=== PATIENT | male | born 1975 | race Two or more races ===

== ENCOUNTER 2020-02-15 11:06 | Outpatient (REF) | payer MEDICAID, SELFPAY ==
[2020-02-15 13:00] LABS: Hematocrit 45.2 % (42-52); Hemoglobin 14.8 g/dl (14.0-18.0); Mean Corpuscular HGB Conc 32.7 g/dl (31.0-36.0); Mean Corpuscular Hemoglobin 29.2 pg (27.0-33.0); Mean Corpuscular Volume 89.2 fL (80-98); Mean Platelet Volume 12.3 fL (9.4-12.4); Platelet Count 155 X10*3/uL (160-400); Red Blood Count 5.07 X10*6/uL (4.60-5.80); Red Cell Distribution Width 11.6 % (11.0-16.0); White Blood Count 8.3 X10*3/uL (4.8-10.8)
[2020-02-15 13:07] LABS: Estimated Average Glucose 183 mg/dL
[2020-02-15 13:26] LABS: Alanine Aminotransferase 24 U/L (0-40); Albumin Level 4.1 g/dL (3.5-5.0); Alkaline Phosphatase 91 U/L (39-117); Anion Gap 12 (12-20); Aspartate Amino Transferase 13 U/L (5-37); Bilirubin Total 0.5 mg/dL (0.0-1.0); Blood Urea Nitrogen 15 mg/dL (9-16); Calcium 8.7 mg/dL (8.4-10.2); Carbon Dioxide 27 mmol/L (22-29); Chloride 105 mmol/L (96-108); Cholesterol 122 mg/dL; Estimated Glomerular Filt Rate > 60; Glucose Fasting 154 mg/dL (60-99); HDL Cholesterol 39 mg/dL; Iron 66 mcg/dL (45-160); LDL Cholesterol Calculated 69 mg/dl; Percent Iron Saturation 24 % (15-50); Potassium 4.6 mmol/l (3.3-5.1); Sodium 139 mmol/L (135-145); Total Iron Binding Capacity 273 mcg/dL (228-428); Total Protein 6.9 g/dL (6.5-8.0); Triglycerides 74 mg/dL; Unsaturated Iron Binding 207 ug/dL
[2020-02-15 13:32] LABS: Creatinine Urine 243.38 mg/dL; Microalbum/Creatinine Ratio Ur 6.1 ug/mg cr
[2020-02-15 13:48] LABS: Ferritin 210 ng/mL (20-250); TSH reflex Free T4 1.34 mIU/mL (0.32-4.0); Vitamin D 25-OH Total 22.4 ng/mL (>30)
[2020-02-15 13:57] LABS: Folate 13.4 ng/mL (> or = 4.0); Vitamin B12 629 pg/mL (200-900)
[2020-02-18 08:01] LABS: ~HepC Num1 0.14 S/CO (0.00-0.79); ~Hepatitis C Antibody Nonreactive (Nonreactive)
[2020-02-18 08:07] LABS: HBc Num1 0.05 S/CO (0.00-0.79); HBsAGNum1 0.24 S/CO (0.00-0.99); Hepatitis B Core Antibody Nonreactive (Nonreactive); Hepatitis B Surface Antigen Negative (Negative)
[2020-02-18 08:31] LABS: HBS Num1 0.61 mIU/mL (0-7.99); ~Hepatitis B Surface Antibody NONREACTIVE (Nonreactive)
[2020-02-20 07:45] LABS: Hepatitis A Antibody IgG Nonreactive (Nonreactive); ~Hepatitis A Antibody IgG 0.34 S/CO (0.00-0.99)
== END 2020-02-15 11:07 | disposition home or self-care (01) ==
LOC: HO.LAB 11:06
PROVIDERS: PCP Registered Nurse; Visit Provider Registered Nurse
DX: E11.42 Type 2 diabetes mellitus with diabetic polyneuropathy (principal); E11.69 Type 2 diabetes mellitus with other specified complication; I10 Essential (primary) hypertension; Z71.89 Other specified counseling
CPT/HCPCS: 36415; 80053; 80061; 82043; 82306; 82607; 82728; 82746; 83036; 83540; 84443; 85027; 86704; 86706; 86708; 86803; 87340

== ENCOUNTER 2020-03-10 13:50 | Outpatient (REF) | payer MEDICAID, SELFPAY ==
--- NOTE | 2020-03-10 | US_ITS ---
EXAMINATION: US EXTRACRANIAL CAROTID DUPLEX, BILATERAL CLINICAL INFORMATION: Blurred vision COMPARISON: None TECHNIQUE: Real-time ultrasound and Doppler techniques (integrating B-mode 2-D vascular images, Doppler spectral analysis and color-flow Doppler imaging) were utilized to interrogate the extracranial carotid arteries, the vertebral arteries and proximal subclavian arteries bilaterally. The degree of stenosis is determined by criteria similar to NASCET. FINDINGS: Right Side: 1. There is no atherosclerotic plaque seen in the bifurcation/proximal ICA region. 2. The common carotid artery PSV proximally is 110 cm/s and distally 85.6 cm/s. 3. The proximal internal carotid artery velocities are 59.3 cm/s systolic and 25.9 cm/s diastolic. 4. The proximal external carotid artery PSV is 131 cm/s. 5. The vertebral artery shows antegrade flow. 6. The subclavian artery waveforms are normal. Left Side: 1. There is no atherosclerotic plaque seen in the bifurcation/proximal ICA region. 2. The common carotid artery PSV proximally is 99.0 cm/s and distally 62.9 cm/s. 3. The proximal internal carotid artery velocities are 76.8 cm/s systolic and 34.0 cm/s diastolic. 4. The proximal external carotid artery PSV is 118 cm/s. 5. The vertebral artery shows antegrade flow. 6. The subclavian artery waveforms are normal. US/US carotid duplex BI IMPRESSION: 1. RIGHT: Normal right internal carotid artery without atherosclerotic plaque or hemodynamically significant stenosis. 2. LEFT: Normal left internal carotid artery without atherosclerotic plaque or hemodynamically significant stenosis.
== END 2020-03-10 13:51 | disposition home or self-care (01) ==
LOC: HO.HMGCX 13:50
PROVIDERS: Visit Provider Registered Nurse
DX: E11.3392 Type 2 diabetes mellitus with moderate nonproliferative diabetic retinopathy without macular edema, left eye (principal); H35.82 Retinal ischemia
CPT/HCPCS: 93880

== ENCOUNTER → 2020-07-30 13:43 | Outpatient (BNVA) | payer MEDICAID, SELFPAY | PROVIDERS: Visit Provider Urology | DX: Z13.89 Encounter for screening for other disorder (principal) | CPT/HCPCS: 99212 ==

== ENCOUNTER 2020-09-02 13:50 | Outpatient (REF) | payer MEDICAID, SELFPAY ==
--- NOTE | ~2020-09-02 | US_ITS ---
EXAMINATION: ULTRASOUND DEBBIE COMPLETE CLINICAL INFORMATION: Peripheral vascular disease COMPARISON: None TECHNIQUE: Ankle brachial indices and pulse volume recordings were performed. FINDINGS: The ankle brachial indices are normal measuring 1.2 on the right and 1.1 on the left. Pulse volume recording waveforms at the ankles are normal bilaterally. US/US DEBBIE complete IMPRESSION: Normal ankle-brachial indices bilaterally.
== END 2020-09-02 13:51 | disposition home or self-care (01) ==
LOC: HO.US 13:50
PROVIDERS: Visit Provider Nurse Practitioner
DX: I73.9 Peripheral vascular disease, unspecified (principal)
CPT/HCPCS: 93923

== ENCOUNTER → 2020-10-31 12:54 | Outpatient (BNVA) | payer MEDICAID, SELFPAY | PROVIDERS: Visit Provider Urology | DX: N52.01 Erectile dysfunction due to arterial insufficiency (principal) | CPT/HCPCS: 99212 ==

== ENCOUNTER → 2021-02-06 13:09 | Outpatient (BNVA) | payer MEDICAID, SELFPAY | PROVIDERS: Visit Provider Urology ==

== ENCOUNTER → 2021-05-12 15:28 | Outpatient (BNVA) | payer MEDICAID, SELFPAY | PROVIDERS: Visit Provider Urology | DX: E11.69 Type 2 diabetes mellitus with other specified complication (principal); N52.1 Erectile dysfunction due to diseases classified elsewhere | CPT/HCPCS: 99212 ==

== ENCOUNTER → 2021-08-21 12:37 | Outpatient (BNVA) | payer MEDICAID, SELFPAY | PROVIDERS: PCP Nurse Practitioner; Visit Provider Urology | DX: Z13.89 Encounter for screening for other disorder (principal) ==

== ENCOUNTER → 2021-09-02 08:57 | Outpatient (BNVA) | payer MEDICAID, SELFPAY | PROVIDERS: PCP Nurse Practitioner; Visit Provider Nurse Practitioner Family | DX: E11.40 Type 2 diabetes mellitus with diabetic neuropathy, unspecified (principal); M53.3 Sacrococcygeal disorders, not elsewhere classified; M47.816 Spondylosis without myelopathy or radiculopathy, lumbar region; M79.18 Myalgia, other site | CPT/HCPCS: 99202 ==

== ENCOUNTER → 2021-10-07 09:57 | Outpatient (BNVA) | payer MEDICAID, SELFPAY | PROVIDERS: PCP Nurse Practitioner; Visit Provider Nurse Practitioner Family | DX: E11.40 Type 2 diabetes mellitus with diabetic neuropathy, unspecified (principal); M53.3 Sacrococcygeal disorders, not elsewhere classified; M47.816 Spondylosis without myelopathy or radiculopathy, lumbar region; M79.18 Myalgia, other site | CPT/HCPCS: 99212 ==

== ENCOUNTER 2021-10-20 10:00 | Outpatient (RCR) | payer MEDICAID, SELFPAY ==
--- NOTE | 2021-10-16 14:58 | MHC.PT.EP ---
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 Reports LBP for 2 years of insidious onset which has recently worsened with pain radiating down R posterior LE. His symptoms are constant but vary in intensity and worse with carrying groceries, walking > 10min, sitting, sleeping , and descending stairs. Examination shows decreased lumbar AROM, decreased hip/core strength, intact reflexes and sensation (except B feet due to neuropathy), altered SI mechanics, pain, and impaired gait pattern. S/s consistent with lumbar dysfunction. Recommend PT 2x/week for 5 weeks to address impairments, implement HEP, and optimize functional mobility. Frequency and Duration: The patient will be seen 2x/week for 5 weeks Short Term Goals: 3 weeks 1 I with HEP 2. Improve lumbar AROM to 75% throughout to facilitate dressing 3. Demonstrate reciprocal arm swing with gait Tub Chucker Goals: 5 weeks 1. I with HEP and self management of sx 2. Improve hip strength to 4+/5 B to faciliate stairs 3. Pt will be able to ambulate > 20 min with pain < 3/10 Treatment Plan: Modalities to reduce pain, spasms and effusion. Manual therapy to restore motion and function. Therapeutic exercise to improve strength and flexibility. Neuromuscular re-education for posture and balance. Therapeutic activities to return to functional activities of daily living. Electronically signed by: Viry Curtis PT Please sign and return to therapist. Thank you for your referral.
--- NOTE | 2021-11-06 13:38 | MHC.PT.DC ---
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 Electronically signed by: Viry Curtis PT Please sign and return to therapist. Thank you for your referral.
== END 2021-11-06 13:38 | disposition home or self-care (01) ==
LOC: HO.PTCHIC 10:00
PROVIDERS: PCP Nurse Practitioner; Visit Provider Nurse Practitioner Family
DX: M79.18 Myalgia, other site (principal); M53.3 Sacrococcygeal disorders, not elsewhere classified; M47.816 Spondylosis without myelopathy or radiculopathy, lumbar region
CPT/HCPCS: 97110; 97112; 97140; 97161

== ENCOUNTER 2022-02-22 14:19 | Emergency (ER) | payer MEDICAID, SELFPAY ==
--- NOTE | ~2022-02-22 | XR_ITS ---
EXAMINATION: XR CHEST CLINICAL INFORMATION: Chest pain and shortness of breath COMPARISON: None TECHNIQUE: Frontal view of the chest was obtained. FINDINGS: No significant abnormality is noted involving the heart, lungs, mediastinum, bony thorax or soft tissues. XR/XR chest 1V IMPRESSION: Unremarkable examination.
[2022-02-22 15:48] VITALS: BP 144/101; PULSE 122; RESP 20; TEMP 37.1; O2SAT 96; BMI 31.9
--- NOTE | 2022-02-22 15:51 | ED.GENADULT ---
HPI - General Adult General Chief complaint: General Medical <TARA Lopez - Last Filed: 02/22/22 15:54> Stated complaint: Chest pain/nerve pain in feet <TARA Lopez - Last Filed: 02/22/22 15:54> Time Seen by Provider: 02/22/22 20:26 <TARA Lopez - Last Filed: 02/22/22 15:54> Source: patient <Familia Serra MD - Last Filed: 02/22/22 22:51> Mode of arrival: ambulatory <Familia Serra MD - Last Filed: 02/22/22 22:51> Limitations: no limitations <Familia Serra MD - Last Filed: 02/22/22 22:51> History of Present Illness HPI narrative: Patient diabetic, hypertension, diabetic neuropathy usually blood sugar is less than 200 comes here for ongoing neuropathy pain for few months also complaining of chest pain for last 2 weeks almost every days sharp in character lasting only for few seconds today patient did take his insulin or blood pressure medicine no shortness of breath patient does have cough also for last few days with mucoid phlegm chest pain increases with cough <Familia Serra MD - Last Filed: 02/22/22 22:51> Related Data Home medications: Home Medications Medication Instructions Recorded Confirmed atorvastatin 40 mg tablet 40 mg PO DAILY 07/30/20 10/07/21 glipizide 10 mg tablet 10 mg PO DAILY 07/30/20 10/07/21 metformin 1,000 mg tablet 1,000 mg PO DAILY 07/30/20 10/07/21 acetaminophen 300 mg-codeine 30 mg 1 tab PO Q8H PRN 08/21/21 10/07/21 tablet blood sugar diagnostic (FreeStyle #10 ea 08/21/21 10/07/21 Lite Strips) cholecalciferol (vitamin D3) 50 50 mcg PO BID 08/21/21 10/07/21 mcg (2,000 unit) capsule cyanocobalamin (vitamin B-12) 1,000 mcg PO DAILY 08/21/21 10/07/21 1,000 mcg tablet dulaglutide 4.5 mg/0.5 mL mg subcut QWEEK 08/21/21 10/07/21 subcutaneous pen injector (Trulicity) duloxetine 20 mg capsule,delayed 20 mg PO DAILY 08/21/21 10/07/21 release duloxetine 60 mg capsule,delayed 60 mg PO DAILY 08/21/21 10/07/21 release empagliflozin 10 mg tablet 10 mg PO QAM 08/21/21 10/07/21 (Jardiance) hydrochlorothiazide 25 mg tablet 25 mg PO DAILY 08/21/21 10/07/21 lisinopril 40 mg tablet 40 mg PO DAILY blood pressure 08/21/21 10/07/21 pantoprazole 40 mg tablet,delayed 40 mg PO DAILY 08/21/21 10/07/21 release Previous Rx's Medication Instructions Recorded sildenafil 100 mg tablet 100 mg PO DAILY PRN sexual 08/21/21 activity 30 days #30 tabs tadalafil 10 mg tablet 10 mg PO DAILY sexual activity 90 08/21/21 days #90 tabs ibuprofen 400 mg tablet 400 mg PO BID PRN pain 30 days #60 10/07/21 tabs tizanidine 2 mg tablet 4 mg PO BEDTIME PRN muscle 10/07/21 spasticity #60 tabs amoxicillin 875 mg-potassium 1 tab PO BID #20 tabs 02/22/22 clavulanate 125 mg tablet codeine 10 mg-guaifenesin 100 mg/5 10 ml PO Q6H PRN cough #237 mL 02/22/22 mL oral liquid <TARA Lopez - Last Filed: 02/22/22 15:54> Allergies/adverse reactions: Allergies Allergy/AdvReac Type Severity Reaction Status Date / Time No Known Allergies Allergy Verified 02/22/22 15:54 <TARA Lopez - Last Filed: 02/22/22 15:54> Review of Systems Review of Systems: Yes all other systems are reviewed and are negative <Familia Serra MD - Last Filed: 02/22/22 22:51> [facility] Past Medical History Medical History: Medical History Asthma Diabetes mellitus, type II Diabetic polyneuropathy Erectile dysfunction High cholesterol <TARA Lopez - Last Filed: 02/22/22 15:54> Family History Family History: Family History Mother CAD (coronary artery disease) Father Diabetes <TARA Lopez - Last Filed: 02/22/22 15:54> Social History Social History: Social History Household Members: None Housing: House Alcohol intake: current Alcohol intake frequency: a few times a month Patient Tobacco Use Status: Never used Tobacco Smoked in Last 30 Days: No Use of substances other than those prescribed or required for medical reasons: No Advance Directives: No Advance Directives Information Provided: No <TARA Lopez - Last Filed: 02/22/22 15:54> Physical Exam ED Vital Signs: Vital Signs - 24 hr 02/22/22 15:48 02/22/22 19:25 02/22/22 20:38 Temperature 98.8 F 99.5 F 101.8 F H Pulse Rate 122 H 117 H 114 H Respiratory Rate 20 16 19 Blood Pressure 144/101 H 138/89 142/94 H Pulse Oximetry 96 98 94 Oxygen Delivery Method Room Air Room Air Room Air 02/22/22 21:29 02/22/22 22:05 02/22/22 22:07 Temperature 98.7 F 98.7 F Pulse Rate 110 H 111 H 110 H Respiratory Rate 30 H 22 H 22 H Blood Pressure 142/94 H 131/86 131/86 Pulse Oximetry 94 97 Oxygen Delivery Method Room Air BMI result Body Mass Index 31.9 <TARA Lopez - Last Filed: 02/22/22 15:54> Vital Signs - 24 hr 02/22/22 15:48 02/22/22 19:25 02/22/22 20:38 Temperature 98.8 F 99.5 F 101.8 F H Pulse Rate 122 H 117 H 114 H Respiratory Rate 20 16 19 Blood Pressure 144/101 H 138/89 142/94 H Pulse Oximetry 96 98 94 Oxygen Delivery Method Room Air Room Air Room Air 02/22/22 21:29 02/22/22 22:05 02/22/22 22:07 Temperature 98.7 F 98.7 F Pulse Rate 110 H 111 H 110 H Respiratory Rate 30 H 22 H 22 H Blood Pressure 142/94 H 131/86 131/86 Pulse Oximetry 94 97 Oxygen Delivery Method Room Air BMI result Body Mass Index 31.9 <Familia Serra MD - Last Filed: 02/22/22 22:51> Appearance: Alert. Oriented X3. No acute distress. Eyes: PERRLA, No Nystagmus ENT: Pharynx normal. Oral Mucosa moist Neck: Normal inspection. Neck supple. CVS: Normal heart rate and rhythm. Pulses normal. Respiratory: No respiratory distress. Equal air entry bilateral, no wheezing/rales/rhonchi Abdomen: Soft and nontender. Bowel sounds are present, no mass palpable, no CVA tenderness Skin: Skin warm and dry. Normal skin color. Normal skin turgor. Extremities: No lower extremity edema. No calf tenderness Neuro: Oriented X 3. No motor deficit. No sensory deficit. <Familia Serra MD - Last Filed: 02/22/22 22:51> Course Reevaluation(s) Reevaluation #1: 46 year old male hx dm, erectile dysfunction, hyn, presents w/ stabbing left sided cp non radiating, described as pressure for over two months w/ vague complaints of sob. Also reporting numbness to b/l lower extremities for months as well. Tells me he has had a lingering cough for few weeks and when he coughs he feels light headed. Reports poorly controlled diabetic. No significant personal or family cardiac hx. Non smoker. Denies fevers, chills, headache, vision changes, nausea, vomiting. No sick contacts. PE- tachycardic 120, otherwise benign exam. Negative sulema b/l Plan- labs, imaging, covid <TARA Lopez - Last Filed: 02/22/22 15:54> Time: 15:54 <TARA Lopez - Last Filed: 02/22/22 15:54> Medications Administered Discontinued Medications Generic Name Dose Route Start Last Admin Trade Name Freq PRN Reason Stop Dose Admin Acetaminophen 975 mg 02/22/22 20:40 02/22/22 20:46 Acetaminophen 325 Mg Tablet PO 02/22/22 20:41 975 mg ONCE ONE Administration Amoxicillin/Clavulanate Potassium 875 mg 02/22/22 21:46 02/22/22 22:07 Amoxicillin/Potassium Clav 875 Mg Tablet PO 02/22/22 21:47 875 mg ONCE ONE Administration Metoprolol Tartrate 50 mg 02/22/22 21:47 02/22/22 22:07 Metoprolol Tartrate 50 Mg Tablet PO 02/22/22 21:48 50 mg ONCE ONE Administration Protocol Sodium Zirconium Cyclosilicate 5 gm 02/22/22 18:54 02/22/22 20:45 Sodium Zirconium Cyclosilicate 5 Gm Powd.Pack PO 02/22/22 18:55 5 gm ONCE ONE Administration <TARA Lopez - Last Filed: 02/22/22 15:54> Medications Administered Discontinued Medications Generic Name Dose Route Start Last Admin Trade Name Freq PRN Reason Stop Dose Admin Acetaminophen 975 mg 02/22/22 20:40 02/22/22 20:46 Acetaminophen 325 Mg Tablet PO 02/22/22 20:41 975 mg ONCE ONE Administration Amoxicillin/Clavulanate Potassium 875 mg 02/22/22 21:46 02/22/22 22:07 Amoxicillin/Potassium Clav 875 Mg Tablet PO 02/22/22 21:47 875 mg ONCE ONE Administration Metoprolol Tartrate 50 mg 02/22/22 21:47 02/22/22 22:07 Metoprolol Tartrate 50 Mg Tablet PO 02/22/22 21:48 50 mg ONCE ONE Administration Protocol Sodium Zirconium Cyclosilicate 5 gm 02/22/22 18:54 02/22/22 20:45 Sodium Zirconium Cyclosilicate 5 Gm Powd.Pack PO 02/22/22 18:55 5 gm ONCE ONE Administration <Familia Serra MD - Last Filed: 02/22/22 22:51> Medical Decision Making [facility] Narrative Medical decision making narrative: Patient With atypical chest pain for weeks with diabetic neuropathy already has medications at home been coughing for last few days likely bronchitis chest x-ray negative will discharge patient home on Augmentin as the patient had fever earlier. Patient had slightly elevated potassium without any EKG changes unknown cause likely increase potassium intake <Familia Serra MD - Last Filed: 02/22/22 22:51> Lab Data Lab results reviewed: Yes I reviewed the patient's lab results. <Familia Serra MD - Last Filed: 02/22/22 22:51> Result diagrams: : 02/22/22 16:42 02/22/22 19:23 <TARA Lopez - Last Filed: 02/22/22 15:54> Labs: Lab Results 02/22/22 02/22/22 02/22/22 Range/Units 16:42 16:42 16:42 WBC 10.9 H (4.8-10.8) X10*3/uL RBC 5.51 (4.60-5.80) X10*6/uL Hgb 15.9 (14.0-18.0) g/dl Hct 48.3 (42.0-52.0) % MCV 87.7 (80.0-98.0) fL MCH 28.9 (27.0-33.0) pg MCHC 32.9 (31.0-36.0) g/dl RDW 11.7 (11.0-16.0) % Plt Count 220 (160-400) X10*3/uL MPV 11.0 (9.4-12.4) fL Immature Gran % (Auto) 0.9 H (0.0-0.4) % Neut % (Auto) 72.2 (45-73) % Lymph % (Auto) 13.4 L (20-40) % [place] % (Auto) 11.6 H (2-11) % Eos % (Auto) 1.4 (0-4) % Baso % (Auto) 0.5 (0-2) % Lymph # (Auto) 1.5 (1.2-4.9) X10*3/uL [place] # (Auto) 1.3 H (0.1-1.2) X10*3/uL Eos # (Auto) 0.2 (0.0-0.4) X10*3/uL Baso # (Auto) 0.1 (0.0-0.2) X10*3/uL Abs Immat Gran (auto) 0.10 H (0.00-0.03) X10*3/uL Absolute Neuts (auto) 7.9 (2.0-8.3) x10*3/uL Absolute Nucleated RBC 0.000 (0.0-0.012) X10*3/uL Nucleated RBC % (auto) 0.0 (0.0-0.2) /100WBC Sodium 131 L (135-145) mmol/L Potassium 5.2 H (3.3-5.1) mmol/L Chloride 99 (96-108) mmol/L Carbon Dioxide 23 (22-29) mmol/L Anion Gap 14 (12-20) BUN 15 (9-16) mg/dL Creatinine 1.12 (0.5-1.4) mg/dL Estim Creat Clear Calc 94.2 Estimated GFR > 60 POC Glucose (60-115) mg/dL Random Glucose 428 H* (60-115) mg/dL Calcium 9.4 D (8.4-10.2) mg/dL Magnesium 2.0 (1.6-2.6) mg/dL Total Bilirubin 0.9 (0.0-1.0) mg/dL AST 19 (5-37) U/L ALT 33 (0-40) U/L Alkaline Phosphatase 117 (39-117) U/L Troponin I High Sens < 3.5 (<3.5-35.0) ng/L B-Natriuretic Peptide (<100) pg/mL Total Protein 7.9 (6.5-8.0) g/dL Albumin 4.4 (3.5-5.0) g/dL Urine Color Urine Appearance Urine pH (5.0-9.0) Ur Specific [place] (1.005-1.025) Urine Protein (Neg-Trace) mg/dL Urine Glucose (UA) (Negative) mg/dL Urine Ketones (Negative) mg/dL Urine Blood (Negative) Urine Nitrite (Negative) Ur Leukocyte Esterase (Negative) Urine RBC (0-2) /HPF Urine WBC (0-5) /HPF Ur Squamous Epith Cells (0-2) /HPF Urine Bacteria (None Seen) Hyaline Casts (0-2) /LPF COVID-19 (PHAN) (Negative) COVID-19 Clin Com 02/22/22 02/22/22 02/22/22 Range/Units 16:42 16:43 17:32 WBC (4.8-10.8) X10*3/uL RBC (4.60-5.80) X10*6/uL Hgb (14.0-18.0) g/dl Hct (42.0-52.0) % MCV (80.0-98.0) fL MCH (27.0-33.0) pg MCHC (31.0-36.0) g/dl RDW (11.0-16.0) % Plt Count (160-400) X10*3/uL MPV (9.4-12.4) fL Immature Gran % (Auto) (0.0-0.4) % Neut % (Auto) (45-73) % Lymph % (Auto) (20-40) % [place] % (Auto) (2-11) % Eos % (Auto) (0-4) % Baso % (Auto) (0-2) % Lymph # (Auto) (1.2-4.9) X10*3/uL [place] # (Auto) (0.1-1.2) X10*3/uL Eos # (Auto) (0.0-0.4) X10*3/uL Baso # (Auto) (0.0-0.2) X10*3/uL Abs Immat Gran (auto) (0.00-0.03) X10*3/uL Absolute Neuts (auto) (2.0-8.3) x10*3/uL Absolute Nucleated RBC (0.0-0.012) X10*3/uL Nucleated RBC % (auto) (0.0-0.2) /100WBC Sodium (135-145) mmol/L Potassium (3.3-5.1) mmol/L Chloride (96-108) mmol/L Carbon Dioxide (22-29) mmol/L Anion Gap (12-20) BUN (9-16) mg/dL Creatinine (0.5-1.4) mg/dL Estim Creat Clear Calc Estimated GFR POC Glucose (60-115) mg/dL Random Glucose (60-115) mg/dL Calcium (8.4-10.2) mg/dL Magnesium (1.6-2.6) mg/dL Total Bilirubin (0.0-1.0) mg/dL AST (5-37) U/L ALT (0-40) U/L Alkaline Phosphatase (39-117) U/L Troponin I High Sens (<3.5-35.0) ng/L B-Natriuretic Peptide < 10 (<100) pg/mL Total Protein (6.5-8.0) g/dL Albumin (3.5-5.0) g/dL Urine Color Yellow Urine Appearance Clear Urine pH 5.5 (5.0-9.0) Ur Specific [place] >= 1.030 H (1.005-1.025) Urine Protein 100 (2+) H (Neg-Trace) mg/dL Urine Glucose (UA) >=1000 H (Negative) mg/dL Urine Ketones 40 (Negative) mg/dL Urine Blood Negative (Negative) Urine Nitrite Negative (Negative) Ur Leukocyte Esterase Negative (Negative) Urine RBC 0-2 (0-2) /HPF Urine WBC 0-5 (0-5) /HPF Ur Squamous Epith Cells 0-2 (0-2) /HPF Urine Bacteria None Seen (None Seen) Hyaline Casts 3-5 (0-2) /LPF COVID-19 (PHAN) Negative (Negative) COVID-19 Clin Com See Note 02/22/22 02/22/22 02/22/22 Range/Units 19:23 19:27 21:28 WBC (4.8-10.8) X10*3/uL RBC (4.60-5.80) X10*6/uL Hgb (14.0-18.0) g/dl Hct (42.0-52.0) % MCV (80.0-98.0) fL MCH (27.0-33.0) pg MCHC (31.0-36.0) g/dl RDW (11.0-16.0) % Plt Count (160-400) X10*3/uL MPV (9.4-12.4) fL Immature Gran % (Auto) (0.0-0.4) % Neut % (Auto) (45-73) % Lymph % (Auto) (20-40) % [place] % (Auto) (2-11) % Eos % (Auto) (0-4) % Baso % (Auto) (0-2) % Lymph # (Auto) (1.2-4.9) X10*3/uL [place] # (Auto) (0.1-1.2) X10*3/uL Eos # (Auto) (0.0-0.4) X10*3/uL Baso # (Auto) (0.0-0.2) X10*3/uL Abs Immat Gran (auto) (0.00-0.03) X10*3/uL Absolute Neuts (auto) (2.0-8.3) x10*3/uL Absolute Nucleated RBC (0.0-0.012) X10*3/uL Nucleated RBC % (auto) (0.0-0.2) /100WBC Sodium 131 L (135-145) mmol/L Potassium 5.2 H (3.3-5.1) mmol/L Chloride 98 (96-108) mmol/L Carbon Dioxide 23 (22-29) mmol/L Anion Gap 15 (12-20) BUN 16 (9-16) mg/dL Creatinine 1.11 (0.5-1.4) mg/dL Estim Creat Clear Calc 95.0 Estimated GFR > 60 POC Glucose 360 H* 299 H (60-115) mg/dL Random Glucose 388 H* (60-115) mg/dL Calcium 9.5 (8.4-10.2) mg/dL Magnesium (1.6-2.6) mg/dL Total Bilirubin (0.0-1.0) mg/dL AST (5-37) U/L ALT (0-40) U/L Alkaline Phosphatase (39-117) U/L Troponin I High Sens (<3.5-35.0) ng/L B-Natriuretic Peptide (<100) pg/mL Total Protein (6.5-8.0) g/dL Albumin (3.5-5.0) g/dL Urine Color Urine Appearance Urine pH (5.0-9.0) Ur Specific [place] (1.005-1.025) Urine Protein (Neg-Trace) mg/dL Urine Glucose (UA) (Negative) mg/dL Urine Ketones (Negative) mg/dL Urine Blood (Negative) Urine Nitrite (Negative) Ur Leukocyte Esterase (Negative) Urine RBC (0-2) /HPF Urine WBC (0-5) /HPF Ur Squamous Epith Cells (0-2) /HPF Urine Bacteria (None Seen) Hyaline Casts (0-2) /LPF COVID-19 (PHAN) (Negative) COVID-19 Clin Com <TARA Lopez - Last Filed: 02/22/22 15:54> Lab Results 02/22/22 02/22/22 02/22/22 Range/Units 16:42 16:42 16:42 WBC 10.9 H (4.8-10.8) X10*3/uL RBC 5.51 (4.60-5.80) X10*6/uL Hgb 15.9 (14.0-18.0) g/dl Hct 48.3 (42.0-52.0) % MCV 87.7 (80.0-98.0) fL MCH 28.9 (27.0-33.0) pg MCHC 32.9 (31.0-36.0) g/dl RDW 11.7 (11.0-16.0) % Plt Count 220 (160-400) X10*3/uL MPV 11.0 (9.4-12.4) fL Immature Gran % (Auto) 0.9 H (0.0-0.4) % Neut % (Auto) 72.2 (45-73) % Lymph % (Auto) 13.4 L (20-40) % [place] % (Auto) 11.6 H (2-11) % Eos % (Auto) 1.4 (0-4) % Baso % (Auto) 0.5 (0-2) % Lymph # (Auto) 1.5 (1.2-4.9) X10*3/uL [place] # (Auto) 1.3 H (0.1-1.2) X10*3/uL Eos # (Auto) 0.2 (0.0-0.4) X10*3/uL Baso # (Auto) 0.1 (0.0-0.2) X10*3/uL Abs Immat Gran (auto) 0.10 H (0.00-0.03) X10*3/uL Absolute Neuts (auto) 7.9 (2.0-8.3) x10*3/uL Absolute Nucleated RBC 0.000 (0.0-0.012) X10*3/uL Nucleated RBC % (auto) 0.0 (0.0-0.2) /100WBC Sodium 131 L (135-145) mmol/L Potassium 5.2 H (3.3-5.1) mmol/L Chloride 99 (96-108) mmol/L Carbon Dioxide 23 (22-29) mmol/L Anion Gap 14 (12-20) BUN 15 (9-16) mg/dL Creatinine 1.12 (0.5-1.4) mg/dL Estim Creat Clear Calc 94.2 Estimated GFR > 60 POC Glucose (60-115) mg/dL Random Glucose 428 H* (60-115) mg/dL Calcium 9.4 D (8.4-10.2) mg/dL Magnesium 2.0 (1.6-2.6) mg/dL Total Bilirubin 0.9 (0.0-1.0) mg/dL AST 19 (5-37) U/L ALT 33 (0-40) U/L Alkaline Phosphatase 117 (39-117) U/L Troponin I High Sens < 3.5 (<3.5-35.0) ng/L B-Natriuretic Peptide (<100) pg/mL Total Protein 7.9 (6.5-8.0) g/dL Albumin 4.4 (3.5-5.0) g/dL Urine Color Urine Appearance Urine pH (5.0-9.0) Ur Specific [place] (1.005-1.025) Urine Protein (Neg-Trace) mg/dL Urine Glucose (UA) (Negative) mg/dL Urine Ketones (Negative) mg/dL Urine Blood (Negative) Urine Nitrite (Negative) Ur Leukocyte Esterase (Negative) Urine RBC (0-2) /HPF Urine WBC (0-5) /HPF Ur Squamous Epith Cells (0-2) /HPF Urine Bacteria (None Seen) Hyaline Casts (0-2) /LPF COVID-19 (PHAN) (Negative) COVID-19 Clin Com 02/22/22 02/22/22 02/22/22 Range/Units 16:42 16:43 17:32 WBC (4.8-10.8) X10*3/uL RBC (4.60-5.80) X10*6/uL Hgb (14.0-18.0) g/dl Hct (42.0-52.0) % MCV (80.0-98.0) fL MCH (27.0-33.0) pg MCHC (31.0-36.0) g/dl RDW (11.0-16.0) % Plt Count (160-400) X10*3/uL MPV (9.4-12.4) fL Immature Gran % (Auto) (0.0-0.4) % Neut % (Auto) (45-73) % Lymph % (Auto) (20-40) % [place] % (Auto) (2-11) % Eos % (Auto) (0-4) % Baso % (Auto) (0-2) % Lymph # (Auto) (1.2-4.9) X10*3/uL [place] # (Auto) (0.1-1.2) X10*3/uL Eos # (Auto) (0.0-0.4) X10*3/uL Baso # (Auto) (0.0-0.2) X10*3/uL Abs Immat Gran (auto) (0.00-0.03) X10*3/uL Absolute Neuts (auto) (2.0-8.3) x10*3/uL Absolute Nucleated RBC (0.0-0.012) X10*3/uL Nucleated RBC % (auto) (0.0-0.2) /100WBC Sodium (135-145) mmol/L Potassium (3.3-5.1) mmol/L Chloride (96-108) mmol/L Carbon Dioxide (22-29) mmol/L Anion Gap (12-20) BUN (9-16) mg/dL Creatinine (0.5-1.4) mg/dL Estim Creat Clear Calc Estimated GFR POC Glucose (60-115) mg/dL Random Glucose (60-115) mg/dL Calcium (8.4-10.2) mg/dL Magnesium (1.6-2.6) mg/dL Total Bilirubin (0.0-1.0) mg/dL AST (5-37) U/L ALT (0-40) U/L Alkaline Phosphatase (39-117) U/L Troponin I High Sens (<3.5-35.0) ng/L B-Natriuretic Peptide < 10 (<100) pg/mL Total Protein (6.5-8.0) g/dL Albumin (3.5-5.0) g/dL Urine Color Yellow Urine Appearance Clear Urine pH 5.5 (5.0-9.0) Ur Specific [place] >= 1.030 H (1.005-1.025) Urine Protein 100 (2+) H (Neg-Trace) mg/dL Urine Glucose (UA) >=1000 H (Negative) mg/dL Urine Ketones 40 (Negative) mg/dL Urine Blood Negative (Negative) Urine Nitrite Negative (Negative) Ur Leukocyte Esterase Negative (Negative) Urine RBC 0-2 (0-2) /HPF Urine WBC 0-5 (0-5) /HPF Ur Squamous Epith Cells 0-2 (0-2) /HPF Urine Bacteria None Seen (None Seen) Hyaline Casts 3-5 (0-2) /LPF COVID-19 (PHAN) Negative (Negative) COVID-19 Clin Com See Note 02/22/22 02/22/22 02/22/22 Range/Units 19:23 19:27 21:28 WBC (4.8-10.8) X10*3/uL RBC (4.60-5.80) X10*6/uL Hgb (14.0-18.0) g/dl Hct (42.0-52.0) % MCV (80.0-98.0) fL MCH (27.0-33.0) pg MCHC (31.0-36.0) g/dl RDW (11.0-16.0) % Plt Count (160-400) X10*3/uL MPV (9.4-12.4) fL Immature Gran % (Auto) (0.0-0.4) % Neut % (Auto) (45-73) % Lymph % (Auto) (20-40) % [place] % (Auto) (2-11) % Eos % (Auto) (0-4) % Baso % (Auto) (0-2) % Lymph # (Auto) (1.2-4.9) X10*3/uL [place] # (Auto) (0.1-1.2) X10*3/uL Eos # (Auto) (0.0-0.4) X10*3/uL Baso # (Auto) (0.0-0.2) X10*3/uL Abs Immat Gran (auto) (0.00-0.03) X10*3/uL Absolute Neuts (auto) (2.0-8.3) x10*3/uL Absolute Nucleated RBC (0.0-0.012) X10*3/uL Nucleated RBC % (auto) (0.0-0.2) /100WBC Sodium 131 L (135-145) mmol/L Potassium 5.2 H (3.3-5.1) mmol/L Chloride 98 (96-108) mmol/L Carbon Dioxide 23 (22-29) mmol/L Anion Gap 15 (12-20) BUN 16 (9-16) mg/dL Creatinine 1.11 (0.5-1.4) mg/dL Estim Creat Clear Calc 95.0 Estimated GFR > 60 POC Glucose 360 H* 299 H (60-115) mg/dL Random Glucose 388 H* (60-115) mg/dL Calcium 9.5 (8.4-10.2) mg/dL Magnesium (1.6-2.6) mg/dL Total Bilirubin (0.0-1.0) mg/dL AST (5-37) U/L ALT (0-40) U/L Alkaline Phosphatase (39-117) U/L Troponin I High Sens (<3.5-35.0) ng/L B-Natriuretic Peptide (<100) pg/mL Total Protein (6.5-8.0) g/dL Albumin (3.5-5.0) g/dL Urine Color Urine Appearance Urine pH (5.0-9.0) Ur Specific [place] (1.005-1.025) Urine Protein (Neg-Trace) mg/dL Urine Glucose (UA) (Negative) mg/dL Urine Ketones (Negative) mg/dL Urine Blood (Negative) Urine Nitrite (Negative) Ur Leukocyte Esterase (Negative) Urine RBC (0-2) /HPF Urine WBC (0-5) /HPF Ur Squamous Epith Cells (0-2) /HPF Urine Bacteria (None Seen) Hyaline Casts (0-2) /LPF COVID-19 (PHAN) (Negative) COVID-19 Clin Com <Familia Serra MD - Last Filed: 02/22/22 22:51> ECG Data Attestation: I personally reviewed and interpreted this ECG as follows: <Familia Serra MD - Last Filed: 02/22/22 22:51> Interpretation: sinus tachycardia heart rate 116 beats per minute left axis deviation, LVH no acute ST-T no acute ischemia <Familia Serra MD - Last Filed: 02/22/22 22:51> Discharge Plan Discharge Clinical Impression: Myofascial pain, Diabetic neuropathy <TARA Lopez - Last Filed: 02/22/22 15:54> Patient Disposition: Home, Self-Care <TARA Lopez - Last Filed: 02/22/22 15:54> Instructions: Acute Bronchitis (ED), Diabetic Peripheral Neuropathy (ED), Musculoskeletal Pain (ED) <TARA Lopez - Last Filed: 02/22/22 15:54> Additional Instructions: Take antibiotics as advised Avoid food containing high potassium like bananas/oranges Take your insulin on time Cough syrup as advised <TARA Lopez - Last Filed: 02/22/22 15:54> Prescriptions: New amoxicillin-pot clavulanate 875-125 mg tablet 1 tab PO BID Qty: 20 0RF codeine-guaifenesin 10-100 mg/5 mL liquid 10 ml PO Q6H PRN (Reason: cough) Qty: 237 0RF No Action metformin 1,000 mg tablet 1,000 mg PO DAILY glipizide 10 mg tablet 10 mg PO DAILY atorvastatin 40 mg tablet 40 mg PO DAILY Trulicity 4.5 mg/0.5 mL pen injector subcut QWEEK cholecalciferol (vitamin D3) 50 mcg (2,000 unit) capsule 50 mcg PO BID lisinopril 40 mg tablet 40 mg PO DAILY (DME) FreeStyle Lite Strips Strip See Rx Instructions .ROUTE TID Qty: 10 Rx Instructions: As directed cyanocobalamin (vitamin B-12) 1,000 mcg tablet 1,000 mcg PO DAILY Jardiance 10 mg tablet 10 mg PO QAM duloxetine 60 mg capsule,delayed release(DR/EC) 60 mg PO DAILY acetaminophen-codeine 300-30 mg tablet 1 tab PO Q8H PRN duloxetine 20 mg capsule,delayed release(DR/EC) 20 mg PO DAILY hydrochlorothiazide 25 mg tablet 25 mg PO DAILY pantoprazole 40 mg tablet,delayed release (DR/EC) 40 mg PO DAILY tadalafil 10 mg tablet 10 mg PO DAILY 90 Days Qty: 90 1RF Rx Instructions: Take 1 tablet daily sildenafil 100 mg tablet 100 mg PO DAILY PRN (Reason: sexual activity) 30 Days Qty: 30 1RF Rx Instructions: administer 60 minutes before intended activity tizanidine 2 mg tablet 4 mg PO BEDTIME PRN (Reason: muscle spasticity) Qty: 60 0RF Rx Instructions: start with 1/2 tab as medication can be sedating ibuprofen 400 mg tablet 400 mg PO BID PRN (Reason: pain) 30 Days Qty: 60 0RF <TARA Lopez - Last Filed: 02/22/22 15:54> Interventions: ED Discharge Assessment Last Done: 02/22/22 22:25 <TARA Lopez - Last Filed: 02/22/22 15:54> Discharge Date/Time: 02/22/22 22:26 <TARA Lopez - Last Filed: 02/22/22 15:54>
--- NOTE | 2022-02-22 15:54 | ECG_ITS ---
Test Reason : CHEST PAIN Blood Pressure : / mmHG Vent. Rate : 116 BPM Atrial Rate : 116 BPM P-R Int : 138 ms QRS Dur : 086 ms QT Int : 304 ms P-R-T Axes : 040 -39 018 degrees QTc Int : 422 ms Sinus tachycardia Left anterior fascicular block RSR' or QR pattern in V1 suggests right ventricular conduction delay incomplete transition Minimal voltage criteria for LVH, may be normal variant ( R in aVL ) Abnormal ECG When compared with ECG of 09-JUN-2019 01:56, No significant change was found Referred By: Irwin Vang Electronically Signed By:FOZIA COLUNGA MD
[2022-02-22 16:52] LABS: MANUAL DIFF FLAG NO
[2022-02-22 17:01] LABS: Basophils Absolute Auto 0.1 X10*3/uL (0.0-0.2); Basophils Percent Auto 0.5 % (0-2); Eosinophils Absolute Auto 0.2 X10*3/uL (0.0-0.4); Eosinophils Percent Auto 1.4 % (0-4); Hematocrit 48.3 % (42.0-52.0); Hemoglobin 15.9 g/dl (14.0-18.0); Imm Gran Pct Auto 0.9 % (0.0-0.4); Lymphocytes Absolute Auto 1.5 X10*3/uL (1.2-4.9); Lymphocytes Percent Auto 13.4 % (20-40); Mean Corpuscular HGB Conc 32.9 g/dl (31.0-36.0); Mean Corpuscular Hemoglobin 28.9 pg (27.0-33.0); Mean Corpuscular Volume 87.7 fL (80.0-98.0); Monocytes Absolute Auto 1.3 X10*3/uL (0.1-1.2); Monocytes Percent Auto 11.6 % (2-11); Neutrophils Absolute Auto 7.9 x10*3/uL (2.0-8.3); Neutrophils Percent Auto 72.2 % (45-73); Platelet Count 220 X10*3/uL (160-400); Red Blood Count 5.51 X10*6/uL (4.60-5.80); Red Cell Distribution Width 11.7 % (11.0-16.0); White Blood Count 10.9 X10*3/uL (4.8-10.8)
[2022-02-22 17:16] LABS: COVID-19 Test Negative (Negative); IDNOW Serial# 16C4AD1C
[2022-02-22 17:17] LABS: Troponin-I High Sensitivity < 3.5 ng/L (<3.5-35.0)
[2022-02-22 17:19] LABS: Alanine Aminotransferase 33 U/L (0-40); Albumin Level 4.4 g/dL (3.5-5.0); Alkaline Phosphatase 117 U/L (39-117); Anion Gap 14 (12-20); Aspartate Amino Transferase 19 U/L (5-37); Bilirubin Total 0.9 mg/dL (0.0-1.0); Blood Urea Nitrogen 15 mg/dL (9-16); Calcium 9.4 mg/dL (8.4-10.2); Carbon Dioxide 23 mmol/L (22-29); Chloride 99 mmol/L (96-108); Creatinine Clr Calc Pharmacy 94.2; Estimated Glomerular Filt Rate > 60; Glucose Random 428 mg/dL (60-115); Potassium 5.2 mmol/L (3.3-5.1); Sodium 131 mmol/L (135-145); Total Protein 7.9 g/dL (6.5-8.0)
[2022-02-22 17:54] LABS: Appearance Urine Clear; Color Urine Yellow; Glucose Urine UA >=1000 mg/dL (Negative); Leukocyte Esterase Urine Negative (Negative); Nitrite Urine Negative (Negative); PH 5.5 (5.0-9.0); Specific Gravity - Urine >= 1.030 (1.005-1.025); UMIC TRIGGER UACC YES; Urine Blood Negative (Negative); Urine Ketones 40 mg/dL (Negative); Urine Protein 100 (2+) mg/dL (Neg-Trace)
[2022-02-22 17:59] LABS: Bacteria Urine None Seen (None Seen); RBC Urine 0-2 /HPF (0-2); Squamous Epithelial Cell Urine 0-2 /HPF (0-2); WBC Urine 0-5 /HPF (0-5)
[2022-02-22 18:36] LABS: B Type Natriuretic Peptide < 10 pg/mL (<100)
[2022-02-22 19:25] VITALS: BP 138/89; PULSE 117; RESP 16; TEMP 37.5; O2SAT 98
[2022-02-22 20:01] LABS: Anion Gap 15 (12-20); Blood Urea Nitrogen 16 mg/dL (9-16); Calcium 9.5 mg/dL (8.4-10.2); Carbon Dioxide 23 mmol/L (22-29); Chloride 98 mmol/L (96-108); Estimated Glomerular Filt Rate > 60; Glucose Random 388 mg/dL (60-115); Potassium 5.2 mmol/L (3.3-5.1); Sodium 131 mmol/L (135-145)
--- NOTE | 2022-02-22 20:02 | PC.NURSE ---
critical lab glucose 388 provider made aware
[2022-02-22 20:38] VITALS: BP 142/94; PULSE 114; RESP 19; TEMP 38.8; O2SAT 94
[2022-02-22 20:40] LABS: Glucose, Whole Blood 360 mg/dL (60-115)
--- NOTE | 2022-02-22 20:44 | PC.NURSE ---
MD Onofre made aware of patient's temp = 101.8
[2022-02-22] MEDS: Sodium Zirconium Cyclosilicate 5 GM POWD.PACK PO (20:45)
[2022-02-22] MEDS: Acetaminophen 325 MG TABLET 975 MG PO (20:46)
[2022-02-22 21:29] VITALS: BP 142/94; PULSE 110; RESP 30; TEMP 37.1; O2SAT 94
[2022-02-22 21:33] LABS: Glucose, Whole Blood 299 mg/dL (60-115)
[2022-02-22 22:05] VITALS: BP 131/86; PULSE 111; RESP 22; TEMP 37.1; O2SAT 97
[2022-02-22 22:07] VITALS: BP 131/86; PULSE 110; RESP 22
[2022-02-22] MEDS: Amoxicillin/Potassium Clav 875 MG TABLET PO (22:07)
[2022-02-22] MEDS: Metoprolol Tartrate 50 MG TABLET PO (22:07)
== END 2022-02-22 22:26 | disposition home or self-care (01) ==
PROVIDERS: Physician Assistant; Emergency Provider Internal Medicine
DX: M79.18 Myalgia, other site (principal); E11.40 Type 2 diabetes mellitus with diabetic neuropathy, unspecified; R00.0 Tachycardia, unspecified; Z20.822 Contact with and (suspected) exposure to COVID-19; R06.02 Shortness of breath; R05.9 Cough, unspecified; E78.5 Hyperlipidemia, unspecified; Z79.02 Long term (current) use of antithrombotics/antiplatelets; Z79.84 Long term (current) use of oral hypoglycemic drugs; Z79.899 Other long term (current) drug therapy
CPT/HCPCS: 36415; 71045; 80048; 80053; 81001; 82947; 83735; 83880; 84484; 85025; 87635; 93005; 99283; 99285

== ENCOUNTER → 2022-06-02 08:56 | Outpatient (BNVA) | payer MEDICAID, SELFPAY | PROVIDERS: PCP Internal Medicine Geriatric Medicine; Referring Provider Internal Medicine Geriatric Medicine; Visit Provider Internal Medicine Cardiovascular Disease | DX: R07.89 Other chest pain (principal) | CPT/HCPCS: 93005; 99202 ==

== ENCOUNTER → 2022-06-08 10:36 | Outpatient (REF) | payer MEDICAID, SELFPAY ==
--- NOTE | 2022-06-08 10:38 | CA_ITS ---
Transthoracic Echocardiogram Patient (Last, First, Middle): Santy Duval, Gender: Male Date of : 1975 Age: 47 Procedure Date: 06/08/2022 Procedure Type: Transthoracic Echocardiogram Location: OP Height: 175.26 cm Weight: 102.51 kg BSA: 2.18 m2 Heart Rate: 90 bpm BP: 140 / 80 mmHg Wage And Salary Specialist: JACOBO Referring MD: Gurmeet Gonzalez MD Yeast Fermentation Attendant: Gurmeet Gonzalez MD Symptoms: R07.89 - Other chest pain Study Quality: Adequate w contrast ECG Rhythm: Sinus Conclusions: - 1. Normal LV systolic function with grade 1 diastolic dysfunction 2. Normal cardiac valvular Doppler 3. No gross pericardial effusion Findings Procedure Information Contrast agent, definity, is being given per protocol without apparent complications. Left Ventricle Normal left ventricular size, thickness, and systolic function. The visually estimated ejection fraction is between 55-60%. Spectral Doppler is indicative of an impaired relaxation filling pattern. E/E prime ratio is <8, consistent with normal filling pressures. Evidence suggests grade I (mild) diastolic dysfunction. Right Ventricle Normal right ventricular cavity size and systolic function. Atria Both atria are normal in size. Interatrial shunt cannot be excluded. Aortic Valve The aortic valve structure and function is likely normal. There is no aortic valve stenosis. There is no aortic valve regurgitation. Mitral Valve Normal mitral valve structure and function. There is trace mitral valve regurgitation. There is no mitral valve stenosis. Pulmonic Valve The pulmonic valve was not well visualized. Tricuspid Valve Likely normal tricuspid valve structure and function. Tricuspid regurgitation envelope is inadequate for calculation of right ventricular systolic pressure. Normal right atrial pressure. Great Vessels All visible segments of the aorta are normal in size. The pulmonary artery was not well visualized. Venous The inferior vena cava is normal in size and collapses greater than 50% with inspiration. Pericardium/Pleural There is no evidence of pericardial effusion. Prior Study Comparison No prior study available for comparison. Measurements 2D Linear Measurements IVSd: 1.07 0.6-0.9/0.6-1.0 cm LVIDd: 4.24 3.9-5.3/4.2-5.9 cm LVIDd Index: 1.94 2.4-3.2/2.2-3.1 cm/m2 LVIDs: 3.11 2.0-3.6 cm LVPWd: 0.80 0.7-1.1 cm LA Diam: 3.40 2.7-3.8/3.0-4.0 cm LAIDs Index: 1.56 1.5-2.3 cm/m2 LV Mass: 157.48 67-162/88-224 g LV Mass Index: 72.24 43-95/49-115 g/m2 LVOT Diam: 2.20 3.0+(-)1.3 cm 2D Systolic Function EF 4C: 51.50 >55% EF 2C: 64.30 >55% EF BiP: 57.10 >55% Mitral Valve MV Pk E: 0.60 MV PK A: 0.75 MV Decel Time: 139.00 E/A: 0.80 E'Lateral: 8.49 E/E' Lat: 7.00 PHT: 41.00 MVA PHT: 5.37 Decel Karnes: 4.27 Aortic Valve AoV Pk Juma: 1.19 AoV Pk Grad: 6.00 CHIRAG: 2.32 LVOT LVOT Pk Juma: 0.73 LVOT Mn Juma: 0.48 LVOT VTI: 0.14 LVOT Pk Grad: 2.00 LVOT Mn Grad: 1.00 LVOT Diam: 2.20 LVOT Area: 3.80 Diastolic Function MV Pk E: 0.60 MV Pk A: 0.75 E/A: 0.80 E' Laterial: 8.49 E/E' Lat: 7.00 Tricuspid Valve TR Pk Grad: 19.00 Great Vessels Aorta Sinus of Valsalva: 3.20 2.0-3.5 cm Ao Asc: 2.80 2.1-3.4 cm Pulmonary Valve PV Pk Juma: 0.84 Peak PV Grad: 3.00 Updated in Other Vendor System with Status of Final Gurmeet Gonzalez MD electronically signed on 06/08/2022 3:55:37 PM with status of Final
== END ==
LOC: HO.CARD 10:36
PROVIDERS: PCP Internal Medicine Geriatric Medicine; Visit Provider Internal Medicine Cardiovascular Disease
DX: R07.89 Other chest pain (principal)
CPT/HCPCS: 93306; Q9957

== ENCOUNTER → 2022-06-10 08:51 | Outpatient (REF) | payer MEDICAID, SELFPAY ==
--- NOTE | ~2022-06-10 | NM_ITS ---
Exercise Myocardial perfusion study Indication: Chest pain to evaluate for myocardial ischemia Technique: The patient was brought in for an exercise perfusion study on 06/10/2022. Patient performed exercise as per Reza protocol and was injected 30 mCi of sestamibi was given intravenously one target HR was achieved. Images were obtained using the SPECT gamma camera interlaced with the gating device. Images were obtained in supine position. Resting perfusion study was performed on 06/11/2022. Patient was administered 30 mCi of sestamibi intravenously at rest. Images were then obtained in supine position. Images obtained with and without CT attenuation. Total DLP 128 mGy-cm. Images were processed with the software and compared side to side in short axis, horizontal long axis and vertical long axis views. Findings: The stress perfusion study showed non attenuated images show mildly to moderately reduced uptake in the basal inferior wall of the LV myocardium. Remainder of the LV myocardium is normally perfused. Attenuation corrected images show normal uptake of radiotracer in all segments myocardium.. The gated study shows normal LV systolic function with calculated LVEF of 62%. LV cavity is normal in size. The gated study shows normal systolic wall thickening and contraction of all segments. There is no transient ischemic dilation. Resting study shows no change in perfusion pattern compared to stress perfusion study. Gating at rest reveals normal systolic wall motion with ejection fraction at 66%. The findings are consistent with normal myocardial perfusion. NM/NM cardiolite stress test Impression: 1. Normal myocardial perfusion 2. Gated LVEF is 62% 3. Transient ischemic dilatation not present Stress EKG is negative for ischemia
--- NOTE | 2022-06-10 08:54 | CA_ITS ---
Acquisition Time: 2022-06-10 09:45:27 Total Exercise Time: 00:07:15 Test Indications: Chest Pain Medications: See H Protocol: RONY Max HR: 151 BPM 87% of Pred: 172 BPM Max BP: 164/102 mmHG Max Work Load: 8.9 METS Exercise stress test 7 min 15 sec of Rony protocol with mild localized left chest discomfort at baseline which did not change with exercise, with isolated PVCs, with normotensive response to exercise, without EKG changes meeting criteria for ischemia. Nuclear images pending. Test reviewed with Dr. Hernandez. Referred By: Grumeet Gonzalez Overread By: MANOJ FISHER
== END ==
LOC: HO.CARD 08:51
PROVIDERS: Visit Provider Internal Medicine Cardiovascular Disease
DX: R07.89 Other chest pain (principal)
CPT/HCPCS: 78452; 93017; A9500

== ENCOUNTER 2022-10-11 12:49 | Outpatient (REF) | payer MEDICAID, SELFPAY ==
--- NOTE | ~2022-10-11 | XR_ITS ---
EXAMINATION: XR LUMBOSACRAL SPINE CLINICAL INFORMATION: Pain COMPARISON: None available. TECHNIQUE: Three views of the lumbosacral spine. FINDINGS: The vertebral bodies and posterior elements are notable for generalized minor endplate spurring.. The disc spaces are preserved and the vertebral alignment is normal. The paraspinal soft tissues are normal. XR/XR lumbar spine 2-3V IMPRESSION: Mild degenerative disc disease as above.
== END 2022-10-11 12:50 | disposition home or self-care (01) ==
LOC: HO.XRAY 12:49
PROVIDERS: PCP Internal Medicine Geriatric Medicine; Visit Provider Internal Medicine Geriatric Medicine
DX: M54.41 Lumbago with sciatica, right side (principal); M54.42 Lumbago with sciatica, left side
CPT/HCPCS: 72100

== ENCOUNTER 2022-12-31 10:53 | Outpatient (REF) | payer MEDICAID, SELFPAY | END 2022-12-31 10:54 | disposition home or self-care (01) | LOC: HO.HHCL 10:53 | PROVIDERS: Visit Provider Internal Medicine Geriatric Medicine | DX: E11.42 Type 2 diabetes mellitus with diabetic polyneuropathy (principal); Z79.4 Long term (current) use of insulin | CPT/HCPCS: 36415; 80053; 81001; 82043; 82570 ==

== ENCOUNTER 2023-01-17 08:53 | Outpatient (AMB) | payer MEDICAID, SELFPAY ==
--- NOTE | 2023-01-17 08:58 | MHC.OFFVIS ---
Intake Vital Signs 01/17/23 09:02 Height 5 ft 9 in Weight 215 lb BMI 31.7 BP 114/77 Blood Pressure Location Rt brachial Position Sitting Pulse 104 H Pulse Source Pulse Oximeter Pulse Oximetry (%) 98 Oxygen Delivery Method Room Air Intake Visit Reasons: lower back pain TIBURCIO 10/07/21 with clayton Intake Note: Pain today 11/04 Computer System Specialist Required: No Accompanied by: Self / Same As Patient Allergies No Known Allergies Allergy (Verified 01/17/23 09:02) HPI HPI Comments History of Present Illness Details Patient is a pleasant 47 years old male presents today for follow up for low back pain. Patient reports he attempted physical therapy last summer but had to discontinue it due to COVID illness. Denies any recent trauma, injury or falls. Patient reports lower back pain that radiates to across his low back and into his sacral regions, worse on the left side. He continues to have significant tenderness in the projection of both sacroiliac joints and muscle spasms. Patient reports Tylenol #3 (moderate benefit in the past), Ibuprofen and tizanidine has been helpful. Occasionally pain will radiate to both lateral hips. Patient reports chronic burning, tingling and numbness pain in both his feet, worse at night due to diabetic neuropathy. Most recent A1C was 8.6 per patient. He is interested to retrial formal course of PT and establish HEP prior to interventional treatments. Denies any fever, weight loss, weakness, abdominal or groin pain, foot drop, bladder or bowel dysfunction, or saddle anesthesia. PRIOR 10/07/21 Clayton Lucia HEAD UP OPERATOR: Santy returns to review response to tizandine and TENS unit. He reports partial relief with tizanidine without side effects as well as notable relief with the TENS unit. He did state he would like to attempt PT again. He previously had PT where he attended 4 sessions prior to being discharged and reported only having massage and heat performed. I will enter this referral. He will follow up after PT to review response. PRIOR: Santy is a pleasant 46 year old who male presents today to the office today with complaints of low back pain as well as bilateral lower extremitiy pain. He states the pain is chronic and has been progressively worsening of the past few months. He denies any inciting events for his back pain. He attributes his BLE to diabetic neuropathy. He describes a stabbing, pins and needles sensation as well as numbness and coolness of bilateral feet which radiates to the calf. His low back pain travels across the lower back without any numbness, tingling, saddle anesthesia or bowel/bladder dysfunction. He does describe a soreness throughout bilateral thighs with intermittent weakness throughout BLE. He was referred here by vascular as they could not find a vascular component contributing to his symptoms. They did send him for a lumbar spine MRI, report dictated below, which did not reveal any overt stenosis or nerve root compression. He reports pain onset was gradual, constant and rates the pain a 6-10/10. He states the pain is interfering with sleep, activities of daily living and he cannot function normally. He also notes that he can not walk around barefoot due to pain. The patient reports the pain in terms of tissue damage as stabbing, aching and throbbing. The pain is exacerbated by prolonged standing as well as transitioning from a sitting to standing positions and ambulating. He notes that can only ambulate about ten minutes before needing to rest due to pain. He has also tried topicals, NSAIDS, heat/ice and tylenol#3 with minimal effect. He is prescribed cymbalta for depression and amitriptyline as a neuromodulator, but he believes he ran out of these medications and can not recall his dosages. He has a follow up with his PCP this week to renew his medications. He has attempted physical therapy at [facility] in the past with minimal alleviation in symptoms. Denies any chiropractic manipulation, massage or acupuncture. Denies any previous back injections or surgery. [facility] Medical History Asthma Diabetes mellitus, type II Diabetic polyneuropathy Erectile dysfunction High cholesterol Family History Mother CAD (coronary artery disease) Father Diabetes Social History Household Members: None Housing: House Alcohol intake: current Alcohol intake frequency: a few times a month Alcohol type: beer and hard liquor Patient Tobacco Use Status: Never used Tobacco Review of Systems Const All systems reviewed & are unremarkable except as noted in HPI and below ENT Reports Normal hearing present Neuro Reports Normal hearing present and Denies confusion Psych Denies confusion Physical Exam Vital Signs: Last Vital Signs Pulse 104 H 01/17/23 09:02 BP 114/77 01/17/23 09:02 Pulse Ox 98 01/17/23 09:02 Oxygen Delivery Method Room Air 01/17/23 09:02 BMI result Body Mass Index 31.7 Const General: cooperative, no acute distress, alert and awake; No confusion Orientation/consciousness: patient oriented x3 and No confusion Limitations: no limitations HEENT Head: Yes normal to inspection and Yes normocephalic Ears: hearing grossly normal bilaterally Eyes General: appearance normal, both eyes and all related structures Resp Effort & Inspection: normal respiratory effort, no audible wheezes, no cough and symmetric chest movement Cardio Jugular venous distension: no JVD GI Inspection: Yes normal to inspection and Yes obesity Palpation (GI): Soft to palpation and nontender Back/Spine/Pelvis Other: Patient able to walk on heels and tip toes with no difficulties demonstrating good motor tone. Can flex forward to 60-70 degrees and extend to 5-10 degrees before experiencing lumbar pain. Demonstrates 5/5 strength of quadriceps bilaterally as well as flexion/dorsiflexion of bilateral feet against resistance. +2 DTR intact and symmetrical. No sensory deficits, except decreased sensation over the soles of the feet and toes due to diabetic neuropathy. Theodore test, Stinchfield test, Gaenslen, Pelvic compression test + bilaterally, left>right. Facet loading test + bilaterally. Cervical Spine: cervical ROM normal, cervical muscular tenderness and No Cervical spine tenderness Thoracic/Lumbar Spine: thoracic and lumbar spine normal to inspection, No Thoracic/lumbar spine scar(s), Lasegue's sign negative, straight leg raise negative bilaterally, pain with thoraco-lumbar ROM, paraspinal muscle tenderness, No thoracic spinal tenderness and lumbar spinal tenderness (L4-S1) Pelvis: buttock tenderness bilaterally Sacroiliac joints: bilaterally tender to palpation Neuro General: patient oriented x3, tone normal, moves all extremities, Normal light touch and pain sensation and No confusion Cranial nerves: Yes Normal hearing present Cognition (Neuro): normal cognition Motor exam (neuro): 5/5 motor strength present throughout Extrem Other: 2+ pedal pulses. Trace edema of right foot. Hyperpigmentation of anterior leblanc bilaterally with reported pruritus. Sensation intact. No allodynia or hyperalgesia. Psych Appearance: grossly normal Mental Status: mental status grossly normal Speech and movement: Normal speech and movement present Affect: normal affect Attitude: cooperative Thought process: Normal thought process present Thought content: Normal thought content present Insight: Good insight present (Psych) Judgement: Good judgement present (Psych) Results Reviewed Results Reviewed: XR LUMBOSACRAL SPINE 10/07/22 FINDINGS: The vertebral bodies and posterior elements are notable for generalized minor endplate spurring.. The disc spaces are preserved and the vertebral alignment is normal. The paraspinal soft tissues are normal. IMPRESSION: Mild degenerative disc disease as above. Assessment & Plan Assessment & Plan (1) Myofascial pain: Code(s): M79.18 - Myalgia, other site (2) Sacroiliac joint pain: Code(s): M53.3 - Sacrococcygeal disorders, not elsewhere classified (3) Spondylosis of lumbar spine: Code(s): M47.816 - Spondylosis without myelopathy or radiculopathy, lumbar region (4) Lumbar degenerative disc disease: Code(s): M51.36 - Other intervertebral disc degeneration, lumbar region (5) Diabetic neuropathy: Code(s): E11.40 - Type 2 diabetes mellitus with diabetic neuropathy, unspecified Plan 1. 1. Recommend formal physical therapy for lower back pain and SIJ. Script provided today. Patient attempted PT in 11/16 but D/C due to COVID illness. Continue TENS unit, HEP, good posture, weight loss, and daily physical activity. 2. I have reminded patient that our office does not offer Tylenol #3 prescribing at this time. Will change tizanidine to methorcarbamol due to BP on low side per patient and today's reading, side effects and precautions were discussed with patient. 3. Follow-up in 6-8 weeks to see response to physical therapy, if no response to physical therapy will consider further interventional strategy. Orders: Orders PT Evaluation and Treatment Today M47.816 - Spondylosis without myelopathy or radiculopathy, lumbar region, M51.36 - Other intervertebral disc degeneration, lumbar region, M53.3 - Sacrococcygeal disorders, not elsewhere classified, M79.18 - Myalgia, other site Medications: New methocarbamol 750 mg PO Q8H PRN 90 tabs 0RF muscle spasm M47.816 - Spondylosis without myelopathy or radiculopathy, lumbar region, M53.3 - Sacrococcygeal disorders, not elsewhere classified, M79.18 - Myalgia, other site Discontinued tizanidine start with 1/2 tab as medication can be sedating Discontinued Reason: Patient Completed Course 4 mg (2 x 2 mg) PO BEDTIME PRN 60 tabs 0RF muscle spasticity Coding Level of Care Code Est Pt Level 4 (07789) Diagnoses Myofascial pain M79.18 Sacroiliac joint pain M53.3 Spondylosis of lumbar spine M47.816 Lumbar degenerative disc disease M51.36 Diabetic neuropathy E11.40
[2023-01-17 09:02] VITALS: BP 114/77; PULSE 104; O2SAT 98; BMI 31.7
== END 2023-01-17 09:33 | disposition home or self-care (01) ==
PROVIDERS: PCP Internal Medicine Geriatric Medicine; Visit Provider Nurse Practitioner Family
DX: M79.18 Myalgia, other site (principal); M53.3 Sacrococcygeal disorders, not elsewhere classified; M47.816 Spondylosis without myelopathy or radiculopathy, lumbar region; M51.36 Other intervertebral disc degeneration, lumbar region; E11.40 Type 2 diabetes mellitus with diabetic neuropathy, unspecified
CPT/HCPCS: 99214

== ENCOUNTER → 2023-01-17 08:53 | Outpatient (BNVA) | payer MEDICAID, SELFPAY | PROVIDERS: PCP Internal Medicine Geriatric Medicine; Visit Provider Nurse Practitioner Family | DX: M79.18 Myalgia, other site (principal); M53.3 Sacrococcygeal disorders, not elsewhere classified; M47.816 Spondylosis without myelopathy or radiculopathy, lumbar region; M51.36 Other intervertebral disc degeneration, lumbar region; E11.40 Type 2 diabetes mellitus with diabetic neuropathy, unspecified | CPT/HCPCS: 99212 ==

== ENCOUNTER 2023-03-18 11:06 | Outpatient (REF) | payer MEDICAID, SELFPAY ==
[2023-03-18 14:17] LABS: Vitamin B12 1082 pg/mL (200-900)
== END 2023-03-18 11:07 | disposition home or self-care (01) ==
LOC: HO.HHCL 11:06
PROVIDERS: Visit Provider Internal Medicine Geriatric Medicine
DX: E11.42 Type 2 diabetes mellitus with diabetic polyneuropathy (principal); Z79.4 Long term (current) use of insulin
CPT/HCPCS: 36415; 82607

== ENCOUNTER 2023-04-14 09:00 | Outpatient (RCR) | payer MEDICAID, SELFPAY ==
--- NOTE | 2023-03-08 12:50 | MHC.PT.EP ---
[facility] [place] [facility] [place] [facility] [place] [facility] [address] Tamiko Rivera [address] [phone] F: [phone] F: [phone] F: [phone] F: [phone] Physical Therapy Plan of Care Date of Evaluation: 02/25/23 Date of Surgery: Diagnosis: spondylosis Assessment: Pt is a 47yo male who was referred to PT for low back pain, leading to impaired mobility. Pt is motivated to reduce pain, normalize ROM and promote core strength through HEP prescription. Pt in agreement with POC and would benefit from skilled PT to address low back pain. Frequency and Duration: The patient will be seen 2x/week, x 4 weeks Short Term Goals: 1. In 2 weeks, patient will be able to complete sit<>supine transition with good back protection using log roll and head/hip ratio. 2. In 2 weeks, improve TAC and RA MMT 1/2 grade to improve lumbar stab. 3. In 2 weeks, patient will be I with phase 1 HEP. Custodial Goals: 1. In 4 weeks, improve score on CHERELLE by 25% to indicate improved mobility and reduced pain. 2. In 4 weeks, patient will report improvement of sleep quality by 50%. 3. In 4 weeks, patient will use proper heel-toe progression during ambulation to reduce joint compression on spine. Treatment Plan: Modalities to reduce pain, spasms and effusion. Manual therapy to restore motion and function. Therapeutic exercise to improve strength and flexibility. Neuromuscular re-education for posture and balance. Therapeutic activities to return to functional activities of daily living. Electronically signed by: Nenita Cespedes PT, DPT Please sign and return to therapist. Thank you for your referral.
--- NOTE | 2023-10-31 09:22 | MHC.PT.DC ---
[facility] [place] Office [place] Office [place] Office [address] Tamiko Rivera [address] [phone] F: [phone] F: [phone] F: [phone] F: [phone] Physical Therapy Discharge Report Diagnosis: spondylosis Date of Surgery: Date of Evaluation: 02/25/23 Date of Discharge: 04/14/23 Treatments to Date: 7 Cancellations to Date: No Shows to Date: Discharge Status: Improved Function Patient Elected to Stop Discharge Summary: Pt participated in 7 PT treatment sessions for low back pain, achieved STGs. Pt was instructed in back protection and safer body mechanics. At 7th visit patient reports he does not feel like PT is helping right now. He is more concerned about the neuropathy pain in his feet and the wounds on his feet. D/C at this time with recommendation to continue the HEP that helps his symptoms, including TAC, seated postural corrections, supine or seated HSS. Pt in agreement with D/C at this time. CHERELLE improved from 66% to 46%. Electronically signed by: Nenita Cespedes PT, DPT Please sign and return to therapist. Thank you for your referral.
== END 2023-10-31 09:23 | disposition home or self-care (01) ==
LOC: HO.PT 09:00
PROVIDERS: PCP Internal Medicine Geriatric Medicine; Visit Provider Nurse Practitioner Family
DX: M79.18 Myalgia, other site (principal); M47.816 Spondylosis without myelopathy or radiculopathy, lumbar region; M53.3 Sacrococcygeal disorders, not elsewhere classified
CPT/HCPCS: 97110; 97162; 97530

== ENCOUNTER 2023-07-12 14:50 | Outpatient (AMB) | payer MEDICAID, SELFPAY ==
--- NOTE | 2023-07-12 14:55 | A.OFFVIS_ITS ---
Intake Intake Visit Reasons: Erictle dysfuntion Intake Note: New Patient presents for initial visit for erectile Dysfunction Urology Medications: none Blood Thinner: none Insurance Representative Required: No Accompanied by: child Allergies No Known Allergies Allergy (Verified 07/12/23 20:25) Medication List - Last Reconciled 07/12/23 by WILLIAM Black amitriptyline 50 mg PO BEDTIME amlodipine 10 mg PO QAM atorvastatin 40 mg PO DAILY blood sugar diagnostic (FreeStyle Lite Strips) As directed cetirizine 10 mg PO QAM cholecalciferol (vitamin D3) 50 mcg PO BID cyanocobalamin (vitamin B-12) 1,000 mcg PO DAILY dulaglutide (Trulicity) mg subcut QWEEK duloxetine 60 mg PO DAILY empagliflozin (Jardiance) 25 mg PO QAM hydrochlorothiazide 25 mg PO DAILY lisinopril 40 mg PO DAILY metformin ER 500 mg PO pantoprazole 40 mg PO DAILY HPI HPI Comments History of Present Illness Details Santy is a pleasant 48-year-old male patient of Dr. Lewis who was accompanied by his grandson at today's office visit. He has a past medical history of asthma, diabetes, diabetic polyneuropathy, erectile dysfunction, and hypercholesteremia. He presents to the office today as a new patient for his longstanding history of erectile dysfunction. In discussion with the patient today reports having followed up with Dr. Schofield many years ago at which time he has trialed as needed Viagra, Cialis, penile rings, and penile pump for treatment of his erectile dysfunction. He reports having had no improvement in obtaining or maintaining his erections with these interventions. He continues to experience erectile dysfunction. He reports he is unable to obtain erections however does have sexual desire. Discussed at length potential causes of erectile dysfunction. He otherwise denies any bothersome urinary issues. He reports be happy with current voiding parameters. When asked he denies any previous trauma to his penis. He describes ED to have been progressive and feels it continues to worsen as previously he had been able to obtain erections however maintaining had been difficult whereas now he is unable to obtain and or maintain his erections. In office urinalysis results reviewed with the patient today. 3+ glucosuria however patient on Jardiance (SGLT2). [facility] Medical History Asthma High cholesterol Diabetic polyneuropathy Diabetes mellitus, type II Erectile dysfunction Family History Mother CAD (coronary artery disease) Father Diabetes Social History Household Members: None Housing: House Alcohol intake: current Alcohol intake frequency: a few times a month Alcohol type: beer and hard liquor Patient Tobacco Use Status: Never used Tobacco Review of Systems Const Reports no additional complaints Eyes Reports no additional complaints ENT Reports no additional complaints Card Reports as per HPI Resp Reports as per HPI GI Reports no additional complaints Reports as per HPI Musc Reports as per HPI Neuro Reports no additional complaints Psych Reports no additional complaints Endo Reports as per HPI Mauricio/Lymph Reports no additional complaints Aller/Immun Reports no additional complaints Physical Exam Const General: cooperative, healthy appearing, comfortable, no acute distress, well developed, alert and awake Nutritional Appearance: overweight Orientation/consciousness: patient oriented x3 Limitations: no limitations HEENT Head: Yes normal to inspection, Yes normocephalic and Yes atraumatic Ears: hearing grossly normal bilaterally Eyes General: appearance normal, both eyes and all related structures Neck Neck: Yes normal visual inspection and Yes trachea midline Chest Chest palpation & inspection: normal inspection of the chest Resp Effort & Inspection: normal respiratory effort and able to speak in complete sentences Cardio Rate: regular rate GI Inspection: Yes normal to inspection General: Yes no CVA tenderness Male General Exam: Yes normal external exam Penis: normal penis and uncircumcised Meatus: meatus normal Scrotum: scrotum normal Testes: Testes normal Back/Spine/Pelvis Back: no CVA tenderness Skin General skin exam: no rashes or lesions noted Neuro General: patient oriented x3 Extrem General: Yes normal to inspection Psych Appearance: grossly normal and well kempt Mental Status: mental status grossly normal Speech and movement: Normal speech and movement present and Clear speech present Affect: normal affect Attitude: cooperative Thought process: Normal thought process present Thought content: Normal thought content present Insight: Fair insight present (Psych) Judgement: Fair judgement present (Psych) Results AMB Urinalysis, Automated UA Leukoctes 0 Ayo/uL Last Edit by Zheng Simms on 07/12/23 15:19 UA Nitrite Negative Last Edit by Zheng Simms on 07/12/23 15:19 UA Urobilinogen 0.2 mg/dL Last Edit by Zheng Simms on 07/12/23 15:19 UA Protein 0 mg/dL Last Edit by Zheng Simms on 07/12/23 15:19 UA pH 6.0 Last Edit by Zheng Simms on 07/12/23 15:19 UA Blood 0 Mohan/uL Last Edit by Zheng Simms on 07/12/23 15:19 UA Specific [place] 1.015 Last Edit by Zheng Simms on 07/12/23 15:19 UA Ketone Negative Last Edit by Zheng Simms on 07/12/23 15:19 UA Bilirubin 0 mg/dL Last Edit by Zheng Simms on 07/12/23 15:19 UA Glucose 1000 mg/dL Last Edit by Zheng Simms on 07/12/23 15:19 Results Reviewed Results Reviewed: Laboratory Last Values Urine pH (Auto) 6.0 07/12/23 15:08 Specific [place] (Auto) 1.015 07/12/23 15:08 Urine Protein (Auto) 0 mg/dL 07/12/23 15:08 Glucose (UA)(Auto) 1000 mg/dL 07/12/23 15:08 Urine Ketones (Auto) Negative 07/12/23 15:08 Urine Blood (Auto) 0 Mohan/uL 07/12/23 15:08 Urine Nitrite (Auto) Negative 07/12/23 15:08 Urine Bilirubin (Auto) 0 mg/dL 07/12/23 15:08 Urine Urobilinogen (Auto) 0.2 mg/dL 07/12/23 15:08 Leukocyte Esterase (Auto) 0 Ayo/uL 07/12/23 15:08 Assessment & Plan Assessment & Plan (1) Erectile dysfunction associated with type 2 diabetes mellitus: Code(s): E11.69 - Type 2 diabetes mellitus with other specified complication; N52.1 - Erectile dysfunction due to diseases classified elsewhere Plan In office urinalysis results reviewed with the patient today; as noted above. Discussed further treatment options of erectile dysfunction to include penile injection therapy and or penile prosthesis; risks and benefits of these interventions were discussed at length. Discussed lifestyle modifications to assist with erectile dysfunction Discussed and stressed the importance of managing diabetes for improvement in ED as well as overall health and well-being. Will obtain hemoglobin A1c, estradiol, LH, prolactin, SHBG, PSA, testosterone free and total, and FSH for further assessment evaluation. Patient reports be happy with current voiding parameters. Follow-up in 1-3 months with labs to be completed prior; or sooner with any issues, concerns, and or questions. Orders: Orders AMB Urinalysis Automated Today Z13.9 - Encounter for screening, unspecified Hemoglobin A1c Today E11.9 - Type 2 diabetes mellitus without complications Estradiol Ultra Sensitive Today E11.9 - Type 2 diabetes mellitus without complications Lutenizing Hormone Today E11.9 - Type 2 diabetes mellitus without complications Prolactin Today E11.9 - Type 2 diabetes mellitus without complications Sex Hormone Binding Globulin Today E11.9 - Type 2 diabetes mellitus without complications Prostate Specific Antigen Today E11.69 - Type 2 diabetes mellitus with other specified complication, N52.1 - Erectile dysfunction due to diseases classified elsewhere Testosterone, Free/Total Today E11.9 - Type 2 diabetes mellitus without complications Follicle Stimulating Hormone Today E11.9 - Type 2 diabetes mellitus without complications Patient Instructions: The patient had an opportunity to ask questions regarding the treatment plan. All questions were answered. Physical exam, labs, and imaging were discussed and reviewed in detail. As well as risks, benefits, and discussion of treatment choices. No major barriers to understanding were identified. The patient expressed understanding and agreement with the above treatment plan. The patient was made aware they should contact our office by phone for worsening of their current condition, the appearance of new symptoms, or with any questions or concerns. Compliance is encouraged with any medications and follow up testing that is ordered. It is a privilege to be allowed the opportunity to participate in? your urological care.? Again, if you have any questions or concerns If you have any questions or concerns please do not hesitate to contact me. The office is [phone]. This note is constructed using voice recognition software. While every effort has been made to ensure accuracy sequins slinger errors may have been included. Yours sincerely, WILLIAM Black Coding Level of Care Code New Pt Level 4 (80121) Diagnoses Erectile dysfunction associated with type 2 diabetes mellitus E11.69; N52.1 Time Spent (min) 35
== END 2023-07-12 15:32 | disposition home or self-care (01) ==
PROVIDERS: PCP Internal Medicine Geriatric Medicine; Visit Provider Nurse Practitioner Family
DX: E11.69 Type 2 diabetes mellitus with other specified complication (principal); N52.1 Erectile dysfunction due to diseases classified elsewhere
CPT/HCPCS: 99204

== ENCOUNTER → 2023-07-12 14:50 | Outpatient (BNVA) | payer MEDICAID, SELFPAY | PROVIDERS: PCP Internal Medicine Geriatric Medicine; Visit Provider Nurse Practitioner Family | DX: E11.69 Type 2 diabetes mellitus with other specified complication (principal); N52.1 Erectile dysfunction due to diseases classified elsewhere | CPT/HCPCS: 81003; 99212 ==

== ENCOUNTER 2023-08-30 10:50 | Outpatient (REF) | payer MEDICAID, SELFPAY ==
[2023-08-30 12:05] LABS: MANUAL DIFF FLAG NO
[2023-08-30 12:17] LABS: Basophils Absolute Auto 0.1 X10*3/uL (0.0-0.2); Basophils Percent Auto 0.6 % (0-2); Eosinophils Absolute Auto 0.3 X10*3/uL (0.0-0.4); Eosinophils Percent Auto 3.1 % (0-4); Hematocrit 48.6 % (42.0-52.0); Hemoglobin 16.3 g/dl (14.0-18.0); Imm Gran Abs Auto 0.07 X10*3/uL (0.00-0.03); Imm Gran Pct Auto 0.7 % (0.0-0.4); Lymphocytes Absolute Auto 2.6 X10*3/uL (1.2-4.9); Lymphocytes Percent Auto 24.5 % (20-40); Mean Corpuscular HGB Conc 33.5 g/dl (31.0-36.0); Mean Corpuscular Hemoglobin 29.8 pg (27.0-33.0); Mean Corpuscular Volume 88.8 fL (80.0-98.0); Mean Platelet Volume 11.1 fL (9.4-12.4); Monocytes Absolute Auto 0.9 X10*3/uL (0.1-1.2); Monocytes Percent Auto 8.7 % (2-11); Neutrophils Absolute Auto 6.6 x10*3/uL (2.0-8.3); Neutrophils Percent Auto 62.4 % (45-73); Platelet Count 253 X10*3/uL (160-400); Red Blood Count 5.47 X10*6/uL (4.60-5.80); Red Cell Distribution Width 12.1 % (11.0-16.0); White Blood Count 10.5 X10*3/uL (4.8-10.8)
[2023-08-30 13:07] LABS: Alanine Aminotransferase 27 U/L (0-40); Albumin Level 4.2 g/dL (3.5-5.0); Alkaline Phosphatase 90 U/L (39-117); Anion Gap 12 (12-20); Aspartate Amino Transferase 16 U/L (5-37); Bilirubin Total 0.7 mg/dL (0.0-1.0); Blood Urea Nitrogen 23 mg/dL (9-16); Calcium 9.3 mg/dL (8.4-10.2); Carbon Dioxide 27 mmol/L (22-29); Chloride 104 mmol/L (96-108); Cholesterol 124 mg/dL (<200); Estimated Glomerular Filt Rate > 60; Glucose Random 110 mg/dL (60-115); HDL Cholesterol 43 mg/dL (>40); LDL Cholesterol Calculated 59 mg/dL (<100); Potassium 3.3 mmol/L (3.3-5.1); Sodium 140 mmol/L (135-145); Total Protein 7.6 g/dL (6.5-8.0); Triglycerides 114 mg/dL (<150)
[2023-08-30 14:02] LABS: Creatinine Urine 131.69 mg/dL; Microalbum/Creatinine Ratio Ur 8.3 ug/mg cr (<30)
[2023-08-31 03:37] LABS: HIV AB/AG Nonreactive (Nonreactive); HIV Num 1 0.05 S/CO (0.00-0.99)
== END 2023-08-30 10:51 | disposition home or self-care (01) ==
LOC: HO.HHCL 10:50
PROVIDERS: Visit Provider Internal Medicine Geriatric Medicine
DX: Z00.00 Encounter for general adult medical examination without abnormal findings (principal); E11.42 Type 2 diabetes mellitus with diabetic polyneuropathy; M54.50 Low back pain, unspecified; G89.29 Other chronic pain; Z11.4 Encounter for screening for human immunodeficiency virus [HIV]; Z12.11 Encounter for screening for malignant neoplasm of colon; Z79.4 Long term (current) use of insulin
CPT/HCPCS: 36415; 80053; 80061; 82043; 82570; 85025; 87389

== ENCOUNTER 2023-09-06 12:01 | Outpatient (REF) | payer MEDICAID, SELFPAY ==
[2023-09-06 12:36] LABS: Estimated Average Glucose 120 mg/dL; Hemoglobin A1c % 5.8 % (<6.0)
[2023-09-06 13:15] LABS: Prostate Specific Antigen 0.56 ng/mL (<0.05-4.0)
[2023-09-08 04:42] LABS: Follicle Stimulating Hormone 12.5 mIU/mL (1.4-12.8); Lutenizing Hormone 9.1 mIU/mL (1.5-9.3); Prolactin 7.7 ng/mL (2.0-18.0)
[2023-09-08 04:48] LABS: Sex Hormone Binding Globulin 28 nmol/L (10-50)
[2023-09-10 19:53] LABS: Testosterone, Free 91.7 pg/mL (35.0-155.0); Testosterone, Total 475 ng/dL (250-1100)
[2023-09-13 02:48] LABS: Estradiol Ultra Sensitive 35 pg/mL (< OR = 29)
== END 2023-09-06 12:02 | disposition home or self-care (01) ==
LOC: HO.LAB 12:01
PROVIDERS: PCP Internal Medicine Geriatric Medicine; Visit Provider Nurse Practitioner Family
DX: E11.9 Type 2 diabetes mellitus without complications (principal); E11.69 Type 2 diabetes mellitus with other specified complication; N52.1 Erectile dysfunction due to diseases classified elsewhere
CPT/HCPCS: 36415; 82670; 83001; 83002; 83036; 84146; 84153; 84270; 84402; 84403

== ENCOUNTER 2023-09-14 09:31 | Outpatient (AMB) | payer MEDICAID, SELFPAY ==
--- NOTE | 2023-09-14 09:40 | A.OFFVIS_ITS ---
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 Required: No Accompanied by: Self / Same As Patient Allergies No Known Allergies Allergy (Verified 09/14/23 11:55) Medication List - Last Reconciled 09/14/23 by TERESO BlackP- amitriptyline 50 mg PO BEDTIME amlodipine 10 mg PO QAM atorvastatin 40 mg PO DAILY blood sugar diagnostic (FreeStyle Lite Strips) As directed cetirizine 10 mg PO QAM cholecalciferol (vitamin D3) 50 mcg PO BID cyanocobalamin (vitamin B-12) 1,000 mcg PO DAILY duloxetine 60 mg PO DAILY empagliflozin (Jardiance) 25 mg PO QAM hydrochlorothiazide 25 mg PO DAILY lisinopril 40 mg PO DAILY metformin ER 500 mg PO pantoprazole 40 mg PO DAILY tirzepatide (Mounjaro) 5 mg subcut QWEEK HPI Comments Details: Santy is a pleasant 48-year-old male patient of Dr. Lewis. He has a pas t medical history of asthma, diabetes, diabetic polyneuropathy, erectile dysfunction, and hypercholesteremia. He presents to the office today for follow- up. Of note, patient was seen approximately 2 months ago as a new patient for his longstanding history of erectile dysfunction at which time labs were ordered for further assessment evaluation. These results were reviewed with the patient today. Estadoil 09/18 35 FSH 09/18 12.5 LH 09/18 9.1 Prolactin 09/18 7.7 Testosterone 09/18 475 Free testosterone 09/18 91.7 SHGB 09/18 28 PSA 09/18 0.6 A1c 09/18 5.8 In discussion with the patient today he reports to be doing feeling well. He continues to discusses frustration regarding his longstanding history of erectile dysfunction. He had previously followed up with Dr. Schofield for many years and has trialed p.r.n. Viagra at multiple dosages as well as Cialis. He has also attempted penile pumps in rings. Discussed further treatment options of erectile dysfunction to include penile injection therapy or penile prosthesis. He does not currently wish to undergo penile injection therapy. He reports he is unable to obtain erections however does have sexual desire. Discussed at length potential causes of erectile dysfunction. He otherwise denies any bothersome urinary issues. He reports be happy with current voiding parameters. When asked he denies any previous trauma to his penis. He d escribes ED to have been progressive and feels it continues to worsen as previously he had been able to obtain erections however maintaining had been difficult whereas now he is unable to obtain and or maintain his erections at all. In office urinalysis results reviewed with the patient today. 3+ glucosuria however patient on Jardiance (SGLT2). [facility] Medical History Asthma High cholesterol Diabetic polyneuropathy Diabetes mellitus, type II Erectile dysfunction Family History Mother CAD (coronary artery disease) Father Diabetes Social History Household Members: None Housing: House Alcohol intake: current Alcohol intake frequency: a few times a month Alcohol type: beer and hard liquor Patient Tobacco Use Status: Never used Tobacco Review of Systems Const Reports no additional complaints Eyes Reports no additional complaints ENT Reports no additional complaints Card Reports as per HPI Resp Reports as per HPI GI Reports no additional complaints Reports as per HPI Musc Reports as per HPI Neuro Reports no additional complaints Psych Reports no additional complaints Endo Reports as per HPI Mauricio/Lymph Reports no additional complaints Aller/Immun Reports no additional complaints Physical Exam Const General: cooperative, healthy appearing, comfortable, no acute distress, well developed, alert and awake Nutritional Appearance: overweight Orientation/consciousness: patient oriented x3 Limitations: no limitations HEENT Head: Yes normal to inspection, Yes normocephalic and Yes atraumatic Ears: hearing grossly normal bilaterally Eyes General: appearance normal, both eyes and all related structures Neck Neck: Yes normal visual inspection and Yes trachea midline Chest Chest palpation & inspection: normal inspection of the chest Resp Effort & Inspection: normal respiratory effort and able to speak in complete sentences Cardio Rate: regular rate GI Inspection: Yes normal to inspection General: Yes no CVA tenderness Male General Exam: Yes normal external exam Penis: normal penis and uncircumcised Meatus: meatus normal Scrotum: scrotum normal Testes: Testes normal Back/Spine/Pelvis Back: no CVA tenderness Skin General skin exam: no rashes or lesions noted Neuro General: patient oriented x3 Extrem General: Yes normal to inspection Psych Appearance: grossly normal and well kempt Mental Status: mental status grossly normal Speech and movement: Normal speech and movement present and Clear speech present Affect: normal affect Attitude: cooperative Thought process: Normal thought process present Thought content: Normal thought content present Insight: Fair insight present (Psych) Judgement: Fair judgement present (Psych) Results AMB Urinalysis, Automated UA Leukoctes 0 Ayo/uL Last Edit by Isowalk on 09/14/23 09:59 UA Nitrite Negative Last Edit by [email or web address] on 09/14/23 09:59 UA Urobilinogen 0.2 mg/dL Last Edit by [email or web address] on 09/14/23 09:59 UA Protein 0 mg/dL Last Edit by [email or web address] on 09/14/23 09:59 UA pH 6.5 Last Edit by Isowalk on 09/14/23 09:59 UA Blood 0 Mohan/uL Last Edit by [email or web address] on 09/14/23 09:59 UA Specific [place] 1.010 Last Edit by [email or web address] on 09/14/23 09:59 UA Ketone Positive Last Edit by [email or web address] on 09/14/23 09:59 UA Bilirubin 0 mg/dL Last Edit by [email or web address] on 09/14/23 09:59 UA Glucose 1000 mg/dL Last Edit by [email or web address] on 09/14/23 09:59 Results Reviewed Results Reviewed: Laboratory Last Values Urine pH (Auto) 6.5 09/14/23 09:57 Specific [place] (Auto) 1.010 09/14/23 09:57 Urine Protein (Auto) 0 mg/dL 09/14/23 09:57 Glucose (UA)(Auto) 1000 mg/dL 09/14/23 09:57 Urine Ketones (Auto) Positive 09/14/23 09:57 Urine Blood (Auto) 0 Mohan/uL 09/14/23 09:57 Urine Nitrite (Auto) Negative 09/14/23 09:57 Urine Bilirubin (Auto) 0 mg/dL 09/14/23 09:57 Urine Urobilinogen (Auto) 0.2 mg/dL 09/14/23 09:57 Leukocyte Esterase (Auto) 0 Ayo/uL 09/14/23 09:57 Assessment & Plan Assessment & Plan (1) Erectile dysfunction associated with type 2 diabetes mellitus: Code(s): E11.69 - Type 2 diabetes mellitus with other specified complication; N52.1 - Erectile dysfunction due to diseases classified elsewhere Category: Medical Plan In office urinalysis results reviewed with the patient today; as noted above. Recent labs reviewed with the patient today; as noted above. Discussed at length potential causes for erectile dysfunction. Discussed, educated, and stressed the importance of managing diabetes for improvement overall health as well as for his ED. Discussed importance of weight loss in correlation to ED and for overall health and well being. Discussed further treatment options for erectile dysfunction; this was discussed at length. Follow-up with Dr. Carlson for discussion of potential penile prosthesis. Orders: Orders AMB Urinalysis Automated Today Z13.9 - Encounter for screening, unspecified Patient Instructions: The patient had an opportunity to ask questions regarding the treatment plan. All questions were answered. Physical exam, labs, and imaging were discussed and reviewed in detail. As well as risks, benefits, and discussion of treatment choices. No major barriers to understanding were identified. The patient expressed understanding and agreement with the above treatment plan. The patient was made aware they should contact our office by phone for worsening of their current condition, the appearance of new symptoms, or with any questions or concerns. Compliance is encouraged with any medications and follow up testing that is ordered. It is a privilege to be allowed the opportunity to participate in? your urological care.? Again, if you have any questions or concerns If you have any questions or concerns please do not hesitate to contact me. The office is [phone]. This note is constructed using voice recognition software. While every effort has been made to ensure accuracy book editor errors may have been included. Yours sincerely, WILLIAM Black Coding Level of Care Code Est Pt Level 3 (59258) Complex EM visit Add On G2211 Diagnoses Erectile dysfunction associated with type 2 diabetes mellitus E11.69; N52.1
== END 2023-09-14 10:07 | disposition home or self-care (01) ==
PROVIDERS: PCP Internal Medicine Geriatric Medicine; Visit Provider Nurse Practitioner Family
DX: E11.69 Type 2 diabetes mellitus with other specified complication (principal); N52.1 Erectile dysfunction due to diseases classified elsewhere; Z13.9 Encounter for screening, unspecified
CPT/HCPCS: 99213

== ENCOUNTER → 2023-09-14 09:31 | Outpatient (BNVA) | payer MEDICAID, SELFPAY | PROVIDERS: PCP Internal Medicine Geriatric Medicine; Visit Provider Nurse Practitioner Family | DX: E11.69 Type 2 diabetes mellitus with other specified complication (principal); N52.1 Erectile dysfunction due to diseases classified elsewhere | CPT/HCPCS: 81003; 99212 ==

== ENCOUNTER 2023-10-11 14:32 | Outpatient (AMB) | payer MEDICAID, SELFPAY ==
--- NOTE | 2023-10-11 14:34 | A.OFFVIS_ITS ---
Vital Signs 10/11/23 14:37 Height 5 ft 9 in Weight 215 lb BMI 31.7 Intake Visit Reasons: [facility] Faxed referral for LE swelling Intake Note: [employer] for bilateral LE swelling, both legs are equally as swollen, started in July 2023 and is worse when pt is on his feet all day. Pt states burning, stinging, restlessness, heaviness in bilateral legs and numbness in the toes from diabetic neuropathy. Pt also has bilateral pretibial discoloration for many years now. 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 He does have a prior history with pain management for lower back pain. Has been in physical therapy with minimal relief. Now presents to vascular for evaluation regarding peripheral vascular disease. Of note he does have mild swelling and discoloration of the pretibial surfaces of his lower extremities. Of note last hemoglobin A1c was 5.8 [facility] Medical History Asthma High cholesterol Diabetic polyneuropathy Diabetes mellitus, type II Erectile dysfunction Family History Mother CAD (coronary artery disease) Father Diabetes Social History Household Members: None Housing: House Alcohol intake: current Alcohol intake frequency: a few times a month Alcohol type: beer and hard liquor Patient Tobacco Use Status: Never used Tobacco Review of Systems Const Reports as per HPI ENT Reports no additional complaints Card Denies chest pain, Denies chest pain at rest and Denies chest pain with activity Resp Denies chest congestion and Denies cough GI Reports no additional complaints Musc Details: pain over varicosities, aching of lower extremities, swelling, cramping, heaviness and tiredness, itching Denies abnormal gait Skin/Breast Reports pruritus and Denies wounds Neuro Reports no additional complaints and Denies abnormal gait Psych Denies no additional complaints Physical Exam Vital Signs: BMI result Body Mass Index 31.7 Const General: cooperative, healthy appearing and comfortable Orientation/consciousness: oriented to person, oriented to place and oriented to time Neck Carotids: no bruits Chest Chest palpation & inspection: normal inspection of the chest and normal palpation of entire chest wall Resp Effort & Inspection: normal respiratory effort and able to speak in complete sentences Cardio Other: Palpable bilateral dorsalis pedis pulses Rate: regular rate Heart sounds: S1 normal heart sound present and S2 normal heart sound present Peripheral pulses: Peripheral pulses 2+ throughout GI Inspection: Yes normal to inspection Skin Other: +2 edema, bilateral pretibial skin discoloration CEAP Classification C4 - skin color changes Ep - Etiology Primary As - superficial veins P - reflux General skin exam: dry skin Neuro General: oriented to person, oriented to place and oriented to time Extrem Right lower extremity: full ROM, normal capillary refill and edema Left lower extremity: full ROM, normal capillary refill and edema Psych Mental Status: mental status grossly normal Assessment & Plan Assessment & Plan (1) Varicose veins of right lower extremity with inflammation: Code(s): I83.11 - Varicose veins of right lower extremity with inflammation Category: Medical Plan: Unclear etiology of lower extremity pain and discomfort. I do think this may be more neurologic in nature and related to his back and peripheral neuropathy due to his diabetes. We did discuss routine risk factor modification and fortunately his diabetes appears to be better controlled at the current time. It does not seem to be arterial in nature as he does have palpable pulses. I did take the liberty of ordering venous insufficiency testing to rule that out as he does have skin discoloration. Will follow up with us after testing. Thank you for allowing us to assist in his care. If there are any questions or concerns please do not hesitate to contact us. Orders: Orders US venous duplex LE BI 1 Week I83.11 - Varicose veins of right lower extremity with inflammation Coding Level of Care Code New Pt Level 4 (32534) Diagnoses Varicose veins of right lower extremity with inflammation I83.11
[2023-10-11 14:37] VITALS: BMI 31.7
== END 2023-10-11 14:53 | disposition home or self-care (01) ==
PROVIDERS: PCP Internal Medicine Geriatric Medicine; Visit Provider Surgery Vascular Surgery
DX: I83.11 Varicose veins of right lower extremity with inflammation (principal)
CPT/HCPCS: 99204

== ENCOUNTER → 2023-10-11 14:32 | Outpatient (BNVA) | payer MEDICAID, SELFPAY | PROVIDERS: PCP Internal Medicine Geriatric Medicine; Visit Provider Surgery Vascular Surgery | DX: I83.11 Varicose veins of right lower extremity with inflammation (principal) | CPT/HCPCS: 99202 ==

== ENCOUNTER 2023-10-18 10:08 | Outpatient (REF) | payer MEDICAID, SELFPAY ==
--- NOTE | ~2023-10-18 | US_ITS ---
EXAMINATION: US LOWER EXTREMITY VENOUS (REFLUX EXAM), BILATERAL CLINICAL INDICATION: Varicose veins of right lower extremity COMPARISON: None. TECHNIQUE: Color flow triplex imaging and compression Doppler was performed to evaluate both the deep and the superficial systems bilaterally. To evaluate the superficial system, the examination was performed in the upright position. Color-flow Doppler ultrasound and compression ultrasound were utilized. In addition, maneuvers were utilized to demonstrate reflux. FINDINGS: 1. DEEP VENOUS ULTRASOUND OF THE RIGHT LOWER EXTREMITY: Common Femoral Vein: Compressible, normal respiratory variation and augmented flow. Femoral Vein: Compressible, normal color flow and augmentation. Popliteal Vein: Compressible, normal augmentation. Deep Reflux: There is no evidence of reflux in the deep system in either the common femoral vein or the popliteal vein. There is no evidence of a Chung's cyst. 2. SUPERFICIAL ULTRASOUND WITH DOPPLER OF RIGHT LOWER EXTREMITY: GREAT SAPHENOUS VEIN: Saphenofemoral Junction: 0.4 cm; Reflux: 0 ms Proximal Thigh: 0.5 cm; Reflux: 0 ms Mid Thigh: 0.3 cm; Reflux: 0 ms Above Knee: 0.4 cm; Reflux: 0 ms At Knee: 0.3 cm; Reflux: 0 ms Below Knee: 0.3 cm; Reflux: 0 ms Mid Calf: 0.2 cm; Reflux: 0 ms Ankle: 0.3 cm; Reflux: 0 ms DUPLICATED MEDIAL GREAT SAPHENOUS VEIN: Diameter: None Imaged Reflux: NA DUPLICATED LATERAL GREAT SAPHENOUS VEIN: Diameter: 0.2 cm Reflux: 0 ms SMALL SAPHENOUS VEIN: Proximal: 0.2 cm; Reflux: 0 ms Distal: 0.2 cm; Reflux: 0 ms VEIN OF GIACOMINI: None Imaged. PERFORATORS: Location: mid thigh Size: 0.3 cm Reflux: 0 ms Location: proximal calf Size: 0.2 cm Reflux: 0 ms Location: mid calf Size: 0.3 cm Reflux: 0 ms VARICOSITIES: Location: proximal thigh Size: 0.3 cm Reflux: 0 ms 3. DEEP VENOUS ULTRASOUND OF THE LEFT LOWER EXTREMITY: Common Femoral Vein: Compressible, normal respiratory variation and augmented flow. Femoral Vein: Compressible, normal color flow and augmentation. Popliteal Vein: Compressible, normal augmentation. Deep Reflux: There is no evidence of reflux in the deep system in either the common femoral vein or the popliteal vein. There is no evidence of a Chung's cyst. 4. SUPERFICIAL ULTRASOUND WITH DOPPLER OF LEFT LOWER EXTREMITY: GREAT SAPHENOUS VEIN: Saphenofemoral Junction: 1.0 cm; Reflux: 0 ms Proximal Thigh: 0.5 cm; Reflux: 0 ms Mid Thigh: 0.4 cm; Reflux: 0 ms Above Knee: 0.3 cm; Reflux: 0 ms At Knee: 0.3 cm; Reflux: 0 ms Below Knee: 0.3 cm; Reflux: 0 ms Mid Calf: 0.2 cm; Reflux: 0 ms Ankle: 0.2 cm; Reflux: 0 ms DUPLICATED MEDIAL GREAT SAPHENOUS VEIN: Diameter: None Imaged Reflux: NA DUPLICATED LATERAL GREAT SAPHENOUS VEIN: Diameter: 0.4 cm Reflux: 0 ms SMALL SAPHENOUS VEIN: Proximal: 0.2 cm; Reflux: 0 ms Distal: 0.1 cm; Reflux: 0 ms VEIN OF GIACOMINI: None Imaged. PERFORATORS: Location: SSV mid Size: 0.3 cm Reflux: 0 ms Location: SSV mid Size: 0.2 cm Reflux: 0 ms Location: prox calf Size: 0.4 cm Reflux: 0 ms Location: mid calf Size: 0.3 cm Reflux: 0 ms Location: distal calf Size: 0.2 cm Reflux: 0 ms VARICOSITIES: Location: prox thigh Size: 0.3 cm Reflux: 0 ms US/US venous duplex LE BI IMPRESSION: 1. No evidence of deep venous thrombosis. 2. The saphenous systems are competent bilaterally. 3. Prominent bilateral perforators and varicosities that show no reflux.
== END 2023-10-18 10:09 | disposition home or self-care (01) ==
LOC: HO.US 10:08
PROVIDERS: PCP Internal Medicine Geriatric Medicine; Visit Provider Surgery Vascular Surgery
DX: I83.11 Varicose veins of right lower extremity with inflammation (principal)
CPT/HCPCS: 93970

== ENCOUNTER 2023-10-25 09:19 | Outpatient (AMB) | payer MEDICAID, SELFPAY ==
--- NOTE | 2023-10-25 09:27 | A.OFFVIS_ITS ---
Intake Visit Reasons: Discuss penile prosthetic Intake Note: Patient is Present for Follow Up Discussion penile Prosthetic Urology Medication: None Antibiotic Allergies: None Blood Thinners: None Patient is currently on Jardiance Certified Coding Specialist Required: No Allergies No Known Allergies Allergy (Verified 11/15/23 13:24) HPI Comments Details: Santy is a pleasant 48-year-old male patient of Dr. Lewis. He is seen for the following urologic conditions - erectile dysfunction Erectile dysfunction Estadoil 09/18 35 FSH 09/18 12.5 LH 09/18 9.1 Prolactin 09/18 7.7 Testosterone 09/18 475 Free testosterone 09/18 91.7 SHGB 09/18 28 PSA 09/18 0.6 A1c 09/18 5.8 Progressive erectile dysfunction on diabetic medications Prior usage of oral medications Prior usage of vacuum pump Discussion regarding injectable therapy versus penile prosthetic Discussed penile prosthetic placement He will consider and review in six-month [facility] Medical History Asthma High cholesterol Diabetic polyneuropathy Diabetes mellitus, type II Erectile dysfunction Family History Mother CAD (coronary artery disease) Father Diabetes Social History Household Members: None Housing: House Alcohol intake: current Alcohol intake frequency: a few times a month Alcohol type: beer and hard liquor Patient Tobacco Use Status: Never used Tobacco Review of Systems Const Denies chills and Denies fever(s) Card Reports no additional complaints and Denies syncope Resp Denies cough GI Denies abdominal pain and Denies heartburn Reports as per HPI and Denies change in libido Neuro Denies syncope Psych Denies change in libido Endo Denies change in libido Physical Exam Const General: cooperative, healthy appearing, comfortable and no acute distress Orientation/consciousness: patient oriented x3 HEENT Face and sinus: Yes normal facial exam Mouth: moist mucous membranes Neck Neck: Yes normal visual inspection, Yes full ROM and Yes trachea midline Chest Chest palpation & inspection: normal inspection of the chest Resp Effort & Inspection: normal respiratory effort, able to speak in complete sentences and no respiratory distress GI Inspection: Yes normal to inspection Back/Spine/Pelvis Cervical Spine: normal cervical lordosis Thoracic/Lumbar Spine: thoracic and lumbar spine normal to inspection Skin General skin exam: no rashes or lesions noted Neuro General: patient oriented x3, gait normal, tone normal and moves all extremities Extrem General: Yes normal to inspection and Yes capillary refill normal Assessment & Plan Assessment & Plan (1) Erectile dysfunction associated with type 2 diabetes mellitus: Code(s): E11.69 - Type 2 diabetes mellitus with other specified complication; N52.1 - Erectile dysfunction due to diseases classified elsewhere Category: Medical Plan Six-month follow-up Patient Instructions: Imaging studies, laboratory and physical exam results were discussed and reviewed in detail. No major barriers to patient understanding were identified. An opportunity to ask questions regarding the treatment plan was provided. All q uestions were answered. The patient expressed understanding and agreement with the above treatment plan. The patient is aware they should contact our office by phone for worsening of their current condition or the appearance of new urologic symptoms. Compliance is encouraged with any medications and followup testing that is ordered. It is a privilege to participate in the urologic care of your patient. If you have any questions or concerns regarding treatment for the above conditions, or other urologic issues, please do not hesitate to contact me. The office telephone contact is [phone]. This note is constructed using voice recognition software. While every effort has been made to ensure accuracy engineering technologist errors may have been included. Yours sincerely, Dr Marlon Carlson MD, [facility] - Urology Providers of Expert, Compassionate Care for the Genitourinary System Coding Level of Care Code Est Pt Level 3 (52063) Diagnoses Erectile dysfunction associated with type 2 diabetes mellitus E11.69; N52.1
== END 2023-10-25 10:26 | disposition home or self-care (01) ==
PROVIDERS: PCP Internal Medicine Geriatric Medicine; Referring Provider Internal Medicine Geriatric Medicine; Visit Provider Urology
DX: E11.69 Type 2 diabetes mellitus with other specified complication (principal); N52.1 Erectile dysfunction due to diseases classified elsewhere
CPT/HCPCS: 99213

== ENCOUNTER → 2023-10-25 09:19 | Outpatient (BNVA) | payer MEDICAID, SELFPAY | PROVIDERS: PCP Internal Medicine Geriatric Medicine; Visit Provider Urology | DX: E11.69 Type 2 diabetes mellitus with other specified complication (principal); N52.1 Erectile dysfunction due to diseases classified elsewhere | CPT/HCPCS: 99212 ==

== ENCOUNTER 2023-11-15 13:22 | Outpatient (AMB) | payer MEDICAID, SELFPAY ==
[2023-11-15 13:23] VITALS: BP 116/66; BMI 31.7
--- NOTE | 2023-11-15 13:23 | MHC.OFFVIS ---
Vital Signs 11/15/23 13:23 Height 5 ft 9 in Weight 215 lb BMI 31.7 BP 116/66 Blood Pressure Location Rt brachial Position Sitting Intake Visit Reasons: Follow Up 10/17 [facility] Intake Note: Pt presents to the office today for a follow up [facility] 10/18/23. Pt states his legs feel tired . He states he has swelling in both ankles. Pt states he has tried support stockings but doesn't think they help him. Allergies No Known Allergies Allergy (Verified 11/15/23 13:24) HPI HPI Follow Up 10/17 [facility]: Details: Very pleasant 48-year-old gentleman presents for follow-up regarding venous insufficiency. He reports that he has swelling and discomfort of bilateral lower extremities he also has history with pain management for back pain issues. He now presents to us for follow-up with venous insufficiency testing. [facility] Medical History Asthma High cholesterol Diabetic polyneuropathy Diabetes mellitus, type II Erectile dysfunction Family History Mother CAD (coronary artery disease) Father Diabetes Social History Household Members: None Housing: House Alcohol intake: current Alcohol intake frequency: a few times a month Alcohol type: beer and hard liquor Patient Tobacco Use Status: Never used Tobacco Review of Systems Const All systems reviewed & are unremarkable except as noted in HPI and below Reports no additional complaints ENT Reports Normal hearing present Card Denies chest pain, Denies chest pain at rest, Denies chest pain with activity and Denies pedal edema Resp Denies cough GI Denies abdominal pain Musc Denies abnormal gait, Denies muscle cramps and Denies radiating pain into limb Skin/Breast Denies skin ulcer and Denies wounds Neuro Reports Normal hearing present and Denies abnormal gait Psych Reports no additional complaints Physical Exam Vital Signs: Last Vital Signs BP 116/66 11/15/23 13:23 BMI result Body Mass Index 31.7 Const General: cooperative, healthy appearing and comfortable Orientation/consciousness: oriented to person, oriented to place and oriented to time HEENT Head: Yes normal to inspection Neck Neck: Yes normal visual inspection Carotids: no bruits Chest Chest palpation & inspection: normal inspection of the chest Resp Effort & Inspection: normal respiratory effort and able to speak in complete sentences Auscultation: clear to auscultation bilaterally, no crackles, no rales, no rhonchi and no wheezes Cardio Rate: regular rate Rhythm: regular rhythm Heart sounds: S1 normal heart sound present and S2 normal heart sound present Bruits: no carotid bruits Peripheral pulses: Peripheral pulses 2+ throughout GI Inspection: Yes normal to inspection Skin Wounds: no wounds Hair: normal Neuro General: oriented to person, oriented to place and oriented to time Cranial nerves: Yes CN's II-XII intact bilaterally and Yes Normal hearing present Cognition (Neuro): normal cognition Motor exam (neuro): 5/5 motor strength present throughout Extrem Other: venous exam: No significant superficial varicosities or spider telangiectasias, minimal edema General: No clubbing, No cyanosis and No edema Psych Appearance: grossly normal Mental Status: mental status grossly normal Speech and movement: Normal speech and movement present Results Reviewed Results Reviewed: Brief summary of venous insufficiency testing is as follows: right great saphenous vein: negative right small saphenous vein: negative right accessory vein: none present left great saphenous vein: negative left small saphenous vein: negative left accessory vein: none present Please note there is no evidence of any venous aneurysms or significant tortuosity Assessment & Plan Assessment & Plan (1) Varicose veins of right lower extremity with inflammation: Code(s): I83.11 - Varicose veins of right lower extremity with inflammation Category: Medical Plan: In short patient is negative for any significant venous insufficiency. At the current time would recommend continued conservative measures including compression elevation and exercise. I would recommend continued follow-up with pain management if no significant improvement. He will follow up with us on an as-needed basis. Thank you for allowing us to participate in his care. Coding Level of Care Code Est Pt Level 4 (42325) Diagnoses Varicose veins of right lower extremity with inflammation I83.11
== END 2023-11-15 13:59 | disposition home or self-care (01) ==
PROVIDERS: PCP Internal Medicine Geriatric Medicine; Referring Provider Internal Medicine Geriatric Medicine; Visit Provider Surgery Vascular Surgery
DX: I83.11 Varicose veins of right lower extremity with inflammation (principal)
CPT/HCPCS: 99214

== ENCOUNTER → 2023-11-15 13:22 | Outpatient (BNVA) | payer MEDICAID, SELFPAY | PROVIDERS: PCP Internal Medicine Geriatric Medicine; Visit Provider Surgery Vascular Surgery | DX: I83.11 Varicose veins of right lower extremity with inflammation (principal) | CPT/HCPCS: 99212 ==

== ENCOUNTER 2024-04-26 09:29 | Outpatient (AMB) | payer MEDICAID, SELFPAY ==
--- NOTE | 2024-04-26 09:30 | MHC.OFFVIS ---
Intake Visit Reasons: 6m follow up Intake Note: Patient is present for 6M F/U Urology Medication:NONE Antibiotic Allergy:NONE Blood Thinner:NONE Tamping Machine Operator Road Forms Required: No Allergies No Known Allergies Allergy (Verified 04/26/24 09:31) HPI Comments Details: Santy is a pleasant 48-year-old male patient of Dr. Lewis. He is seen for the following urologic conditions - erectile dysfunction in setting of diabetes Erectile dysfunction in setting of diabetes - diabetic medications include Jardiance, metformin, tirzepatide Estadoil 09/18 35 FSH 09/18 12.5 LH 09/18 9.1 Prolactin 09/18 7.7 Testosterone 09/18 475 Free testosterone 09/18 91.7 SHGB 09/18 28 PSA 09/18 0.6 A1c 09/18 5.8 Progressive erectile dysfunction on diabetic medications Prior usage of oral medications Prior usage of vacuum pump Discussion regarding injectable therapy versus penile prosthetic Discussed penile prosthetic placement After six-month consideration he would like to move ahead with penile prosthetic. Risks and benefits discussed. We will keep using penile pump until time of surgery. Has been concerned about loss of penile length. Appears to be secondary to pubic fat pad migration. [facility] Medical History Asthma High cholesterol Diabetic polyneuropathy Diabetes mellitus, type II Erectile dysfunction Family History Mother CAD (coronary artery disease) Father Diabetes Social History Household Members: None Housing: House Alcohol intake: current Alcohol intake frequency: a few times a month Alcohol type: beer and hard liquor Patient Tobacco Use Status: Never used Tobacco Review of Systems Const Denies chills and Denies fever(s) Card Reports no additional complaints and Denies syncope Resp Denies cough GI Denies abdominal pain and Denies heartburn Reports as per HPI and Denies change in libido Neuro Denies syncope Psych Denies change in libido Endo Denies change in libido Physical Exam Const General: cooperative, healthy appearing, comfortable and no acute distress Orientation/consciousness: patient oriented x3 HEENT Face and sinus: Yes normal facial exam Mouth: moist mucous membranes Neck Neck: Yes normal visual inspection, Yes full ROM and Yes trachea midline Chest Chest palpation & inspection: normal inspection of the chest Resp Effort & Inspection: normal respiratory effort, able to speak in complete sentences and no respiratory distress GI Inspection: Yes normal to inspection Back/Spine/Pelvis Cervical Spine: normal cervical lordosis Thoracic/Lumbar Spine: thoracic and lumbar spine normal to inspection Skin General skin exam: no rashes or lesions noted Neuro General: patient oriented x3, gait normal, tone normal and moves all extremities Extrem General: Yes normal to inspection and Yes capillary refill normal Assessment & Plan Assessment & Plan (1) Erectile dysfunction associated with type 2 diabetes mellitus: Code(s): E11.69 - Type 2 diabetes mellitus with other specified complication; N52.1 - Erectile dysfunction due to diseases classified elsewhere Category: Medical Plan Risks, benefits and alternatives to therapy were discussed. These include but are not limited to infection, bleeding, damage to local organs and tissues, need for further interventions. Anesthetic risks regarding cardiac arrhythmia, blood clots, and potential mortality were discussed. The patient understands the typical recovery time and the outpatient nature of the procedure. After consideration of these risks the patient gives full informed consent and they wish to move ahead with the procedure. Penile prosthetic with risk of infection Patient Instructions: Imaging studies, laboratory and physical exam results were discussed and reviewed in detail. No major barriers to patient understanding were identified. An opportunity to ask questions regarding the treatment plan was provided. All questions were answered. The patient expressed understanding and agreement with the above treatment plan. The patient is aware they should contact our office by phone for worsening of their current condition or the appearance of new urologic symptoms. Compliance is encouraged with any medications and followup testing that is ordered. It is a privilege to participate in the urologic care of your patient. If you have any questions or concerns regarding treatment for the above conditions, or other urologic issues, please do not hesitate to contact me. The office telephone contact is [phone]. This note is constructed using voice recognition software. While every effort has been made to ensure accuracy mixing picker tender errors may have been included. Yours sincerely, Dr Marlon Carlson MD, [facility] - Urology Providers of Expert, Compassionate Care for the Genitourinary System Coding Level of Care Code Est Pt Level 4 (44897) Diagnoses Erectile dysfunction associated with type 2 diabetes mellitus E11.69; N52.1
== END 2024-04-26 10:00 | disposition home or self-care (01) ==
PROVIDERS: PCP Internal Medicine Geriatric Medicine; Visit Provider Urology
DX: E11.69 Type 2 diabetes mellitus with other specified complication (principal); N52.1 Erectile dysfunction due to diseases classified elsewhere
CPT/HCPCS: 99214

== ENCOUNTER → 2024-04-26 09:29 | Outpatient (BNVA) | payer MEDICAID, SELFPAY | PROVIDERS: PCP Internal Medicine Geriatric Medicine; Visit Provider Urology | DX: E11.69 Type 2 diabetes mellitus with other specified complication (principal); N52.1 Erectile dysfunction due to diseases classified elsewhere | CPT/HCPCS: 99212 ==

== ENCOUNTER 2024-05-17 13:50 | Outpatient (AMB) | payer MEDICAID, SELFPAY ==
--- NOTE | 2024-05-17 13:51 | A.OFFVIS_ITS ---
Vital Signs 05/17/24 13:58 Height 5 ft 9 in Weight 225 lb 2 oz BMI 33.2 BP 130/87 Blood Pressure Location Rt brachial Position Sitting Pulse 93 Intake Visit Reasons: colonoscopy screening Intake Note: This patient presents for colonoscopy screening. Pt c/o; never had colonoscopy before, no rectal bleeding, pain or constipation. Planishing Press Operator Required: No Accompanied by: Child Allergies No Known Allergies Allergy (Verified 05/17/24 13:59) Medication List - Last Reconciled 05/17/24 by Nik Zarco MD amitriptyline 50 mg PO BEDTIME amlodipine 10 mg PO QAM atorvastatin 40 mg PO DAILY blood sugar diagnostic (FreeStyle Lite Strips) As directed cetirizine 10 mg PO QAM cholecalciferol (vitamin D3) 50 mcg PO BID duloxetine 60 mg PO DAILY empagliflozin (Jardiance) 25 mg PO QAM hydrochlorothiazide 25 mg PO DAILY insulin degludec (Tresiba FlexTouch U-200 insulin) 64 units subcut DAILY lisinopril 40 mg PO DAILY metformin ER 500 mg PO pantoprazole 40 mg PO DAILY tirzepatide (Mounjaro) 5 mg subcut QWEEK HPI HPI colonoscopy screening: Details: 48-year-old male referred for screening colonoscopy. He has never had any colonoscopy in the past. He denies GI complaints. He denies a strong family history of colon cancer. He has diabetes but he says his blood sugars are well controlled. [facility] Medical History (Updated 05/17/24 @ 13:54 by Nik Zarco MD) Colon cancer screening Asthma High cholesterol Diabetic polyneuropathy Diabetes mellitus, type II Erectile dysfunction Surgical History (Updated 05/17/24 @ 14:01 by VALENCIA Montemayor) No pertinent past surgical history Family History (Updated 05/17/24 @ 14:01 by VALENCIA Montemayor) Mother CAD (coronary artery disease) Father Diabetes Social History Household Members: None Housing: House Alcohol intake: current Alcohol intake frequency: a few times a month Alcohol type: beer and hard liquor Patient Tobacco Use Status: Never used Tobacco Review of Systems Const Denies chills and Denies fever(s) Card Denies chest pain, Denies dyspnea and Denies dyspnea on exertion Resp Denies cough, Denies dyspnea and Denies dyspnea on exertion GI Denies hematochezia and Denies change in bowel habits Denies hematuria and Denies difficulty urinating Musc Denies back pain and Denies limited range of motion Neuro Denies focal weakness and Denies convulsions Psych Denies depression and Denies mood swings Physical Exam Const General: comfortable and no acute distress Orientation/consciousness: patient oriented x3 Neck Neck: Yes no lymphadenopathy Resp Auscultation: clear to auscultation bilaterally Cardio Rhythm: regular rhythm GI Palpation (GI): Soft to palpation, nontender and no guarding Neuro General: patient oriented x3 Assessment & Plan Assessment & Plan (1) Colon cancer screening: Code(s): Z12.11 - Encounter for screening for malignant neoplasm of colon Category: Medical Plan: I reviewed with him the technique of colonoscopy for screening. I explained the risks including but not limited to bleeding and perforation, as well as the benefits and alternatives. He understands and agrees to proceed. Coding Level of Care Code New Pt Level 3 (73744) Diagnoses Colon cancer screening Z12.11
[2024-05-17 13:58] VITALS: BP 130/87; PULSE 93; BMI 33.2
--- OUTSIDE RECORDS SUMMARY | 2024-05-17 14:53 | XMS_ITS | Encounter Summary ---
Author Organization [employer] Address [address] [facility] 7t [place] [address] Care Team Providers Care Printed Circuit Boards Stripper Etcher Name Role Phone Name, Jose MOSQUERA Primary Care Provider [phone] Steff Romero PharmD Unavailable [phone] Encounter Details Date Type Department Care Team (Latest Contact Info) Description 05/16/2024 Travel Social History Tobacco Use Types Packs/Day Years Used Date Smoking Tobacco: Never Passive Smoke Exposure: Never Smokeless Tobacco: Never Alcohol Use Standard Drinks/Week Comments Yes 0 (1 standard drink = 0.6 oz pur e alcohol) socially Alcohol Answer Date Recorded Frequency of Alcohol Consumption Not on file 11/17/2023 Average Number of Drinks Not on file 024 Frequency of Binge Drinking Not on file 10/27 Score 0 11/17/2023 Depression Answer Date Recorded Patient Health Questionnaire-9 Score 18 05/16/2024 Patient Health Questionnaire-9 Score 18 05/16/2024 Last PHQ-9: Questionnaire Data Not on file 0 05/16/2024 Housing Stability Answer Date Recorded What is your housing situation today? I have housing today, but I am worried about losing housing in the future 05/05/[address] you li ve. Do you have problems with any of the following? None of the above 05/05/2023 Food Insecurity Answer Date Recorded Within the past 12 months, y ou worried that your food would run out before you got money to buy more: Never True 05/05/2023 Within the past 12 months,th e food you bought just didn't last and you didn't have enough money to get more: Never True 10/2023 Transportation Answer Date Recorded In the past 12 months, has l ack of transportation kept you from medical appts, meetings, work or from getting things needed for daily living? No 05/05/2023 Utilities Answer Date Recorded In the past 12 months, has t he electric, gas, oil or water company threatened to shut off services in your home? No 05/05/2023 Depression Answer Date Recorded Patient Health Questionnaire-2 Score 6 05/16/2024 Sex and Gender Information Value Date Recorded Sex Assigned at Male 01/25/2022 10:14 AM EDT Legal Sex Male 10:14 AM EDT Gender Identity Male 01/25/2022 10:14 AM EDT Sexual Orientation Straight 01/25/2022 10 :14 AM EDT documented as of this encounter Plan of Treatment Upcoming Encounters Date Type Department Care Team (Late st Contact Info) Description 05/18/2024 10:30 AM EST Clinical Support [address] [address] 08/06/2024 10:15 AM EDT Office Visit [facility] [address] [place] [address] Name, MD Jose [address] [place] [address] documented as of this encounter Goals Goal Patient Goal Type Associated Problems Recent Progress Patient-Stated? Author Record your blood pressure periodically (2-3x per week) Blood Pressure No Puia, Steff, PharmD Blood Pressure < 140/90 Blood Pressure 129/95(2024 3:07 PM EST) No Puia, Steff, PharmD Patient will adhere to medication regimen General No Puia, Steff, PharmD Hemoglobin A1c < 7 Result Component 6(05/16/2024 3:11 PM EST) No Puia, Steff, PharmD Record your blood sugar as directed Result Component No Puia, Steff, PharmD Note: Use CGM, ensuring sensor is scanned at least once every 8 hours to capture 24H data. Check BG manually, as directed. documented as of this encounter Visit Diagnoses Not on filedocumented in this encounter Additional Health Concerns Assessment Noted Time PHQ-9 Depression Total Score: 18 025 4:17 PM EST documented as of this encounter Care Teams Printed Circuit Boards Stripper Etcher Relationship Specialty Start Date End Date Name, MD Jose [address] [place] [address] PCP - General Internal Medicine 03/17/22 Steff Romero PharmD [address] [place] [address] Pharmacist Internal Medicine 09/14/22 documented as of this encounter
--- OUTSIDE RECORDS SUMMARY | 2024-05-17 14:53 | XMS_ITS | Encounter Summary ---
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 (CMS/HCC) (Primary Dx); Mild nonproliferative diabetic retinopathy of right eye without macular edema associated with type 2 diabetes mellitus (CMS/HCC); Presbyopia of both eyes; Dry eye syndrome of both eyes Social History Tobacco Use Types Packs/Day Years [...] Answer Date Recorded Patient Health Questionnaire-9 Score 24 05/05/2023 Patient Health Questionnaire-9 Score 24 05/05/2023 Last PHQ-9: Questionnaire Data Not on file 0 05/05/2023 Housing Stability Answer Date Recorded What is [...] Date Recorded Patient Health Questionnaire-2 Score 6 05/05/2023 Sex and Gender Information Value Date Recorded Sex Assigned at Male 01/25/2022 10:14 AM EDT Legal Sex Male 10:14 AM EDT Gender Identity Male 01/25/2022 10:14 AM EDT Sexual Orientation Straight 01/25/2022 10 :14 AM EDT documented as of this encounter Plan of Treatment Upcoming Encounters Date Type Department Care Team (Late st Contact Info) Description 05/18/2024 10:30 AM EST Clinical Support [address] [address] 08/06/2024 10:15 AM EDT Office Visit [facility] MEDIC[facility] [address] [place] [address] Name, MD Jose [address] [place] [address] Pending Results Name Type Priority Associated Diagnoses Date /Time OCT, Retina - OU - Both Eyes Ophthalmology Routine 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 Author Record your blood pressure periodically (2-3x per week) Blood Pressure No Steff Romero, PharmD Blood Pressure < 140/90 Blood Pressure 129/95(2024 3:07 PM EST) No Steff Romero, PharmD Patient will adhere to medication regimen General No Steff Romero, PharmD Hemoglobin A1c < 7 Result Component 6(05/16/2024 3:11 PM EST) No Steff Romero, PharmD Record your blood sugar as directed Result Component No Steff Romero PharmD Note: Use CGM, ensuring sensor is scanned at least once every 8 hours to capture 24H data. Check BG manually, as directed. 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 (CMS/HCC)- Primary Mild nonproliferative diabetic retinopathy of right eye without macular edema associated with type 2 diabetes mellitus (CMS/HCC) Presbyopia of both eyes Dry eye syndrome of both eyes documented in this encounter Additional Health Concerns Assessment Noted Time PHQ-9 Depression Total Score: 24 024 2:19 PM EST documented as of this encounter Care Teams Mobile Equipment Operator Relationship Specialty Start Date End Date Name, MD Jose [address] [place] [address] PCP - General Internal Medicine 03/17/22 Steff Romero PharmD [address] [place] [address] Pharmacist Internal Medicine 09/14/22 documented as of this encounter
--- OUTSIDE RECORDS SUMMARY | 2024-05-17 14:53 | XMS_ITS | Encounter Summary ---
Author Organization [email or web address] Address [address] [facility] 7t [place] [address] Care Team Providers Care End Frazer Name Role Phone Name, Jose MOSQUERA Primary Care Provider [phone] Steff Romero PharmD Unavailable [phone] Encounter Details Date Type Department Care Team (Latest Contact Info) Description 05/02/2024 Travel Social History Tobacco Use Types Packs/Day [...] Description 05/18/2024 10:30 AM EST Clinical Support [address] [address] 08/06/2024 10:15 AM EDT Office Visit [facility] [address] [place] [address] Name, MD Jose [address] [place] [address] documented as of this encounter Goals Goal [...] documented as of this encounter Care Teams End Frazer Relationship Specialty Start Date End Date Name, MD Jose [address] [place] [address] PCP - General Internal Medicine 03/17/22 Steff Romero PharmD [address] [place] [address] Pharmacist Internal Medicine 09/14/22 documented as of this encounter
--- OUTSIDE RECORDS SUMMARY | 2024-05-17 14:53 | XMS_ITS | Encounter Summary ---
Author Organization [employer] Address [address] [place] [address] 7t [place] [address] Care Team Providers Care Electric Motors Salesperson Name Role Phone Name, Jose MOSQUERA Primary Care Provider [phone] Steff Romero PharmD Unavailable [phone] Reason for Visit * Reason Comments Diabetes Encounter Details Date Type Department Care Team ([facility] st Contact Info) Description 05/16/2024 2:30 PM EST Office Visit [facility] [address] [place], [place] [phone] Name, MD Jose [address] [place] [address] Foot abscess, left (Primary Dx); Acute foot pain, left; Type 2 diabetes mellitus with diabetic polyneuropathy, with long-term current use of insulin ([facility]) Social History Tobacco Use Types Packs/Day Years Used Date Smoking Tobacco: Never Passive Smoke Exposure: Never Smokeless Tobacco: Never Tobacco Cessation:Counseling Given: Not Answered Alcohol Use Standard Drinks/Week Comments Yes 0 [...] AM EDT documented as of this encounter Last Filed Vital Signs Vital Sign Reading Time Taken Comments Blood Pressure 129/95 05/16/2024 3:07 PM EST Pulse 105 05/16/2024 3:07 PM EST Temperature 37.5 ??C (99.5 ??F) 05/16/2024 3:07 PM ES T Respiratory Rate 21 05/16/2024 3:07 PM EST Oxygen Saturation 98% 05/16/2024 3:07 PM EST Inhaled Oxygen Concentration - - Weight 101 kg (222 lb 9.6 oz) 05/16/2024 3:07 PM EST Height 175.3 cm (5' 9 ) 05/16/2024 3:07 PM EST Body Mass Index 32.87 05/16/2024 3:07 PM EST documented in this encounter Progress Notes * Jose Lewis MD - 05/16/2024 2:30 PM EST Images from the original note were not included. Subjective Patient ID: Santy Yeager is a 48 y.o. male who presents for Diabetes. Patient comes accompanied by his son. He is complaining of worsening of his left foot pain. He has chronic foot pain secondary to neuropathy but he noticed worsening of the pain in the left foot about 10 days ago. Yesterday he noted some drainage from the left foot as well and he describes discomfort when he steps on. He has a small area of redness on the ball of the left foot. By the time of hisvisit the drainage has resolved. He describes the drainage was clear. He does not recall any foul smell to the drainage. He does not recall any trauma. Review of Systems Constitutional: Negative for chills, fatigue and fever. HENT: Negative for sore throat. Respiratory: Negative for cough, chest tightness and shortness of breath. Cardiovascular: Negative for chest pain, palpitations and leg swelling. Gastrointestinal: Negative for abdominal pain and blood in stool. Musculoskeletal: Positive for back pain. Skin: See HPI Visit Vitals BP (!) 129/95 (BP Location: Left arm, Patient Position: Sitting, BP Cuff Size: Large adult) Pulse 105 Temp 99.5 ??F (37.5 ??C) (Temporal) Resp 21 Ht 5' 9 (1.753 m) Wt 222 lb 9.6 oz (101 kg) SpO2 98% BMI 32.87 kg/m?? Smoking Status Never BSA 2.22 m?? Objective Physical Exam Constitutional: Appearance: Normal appearance. Cardiovascular: Rate and Rhythm: Normal rate and regular rhythm. Pulmonary: Effort: Pulmonary effort is normal. No respiratory distress. Abdominal: Palpations: Abdomen is soft. Skin: Comments: See attached Neurological: Mental Status: He is alert. Assessment/Plan Diagnoses and all orders for this visit: Foot abscess, left Comments: I will treat for possible left foot abscess that drained spontaneously. I recommended Keflex Naproxen and tramadol for pain Come for wound recheck on Tuesday He is encouraged to call if he has any problems with the medication. I did not recommend any change in his diabetes medications. I recommended to cut the dose of amitriptyline in half and hold Cymbalta until he is done with the tramadol prescription. I did not change his diabetes medications. Lab Results Component Value Date HGBA1C 6.0 05/16/2024 Orders: - cephalexin (Keflex) 500 MG capsule; Take 1 capsule (500 mg) by mouth 3 times daily for 10 days. - naproxen (Naprosyn) 500 MG tablet; Take 1 tablet (500 mg) by mouth 2 times daily. - traMADol (Ultram) 50 MG tablet; Take 1 tablet (50 mg) by mouth if needed in the morning and at bedtime for severe pain for up to 5 days. Acute foot pain, left - cephalexin (Keflex) 500 MG capsule; Take 1 capsule (500 mg) by mouth 3 times daily for 10 days. - naproxen (Naprosyn) 500 MG tablet; Take 1 tablet (500 mg) by mouth 2 times daily. - traMADol (Ultram) 50 MG tablet; Take 1 tablet (50 mg) by mouth if needed in the morning and at bedtime for severe pain for up to 5 days. Type 2 diabetes mellitus with diabetic polyneuropathy, with long-term current use of insulin ([facility]) - POCT Glucose - POCT HGB A1C - cephalexin (Keflex) 500 MG capsule; Take 1 capsule (500 mg) by mouth 3 times daily for 10 days. - naproxen (Naprosyn) 500 MG tablet; Take 1 tablet (500 mg) by mouth 2 times daily. - traMADol (Ultram) 50 MG tablet; Take 1 tablet (50 mg) by mouth if needed in the morning and at bedtime for severe pain for up to 5 days. documented in this encounter Plan of Treatment Upcoming Encounters Date Type Department Care Team (Late st Contact Info) Description 05/18/2024 10:30 AM EST Clinical Support [address] [address] 08/06/2024 10:15 AM EDT Office Visit [address] [address] Name, MD Jose [address] [place] [address] documented as of this encounter Goals Goal Patient Goal Type Associated Problems Recent Progress Patient-Stated? Author Record your blood pressure periodically (2-3x per week) Blood Pressure No Steff Romero, Devon Blood Pressure < 140/90 Blood Pressure 129/95(2024 [...] as directed. documented as of this encounter Procedures Procedure Name Priority Date/Time Associated Diagnosis Comments POCT GLYCATED HEMOGLOBIN, TOTAL Routine 05/16/2024 3:11 PM EST Type 2 diabetes mellitus with diabetic polyneuropathy, with long-term current use of insulin ([facility]) POCT GLUCOSE Routine 05/16/2024 3:08 PM EST Type 2 diabetes mellitus with diabetic polyneuropathy, with long-term current use of insulin ([facility]) documented in this encounter Results * POCT HGB A1C (05/16/2024 3:11 PM EST) Hemoglobin A1C 6.0 4.0 - 6.0 % QC Media Lot # [id number] Lot# Expiration Date 71,626 Blood 05/16/2024 3:11 PM EST Result Marlene Lewis MD POINT OF CARE TEST ENTER/EDIT OR DERABLES Final Result * POCT Glucose (05/16/2024 3:08 PM EST) Glucose Blood, POC 102 60 - 200 mg/dL QC Media Lot # [id number] Lot# Expiration Date 53,025 Blood Capillary blood specimen / Unknown 05/16/2024 3:08 PM EST Result Marlene Lewis MD POINT OF CARE TEST ENTER/EDIT OR DERABLES Final Result documented in this encounter Visit Diagnoses Diagnosis Foot abscess, left- Primary Cellulitis and abscess of foot, except toes Acute foot pain, left Type 2 diabetes mellitus with diabetic polyneuropathy, with long-term current use of insulin ([facility]) documented in this encounter Additional Health Concerns Assessment Noted Time PHQ-9 Depression Total Score: 18 025 4:17 PM EST documented as of this encounter Care Teams Electric Motors Salesperson Relationship Specialty Start Date End Date Name, MD Jose [address] [place] [address] PCP - General Internal Medicine 03/17/22 Steff Romero PharmD [address] [place] [address] Pharmacist Internal Medicine 09/14/22 documented as of this encounter
--- OUTSIDE RECORDS SUMMARY | 2024-05-17 14:53 | XMS_ITS | Encounter Summary ---
Author Organization [employer] Address [address] [place] [address] [address]t [place] [address] Care Team Providers Care Brick Wheeler Name Role Phone Name, Jose MOSQUERA Primary Care Provider [phone] Steff Romero PharmD Unavailable [phone] Reason for Visit * Reason Comments Med Refill Encounter Details Date Type Department Care Team ([facility] Contact Info) Description 12/02/2022 Refill [facility] [address] [place] [address] Gita Joshi FNP [address] [place] [address] [place] [address] Gastroesophageal reflux disease without esophagitis Social History Tobacco Use Types Packs/Day Years Used Date Smoking Tobacco: Never Passive Smoke Exposure: Never Smokeless Tobacco: Never Alcohol Use Standard Drinks/Week Comments Yes 0 (1 standard drink = 0.6 oz pur e alcohol) socially Depression Answer Date Recorded Patient Health Questionnaire-2 Score 6 04/08/2022 Sex and Gender Information Value Date Recorded Sex Assigned at Male 01/25/2022 10:14 AM EDT Legal Sex Male 10:14 AM EDT Gender Identity Male 01/25/2022 10:14 AM EDT Sexual Orientation Straight 01/25/2022 10 :14 AM EDT documented as of this encounter Plan of Treatment Upcoming Encounters Date Type Department Care Team (Late Contact Info) Description 05/18/2024 10:30 AM EST Clinical Support [facility] [address] [place] [address] 08/06/2024 10:15 AM EDT Office Visit [facility] [address] [place] [phone] Name, MD Jose [address] [place] [address] documented as of this encounter Goals Goal [...] Result Component 6(05/16/2024 3:11 PM EST) No Nick, Steff, PharmD Record your blood sugar as directed Result Component No Puandre Steff, PharmD Note: Use CGM, ensuring sensor is scanned at least once every 8 hours to capture 24H data. Check BG manually, as directed. documented as of this encounter Visit Diagnoses Diagnosis Gastroesophageal reflux disease without esophagitis Esophageal reflux documented in this encounter Care Teams Brick Wheeler Relationship Specialty Start Date End Date Name, MD Jose [address] [place] [phone] PCP - General Internal Medicine 03/17/22 Steff Romero PharmD [address] [place] [address] Pharmacist Internal Medicine 09/14/22 documented as of this encounter
--- OUTSIDE RECORDS SUMMARY | 2024-05-17 14:53 | XMS_ITS | Clinical Summary ---
Author Organization [employer] Address [address] [place] [address] 7[address] [place] [address] Care Team Providers Care Curriculum Development Coordinator Name Role Phone Name, Jose MOSQUERA Primary Care Provider [phone] Steff Romero PharmD Unavailable [phone] Allergies No known active allergies Medications * This document contains information received from the source organization and may not represent a complete record from that organization. ketotifen (Zaditor) 0.025 % ophthalmic solutionIndicati ons:Type 2 diabetes mellitus with other specified complication, without long-term current use of insulin ([facility]) Administer 1 drop into both eyes 2 times daily. 5 mL 2 05/19/19 23 Active Blood Pressure Monitor kitIndications:E ssential hypertension Use once a day 1 kit 06/15/19 23 Active hydrOXYzine pamoate (Vistaril) 25 MG capsuleIndicatio ns:Diabetic dermopathy (CMS/HCC) ([facility]) TAKE 1 CAPSULE BY MOUTH AT BEDTIME FOR 28 DAYS. 28 capsule 07/27/19 23 Active Continuous Blood Gluc Brick Pitcher (FreeStyle Deven 2 [place]) deviceIndication s:Type 2 diabetes mellitus with hyperglycemia, without long-term current use of insulin ([facility]) Use to scan sensor at least every 8 hours, as directed, for CGM 1 each 09/15/19 23 Active TRUEplus Lancets 33G misc Use to test blood sugar three times daily 100 each 11 10/13/19 23 Active glucose blood (FreeStyle Precision Carter Test) test stripIndications :Type 2 diabetes mellitus with diabetic polyneuropathy, with long-term current use of insulin ([facility]/HCC) TEST BLOOD SUGAR UP TO THREE TIMES DAILY DIRECTED 50 strip 5 08/26/19 Active insulin pen needle 32G x 4 mm miscIndications: Type 2 diabetes mellitus with diabetic polyneuropathy, with long-term current use of insulin ([facility]) Use to inject insulin 1 times daily 100 each 08/26/19 Active Tirzepatide (Mounjaro) 5 MG/0.5ML solution pen-injectorIndi cations:Type 2 diabetes mellitus with diabetic polyneuropathy, with long-term current use of insulin ([facility]) Inject 5 mg under the skin 1 (one) time per week. 2 mL 08/26/19 Active Continuous Glucose Sensor (FreeStyle Deven 2 Sensor) miscIndications: Type 2 diabetes mellitus with diabetic polyneuropathy, with long-term current use of insulin ([facility]) Apply 1 sensor, as directed, every 14 days for CGM 2 each 08/26/19 Active empagliflozin (Jardiance) 25 MGIndications:Ty pe 2 diabetes mellitus with diabetic polyneuropathy, with long-term current use of insulin ([facility]) Take 1 tablet (25 mg) by mouth in the morning. 90 tablet 3 08/26/19 24 Active metFORMIN XR (Glucophage-XR) 500 MG 24 hr tabletIndication s:Type 2 diabetes mellitus with diabetic polyneuropathy, with long-term current use of insulin ([facility]) Take 1 tablet (500 mg) by mouth with breakfast and with evening meal. Do not crush, chew, or split. 180 tablet 08/26/19 24 Active DULoxetine (Cymbalta) [address] Ramos ns:Type 2 diabetes mellitus with other specified complication, without long-term current use of insulin ([facility]) TAKE 1 CAPSULE BY MOUTH EVERY DAY IN THE MORNING 90 capsule 1 11/01/19 24 Active pregabalin (Lyrica) 50 MG capsule Take 1 capsule (50 mg) by mouth Once per day for 7 days, THEN 1 capsule (50 mg) 2 times daily for 7 days, THEN 1 capsule (50 mg) 3 times daily for 14 days. 63 capsule 11/17/19 24 Active famotidine (Pepcid) 20 MG tablet Take 1 tablet (20 mg) by mouth 2 times daily. 60 tablet 11 11/17/19 24 025 Active amLODIPine (Norvasc) 10 MG tabletIndication s:Essential hypertension TAKE 1 TABLET BY MOUTH EVERY MORNING 90 tablet 1 12/26/19 24 Active pantoprazole (ProtoNix) 40 MG EC tabletIndication s:Gastroesophage al reflux disease without esophagitis TAKE 1 TABLET BY MOUTH EVERY MORNING 90 tablet 1 12/26/19 24 Active cholecalciferol (D3 Super Strength) 50 MCG (2000 UT) capsuleIndicatio ns:Vitamin D deficiency TAKE 1 CAPSULE BY MOUTH TWICE DAILY IN THE MORNING AND AT BEDTIME 180 capsule 1 12/26/19 24 Active lisinopril 40 MG tablet TAKE 1 TABLET BY MOUTH AT BEDTIME 90 tablet 1 01/30/20 24 Active insulin degludec (Tresiba FlexTouch) 200 UNIT/ML injectionIndicat ions:Type 2 diabetes mellitus with diabetic polyneuropathy, with long-term current use of insulin ([facility]) INJECT 64 SUBCUTANEOUSLY EVERY DAY 9 mL 5 02/28/20 24 Active cetirizine (ZyrTEC) 10 MG tabletIndication s:Type 2 diabetes mellitus with other specified complication, without long-term current use of insulin (CMS/HCC) TAKE 1 TABLET BY MOUTH EVERY MORNING 90 tablet 1 03/01/20 24 Active atorvastatin (Lipitor) 40 MG tablet TAKE 1 TABLET BY MOUTH AT BEDTIME 90 tablet 1 03/02/20 24 Active Alcohol Swabs (Alcohol Prep) 70 % pads USE THREE TIMES DAILY 100 each 11 03/05/20 24 Active hydroCHLOROthiaz jazmyn (HYDRODiuril) 25 MG tabletIndication s:Primary hypertension TAKE 1 TABLET BY MOUTH EVERY MORNING 90 tablet 1 03/29/19 25 Active amitriptyline (Elavil) 50 MG tablet TAKE 1 TABLET BY MOUTH AT BEDTIME 90 tablet 1 03/29/19 25 Active cephalexin (Keflex) 500 MG capsuleIndicatio ns:Type 2 diabetes mellitus with diabetic polyneuropathy, with long-term current use of insulin (CMS/HCC),Foot abscess, left,Acute foot pain, left Take 1 capsule (500 mg) by mouth 3 times daily for 10 days. 30 capsule 05/16/19 25 025 Active naproxen (Naprosyn) 500 MG tabletIndication s:Type 2 diabetes mellitus with diabetic polyneuropathy, with long-term current use of insulin (CMS/HCC),Foot abscess, left,Acute foot pain, left Take 1 tablet (500 mg) by mouth 2 times daily. 60 tablet 05/16/19 25 025 Active traMADol (Ultram) 50 MG tabletIndication s:Type 2 diabetes mellitus with diabetic polyneuropathy, with long-term current use of insulin (CMS/HCC),Foot abscess, left,Acute foot pain, left Take 1 tablet (50 mg) by mouth if needed in the morning and at bedtime for severe pain for up to 5 days. 15 tablet 05/16/19 25 025 Active Active Problems Problem Noted Date Diagnosed Date Severe major depression 05/05/2023 Assessment & Plan (05/05/2023 2:38 PM EST): Measurement Tools [Check all that apply and include scores] PHQ9, YISEL-7 PHQ9: 24 GAD7: 21 PLAN: (check all that apply) Behavioral Health Integration Plan Patient Self Plan Patient to utilize skills provided in intervention , Patient to reach out to [facility] as needed, and Information on [facility] provided. Santy agrees to contact [facility] to schedule intake. 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 03/18/2022 Erectile dysfunction 09/10/2021 Chronic low back pain 03/04/2021 Essential hypertension 01/18/2017 Diabetic polyneuropathy 04/06/2016 Type 2 diabetes mellitus 04/06/2016 Encounters Date Type Department Care Team Description 05/16/2024 2:30 PM EST Office Visit [facility] MEDICINE [address] [place] [address] Name, MD Jose Foot abscess, left (Primary Dx); Acute foot pain, left; Type 2 diabetes mellitus with diabetic polyneuropathy, with long-term current use of insulin (CMS/HCC) 05/16/2024 Travel 05/02/2024 9:30 AM EST Office Visit [facility] OPTOMETRY [address] [place] [phone] Tom, Shell, OD Mild nonproliferative diabetic retinopathy of left eye with macular edema associated with type 2 diabetes mellitus ([facility]) (Primary Dx); Mild nonproliferative diabetic retinopathy of right eye without macular edema associated with type 2 diabetes mellitus ([facility]); Presbyopia of both eyes; Dry eye syndrome of both eyes 05/02/2024 Travel 03/29/2024 Refill [facility] MEDICINE [address] [place] [address] NameJose MD 03/28/2024 Refill [facility] [address] [place] [address] NameJose MD Primary hypertension 03/03/2024 Refill [facility] [address] [place] [address] Jose Lewis MD 03/02/2024 Refill [facility] MEDICINE [address] [place] [address] Jose Lewis MD 03/01/2024 Refill [facility] [address] [place], [place] [phone] NameJose MD Type 2 diabetes mellitus with other specified complication, without long-term current use of insulin ([facility]) 02/26/2024 Refill [facility] MEDICINE [address] [place] [address] Jose Lewis MD Type 2 diabetes mellitus with diabetic polyneuropathy, with long-term current use of insulin ([facility]) from Last 3 Months Immunizations Name Administration Dates Next Due HepB-CpG 10/26/2022,09/17/2022 Influenza injectable quadriv alent IIV4 with preservative 12/30/2015 Pfizer Covid-19 Vaccine 12+ 08/26/2023(Deferred: Patient Refused) Pneumococcal Conjugate PCV 20 09/17/2022 Td (adult), 5 Lf tetanus tox oid, preservative free, adsorbed 01/19/2013 Tdap 12/04/2020,09/19/2009,05/18/2007 Family History Medical History Relation Name Comments Diabetes Father Relation Name Status Comments Father Social History Tobacco Use Types Packs/Day Years [...] Orientation Straight 01/25/2022 10 :14 AM EDT Last Filed Vital Signs Vital Sign Reading [...] Mass Index 32.87 05/16/2024 3:07 PM EST Plan of Treatment Upcoming Encounters Date Type Department Care Team (Late st Contact Info) Description 05/18/2024 10:30 AM EST Clinical Support [facility] MEDICINE [address] [place] [address] 08/06/2024 10:15 AM EDT Office Visit [facility] MEDICINE [address] [place] [phone] Name, MD Jose [address] [place] [address] Health Maintenance Due Date Last Done Comments CT Colonography 1974 Colonoscopy 1974 Colorectal Cancer Screening 1974 FIT DNA/Cologuard 1974 FIT 1974 FOBT 1974 Sigmoidoscopy 1974 Family Planning (PISQ) 1989 COVID-19 Vaccine ( season) 2023 Influenza Vaccine (#1) 2023 12/30/2015 SDOH Screening 05/05/2024 05/05/2023 Zoster Vaccines (1 of 2) 2024 Diabetes: Urine Protein Screening 08/29/2024 08/30/2023, 12/31/2022, 09/04/2021, Additional history exists Lipid Panel 08/29/2024 08/30/2023, 03/28, 09/04/2021, Additional history exists Depression Monitoring (PHQ-9) 11/13/2024 05/16/2024, 05/16/2024 Diabetes: Hemoglobin A1C 11/13/2024 025, 09/06/2023, 08/26/2023, Additional history exists Alcohol/Substance Use Screening 11/16/2024 11/17/2023 Diabetes: Foot Exam 11/16/2024 11/17/2023, 11/17/2023, 11/17/2023, Additional history exists Eye Exam 05/02/2025 05/02/2024, 07/2024, 05/02/2024, Additional history exists Depression Screening 05/16/2025 05/16/2024, 05/16/19 Tobacco Screening 05/16/2025 05/16/2024 DTaP/Tdap/Td Vaccines (5 - Td or Tdap) 12/04/2030 12/04/2020, 01/19/2013, 09/19/2009, Additional history exists RSV Patients and Patients Aged 60 years or older (1 - 1-dose 75+ series) 2049 Hepatitis C Screening Completed 07/23/2020, 020 Pneumococcal Vaccine: Pediatrics (0 to 5 Years) and At-Risk Patients (6 to 49) Years) Completed 09/17/2022 Hepatitis B Vaccines Completed 10/26/2022, 09/18/19 HIV Screening Completed 08/30/2023 HIB Vaccines Aged Out No longer eligi ble based on patient's age to complete this topic HPV Vaccines Aged Out No longer eligi ble based on patient's age to complete this topic Hepatitis A Vaccines Aged Out No long er eligible based on patient's age to complete this topic IPV Vaccines Aged Out No longer eligi ble based on patient's age to complete this topic Meningococcal Vaccine Aged Out No tanika chris eligible based on patient's age to complete this topic RSV under 20 months Aged Out No longe r eligible based on patient's age to complete this topic Rotavirus Vaccines Aged Out No longer eligible based on patient's age to complete this topic Goals Goal Patient Goal Type Associated Problems [...] 24H data. Check BG manually, as directed. Procedures Procedure Name Priority Date/Time Associated Diagnosis Comments POCT GLYCATED HEMOGLOBIN, TOTAL Routine 05/16/2024 3:11 PM EST Type 2 diabetes mellitus with diabetic polyneuropathy, with long-term current use of insulin (CMS/HCC) POCT GLUCOSE Routine 05/16/2024 3:08 PM EST Type 2 diabetes mellitus with diabetic polyneuropathy, with long-term current use of insulin (CMS/HCC) HIV 1/2 ANTIGEN/ANTIBODY, FOURTH GENERATION W/RFL Routine 08/30/2023 10:51 AM EDT Screening for HIV (human immunodeficiency virus) ALBUMIN, RANDOM URINE W/CREATININE Routine 08/30/2023 10:51 AM EDT Type 2 diabetes mellitus with diabetic polyneuropathy, with long-term current use of insulin (CMS/HCC) PE (physical exam), routine Screen for colon cancer Chronic midline low back pain, unspecified whether sciatica present LIPID PANEL, STANDARD Routine 08/30/2023 10:51 AM EDT Type 2 diabetes mellitus with diabetic polyneuropathy, with long-term current use of insulin (CMS/HCC) PE (physical exam), routine Screen for colon cancer Chronic midline low back pain, unspecified whether sciatica present ZZZ HISTORICAL HEPATITIS C AB W/REFL TO HCV RNA, QN, PCR Routine 07/23/2020 3:34 PM EDT from Last 3 Months or Most Recently Relevant to Health Maintenance Results * POCT HGB A1C (05/16/2024 3:11 PM EST) Hemoglobin A1C 6.0 4.0 - 6.0 % QC Media Lot # [id number] Lot# Expiration Date [id number] Blood 05/16/2024 3:11 PM EST us Jose Lewis MD POINT OF CARE TEST ENTER/EDIT OR DERABLES Final Result * POCT Glucose (05/16/2024 3:08 PM EST) Glucose Blood, POC 102 60 - 200 mg/dL QC Media Lot # [id number] Lot# Expiration Date Blood Capillary blood specimen / Unknown 05/16/2024 3:08 PM EST us Jose Lewis MD POINT OF CARE TEST ENTER/EDIT OR DERABLES Final Result * Albumin, Random Urine W/Creatinine (08/30/2023 10:51 AM EDT) Creatinine, Urine 131.69 mg/dL [facility] Microalbumin Urine 11.0 mg/L [facility] Microalbum Creatinine Ratio Ur 8.3 <30 ug/mg cr [facility] Comment:Albumin/Creatinine R atio Reference Ranges: Normal: < 30 ug/mg creatinine Microalbuminuria: 30 - 300 ug/mg creatinineClinical Albuminuria: > 300 ug/mg creatinine Urine (Urine, Random) 08/30/2023 10:51 AM EDT 08/30/2023 12:06 PM EDT us Jose Lewis MD LAB URINE ORDERABLES Final Resul t [facility] [address] [place] [address] [phone] * HIV-1/2 Antigen and Antibodies, Fourth Generation, with Reflexes (08/30/2023 10:51 AM EDT) HIV AB/AG Nonreactive Nonreactive [facility] Comment:HIV-1 p24 Ag and/or HIV-1/HIV-2 Ab not detected.A test result that is nonreactive does not exclude thepossibility of exposure to or infection with HIV-1 and/orHIV-2. Nonreactive results in this assay for individualswith prior exposure to HIV-1 and/or HIV-2 may be due toantigen and antibody levels that are below the limit ofdetection of this assay.The [employer] HIV Ag/Ab Combo assay result andsupplemental assay results should be interpreted inconjunction with the patient's clinical presentation,history and other laboratory results. If the results areinconsistent with clinical evidence, additional testing issuggested to confirm the result. Blood Venous blood specimen / Unknown 08/30/2023 10:51 AM EDT 08/30/2023 12:01 PM EDT us Jose Name LAB BLOOD ORDERABLES Final Resul t [facility] [address] [place] [phone] * Lipid Panel, Standard (08/30/2023 10:51 AM EDT) Triglycerides 114 <150 mg/dL [facility] Comment:Desirable Triglyceri de: less than 150 mg/dLBorderline High Triglyceride 150-199 mg/dLHigh Triglyceride: 200-499 mg/dLVery High Triglyceride: greater than or equal to 5OO mg/dL Cholesterol 124 <200 mg/dL [facility] Comment:Desirable Cholestero l: less than 200 mg/dLBorderline High Cholesterol: 200-239 mg/dLHigh Cholesterol: greater than 239 mg/dL LDL Cholesterol Calculated 59 <100 mg/dL [facility] Comment:Desirable LDL: less than 100 mg/dLNear Optimal/Above Optimal LDL: 110- 129 mg/dLBorderline High LDL: 130-159 mg/dLHigh LDL: 160-189 mg/dLVery High LDL: greater than or equal to 190 mg/dL HDL Cholesterol 43 >40 mg/dL [facility] Comment:Desirable HDL: great er than 40 mg/dL Note: This HDL assay may give artificially low results in patients with liver disease. Blood Venous blood specimen / Unknown 08/30/2023 10:51 AM EDT 08/30/2023 12:01 PM EDT us Jose Name LAB BLOOD ORDERABLES Final Resul t [facility] [address] [place] [address] [phone] * HEPATITIS C AB W/REFL TO HCV RNA, QN, PCR (07/23/2020 3:34 PM EDT) HEPATITIS C ANTIBODY NON-REACT [facility] NON-REACT [facility] INDEX 0.01 <1.00 [facility] Comment: ?? HCV antibody was non-reactive. There is no laboratory ?? evidence of HCV infection. ?? In most cases, no further action is required. However, if recent HCV exposure is suspected, a test for HCV RNA (test code 68273) is suggested. ?? For additional information please refer to [email or web address].Weavly/faq/BOY70h5 (This link is being provided for informational/ educational purposes only.) ?? 07/23/2020 3:34 PM EDT us Historical Provider HISTORICAL/NON ORDERABLE LABS Final Result Performing Organization Address City/[facility] Co de Phone Number [facility] [address] from Last 3 Months or Most Recently Relevant to Health Maintenance Insurance [address] [place] [id number] [facility] C3 HSN FULL Care Teams Curriculum Development Coordinator Relationship Specialty Start Date End Date Name, MD Jose [address] [place] [address] PCP - General Internal Medicine 03/17/22 Steff Romero PharmD [address] [place] [address] Pharmacist Internal Medicine 09/14/22
--- OUTSIDE RECORDS SUMMARY | 2024-05-17 14:53 | XMS_ITS | Encounter Summary ---
Author Organization [employer] Address [address] [facility] 7t [place] [address] Care Team Providers Care Medical Parasitologist Name Role Phone Name, Jose MOSQUERA Primary Care Provider [phone] Steff Romero PharmD Unavailable [phone] Reason for Visit * Reason Comments Med Refill Encounter Details Date Type Department Care Team ([facility] st Contact Info) Description 01/30/2023 Refill [facility] [address] [place] [address] Sarah Benito FNP [address] [place], [place] [phone] Social History Tobacco Use Types Packs/Day Years Used Date Smoking Tobacco: Never Passive Smoke Exposure: Never Smokeless Tobacco: Never Alcohol Use Standard Drinks/Week Comments Yes 0 (1 standard drink = 0.6 oz pur e alcohol) socially Housing Stability Answer Date Recorded What is your housing situation today? I have char alonzo 01/10/[address] you li ve. Do you have problems with any of the following? None of the above 01/10/2023 Food Insecurity Answer Date Recorded Within the past 12 months, y ou worried that your food would run out before you got money to buy more: Never True 01/10/2023 Within the past 12 months,th e food you bought just didn't last and you didn't have enough money to get more: Never True Transportation Answer Date Recorded In the past 12 months, has l ack of transportation kept you from medical appts, meetings, work or from getting things needed for daily living? No 01/10/2023 Utilities Answer Date Recorded In the past 12 months, has t he electric, gas, oil or water [employer] threatened to shut off services in your home? No 01/10/2023 Depression Answer Date Recorded Patient Health Questionnaire-2 [...] Description 05/18/2024 10:30 AM EST Clinical Support [facility] [address] [place] [address] [phone] 08/06/2024 10:15 AM EDT Office Visit [facility] [address] [place] [phone] Name, MD Jose [address] [place] [address] documented as of this encounter Goals Goal [...] Diagnoses Not on filedocumented in this encounter Care Teams Medical Parasitologist Relationship Specialty Start Date End Date Name, MD Jose [address] [place] [phone] PCP - General Internal Medicine 03/17/22 Steff Romero, HeD [address] [place] [phone] Pharmacist Internal Medicine 09/14/22 documented as of this encounter
== END 2024-05-17 14:03 | disposition home or self-care (01) ==
PROVIDERS: PCP Internal Medicine Geriatric Medicine; Visit Provider Surgery
DX: Z12.11 Encounter for screening for malignant neoplasm of colon (principal)
CPT/HCPCS: 99203

== ENCOUNTER → 2024-05-17 13:50 | Outpatient (BNVA) | payer MEDICAID, SELFPAY | PROVIDERS: PCP Internal Medicine Geriatric Medicine; Visit Provider Surgery | DX: Z12.11 Encounter for screening for malignant neoplasm of colon (principal) | CPT/HCPCS: 99202 ==

== ENCOUNTER 2024-07-03 10:42 | Day surgery (SDC) | payer MEDICAID, SELFPAY ==
[2024-06-28 14:26] VITALS: BMI 33.2
--- OUTSIDE RECORDS SUMMARY | 2024-07-02 16:14 | XMS_ITS | Encounter Summary ---
Author Organization [employer] Address [address] [place] [address] 7[address] [place] [address] Care Team Providers Care Poultry Eviscerator Name Role Phone Name, Jose MOSQUERA Primary Care Provider [phone] Steff Romero PharmD Unavailable [phone] Reason for Visit * Reason Comments Med Refill Encounter Details Date Type Department Care Team (Late Contact Info) Description 12/02/2022 Refill [facility] PEDS [address] [place] [address] Gita Joshi FNP [address] [place] [address] Dept [place] [address] Gastroesophageal reflux disease without esophagitis Social History [...] Department Care Team (Late Contact Info) Description 08/06/2024 10:15 AM EDT Office Visit [facility] MEDICINE [address] [place] [address] [phone] Name, MD Jose [address] [place] [address] documented as of this encounter Goals Goal Patient Goal Type Associated Problems Recent Progress Patient-Stated? Author Record your blood pressure periodically (2-3x per week) Blood Pressure No Puia, Steff, PharmD Blood Pressure < 140/90 Blood Pressure 110/98(2024 10:33 AM EST) No Puia, Steff, PharmD Patient will [...] reflux documented in this encounter Care Teams Poultry Eviscerator Relationship Specialty Start Date End Date Name, MD Jose [address] [place] [address] PCP - General Internal Medicine 03/17/22 Steff Romero PharmD [address] [place] [address] Pharmacist Internal Medicine 09/14/22 documented as of this encounter
--- OUTSIDE RECORDS SUMMARY | 2024-07-02 16:14 | XMS_ITS | Encounter Summary ---
Author Organization [employer] Address [address] [facility] [address]t [place] [address] Care Team Providers Care City Planning Aide Name Role Phone Name, Jose MOSQUERA Primary Care Provider [phone] Steff Romero PharmD Unavailable [phone] Reason for Visit * Reason Comments Med Refill Encounter Details Date Type Department Care Team ([facility] st Contact Info) Description 01/30/2023 Refill [facility] MEDICINE [address] [place] [address] Sarah Benito FNP [address] [place], [place] [phone] Social History Tobacco Use Types Packs/Day Years [...] Care Team (Late st Contact Info) Description 08/06/2024 10:15 AM EDT Office Visit [facility] MEDICINE [address] [place] [phone] Name, MD Jose [address] [place] [address] [phone] documented as of this encounter Goals Goal [...] on filedocumented in this encounter Care Teams City Planning Aide Relationship Specialty Start Date End Date NameJose MD [address] [place] [address] [phone] PCP - General Internal Medicine 03/17/22 Puia, Steff, PharmD [address] [place] [address] [phone] Pharmacist Internal Medicine 09/14/22 documented as of this encounter
--- OUTSIDE RECORDS SUMMARY | 2024-07-02 16:15 | XMS_ITS | Clinical Summary ---
Author Organization [employer] Address [address] [place] [address] [address] [place] [address] Care Team Providers Care Co Op Name Role Phone Name, Jose MOSQUERA Primary Care Provider [phone] Steff Romero PharmD Unavailable [phone] Allergies No known active allergies Medications * This document contains information received from the source organization and may not represent a complete record from that organization. ketotifen (Zaditor) 0.025 % ophthalmic solutionIndicat ions:Type 2 diabetes mellitus with other specified complication, without long-term current use of insulin ([facility]) Administer 1 drop into both eyes 2 times daily. 5 mL 2 023 Active Blood Pressure Monitor kitIndications: Essential hypertension Use once a day 1 kit 023 Active hydrOXYzine pamoate (Vistaril) 25 MG capsuleIndicati ons:Diabetic dermopathy (CMS/HCC) (CMS/[facility]) TAKE 1 CAPSULE BY MOUTH AT BEDTIME FOR 28 DAYS. 28 capsule 023 Active Continuous Blood Gluc Sprinkling System Installer (FreeStyle Deven 2 Carpenter) deviceIndicatio ns:Type 2 diabetes mellitus with hyperglycemia, without long-term current use of insulin ([facility]) Use to scan sensor at least every 8 hours, as directed, for CGM 1 each 023 Active TRUEplus Lancets 33G misc Use to test blood sugar three times daily 100 each 11 023 Active glucose blood (FreeStyle Precision Carter Test) test stripIndication s:Type 2 diabetes mellitus with diabetic polyneuropathy, with long-term current use of insulin (CMS/HCC) TEST BLOOD SUGAR UP TO THREE TIMES DAILY DIRECTED 50 strip 5 Active insulin pen needle 32G x 4 mm miscIndications :Type 2 diabetes mellitus with diabetic polyneuropathy, with long-term current use of insulin ([facility]) Use to inject insulin 1 times daily 100 each Active Continuous Glucose Sensor (FreeStyle Deven 2 Sensor) miscIndications :Type 2 diabetes mellitus with diabetic polyneuropathy, with long-term current use of insulin ([facility]) Apply 1 sensor, as directed, every 14 days for CGM 2 each Active empagliflozin (Jardiance) 25 MGIndications:T ype 2 diabetes mellitus with diabetic polyneuropathy, with long-term current use of insulin ([facility]) Take 1 tablet (25 mg) by mouth in the morning. 90 tablet Active metFORMIN XR (Glucophage-XR) 500 MG 24 hr tabletIndicatio ns:Type 2 diabetes mellitus with diabetic polyneuropathy, with long-term current use of insulin ([facility]) Take 1 tablet (500 mg) by mouth with breakfast and with evening meal. Do not crush, chew, or split. 180 tablet Active pregabalin (Lyrica) 50 MG capsule Take 1 capsule (50 mg) by mouth Once per day for 7 days, THEN 1 capsule (50 mg) 2 times daily for 7 days, THEN 1 capsule (50 mg) 3 times daily for 14 days. 63 capsule Active famotidine (Pepcid) 20 MG tablet Take 1 tablet (20 mg) by mouth 2 times daily. 60 tablet 024 2024 Active lisinopril 40 MG tablet TAKE 1 TABLET BY MOUTH AT BEDTIME 90 tablet 1 Active insulin degludec (Tresiba FlexTouch) 200 UNIT/ML injectionIndica tions:Type 2 diabetes mellitus with diabetic polyneuropathy, with long-term current use of insulin ([facility]) INJECT 64 SUBCUTANEOUSLY EVERY DAY 9 mL 5 Active cetirizine (ZyrTEC) 10 MG tabletIndicatio ns:Type 2 diabetes mellitus with other specified complication, without long-term current use of insulin ([facility]) TAKE 1 TABLET BY MOUTH EVERY MORNING 90 tablet 1 024 Active atorvastatin (Lipitor) 40 MG tablet TAKE 1 TABLET BY MOUTH AT BEDTIME 90 tablet 1 024 Active Alcohol Swabs (Alcohol Prep) 70 % pads USE THREE TIMES DAILY 100 each 11 024 Active hydroCHLOROthia zide (HYDRODiuril) 25 MG tabletIndicatio ns:Primary hypertension TAKE 1 TABLET BY MOUTH EVERY MORNING 90 tablet 1 025 Active amitriptyline (Elavil) 50 MG tablet TAKE 1 TABLET BY MOUTH AT BEDTIME 90 tablet 1 025 Active Mounjaro 5 MG/0.5ML solution auto-injector INJECT ONE PEN (=5MG) SUBCUTANEOUSLY ONCE A WEEK DIRECTED 025 Active DULoxetine (Cymbalta) [address] capsuleIndicati ons:Type 2 diabetes mellitus with other specified complication, without long-term current use of insulin ([facility]) TAKE 1 CAPSULE BY MOUTH EVERY MORNING 90 capsule 1 025 Active amLODIPine (Norvasc) 10 MG tabletIndicatio ns:Essential hypertension TAKE 1 TABLET BY MOUTH EVERY MORNING 90 tablet 1 025 Active cholecalciferol (D3 Super Strength) 50 MCG (1999 UT) capsuleIndicati ons:Vitamin D deficiency TAKE 1 CAPSULE BY MOUTH TWICE DAILY IN THE MORNING AND AT BEDTIME 180 capsule 1 025 Active pantoprazole (ProtoNix) 40 MG EC tabletIndicatio ns:Gastroesopha geal reflux disease without esophagitis TAKE 1 TABLET BY MOUTH EVERY MORNING 90 tablet 1 025 Active amLODIPine (Norvasc) 10 MG tabletIndicatio ns:Essential hypertension TAKE 1 TABLET BY MOUTH EVERY MORNING 90 tablet 1 024 2024 Discontinued pantoprazole (ProtoNix) 40 MG EC tabletIndicatio ns:Gastroesopha geal reflux disease without esophagitis TAKE 1 TABLET BY MOUTH EVERY MORNING 90 tablet 1 024 2024 Discontinued cholecalciferol (D3 Super Strength) 50 MCG (1999 UT) capsuleIndicati ons:Vitamin D deficiency TAKE 1 CAPSULE BY MOUTH TWICE DAILY IN THE MORNING AND AT BEDTIME 180 capsule 1 024 2024 Discontinued naproxen (Naprosyn) 500 MG tabletIndicatio ns:Type 2 diabetes mellitus with diabetic polyneuropathy, with long-term current use of insulin (CMS/HCC),Foot abscess, left,Acute foot pain, left Take 1 tablet (500 mg) by mouth 2 times daily. 60 tablet 025 2024 Active Problems Problem Noted Date Diagnosed Date [...] to [facility] as needed, and Information on [facility] provided. Santy agrees to contact [facility] to schedule intake. Behavioral Health Diagnoses [...] Encounters Date Type Department Care Team Description 06/26/2024 Refill [facility] [address] [place] [address] NameJose MD Gastroesophageal reflux disease without esophagitis 06/20/2024 Refill [facility] [address] [place] [address] Name, MD Jose Essential hypertension; Vitamin D deficiency 06/08/2024 Population Health Risk Score [facility] ([facility] Department [address] [phone] Provider, Population Health Generic 05/25/2024 10:30 AM EST Clinical Support [facility] [address] [place] [address] Candice Farris RN Foot abscess, left 05/25/2024 Travel 05/24/2024 Refill [facility] [address] [place] [address] Jose Lewis MD Type 2 diabetes mellitus with other specified complication, without long-term current use of insulin ([facility]) 05/18/2024 10:30 AM EST Clinical Support [facility] [address] [place] [address] Candice Farris RN Foot abscess, left; Acute foot pain, left 05/18/2024 Travel 05/16/2024 2:30 PM EST Office Visit [facility] [address] [place] [address] Jose Lewis MD Foot abscess, left (Primary Dx); Acute foot pain, left; Type 2 diabetes mellitus with diabetic polyneuropathy, with long-term current use of insulin ([facility]) 05/16/2024 Travel 05/02/2024 9:30 AM EST Office Visit [facility] [address] [place] [address] Tom, Shell, OD Both eyes affected by mild nonproliferative diabetic retinopathy with macular edema, associated with type 2 diabetes mellitus ([facility]) (Primary Dx); Dry eye syndrome of both eyes; Vitreous floaters of both eyes; Presbyopia of both eyes 05/02/2024 Travel from Last 3 Months Immunizations Name Administration [...] Sign Reading Time Taken Comments Blood Pressure 110/98 05/18/2024 10:33 AM EST Pulse 97 05/18/2024 10:33 AM EST Temperature 36.8 ??C (98.2 ??F) 05/18/2024 10:[address] Respiratory Rate 18 05/18/2024 10:33 AM EST Oxygen Saturation 97% 05/18/2024 10:33 AM EST Inhaled Oxygen Concentration - - Weight 103 kg (226 lb 3.2 oz) 05/18/2024 10:33 A M EST Height 175.3 cm (5' 9 ) 05/18/2024 10:33 AM EST Body Mass Index 33.4 05/18/2024 10:33 AM EST Plan of Treatment Upcoming Encounters Date Type Department Care Team (Late st Contact Info) Description 08/06/2024 10:15 AM EDT Office Visit [facility] [address] [place] [address] Name, MD Jose [address] [place] [address] Health Maintenance Due Date Last Done Comments [...] history exists Depression Screening 05/16/2025 05/16/2024, 05/16/19 25 Tobacco Screening 05/21/2025 05/21/2024 DTaP/Tdap/Td Vaccines (5 - Td or Tdap) 12/04/2030 12/04/2020, 01/19/2013, 09/19/2009, Additional history exists RSV Patients and Patients Aged 60 years or older (1 - 1-dose 75+ series) 2049 Hepatitis C Screening Completed 07/23/2020, 020 Pneumococcal Vaccine: 50+ Years Completed 09/17/2022 Hepatitis B Vaccines Completed 10/26/2022, 09/18/19 23 HIV Screening Completed 08/30/2023 HIB Vaccines Aged [...] with long-term current use of insulin (CMS/HCC) OCT, RETINA - OU - BOTH EYES Routine 05/02/2024 9:30 AM EST Both eyes affected by mild nonproliferative diabetic retinopathy with macular edema, associated with type 2 diabetes mellitus (CMS/HCC) HIV 1/2 ANTIGEN/ANTIBODY, FOURTH GENERATION W/RFL [...] Media Lot # [id number] Lot# Expiration Date [id number] Blood 05/16/2024 3:11 PM EST Jose Lewis MD POINT OF CARE TEST [...] 10:51 AM EDT) Creatinine, Urine 131.69 mg/dL [facility] Microalbumin Urine 11.0 mg/L [facility] Microalbum Creatinine Ratio Ur 8.3 <30 ug/mg cr [facility] Comment:Albumin/Creatinine R atio Reference Ranges: Normal: < 30 ug/mg creatinine Microalbuminuria: 30 - 300 ug/mg creatinineClinical Albuminuria: > 300 ug/mg creatinine Urine (Urine, Random) 08/30/2023 10:51 AM EDT 08/30/2023 12:06 PM EDT Result Marlene Lewis MD LAB URINE ORDERABLES Final Resul t [facility] [address] [place] [phone] * HIV-1/2 Antigen and Antibodies, Fourth Generation, with Reflexes (08/30/2023 10:51 AM EDT) HIV AB/AG Nonreactive Nonreactive [facility] Comment:HIV-1 p24 Ag and/or HIV-1/HIV-2 Ab not detected.A test result that is nonreactive does not exclude thepossibility of exposure to or infection with HIV-1 and/orHIV-2. Nonreactive results in this assay for individualswith prior exposure to HIV-1 and/or HIV-2 may be due toantigen and antibody levels that are below the limit ofdetection of this assay.The [employer] HIV Ag/Ab Combo assay result andsupplemental assay results should be interpreted inconjunction with the patient's clinical presentation,history and other laboratory results. If the results areinconsistent with clinical evidence, additional testing issuggested to confirm the result. Blood Venous blood specimen / Unknown 08/30/2023 10:51 AM EDT 08/30/2023 12:01 PM EDT Jose Lewis MD LAB BLOOD ORDERABLES Final Resul t Performing Organization Address [facility] de Phone Number [facility] [address] [place] [phone] * Lipid Panel, Standard (08/30/2023 10:51 AM EDT) Triglycerides 114 <150 mg/dL [facility] Comment:Desirable Triglyceri de: less than 150 mg/dLBorderline High Triglyceride 150-199 mg/dLHigh Triglyceride: 200-499 mg/dLVery High Triglyceride: greater than or equal to 5OO mg/dL Cholesterol 124 <200 mg/dL [facility] Comment:Desirable Cholestero l: less than 200 mg/dLBorderline High Cholesterol: 200-239 mg/dLHigh Cholesterol: greater than 239 mg/dL LDL Cholesterol Calculated 59 <100 mg/dL [facility] Comment:Desirable LDL: less than 100 mg/dLNear Optimal/Above Optimal LDL: 110- 129 mg/dLBorderline High LDL: 130-159 mg/dLHigh LDL: 160-189 mg/dLVery High LDL: greater than or equal to 190 mg/dL HDL Cholesterol 43 >40 mg/dL [facility] Comment:Desirable HDL: great er than 40 mg/dL Note: This HDL assay may give artificially low results in patients with liver disease. Blood Venous blood specimen / Unknown 08/30/2023 10:51 AM EDT 08/30/2023 12:01 PM EDT us Jose Lewis MD LAB BLOOD ORDERABLES Final Resul t Performing Organization Address [facility] Co de Phone Number [facility] [address] [place] [phone] * HEPATITIS C AB W/REFL TO HCV RNA, QN, PCR (07/23/2020 3:34 PM EDT) HEPATITIS C ANTIBODY NON-REACT RUPALI NON-REACT RUPALI [facility] INDEX 0.01 <1.00 [facility] Comment: ?? HCV antibody was non-reactive. There is no laboratory ?? evidence of HCV infection. ?? In most cases, no further action is required. However, if recent HCV exposure is suspected, a test for HCV RNA (test code 62544) is suggested. ?? For additional information please refer to http://education.[employer]/faq/VTJ87l4 (This link is being provided for informational/ educational purposes only.) ?? 07/23/2020 3:34 PM EDT us Historical Provider HISTORICAL/NON ORDERABLE LABS Final Result [facility] [address] from Last 3 Months or Most Recently Relevant to Health Maintenance Insurance [facility] C3 HSN FULL Care Teams Co Op Relationship Specialty Start Date End Date Name, MD Jose [address] [place] [phone] PCP - General Internal Medicine 03/17/22 Steff Romero PharmD [address] [place] [phone] Pharmacist Internal Medicine 09/14/22
--- NOTE | 2024-07-03 10:55 | MHC.SHP ---
Pre-Procedural Eval Section A - 24 Hr Update-Section A only Date of Service: 07/03/24 Section B - Complete if H&P > 30 days Chief Complaint: screening Details of Present Illness: Patient here for 1st screening colonoscopy Relevant Family History (Specify if Yes): No Relevant Social History: None Present Medications: see Short Stay Collaborative assessment Medical History: Significant History (Diabetes, chronic back pain, atypical chest pain, neuropathy) Allergies: Allergies Allergy/AdvReac Type Severity Reaction Status Date / Time No Known Allergies Allergy Verified 05/17/24 13:59 Review of Systems Sugical H&P ROS: Negative: Constitution, Respiratory and Gastrointestinal and Yes, Specify: Musculoskeletal (Chronic back pain) Exam Surgical H&P Exam: Normal: Heart, Normal: Lungs and Normal: Abdomen Plan Diagnosis/Plan: Unchanged I have reviewed the history and physical and performed a pertinent physical examination on my patient. No changes have occurred unless specified. Time Spent With Patient Time: Total time managing care of this patient today ____ minutes.
--- NOTE | 2024-07-03 11:10 | P.CONAN_ITS ---
Documented by User: Sheila Jules NP 07/02/24 15:05 HPI - Anesthesia Eval Consult details Narrative: 49yo M for Colonoscopy with possible Polypectomy 2022 cardiac work up with [facility] for atypical CP with nml ECHO and Stress Anesthesia Pre-Procedure Meds Is the patient on any of the following meds?: GLP1/DPP4 PMFSH Active Problems Active Problems: All Active Problems Varicose veins of right lower extremity with inflammation (Acute) Lumbar degenerative disc disease (Acute) Atypical chest pain (Acute) Myofascial pain (Acute) Spondylosis of lumbar spine (Acute) Sacroiliac joint pain (Acute) Diabetic neuropathy (Acute) Erectile dysfunction associated with type 2 diabetes mellitus (Acute) Colon cancer screening (Acute) Diabetes mellitus, type II (Acute) Erectile dysfunction (Acute) Past Medical History Medical History (Updated 06/28/24 @ 14:20 by Corrie Brunson RN) Atypical chest pain Colon cancer screening Asthma High cholesterol Diabetic polyneuropathy Diabetes mellitus, type II Erectile dysfunction Family History Family History (Updated 05/17/24 @ 14:01 by VALENCIA Montemayor) Mother CAD (coronary artery disease) Father Diabetes Surgical History Surgical History No pertinent past surgical history Social History Social History Household Members: None Housing: House Alcohol intake: current Alcohol intake frequency: a few times a month Alcohol type: beer and hard liquor Patient Tobacco Use Status: Never used Tobacco Advance Directives: No Advance Directives Information Provided: Yes Meds Allergies Allergy/AdvReac Type Severity Reaction Status Date / Time No Known Allergies Allergy Verified 05/17/24 13:59 Home Medications ?Medication ?Instructions ?Recorded ?Confirmed ?Last Taken ?Type atorvastatin 40 mg tablet 40 mg PO DAILY 07/30/20 06/28/24 Unknown History blood sugar diagnostic (Jennifer #10 ea 08/21/21 05/17/24 Unknown History Lite Strips) cholecalciferol (vitamin D3) 50 50 mcg PO BID 08/21/21 05/17/24 Unknown History mcg (2,000 unit) capsule duloxetine 60 mg capsule,delayed 60 mg PO DAILY 08/21/21 06/28/24 Unknown History release hydrochlorothiazide 25 mg tablet 25 mg PO DAILY 08/21/21 06/28/24 Unknown History lisinopril 40 mg tablet 40 mg PO DAILY blood pressure 08/21/21 06/28/24 Unknown History pantoprazole 40 mg tablet,delayed 40 mg PO DAILY 08/21/21 06/28/24 Unknown History release amitriptyline 50 mg tablet 50 mg PO BEDTIME 07/12/23 06/28/24 Unknown History amlodipine 10 mg tablet 10 mg PO QAM 07/12/23 06/28/24 Unknown History cetirizine 10 mg tablet 10 mg PO QAM 07/12/23 06/28/24 Unknown History empagliflozin 25 mg tablet 25 mg PO QAM 07/12/23 06/28/24 Unknown History (Jardiance) metformin 500 mg tablet,extended 500 mg PO BID 07/12/23 06/28/24 Unknown History release 24 hr tirzepatide 5 mg/0.5 mL 5 mg subcut QWEEK 09/14/23 06/28/24 Unknown History subcutaneous pen injector (Tequila) insulin degludec 200 unit/mL (3 64 unit subcut DAILY 05/17/24 06/28/24 Unknown History mL) subcutaneous pen (Tresiba FlexTouch U-200 insulin) Exam Height,Weight and Vital Signs: Height 5 ft 9 in Weight 102.058 kg Assessment and Plan Assessment Anesthesia Assessment: Chart Reviewed Documented by User: Cecilia Corey DO 07/03/24 11:11 HPI - Anesthesia Eval Anesthesia Pre-Procedure Meds Is the patient on any of the following meds?: GLP1/DPP4 [facility] Past Medical History Medical History (Updated 06/28/24 @ 14:20 by Corrie Brunson RN) Atypical chest pain Colon cancer screening Asthma High cholesterol Diabetic polyneuropathy Diabetes mellitus, type II Erectile dysfunction Family History Family History (Updated 05/17/24 @ 14:01 by VALENCIA Montemayor) Mother CAD (coronary artery disease) Father Diabetes Family history of problems with anesthesia: No Surgical History Surgical History No pertinent past surgical history History of Problems with Anesthesia: No (never had anesthesia) Social History Social History Household Members: None Housing: House Alcohol intake: current Alcohol intake frequency: a few times a month Alcohol type: beer and hard liquor Patient Tobacco Use Status: Never used Tobacco Advance Directives: No Advance Directives Information Provided: Yes Meds Allergies Allergy/AdvReac Type Severity Reaction Status Date / Time No Known Allergies Allergy Verified 05/17/24 13:59 Home Medications ?Medication ?Instructions ?Recorded ?Confirmed ?Last Taken ?Type atorvastatin 40 mg tablet 40 mg PO DAILY 07/30/20 06/28/24 Unknown History blood sugar diagnostic (FreeStyle #10 ea 08/21/21 05/17/24 Unknown History Lite Strips) cholecalciferol (vitamin D3) 50 50 mcg PO BID 08/21/21 05/17/24 Unknown History mcg (2,000 unit) capsule duloxetine 60 mg capsule,delayed 60 mg PO DAILY 08/21/21 06/28/24 Unknown History release hydrochlorothiazide 25 mg tablet 25 mg PO DAILY 08/21/21 06/28/24 Unknown History lisinopril 40 mg tablet 40 mg PO DAILY blood pressure 08/21/21 06/28/24 Unknown History pantoprazole 40 mg tablet,delayed 40 mg PO DAILY 08/21/21 06/28/24 Unknown History release amitriptyline 50 mg tablet 50 mg PO BEDTIME 07/12/23 06/28/24 Unknown History amlodipine 10 mg tablet 10 mg PO QAM 07/12/23 06/28/24 Unknown History cetirizine 10 mg tablet 10 mg PO QAM 07/12/23 06/28/24 Unknown History empagliflozin 25 mg tablet 25 mg PO QAM 07/12/23 06/28/24 Unknown History (Jardiance) metformin 500 mg tablet,extended 500 mg PO BID 07/12/23 06/28/24 Unknown History release 24 hr tirzepatide 5 mg/0.5 mL 5 mg subcut QWEEK 09/14/23 06/28/24 Unknown History subcutaneous pen injector (Mounjaro) insulin degludec 200 unit/mL (3 64 unit subcut DAILY 05/17/24 06/28/24 Unknown History mL) subcutaneous pen (Tresiba FlexTouch U-200 insulin) Exam Exam Date and Time: 07/03/24 1110 Airway Mallampati Class: II TM Dist: >3cm Neck ROM: Full Denture: Upper Heart: S1S2 Lungs: CTAB Assessment and Plan Assessment Anesthesia Assessment: Anesthesia Plan Discussed and Chart Reviewed Final Anesthetic Review Family History of Problems with Anesthesia: No History of Problems with Anesthesia: No (never had anesthesia) NPO: Yes ASA Class: II Final Preanesthetic Review: No Changes in Pt Med Stat, Meds/Allgs Chart Reviewed, Consent Obtained/Reviewed and Anes Risks/Benef Reviewed Patient Risk: Low Procedure Risk: Low Anesthetic Plan Anesthetic Plan: MAC: and Agree w/ Assess. and Plan Disposition: Standard PACU
[2024-07-03 11:12] LABS: Glucose, Whole Blood 84 mg/dL (60-115)
[2024-07-03 11:14] VITALS: BP 145/95; PULSE 89; RESP 16; TEMP 36.7; O2SAT 98
[2024-07-03] MEDS: Lactated Ringers 1,000 ML 100 ML IVCONT (11:14)
--- NOTE | 2024-07-03 11:51 | W.PM.OPN ---
Operative Note Operative Note Date of Service: 07/03/24 Narrative: Preop diagnosis: Screening colonoscopy Postop diagnosis: Internal external hemorrhoids, with suboptimal bowel prep Procedure: Colonoscopy Surgeon: Nik Zarco MD The patient is a 49-year-old male referred for screening colonoscopy. He understood the technique of the planned procedure as well as the risks, benefits, and alternatives The patient was brought to the operating room and placed in left lateral decubitus position under monitored anesthesia care. A surgical time-out was done. A full digital rectal exam was done and this did not reveal any significant anal lesions. The tip of the Olympus colonoscope was gently introduced through the anal orifice advanced with insufflation all the way to the cecum. The cecum was intubated. The cecum was identified by visualization of the ileocecal valve as well as the appendiceal orifice. The cecal mucosa was unremarkable. The scope was gradually withdrawn with careful examination of the entire colonic mucosa being done with scope withdrawal. The patient had adequate bowel prep so it was unlikely that any lesion may have been missed. However, there was a segment of the colon probably in the transverse, that had solid stools. I had to copiously irrigate this to achieve adequate visualization. The rectum was reached and there were no lesions seen. The there was note of internal and external hemorrhoids in the anal canal. The scope was then withdrawn completely with desufflation. The patient tolerated procedure well. There were no immediate complications. In view of the segment of the colon that was not well prepped, I would advise repeating the colonoscopy in 5 years.
[2024-07-03 11:53] VITALS: BP 102/69; PULSE 81; RESP 18; TEMP 36.3; O2SAT 95
[2024-07-03 12:08] VITALS: BP 138/97; PULSE 80; RESP 16; TEMP 36.3; O2SAT 95
== END 2024-07-03 12:45 | disposition home or self-care (01) ==
PROVIDERS: PCP Internal Medicine Geriatric Medicine; Visit Provider Surgery
PROC: 0DBE8ZZ Excision of Large Intestine, Via Natural or Artificial Opening Endoscopic (ICD-10-PCS; CPT 45378; principal; 2024-07-03 12:00)
DX: Z12.11 Encounter for screening for malignant neoplasm of colon (principal); K64.8 Other hemorrhoids; K64.4 Residual hemorrhoidal skin tags; E11.9 Type 2 diabetes mellitus without complications; E78.5 Hyperlipidemia, unspecified; J45.909 Unspecified asthma, uncomplicated; Z79.02 Long term (current) use of antithrombotics/antiplatelets; Z79.4 Long term (current) use of insulin; Z79.899 Other long term (current) drug therapy
CPT/HCPCS: 45378; 82947; J2003; J2704

== ENCOUNTER → 2024-07-03 10:42 | Outpatient (BNV) | payer MEDICAID, SELFPAY | PROVIDERS: PCP Internal Medicine Geriatric Medicine; Visit Provider Surgery | DX: Z12.11 Encounter for screening for malignant neoplasm of colon (principal); K64.8 Other hemorrhoids | CPT/HCPCS: 45378 ==

== ENCOUNTER 2024-07-18 11:00 | Outpatient (AMB) | payer MEDICAID, SELFPAY ==
[2024-07-18 11:06] VITALS: BP 135/83; PULSE 91; BMI 33.7
--- NOTE | 2024-07-18 11:06 | A.OFFVIS_ITS ---
Vital Signs 07/18/24 11:06 Height 5 ft 9 in Weight 228 lb 8 oz BMI 33.7 BP 135/83 Blood Pressure Location Lt brachial Position Sitting Pulse 91 Intake Visit Reasons: S/P Colonoscopy Intake Note: Patient is seen in office for post op assessment post colonoscopy. Pt c/o: denies any concerns here for results surgery:07/03/24 Manager Med Surg Required: No Accompanied by: Self / Same As Patient Allergies No Known Allergies Allergy (Verified 07/18/24 11:06) Medication List - Last Reconciled 07/18/24 by Nik Zarco MD amitriptyline 50 mg PO BEDTIME amlodipine 10 mg PO QAM atorvastatin 40 mg PO DAILY blood sugar diagnostic (FreeStyle Lite Strips) As directed cetirizine 10 mg PO QAM cholecalciferol (vitamin D3) 50 mcg PO BID duloxetine 60 mg PO DAILY empagliflozin (Jardiance) 25 mg PO QAM hydrochlorothiazide 25 mg PO DAILY insulin degludec (Tresiba FlexTouch U-200 insulin) 64 units subcut DAILY lisinopril 40 mg PO DAILY metformin ER 500 mg PO BID pantoprazole 40 mg PO DAILY sodium,potassium,mag sulfates 17.5-3.13-1.6 gram (Suprep Bowel Prep Kit) DILUTE; drink full amount early evening before AND next morning at least 2 hr before procedure; follow w 960 mL water PO tirzepatide (Mounjaro) 5 mg subcut QWEEK HPI HPI S/P Colonoscopy: Details: He underwent a colonoscopy for screening last 07/03/2024. He tolerated the procedure well. He says he did not have any problems postprocedure. He feels well overall. [facility] Medical History Atypical chest pain Colon cancer screening Asthma High cholesterol Diabetic polyneuropathy Diabetes mellitus, type II Erectile dysfunction Surgical History Hx of colonoscopy (07/03/24) No pertinent past surgical history Family History Mother CAD (coronary artery disease) Father Diabetes Social History Household Members: None Housing: House Alcohol intake: current Alcohol intake frequency: former alcohol drinker Alcohol type: beer and hard liquor Patient Tobacco Use Status: Never used Tobacco Review of Systems Const Denies chills and Denies fever(s) Card Denies chest pain, Denies dyspnea and Denies dyspnea on exertion Resp Denies cough, Denies dyspnea and Denies dyspnea on exertion GI Denies hematochezia and Denies change in bowel habits Denies hematuria and Denies difficulty urinating Musc Denies back pain and Denies limited range of motion Neuro Denies focal weakness and Denies convulsions Psych Denies depression and Denies mood swings Physical Exam Vital Signs: Last Vital Signs Pulse 91 07/18/24 11:06 BP 135/83 07/18/24 11:06 BMI result Body Mass Index 33.7 Const General: comfortable and no acute distress Resp Effort & Inspection: normal respiratory effort GI Palpation (GI): Soft to palpation, not firm, nontender and no guarding Assessment & Plan Assessment & Plan (1) Colon cancer screening: Code(s): Z12.11 - Encounter for screening for malignant neoplasm of colon Category: Medical Plan: Status post colonoscopy for screening. He tolerated the procedure well. I did not see any polyps. He did have hemorrhoids, internal and external. He did have suboptimal bowel prep so I am recommending repeating his colonoscopy in 5 years. He understands this. Coding Level of Care Code Est Pt Level 2 (50868) Diagnoses Colon cancer screening Z12.11
--- OUTSIDE RECORDS SUMMARY | 2024-07-18 13:18 | XMS_ITS | Encounter Summary ---
Author Organization [employer] Address [address] [place] [address] 7t [place] [address] Care Team Providers Care Hospice Entrance Attendant Name Role Phone Name, Jose MOSQUERA Primary Care Provider [phone] Steff Romero PharmD Unavailable [phone] Reason for Visit * Reason Comments Med Refill Encounter Details Date Type Department Care Team (Late Contact Info) Description 12/02/2022 Refill [facility] CHC MED & PEDS [address] [place] [address] Gita Joshi FNP [address] [place] [address] [place] [address] Gastroesophageal reflux disease without esophagitis Social History [...] Description 08/06/2024 10:15 AM EDT Office Visit [facility] MEDICINE [address] [place] [address] [phone] Name, MD Jose [address] [place] [address] documented as of this encounter Goals Goal [...] reflux documented in this encounter Care Teams Hospice Entrance Attendant Relationship Specialty Start Date End Date Name, MD Jose [address] [place] [address] PCP - General Internal Medicine 03/17/22 Steff Romero PharmD [address] [place] [address] Pharmacist Internal Medicine 09/14/22 documented as of this encounter
--- OUTSIDE RECORDS SUMMARY | 2024-07-18 13:18 | XMS_ITS | Encounter Summary ---
Author Organization [employer] Address [address] [place] [address] 7t [place] [address] Care Team Providers Care Talent Development Specialist Name Role Phone Name, Jose MOSQUERA Primary Care Provider [phone] Steff Romero PharmD Unavailable [phone] Reason for Visit * Reason Comments Med Refill Encounter Details Date Type Department Care Team ([facility] st Contact Info) Description 07/18/2024 Refill [facility] MEDICINE [address] [place], [place] [phone] Name, MD Jose [address] [place] [address] Social History Tobacco Use Types Packs/Day Years [...] the past 12 months, has t he [employer], gas, oil or water [employer] threatened to shut off services in your [...] Description 08/06/2024 10:15 AM EDT Office Visit [facility] MEDICINE [address] [place] [phone] Name, MD Jose [address] [place] [address] documented as of this encounter Goals Goal [...] documented as of this encounter Care Teams Talent Development Specialist Relationship Specialty Start Date End Date Name, MD Jose [address] [place] [address] PCP - General Internal Medicine 03/17/22 Steff Romero PharmD [address] [place] [address] Pharmacist Internal Medicine 09/14/22 documented as of this encounter
--- OUTSIDE RECORDS SUMMARY | 2024-07-18 13:18 | XMS_ITS | Clinical Summary ---
Author Organization [employer] Address [address] [place] [address] 7t [place] [address] Care Team Providers Care Bale Breaker Operator Name Role Phone Name, Jose MOSQUERA Primary Care Provider [phone] Steff Romero PharmD Unavailable [phone] Allergies No known active allergies Medications * This document contains information received from the source organization and may not represent a complete record from that organization. ketotifen (Zaditor) 0.025 % ophthalmic solutionIndicat ions:Type 2 diabetes mellitus with other specified complication, without long-term current use of insulin ([facility]) Administer 1 drop into both eyes 2 times daily. 5 mL 2 023 Active Blood Pressure Monitor kitIndications: Essential hypertension Use once a day 1 kit 023 Active hydrOXYzine pamoate (Vistaril) 25 MG capsuleIndicati ons:Diabetic dermopathy (CMS/HCC) (CMS/[facility]) TAKE 1 CAPSULE BY MOUTH AT BEDTIME FOR 28 DAYS. 28 capsule 023 Active Continuous Blood Gluc Softwood Faller (FreeStyle Deven 2 Clarion) deviceIndicatio ns:Type 2 diabetes mellitus with hyperglycemia, without long-term current use of insulin ([facility]) Use to scan sensor at least every [...] polyneuropathy, with long-term current use of insulin ([facility]) Use to inject insulin 1 times daily 100 each Active Continuous Glucose Sensor (FreeStyle Deven 2 Sensor) miscIndications :Type 2 diabetes mellitus with diabetic polyneuropathy, with long-term current use of insulin ([facility]) Apply 1 sensor, as directed, every 14 days for CGM 2 each Active empagliflozin (Jardiance) 25 MGIndications:T ype 2 diabetes mellitus with diabetic polyneuropathy, with long-term current use of insulin ([facility]) Take 1 tablet (25 mg) by mouth in the morning. 90 tablet Active metFORMIN XR (Glucophage-XR) 500 MG 24 hr tabletIndicatio ns:Type 2 diabetes mellitus with diabetic polyneuropathy, with long-term current use of insulin ([facility]) Take 1 tablet (500 mg) by mouth [...] polyneuropathy, with long-term current use of insulin ([facility]) INJECT 64 SUBCUTANEOUSLY EVERY DAY 9 mL 5 Active cetirizine (ZyrTEC) 10 MG tabletIndicatio ns:Type 2 diabetes mellitus with other specified complication, without long-term current use of insulin ([facility]) TAKE 1 TABLET BY MOUTH EVERY MORNING [...] complication, without long-term current use of insulin ([facility]) TAKE 1 CAPSULE BY MOUTH EVERY MORNING 90 capsule 1 025 Active amLODIPine (Norvasc) 10 MG tabletIndicatio ns:Essential hypertension TAKE 1 TABLET BY MOUTH EVERY MORNING 90 tablet 1 025 Active cholecalciferol (D3 Super Strength) 50 MCG (2000 UT) capsuleIndicati ons:Vitamin D deficiency TAKE 1 [...] Discontinued cholecalciferol (D3 Super Strength) 50 MCG (2000 UT) capsuleIndicati ons:Vitamin D deficiency TAKE 1 CAPSULE BY MOUTH TWICE DAILY IN THE MORNING AND AT BEDTIME 180 capsule 1 024 2024 Discontinued Active Problems Problem Noted Date Diagnosed Date Severe major depression 05/05/2023 Assessment & Plan (05/05/2023 2:38 PM EST): Measurement Tools [Check all that apply and include scores] PHQ9, YISEL-7 PHQ9: 24 GAD7: 21 PLAN: (check all that apply) Behavioral Health Integration Plan Patient Self Plan Patient to utilize skills provided in intervention , Patient to reach out to CB as needed, and Information on [facility] provided. Santy agrees to contact [facility] to schedule intake. 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 03/18/2022 Erectile dysfunction 09/10/2021 Chronic low back pain 03/04/2021 Essential hypertension 01/18/2017 Diabetic polyneuropathy 04/06/2016 Type 2 diabetes mellitus 04/06/2016 Encounters Date Type Department Care Team Description 07/18/2024 Refill [facility] MEDICINE [address] [place] [address] NameJose MD 07/03/2024 Orders Only GENERIC EXTERNAL DATA DEPARTMENT Provider, Generic External Data 07/02/2024 9:45 AM EDT Office Visit [facility] OPTOMETRY [address] [place] [address] Tom, Shell, OD Presbyopia (Primary Dx) 06/26/2024 Refill [facility] MEDICINE [address] [place] [address] Jose Lewis MD Gastroesophageal reflux disease without esophagitis 06/20/2024 Refill [facility] MEDICINE [address] [place] [address] Jose Lewis MD Essential hypertension; Vitamin D deficiency 06/08/2024 Population Health Risk Score [facility] (C3) Department [address] [place] [phone] Provider, Population Health Generic 05/25/2024 10:30 AM EST Clinical Support [facility] MEDICINE [address] [place] [address] Candice Farris RN Foot abscess, left 05/25/2024 Travel 05/24/2024 Refill [facility] MEDICINE [address] [place] [address] Jose Lewis MD Type 2 diabetes mellitus with other specified complication, without long-term current use of insulin ([facility]) 05/18/2024 10:30 AM EST Clinical Support [facility] MEDICINE [address] [place] [address] Candice Farris RN Foot abscess, left; Acute foot pain, left 05/18/2024 Travel 05/16/2024 2:30 PM EST Office Visit [facility] MEDICINE [address] [place] [address] Jose Lewis MD Foot abscess, left (Primary Dx); Acute foot pain, left; Type 2 diabetes mellitus with diabetic polyneuropathy, with long-term current use of insulin ([facility]) 05/16/2024 Travel 05/02/2024 9:30 AM EST Office Visit [facility] OPTOMETRY [address] [place] [address] Tom, Shell, OD Both eyes affected by mild nonproliferative diabetic retinopathy with macular edema, associated with type 2 diabetes mellitus ([facility]) (Primary Dx); Dry eye syndrome of both [...] Description 08/06/2024 10:15 AM EDT Office Visit [facility] MEDICINE [address] [place] [address] Name, MD Jose [address] [place] [address] Health Maintenance Due Date Last Done Comments CT Colonography 1974 FIT DNA/Cologuard 1974 FIT 1974 FOBT 1974 Sigmoidoscopy 1974 Family Planning (PISQ) 1989 COVID-19 Vaccine ( season) 2023 Influenza Vaccine (#1) 2023 12/30/2015 SDOH Screening 05/05/2024 05/05/2023 Zoster Vaccines (1 of 2) 2024 Diabetes: Urine Protein Screening 08/29/2024 08/30/2023, 12/31/2022, 09/04/2021, Additional history exists Lipid Panel 08/29/2024 08/30/2023, 03/28, 09/04/2021, Additional history exists Depression Monitoring 11/13/2024 05/16/2024, 025 Diabetes: Hemoglobin A1C 11/13/2024 025, 09/06/2023, 08/26/2023, Additional history exists Alcohol/Substance Use Screening 11/16/2024 11/17/2023 Diabetes: Foot Exam 11/16/2024 11/17/2023, 11/17/2023, 11/17/2023, Additional history exists Eye Exam 05/02/2025 05/02/2024, 07/2024, 05/02/2024, Additional history exists Depression Screening 05/16/2025 05/16/2024, 05/16/19 25 Tobacco Screening 05/21/2025 05/21/2024 Colonoscopy 07/03/2029 Colorectal Cancer Screening 07/03/2029 DTaP/Tdap/Td Vaccines (5 - Td or Tdap) [...] periodically (2-3x per week) Blood Pressure No Anthony Romeroyssa, PharmD Blood Pressure < 140/90 Blood Pressure 110/98(2024 10:33 AM EST) No Kathleenia Steff, PharmD Patient will adhere to medication regimen General No Anthony Romeroyssa, PharmD Hemoglobin A1c < 7 Result Component 6(05/16/2024 3:11 PM EST) No Puia Steff, PharmD Record your blood sugar as directed Result Component No Nick Steff, PharmD Note: Use CGM, ensuring sensor is scanned at least once every 8 hours to capture 24H data. Check BG manually, as directed. Procedures Procedure Name Priority Date/Time Associated Diagnosis Comments GLUCOSE, WHOLE BLOOD Routine 07/03/2024 11:06 AM EDT POCT GLYCATED HEMOGLOBIN, TOTAL Routine 05/16/2024 3:11 [...] Recently Relevant to Health Maintenance Results * Glucose, Whole Blood (07/03/2024 11:06 AM EDT) Glucose, Whole Blood 84 60 - 115 mg/dL [facility] Comment:METER #: [id number] 07/03/2024 11:0 6 AM EDT 07/03/2024 11:12 AM EDT Generic External Data Provider LAB BLOOD ORDERAB LES Final Result [facility] [address] [place] [address] [phone] * POCT HGB A1C (05/16/2024 3:11 PM EST) Hemoglobin A1C 6.0 4.0 - 6.0 % [employer] Media Lot # [id number] Lot# Expiration Date [id number] Blood 05/16/2024 3:11 PM EST Jose Lewis MD POINT OF CARE TEST ENTER/EDIT OR DERABLES Final Result * POCT Glucose (05/16/2024 3:08 PM EST) Glucose Blood, POC 102 60 - 200 mg/dL [employer] Lot # [id number] Lot# Expiration Date [id number] Blood Capillary blood specimen / Unknown 05/16/2024 3:08 PM EST Jose Lewis MD POINT OF CARE TEST ENTER/EDIT OR DERABLES Final Result * Albumin, Random Urine W/Creatinine (08/30/2023 10:51 AM EDT) Creatinine, Urine 131.69 mg/dL [facility] Microalbumin Urine 11.0 mg/L [facility] Microalbum Creatinine Ratio Ur 8.3 <30 ug/mg cr [facility] Comment:Albumin/Creatinine R atio Reference Ranges: Normal: < 30 ug/mg creatinine Microalbuminuria: 30 - 300 ug/mg creatinineClinical Albuminuria: > 300 ug/mg creatinine Urine (Urine, Random) 08/30/2023 10:51 AM EDT 08/30/2023 12:06 PM EDT us Jose Lewis MD LAB URINE ORDERABLES Final Resul t Performing Organization Address City/[facility]/ZIP Co de Phone Number [facility] [address] [place] [phone] * HIV-1/2 Antigen and Antibodies, Fourth Generation, with Reflexes (08/30/2023 10:51 AM EDT) HIV AB/AG Nonreactive Nonreactive [facility] Comment:HIV-1 p24 Ag and/or HIV-1/HIV-2 Ab not detected.A test result that is nonreactive does not exclude thepossibility of exposure to or infection with HIV-1 and/orHIV-2. Nonreactive results in this assay for individualswith prior exposure to HIV-1 and/or HIV-2 may be due toantigen and antibody levels that are below the limit ofdetection of this assay.[employer] HIV Ag/Ab Combo assay result andsupplemental assay results should be interpreted inconjunction with the patient's clinical presentation,history and other laboratory results. If the results areinconsistent with clinical evidence, additional testing issuggested to confirm the result. Blood Venous blood specimen / Unknown 08/30/2023 10:51 AM EDT 08/30/2023 12:01 PM EDT us Jose Lewis MD LAB BLOOD ORDERABLES Final Resul t Performing Organization Address City/[facility]/ZIP Co de Phone Number [facility] [address] [place] [phone] * Lipid Panel, Standard (08/30/2023 10:51 AM EDT) Triglycerides 114 <150 mg/dL [facility] Comment:Desirable Triglyceri de: less than 150 mg/dLBorderline High Triglyceride 150-199 mg/dLHigh Triglyceride: 200-499 mg/dLVery High Triglyceride: greater than or equal to 5OO mg/dL Cholesterol 124 <200 mg/dL [facility] Comment:Desirable Cholestero l: less than 200 mg/dLBorderline High Cholesterol: 200-239 mg/dLHigh Cholesterol: greater than 239 mg/dL LDL Cholesterol Calculated 59 <100 mg/dL [facility] Comment:Desirable LDL: less than 100 mg/dLNear Optimal/Above Optimal LDL: 110- 129 mg/dLBorderline High LDL: 130-159 mg/dLHigh LDL: 160-189 mg/dLVery High LDL: greater than or equal to 190 mg/dL HDL Cholesterol 43 >40 mg/dL [facility] Comment:Desirable HDL: great er than 40 mg/dL Note: This HDL assay may give artificially low results in patients with liver disease. Blood Venous blood specimen / Unknown 08/30/2023 10:51 AM EDT 08/30/2023 12:01 PM EDT Jose Name LAB BLOOD ORDERABLES Final Resul t Performing Organization Address City/[facility]/ZIP Co de Phone Number [facility] [address] [place] [address] [phone] * HEPATITIS C AB W/REFL TO HCV RNA, QN, PCR (07/23/2020 3:34 PM EDT) HEPATITIS C ANTIBODY NON-REACT [facility] NON-REACT [facility] INDEX 0.01 <1.00 [facility] Comment: ?? HCV antibody was non-reactive. There is no laboratory ?? evidence of HCV infection. ?? In most cases, no further action is required. However, if recent HCV exposure is suspected, a test for HCV RNA (test code 33975) is suggested. ?? For additional information please refer to http://education.[employer]ot[employer].PredicSis/faq/RZZ26g0 (This link is being provided for informational/ educational purposes only.) ?? 07/23/2020 3:34 PM EDT us Historical Provider HISTORICAL/NON ORDERABLE LABS Final Result Performing Organization Address City/[facility]/ZIP Co de Phone Number [facility] [address] [place] [address], from Last 3 Months or Most Recently Relevant to Health Maintenance Insurance [facility] C[facility] [employer] Care Teams Bale Breaker Operator Relationship Specialty Start Date End Date Name, MD Jose [address] [place] [phone] PCP - General Internal Medicine 03/17/22 Steff Romero PharmD [address] [place] [phone] Pharmacist Internal Medicine 09/14/22
--- OUTSIDE RECORDS SUMMARY | 2024-07-18 13:18 | XMS_ITS | Encounter Summary ---
Author Organization [employer] Address [address] [facility] [address] [place] [address] Care Team Providers Care Mail Handlers Supervisor Name Role Phone Name, Jose MOSQUERA Primary Care Provider [phone] Steff Romero PharmD Unavailable [phone] Reason for Visit * Reason Comments Med Refill Encounter Details Date Type Department Care Team ([facility] st Contact Info) Description 01/30/2023 Refill [facility] MEDICINE [address] [place] [address] Sarah Benito FNP [address] [place], [place] [phone] Social History Tobacco Use Types Packs/Day Years [...] Description 08/06/2024 10:15 AM EDT Office Visit [facility] MEDICINE [address] [place] [address] [phone] Name, MD Jose [address] [place] [address] [phone] documented as of this encounter Goals Goal [...] on filedocumented in this encounter Care Teams Mail Handlers Supervisor Relationship Specialty Start Date End Date NameJose MD [address] [place] [address] [phone] PCP - General Internal Medicine 03/17/22 Puia, Steff, PharmD [address] [place] [address] [phone] Pharmacist Internal Medicine 09/14/22 documented as of this encounter
== END 2024-07-18 11:34 | disposition home or self-care (01) ==
LOC: HO.HGS 11:01
PROVIDERS: PCP Internal Medicine Geriatric Medicine; Visit Provider Surgery
DX: Z12.11 Encounter for screening for malignant neoplasm of colon (principal)
CPT/HCPCS: 99212

== ENCOUNTER → 2024-07-18 11:00 | Outpatient (BNVA) | payer MEDICAID, SELFPAY | PROVIDERS: PCP Internal Medicine Geriatric Medicine; Visit Provider Surgery | DX: Z98.890 Other specified postprocedural states (principal) | CPT/HCPCS: 99212 ==

== ENCOUNTER 2024-08-07 09:10 | Outpatient (REF) | payer MEDICAID, SELFPAY ==
--- OUTSIDE RECORDS SUMMARY | 2024-08-07 09:39 | XMS_ITS | Clinical Summary ---
Author Organization [employer] Address [address] [place] [address] 7[address] [place] [address] Care Team Providers Care Terrapin Fisher Name Role Phone Name, Jose MOSQUERA Primary Care Provider [phone] Steff Romero PharmD Unavailable [phone] Allergies No known active allergies Medications * This document contains information received from the source organization and may not represent a complete record from that organization. ketotifen (Zaditor) 0.025 % ophthalmic solutionIndicat ions:Type 2 diabetes mellitus with other specified complication, without long-term current use of insulin ([facility]) Administer 1 drop into both eyes 2 times daily. 5 mL 2 023 Active Blood Pressure Monitor kitIndications: Essential hypertension Use once a day 1 kit 023 Active hydrOXYzine pamoate (Vistaril) 25 MG capsuleIndicati ons:Diabetic dermopathy (CMS/HCC) ([facility]) TAKE 1 CAPSULE BY MOUTH AT BEDTIME FOR 28 DAYS. 28 capsule 023 Active Continuous Blood Gluc Oil Field Rig Builder (FreeStyle Deven 2 Catano) deviceIndicatio ns:Type 2 diabetes mellitus with hyperglycemia, without long-term current use of insulin ([facility]) Use to scan sensor at least every 8 hours, as directed, for CGM 1 each 023 Active TRUEplus Lancets 33G misc Use to test blood sugar three times daily 100 each 11 023 Active insulin pen needle 32G x 4 mm miscIndications :Type 2 diabetes mellitus with diabetic polyneuropathy, with long-term current use of insulin ([facility]) Use to inject insulin 1 times daily 100 each 3 Active Continuous Glucose Sensor (FreeStyle Dveen 2 Sensor) miscIndications :Type 2 diabetes mellitus with diabetic polyneuropathy, with long-term current use of insulin ([facility]) Apply 1 sensor, as directed, every 14 days for CGM 2 each Active empagliflozin (Jardiance) 25 MGIndications:T ype 2 diabetes mellitus with diabetic polyneuropathy, with long-term current use of insulin ([facility]) Take 1 tablet (25 mg) by mouth in the morning. 90 tablet 3 Active metFORMIN XR (Glucophage-XR) 500 MG 24 hr tabletIndicatio ns:Type 2 diabetes mellitus with diabetic polyneuropathy, with long-term current use of insulin ([facility]) Take 1 tablet (500 mg) by mouth with breakfast and with evening meal. Do not crush, chew, or split. 180 tablet 3 Active pregabalin (Lyrica) 50 MG capsule Take [...] times daily. 60 tablet 024 2024 Active insulin degludec (Tresiba FlexTouch) 200 UNIT/ML injectionIndica tions:Type 2 diabetes mellitus with diabetic polyneuropathy, with long-term current use of insulin ([facility]) INJECT 64 SUBCUTANEOUSLY EVERY DAY 9 mL 5 Active cetirizine (ZyrTEC) 10 MG tabletIndicatio ns:Type 2 diabetes mellitus with other specified complication, without long-term current use of insulin ([facility]) TAKE 1 TABLET BY MOUTH EVERY MORNING 90 tablet 1 Active atorvastatin (Lipitor) 40 MG tablet TAKE 1 TABLET BY MOUTH AT BEDTIME 90 tablet 1 024 Active Alcohol Swabs (Alcohol Prep) 70 % pads USE THREE TIMES DAILY 100 each 11 Active hydroCHLOROthia zide (HYDRODiuril) 25 MG tabletIndicatio ns:Primary hypertension TAKE 1 TABLET BY MOUTH EVERY MORNING 90 tablet 1 025 Active amitriptyline (Elavil) 50 MG tablet TAKE 1 TABLET BY MOUTH AT BEDTIME 90 tablet 025 Active DULoxetine (Cymbalta) [address] capsuleIndicati ons:Type 2 diabetes mellitus with other specified complication, without long-term current use of insulin ([facility]) TAKE 1 CAPSULE BY MOUTH EVERY MORNING 90 capsule 025 Active amLODIPine (Norvasc) 10 MG tabletIndicatio ns:Essential hypertension TAKE 1 TABLET BY MOUTH EVERY MORNING 90 tablet 1 025 Active cholecalciferol (D3 Super Strength) 50 MCG (1999 UT) capsuleIndicati ons:Vitamin D deficiency TAKE 1 CAPSULE BY MOUTH TWICE DAILY IN THE MORNING AND AT BEDTIME 180 capsule 025 Active pantoprazole (ProtoNix) 40 MG EC tabletIndicatio ns:Gastroesopha geal reflux disease without esophagitis TAKE 1 TABLET BY MOUTH EVERY MORNING 90 tablet 025 Active lisinopril 40 MG tablet TAKE 1 TABLET BY MOUTH AT BEDTIME 90 tablet 1 025 Active glucose blood (FreeStyle Precision Carter Test) test stripIndication s:Type 2 diabetes mellitus with diabetic polyneuropathy, with long-term current use of insulin ([facility]) USE DIRECTED TO TEST BLOOD SUGAR THREE TIMES DAILY DIRECTED 50 strip 025 Active Tirzepatide (Mounjaro) 7.5 MG/0.5ML solution auto-injectorIn dications:Type 2 diabetes mellitus with diabetic polyneuropathy, with long-term current use of insulin ([facility]) Inject 7.5 mg under the skin 1 (one) time per week. 2 mL 025 2025 Active glucose blood (FreeStyle Precision Carter Test) test stripIndication s:Type 2 diabetes mellitus with diabetic polyneuropathy, with long-term current use of insulin ([facility]) TEST BLOOD SUGAR UP TO THREE TIMES DAILY DIRECTED 50 strip 5 024 2024 Discontinued lisinopril 40 MG tablet TAKE 1 TABLET BY MOUTH AT BEDTIME 90 tablet 1 024 2024 Discontinued Mounjaro 5 MG/0.5ML solution auto-injector INJECT ONE PEN (=5MG) SUBCUTANEOUSLY ONCE A WEEK DIRECTED 025 2024 Discontinued(D ose adjustment) Active Problems Problem Noted Date Diagnosed Date [...] to CB as needed, and Information on [facility] provided. Santy agrees to contact [facility] to schedule intake. Behavioral Health Diagnoses At [...] Encounters Date Type Department Care Team Description 08/06/2024 10:15 AM EDT Office Visit [facility] [address] [place] [phone] Jose Lewis MD PE (physical exam), routine (Primary Dx); Type 2 diabetes mellitus with diabetic polyneuropathy, with long-term current use of insulin (CMS/HCC); Chronic low back pain, unspecified back pain laterality, unspecified whether sciatica present; Bilateral lower extremity edema 08/06/2024 Travel 08/04/2024 Refill [facility] [address] [place] [address] Jose Lewis MD Type 2 diabetes mellitus with diabetic polyneuropathy, with long-term current use of insulin (CMS/HCC) 08/03/2024 Telephone [facility] [address] [place] [address] Jose Lewis MD CHART PREP 07/30/2024 Patient Outreach [facility]ED[facility] [address] [place] [address] Jose Lewis MD Pre-visit Planning (SDOH negative, Tobacco screening negative. ) 07/18/2024 Refill [facility] [address] [facility] [place] [address] Jose Lewis MD 07/03/2024 Orders Only GENERIC EXTERNAL DATA DEPARTMENT Provider, Generic External Data 07/02/2024 9:45 AM EDT Office Visit [facility] [address] [place], [place] [phone] Tom, Shell, OD Presbyopia (Primary Dx) 06/26/2024 Refill [facility] [address] [place] [address] Jose Lewis MD Gastroesophageal reflux disease without esophagitis 06/20/2024 Refill [facility] [address] [place], [place] [phone] Jose Lewis MD Essential hypertension; Vitamin D deficiency 06/08/2024 Population Health Risk Score [facility] () Department [address] [place] [phone] Provider, Population Health Generic 05/25/2024 10:30 AM EST Clinical Support [facility] [place], [place] [phone] Candice Farris RN Foot abscess, left 05/25/2024 Travel 05/24/2024 Refill [facility] [address] [place], [place] [phone] Jose Lewis MD Type 2 diabetes mellitus with other specified complication, without long-term current use of insulin ([facility]) 05/18/2024 10:30 AM EST Clinical Support [facility] [address] [facility] [place] [address] Candice Farris RN Foot abscess, left; Acute foot pain, left 05/18/2024 Travel 05/16/2024 2:30 PM EST Office Visit [facility] [address] [place], [place] [phone] Jose Lewis MD Foot abscess, left (Primary Dx); Acute foot pain, left; Type 2 diabetes mellitus with diabetic polyneuropathy, with long-term current use of insulin ([facility]) 05/16/2024 Travel from Last 3 Months Immunizations Name [...] housing situation today? I have char alonzo 07/30/[address] you li ve. Do you have problems with any of the following? None of the above 07/30/2024 Food Insecurity Answer Date Recorded Within the past 12 months, y ou worried that your food would run out before you got money to buy more: Never True 07/30/2024 Within the past 12 months,th e food you bought just didn't last and you didn't have enough money to get more: Never True 07/2024 Transportation Answer Date Recorded In the past 12 months, has l ack of transportation kept you from medical appts, meetings, work or from getting things needed for daily living? No 07/30/2024 Utilities Answer Date Recorded In the past 12 months, has t he electric, gas, oil or water company threatened to shut off services in your home? No 07/30/2024 Depression Answer Date Recorded Patient Health Questionnaire-2 Score 6 05/16/2024 Internet Access Answer Date Recorded Internet Access Q1 Yes 07/30/2024 Internet Access Q2 Not on file 07/30/2024 Sex and Gender Information Value Date Recorded Sex Assigned at Male 01/25/2022 10:14 AM EDT Legal Sex Male 10:14 AM EDT Gender Identity Male 01/25/2022 10:14 AM EDT Sexual Orientation Straight 01/25/2022 10 :14 AM EDT Last Filed Vital Signs Vital Sign Reading Time Taken Comments Blood Pressure 123/89 08/06/2024 10:33 AM EDT Pulse 98 08/06/2024 10:13 AM EDT Temperature 36.7 ??C (98 ??F) 08/06/2024 10:13 AM EDT Respiratory Rate 18 08/06/2024 10:13 AM EDT Oxygen Saturation 98% 08/06/2024 10:13 AM EDT Inhaled Oxygen Concentration - - Weight 108 kg (237 lb) 08/06/2024 10:13 AM EDT Height 175.3 cm (5' 9 ) 08/06/2024 10:13 AM EDT Body Mass Index 35 08/06/2024 10:13 AM EDT Plan of Treatment Upcoming Encounters Date Type Department Care Team (Late st Contact Info) Description 10/31/2024 9:30 AM EDT Office Visit [facility] [address] [place] [address] Shell Santos, OD [address] [place] [address] 11/22/2024 11:15 AM EDT Office Visit [facility] [address] [place] [address] Name, MD Jose [address] [place] [address] Health Maintenance Due Date Last Done Comments CT Colonography 1974 FIT DNA/Cologuard 1974 FIT 1974 FOBT 1974 Sigmoidoscopy 1974 Family Planning (PISQ) 1989 COVID-19 Vaccine ( season) 2023 Influenza Vaccine (#1) 2023 12/30/2015 Zoster Vaccines (1 of 2) 2024 Diabetes: Urine Protein Screening 08/29/2024 08/30/2023, 12/31/2022, 09/04/2021, Additional history exists Lipid Panel 08/29/2024 08/30/2023, 03/28, 09/04/2021, Additional history exists Diabetes: Hemoglobin A1C 11/06/2024 025, 05/16/2024, 09/06/2023, Additional history exists Diabetes: Foot Exam 11/16/2024 11/17/2023, 11/17/2023, 11/17/2023, Additional history exists Eye Exam 05/02/2025 05/02/2024, 07/2024, 05/02/2024, Additional history exists Depression Screening 05/16/2025 05/16/2024, 05/16/19 SDOH Screening 07/30/2025 07/30/2024 Alcohol/Substance Use Screening 08/06/2025 08/06/2024 Tobacco Screening 08/06/2025 08/06/2024 Colonoscopy 07/03/2029 Colorectal Cancer Screening 07/03/2029 DTaP/Tdap/Td [...] PharmD Blood Pressure < 140/90 Blood Pressure 123/89(2024 10:33 AM EDT) No Puia Steff, PharmD Patient will adhere to medication regimen General No Anthony Romeroyssa, PharmD Hemoglobin A1c < 7 Result Component 7.3( 10:15 AM EDT) No Anthony Romeroyssa, PharmD Record your blood sugar as directed Result Component No Anthony Romeroyssa PharmD Note: Use CGM, ensuring sensor is scanned at least once every 8 hours to capture 24H data. Check BG manually, as directed. Procedures Procedure Name Priority Date/Time Associated Diagnosis Comments POCT GLYCATED HEMOGLOBIN, TOTAL Routine 08/06/2024 10:15 AM EDT Type 2 diabetes mellitus with diabetic polyneuropathy, with long-term current use of insulin ([facility]) POCT GLUCOSE Routine 08/06/2024 10:15 AM EDT Type 2 diabetes mellitus with diabetic polyneuropathy, with long-term current use of insulin ([facility]) GLUCOSE, WHOLE BLOOD Routine 07/03/2024 11:06 AM EDT POCT GLYCATED HEMOGLOBIN, TOTAL Routine 05/16/2024 3:11 PM EST Type 2 diabetes mellitus with diabetic polyneuropathy, with long-term current use of insulin ([facility]) POCT GLUCOSE Routine 05/16/2024 3:08 PM EST Type 2 diabetes mellitus with diabetic polyneuropathy, with long-term current use of insulin ([facility]) HIV 1/2 ANTIGEN/ANTIBODY, FOURTH GENERATION W/RFL Routine [...] Recently Relevant to Health Maintenance Results * (ABNORMAL) POCT HGB A1C (08/06/2024 10:15 AM EDT) Only the most recent of2 resultswithin the time period is included. Hemoglobin A1C 7.3(A) 4.0 - 6.0 % QC Media Lot # [id number] Lot# Expiration Date Blood 08/06/2024 10:1 5 AM EDT us Jose Name POINT OF CARE TEST ENTER/EDIT OR DERABLES Final Result * (ABNORMAL) POCT Glucose (08/06/2024 10:15 AM EDT) Only the most recent of2 resultswithin the time period is included. Glucose Blood, POC 433(A) 60 - 200 mg/dL QC Media Lot # [id number] Lot# Expiration Date Blood Capillary blood specimen / Unknown 08/06/2024 10:15 AM EDT Jose Lewis MD POINT OF CARE TEST ENTER/EDIT OR DERABLES Final Result * Glucose, Whole Blood (07/03/2024 11:06 AM EDT) Glucose, Whole Blood 84 60 - 115 mg/dL [facility] Comment:METER #: [id number] 07/03/2024 11:0 6 AM EDT 07/03/2024 11:12 AM EDT Generic External Data Provider LAB BLOOD ORDERAB LES Final Result Performing Organization Address [facility]/ZIP Co de Phone Number [facility] [address] [place] [address] [phone] * Albumin, Random Urine W/Creatinine (08/30/2023 10:51 AM EDT) Creatinine, Urine 131.69 mg/dL [facility] Microalbumin Urine 11.0 mg/L [facility] Microalbum Creatinine Ratio Ur 8.3 <30 ug/mg cr [facility] Comment:Albumin/Creatinine R atio Reference Ranges: Normal: < 30 ug/mg creatinine Microalbuminuria: 30 - 300 ug/mg creatinineClinical Albuminuria: > 300 ug/mg creatinine Urine (Urine, Random) 08/30/2023 10:51 AM EDT 08/30/2023 12:06 PM EDT Jose Lewis MD LAB URINE ORDERABLES Final Resul t Performing Organization Address City/[facility]/ZIP Co de Phone Number [facility] [address] [place] [address] [phone] * HIV-1/2 Antigen and Antibodies, Fourth Generation, with Reflexes (08/30/2023 10:51 AM EDT) HIV AB/AG Nonreactive Nonreactive [facility] Comment:HIV-1 p24 Ag and/or HIV-1/HIV-2 Ab not detected.A test result that is nonreactive does not exclude thepossibility of exposure to or infection with HIV-1 and/orHIV-2. Nonreactive results in this assay for individualswith prior exposure to HIV-1 and/or HIV-2 may be due toantigen and antibody levels that are below the limit ofdetection of this assay.The [employer] HIV Ag/Ab Combo assay result andsupplemental assay results should be interpreted inconjunction with the patient's clinical presentation,history and other laboratory results. If the results areinconsistent with clinical evidence, additional testing issuggested to confirm the result. Blood Venous blood specimen / Unknown 08/30/2023 10:51 AM EDT 08/30/2023 12:01 PM EDT us Jose Name LAB BLOOD ORDERABLES Final Resul t [facility] [address] [place] [phone] * Lipid Panel, Standard (08/30/2023 10:51 AM EDT) Triglycerides 114 <150 mg/dL [facility] Comment:Desirable Triglyceri de: less than 150 mg/dLBorderline High Triglyceride 150-199 mg/dLHigh Triglyceride: 200-499 mg/dLVery High Triglyceride: greater than or equal to 5OO mg/dL Cholesterol 124 <200 mg/dL [facility] Comment:Desirable Cholestero l: less than 200 mg/dLBorderline High Cholesterol: 200-239 mg/dLHigh Cholesterol: greater than 239 mg/dL LDL Cholesterol Calculated 59 <100 mg/dL [facility] Comment:Desirable LDL: less than 100 mg/dLNear Optimal/Above Optimal LDL: 110- 129 mg/dLBorderline High LDL: 130-159 mg/dLHigh LDL: 160-189 mg/dLVery High LDL: greater than or equal to 190 mg/dL HDL Cholesterol 43 >40 mg/dL [facility] Comment:Desirable HDL: great er than 40 mg/dL Note: This HDL assay may give artificially low results in patients with liver disease. Blood Venous blood specimen / Unknown 08/30/2023 10:51 AM EDT 08/30/2023 12:01 PM EDT us Jose Name LAB BLOOD ORDERABLES Final Resul t [facility] [address] [place] [phone] [phone] * HEPATITIS C AB W/REFL TO HCV RNA, QN, PCR (07/23/2020 3:34 PM EDT) HEPATITIS C ANTIBODY NON-REACT RUPALI NON-REACT RUPALI [facility] INDEX 0.01 <1.00 [facility] Comment: ?? HCV antibody was non-reactive. There is no laboratory ?? evidence of HCV infection. ?? In most cases, no further action is required. However, if recent HCV exposure is suspected, a test for HCV RNA (test code 67768) is suggested. ?? For additional information please refer to http://education.[employer]/faq/IWB84s5 (This link is being provided for informational/ educational purposes only.) ?? 07/23/2020 3:34 PM EDT us Historical Provider HISTORICAL/NON ORDERABLE LABS Final Result Performing Organization Address City/[facility] Co de Phone Number [facility] [address] from Last 3 Months or Most Recently Relevant to Health Maintenance Insurance [facility] C3 HSN FULL Care Teams Terrapin Fisher Relationship Specialty Start Date End Date Name, MD Jose [address] [place] [address] PCP - General Internal Medicine 03/17/22 Steff Romreo PharmD [address] [place] [address] Pharmacist Internal Medicine 09/14/22
--- OUTSIDE RECORDS SUMMARY | 2024-08-07 09:39 | XMS_ITS | Encounter Summary ---
Author Organization [employer] Address [address] [place] [address] [address] [place] [address] Care Team Providers Care Merchandise Flow Team Leader Name Role Phone Name, Jose MOSQUERA Primary Care Provider [phone] Steff Romero PharmD Unavailable [phone] Reason for Visit * Reason Comments Med Refill Encounter Details Date Type Department Care Team ([facility] Contact Info) Description 12/02/2022 Refill [facility]S [address] [place] [address] Gita Joshi FNP [address] [place] [address] Dept [place] [address] Gastroesophageal reflux disease without esophagitis Social History [...] Upcoming Encounters Date Type Department Care Team ([facility] Contact Info) Description 10/31/2024 9:30 AM EDT Office Visit [facility] OPTOMETRY [address] [place], [place] [phone] Tom, Shell, OD [address] [place], [place] [phone] 11/22/2024 11:15 AM EDT Office Visit [facility] MED[facility] [address] [place] [address] Name, [place] [address] documented as of this encounter Goals Goal Patient Goal Type Associated Problems Recent Progress Patient-Stated? Author Record your blood pressure periodically (2-3x per week) Blood Pressure No Puia, Steff, PharmD Blood Pressure < 140/90 Blood Pressure 123/89(2024 10:33 AM EDT) No Puia, Steff, PharmD Patient will adhere to medication regimen General No Puia, Steff, PharmD Hemoglobin A1c < 7 Result Component 7.3( 10:15 AM EDT) No Puia, Steff, PharmD Record your blood sugar as directed Result Component No Puia, Steff, PharmD Note: Use CGM, ensuring sensor is scanned at least once every 8 hours to capture 24H data. Check BG manually, as directed. documented as of this encounter Visit Diagnoses Diagnosis Gastroesophageal reflux disease without esophagitis Esophageal reflux documented in this encounter Care Teams Merchandise Flow Team Leader Relationship Specialty Start Date End Date Name, MD Jose [address] [place] [phone] PCP - General Internal Medicine 03/17/22 Puia, Steff, PharmD [address] [place] [phone] Pharmacist Internal Medicine 09/14/22 documented as of this encounter
--- OUTSIDE RECORDS SUMMARY | 2024-08-07 09:39 | XMS_ITS | Encounter Summary ---
Author Organization [employer] Address [address] [facility] [address] [place] [address] Care Team Providers Care Stitch Cleaner Name Role Phone Name, Jose MOSQUERA Primary Care Provider Steff Romero PharmD Unavailable [phone] Encounter Details Date Type Department Care Team (Latest Contact Info) Description 08/06/2024 Travel Social History Tobacco Use Types Packs/Day [...] Description 10/31/2024 9:30 AM EDT Office Visit [facility] [address] [place] [address] Tom, Shell, OD [address] [place] [address] 11/22/2024 11:15 AM EDT Office Visit [facility] [address] [place] [address] Name, MD Jose [address] [place] [address] documented as of this encounter Goals Goal [...] documented as of this encounter Care Teams Stitch Cleaner Relationship Specialty Start Date End Date Name, MD Jose [address] [place] [address] PCP - General Internal Medicine 03/17/22 Steff Romero PharmD [address] [place] [address] Pharmacist Internal Medicine 09/14/22 documented as of this encounter
--- OUTSIDE RECORDS SUMMARY | 2024-08-07 09:39 | XMS_ITS | Encounter Summary ---
Author Organization [employer] Address [address] [place] [address] 7t [place] [address] Care Team Providers Care Corporate Strategy Intern Name Role Phone Name, Jose MOSQUERA Primary Care Provider [phone] Steff Romero PharmD Unavailable [phone] Reason for Visit * Reason Onset Date Comments CHART PREP 08/03/2024 Encounter Details Date Type Department Care Team ([facility] st Contact Info) Description 08/03/2024 Telephone [facility] MEDICINE [address] [place], [place] [phone] Name, MD Jose [address] [place], [place] [phone] CHART PREP Social History Tobacco Use Types Packs/Day Years [...] the past 12 months, has t he [employer], gas, oil or water [employer] threatened to shut off services in your [...] AM EDT documented as of this encounter Miscellaneous Notes * Telephone Encounter - Analisa Clark [place] - 08/03/2024 12:04 PM EDT Chart Prep Labs: done 07/03/24. Images: not applicable Referrals: not applicable Vaccines due: Covid and Zoster Screenings: not applicable Overdue care gaps: A1c, Glucose, SBIRT, Disability screen, and Tobacco documented in this encounter Plan of Treatment Upcoming Encounters Date Type Department Care Team (Late st Contact Info) Description 10/31/2024 9:30 AM EDT Office Visit [facility] OPTOMETRY [address] [place] [address] Shell Santos, OD [address] [place] [address] 11/22/2024 11:15 AM EDT Office Visit [facility] MEDICINE [address] [place] [address] Name, MD Jose [address] [place] [id number] documented as of this encounter Goals Goal Patient Goal Type Associated Problems Recent Progress Patient-Stated? Author Record your blood pressure periodically (2-3x per week) Blood Pressure No Steff Romero, PharmD Blood Pressure < 140/90 Blood Pressure 123/89(2024 10:33 AM EDT) No Anthony Romeroyssa, PharmD Patient will adhere to medication regimen General No Anthony Romeroyssa, PharmD Hemoglobin A1c < 7 Result Component 7.3( 10:15 AM EDT) No Nick Steff, PharmD Record your blood sugar as [...] documented as of this encounter Care Teams Corporate Strategy Intern Relationship Specialty Start Date End Date Name, MD Jose [address] [place] [id number] PCP - General Internal Medicine 03/17/22 Steff Romero PharmD [address] [place] [phone] Pharmacist Internal Medicine 09/14/22 documented as of this encounter
--- OUTSIDE RECORDS SUMMARY | 2024-08-07 09:39 | XMS_ITS | Encounter Summary ---
Author Organization [employer] Address [address] [place] [address] 7t [place] [address] Care Team Providers Care Wharf Tender Head Name Role Phone Name, Jose MOSQUERA Primary Care Provider [phone] Steff Romero PharmD Unavailable [phone] Reason for Visit * Reason Comments Med Refill Encounter Details Date Type Department Care Team ([facility] st Contact Info) Description 08/04/2024 Refill [facility] MEDICINE [address] [place], [place] [phone] Name, MD Jose [address] [place] [address] Type 2 diabetes mellitus with diabetic polyneuropathy, with long-term current use of insulin ([facility]) Social History Tobacco Use Types Packs/Day Years [...] the past 12 months, has t he [employer], gas, oil or water [employer] threatened to shut off services in your [...] Description 10/31/2024 9:30 AM EDT Office Visit [facility] OPTOMETRY [address] [place] [address] Tom, Shell, OD [address] [place] [address] 11/22/2024 11:15 AM EDT Office Visit [facility] MEDICINE [address] [place] [address] Name, MD Joes [address] [place] [address] documented as of this encounter Goals Goal Patient Goal Type Associated Problems Recent Progress Patient-Stated? Author Record your blood pressure periodically (2-3x per week) Blood Pressure No Puia, Steff, PharmD Blood Pressure < 140/90 Blood Pressure 123/89(2024 10:33 AM EDT) No Puia, Steff, PharmD Patient will adhere to medication regimen General No Steff Romero PharmD Hemoglobin A1c < 7 Result Component 7.3( 5 10:15 AM EDT) No Steff Romero PharmD Record your blood sugar as directed Result Component No Steff Romero PharmD Note: Use CGM, ensuring sensor is scanned at least once every 8 hours to capture 24H data. Check BG manually, as directed. documented as of this encounter Visit Diagnoses Diagnosis Type 2 diabetes mellitus with diabetic polyneuropathy, with long-term current use of insulin ([facility]) documented in this encounter Additional Health Concerns Assessment Noted Time PHQ-9 Depression Total Score: 18 025 4:17 PM EST documented as of this encounter Care Teams Wharf Tender Head Relationship Specialty Start Date End Date Name, MD Jose [address] [place] [address] PCP - General Internal Medicine 03/17/22 Steff Romero PharmD [address] [place] [address] Pharmacist Internal Medicine 09/14/22 documented as of this encounter
--- OUTSIDE RECORDS SUMMARY | 2024-08-07 09:39 | XMS_ITS | Encounter Summary ---
Author Organization [employer] Address [address] [facility] 7t [place] [address] Care Team Providers Care Beer Merchant Name Role Phone Name, Jose MOSQUERA Primary Care Provider [phone] Steff Romero PharmD Unavailable [phone] Reason for Visit * Reason Comments Med Refill Encounter Details Date Type Department Care Team ([facility] Contact Info) Description 01/30/2023 Refill [facility] MEDICINE [address] [place] [address] Sarah Benito FNP [address] [place], [place] [phone] Social History Tobacco Use Types Packs/Day Years [...] Description 10/31/2024 9:30 AM EDT Office Visit [facility] OPTOMETRY [address] [place] [address] Tom, Shell, OD [address] [place] [address] 11/22/2024 11:15 AM EDT Office Visit [facility] MEDICINE [address] [place] [address] NameJose MD [address] [place] [address] documented as of this encounter Goals Goal [...] on filedocumented in this encounter Care Teams Beer Merchant Relationship Specialty Start Date End Date NameJose MD [address] [place] [address] PCP - General Internal Medicine 03/17/22 Steff Romero PharmD [address] [place] [address] Pharmacist Internal Medicine 09/14/22 documented as of this encounter
--- OUTSIDE RECORDS SUMMARY | 2024-08-07 09:39 | XMS_ITS | Encounter Summary ---
Author Organization [employer] Address [address] [place] [address] 7t [place] [address] Care Team Providers Care Senior Ios Developer Name Role Phone Jose Lewis MD Primary Care Provider [phone] Steff Romero PharmD Unavailable [phone] Reason for Referral * Consultation (Routine) - Authorized Specialty Diagnoses / Procedures Referred By Contac t Referred To Contact Pain Medicine Diagnoses Chronic low back pain, unspecified back pain laterality, unspecified whether sciatica present Jose Lewis MD [address] [place] [address] Phone: tel: fax: [address] Phone: tel: fax: Referral ID Status Reason Start Date Expiration Date Visits Requested Visits Authorized [id number] Authorized Specialty Services Required 08/06/2024 08/06/2025 6 6 Reason for Visit * Reason Comments Annual Exam Encounter Details Date Type Department Care Team (Late st Contact Info) Description 08/06/2024 10:15 AM EDT Office Visit [facility] MEDICINE [address] [place] [phone] Jose Lewis MD [address] [place] [phone] PE (physical exam), routine (Primary Dx); Type 2 diabetes mellitus with diabetic polyneuropathy, with long-term current use of insulin ([facility]); Chronic low back pain, unspecified back pain laterality, unspecified whether sciatica present; Bilateral lower extremity edema Social History Tobacco Use Types Packs/Day Years [...] Mass Index 35 08/06/2024 10:13 AM EDT documented in this encounter Progress Notes * Jose Lewis MD - 08/06/2024 10:15 AM EDT Subjective Patient ID: Santy Yeager is a 49 y.o. male who presents for Annual Exam. Patient comes for a physical exam. We discussed favorable results of recent colonoscopy. He was recommended repeat in 5 years because of suboptimal preparation. He denies any chest pains or shortnessof breath. He tells me he is using his medications as prescribed. He has med box. He denies any GI d ifficulties tolerating his current dose of Mounjaro. He complains of chronic low back pain. He was seen by [facility] because of the low back pain and recommended physical therapy that he could not do because of feet pain due to neuropathy. He tells me OTC pain medication is not helping with the back pain. He is interested in referral back to [facility] to discuss having injections. Patient also complains of occasional bilateral feet swelling. He does not have any chest pains, no orthopnea, no weight gain, no increased abdominal girth, no BRINK. He is treated with amlodipine. He tried in the past using compression stockings that he does not tolerate because of his feet neuropathy. Review of Systems Constitutional: Negative for chills, fatigue and fever. HENT: Negative for sore throat. Respiratory: Negative for cough, chest tightness and shortness of breath. Cardiovascular: Negative for chest pain, palpitations and leg swelling. See HPI Gastrointestinal: Negative for abdominal pain and blood in stool. Musculoskeletal: Positive for back pain. Visit Vitals BP 123/89 Pulse 98 Temp 98 ??F (36.7 ??C) (Oral) Resp 18 Ht 5' 9 (1.753 m) Wt 237 lb (108 kg) SpO2 98% BMI 35.00 kg/m?? Smoking Status Never BSA 2.29 m?? Objective Physical Exam Constitutional: Appearance: Normal appearance. Cardiovascular: Rate and Rhythm: Normal rate and regular rhythm. Heart sounds: No murmur heard. Pulmonary: Effort: Pulmonary effort is normal. No respiratory distress. Breath sounds: No wheezing, rhonchi or rales. Abdominal: Palpations: Abdomen is soft. Tenderness: There is no abdominal tenderness. Musculoskeletal: Comments: Trace to 1+ bilateral ankle edema Neurological: Mental Status: He is alert. Lab Results Component Value Date HGBA1C 7.3 (A) 08/06/2024 HGBA1C 6.0 05/16/2024 HGBA1C 5.8 09/06/2023 HGBA1C 5.9 08/26/2023 HGBA1C 5.5 03/18/2023 HGBA1C 6.0 12/31/2022 HGBA1C 8.8 (H) 09/17/2022 HGBA1C 8.9 (A) 04/08/2022 HGBA1C 7.3 (H) 09/04/2021 HGBA1C 8.0 (H) 06/24/2021 HGBA1C 6.6 (H) 07/23/2020 Assessment/Plan Diagnoses and all orders for this visit: PE (physical exam), routine Comments: Patient is recommended regular physical activity Avoid sweets and soda Continue current medications as prescribed He is recommended to get the shingles vaccination at his local pharmacy. Type 2 diabetes mellitus with diabetic polyneuropathy, with long-term current use of insulin ([facility]) Comments: Suboptimally controlled based on the hemoglobin A1c. Continue current dose of metformin and Jardiance. Continue current dose of Tresiba. I will increase his Mounjaro to 7.5 mg once a week Continue current dose of PAVAN inhibitor and statin. Continue Cymbalta and amitriptyline for symptoms of neuropathy and chronic low back pain. Orders: - POCT Glucose - POCT HGB A1C - CBC auto differential; Future - Comprehensive Metabolic Panel; Future - Lipid Panel, Standard; Future - B Type Natriuretic Peptide (BNP); Future - Albumin, Random Urine W/Creatinine; Future - Tirzepatide (Mounjaro) 7.5 MG/0.5ML solution auto-injector; Inject 7.5 mg under the skin 1 (one) time per week. Chronic low back pain, unspecified back pain laterality, unspecified whether sciatica present Comments: See above. I will refer her again to [facility]. Orders: - CBC auto differential; Future - Comprehensive Metabolic Panel; Future - Lipid Panel, Standard; Future - B Type Natriuretic Peptide (BNP); Future - Albumin, Random Urine W/Creatinine; Future - Referral to Pain Medicine; Future Bilateral lower extremity edema Comments: Most likely secondary to current use of amlodipine. He does not tolerate the use of compression stockings. I recommended leg elevation when he is at rest. I recommended evaluation with blood work listed below and urine for microalbumin. Orders: - CBC auto differential; Future - Comprehensive Metabolic Panel; Future - Lipid Panel, Standard; Future - B Type Natriuretic Peptide (BNP); Future - Albumin, Random Urine W/Creatinine; Future documented in this encounter Plan of Treatment Upcoming Encounters Date Type Department Care Team (Late st Contact Info) Description 10/31/2024 9:30 AM EDT Office Visit [facility] OPTOMETRY [address] [place] [address] Tom, Shell, OD [address] [place] [address] 11/22/2024 11:15 AM EDT Office Visit [facility] MEDICINE [address] [place] [address] Jose Lewis MD [address] [place] [address] Scheduled Orders Name Type Priority Associated Diagnoses Orde r Schedule CBC auto differential Lab Routine Type 2 diabetes mellitus with diabetic polyneuropathy, with long-term current use of insulin ([facility]) Chronic low back pain, unspecified back pain laterality, unspecified whether sciatica present Bilateral lower extremity edema Expected: 08/06/2024 (Approximate), Expires: 08/06/2025 Comprehensive Metabolic Panel Lab Routine Type 2 diabetes mellitus with diabetic polyneuropathy, with long-term current use of insulin ([facility]) Chronic low back pain, unspecified back pain laterality, unspecified whether sciatica present Bilateral lower extremity edema Expected: 08/06/2024 (Approximate), Expires: 08/06/2025 Lipid Panel, Standard Lab Routine Type 2 diabetes mellitus with diabetic polyneuropathy, with long-term current use of insulin ([facility]) Chronic low back pain, unspecified back pain laterality, unspecified whether sciatica present Bilateral lower extremity edema Expected: 08/06/2024 (Approximate), Expires: 08/06/2025 B Type Natriuretic Peptide (BNP) Lab Routine Type 2 diabetes mellitus with diabetic polyneuropathy, with long-term current use of insulin (CMS/HCC) Chronic low back pain, unspecified back pain laterality, unspecified whether sciatica present Bilateral lower extremity edema Expected: 08/06/2024, Expires: 08/06/2025 Albumin, Random Urine W/Creatinine Lab Routine Type 2 diabetes mellitus with diabetic polyneuropathy, with long-term current use of insulin ([facility]) Chronic low back pain, unspecified back pain laterality, unspecified whether sciatica present Bilateral lower extremity edema Expected: 08/06/2024 (Approximate), Expires: 08/06/2025 Scheduled Referrals Name Type Priority Associated Diagnoses Orde r Schedule Referral to Pain Medicine Outpatient Referral Routine Chronic low back pain, unspecified back pain laterality, unspecified whether sciatica present Expected: 08/06/2024 (Approximate), Expires: 08/06/2025 documented as of this encounter Goals Goal [...] Result Component 7.3( 10:15 AM EDT) No Puia Steff, PharmD Record your blood [...] polyneuropathy, with long-term current use of insulin ([facility]) POCT GLUCOSE Routine 08/06/2024 10:15 AM EDT Type 2 diabetes mellitus with diabetic polyneuropathy, with long-term current use of insulin ([facility]) documented in this encounter Results * (ABNORMAL) POCT HGB A1C (08/06/2024 10:15 AM EDT) Hemoglobin A1C 7.3(A) 4.0 - 6.0 % QC Media Lot # [id number] Lot# Expiration Date Blood 08/06/2024 10:1 5 AM EDT us Jose Lewis MD POINT OF CARE TEST ENTER/EDIT OR DERABLES Final Result * (ABNORMAL) POCT Glucose (08/06/2024 10:15 AM EDT) Glucose Blood, POC 433(A) 60 - 200 mg/dL QC Media Lot # [id number] Lot# Expiration Date Blood Capillary blood specimen / Unknown 08/06/2024 10:15 AM EDT us Jose Name POINT OF CARE TEST ENTER/EDIT OR DERABLES Final Result documented in this encounter Visit Diagnoses Diagnosis PE (physical exam), routine- Primary Type 2 diabetes mellitus with diabetic polyneuropathy, with long-term current use of insulin ([facility]) Chronic low back pain, unspecified back pain laterality, unspecified whether sciatica present Bilateral lower extremity edema documented in this encounter Additional Health Concerns Assessment Noted Time PHQ-9 Depression Total Score: 18 025 4:17 PM EST documented as of this encounter Care Teams Senior Ios Developer Relationship Specialty Start Date End Date Name, MD Jose [address] [place] [address] PCP - General Internal Medicine 03/17/22 Steff Romero PharmD [address] [place] [address] Pharmacist Internal Medicine 09/14/22 documented as of this encounter
[2024-08-07 11:28] LABS: MANUAL DIFF FLAG NO
[2024-08-07 11:34] LABS: Basophils Absolute Auto 0.1 X10*3/uL (0.0-0.2); Basophils Percent Auto 0.5 % (0-2); Eosinophils Absolute Auto 0.4 X10*3/uL (0.0-0.4); Eosinophils Percent Auto 3.2 % (0-4); Hematocrit 43.9 % (42.0-52.0); Hemoglobin 14.7 g/dl (14.0-18.0); Imm Gran Abs Auto 0.09 X10*3/uL (0.00-0.03); Imm Gran Pct Auto 0.8 % (0.0-0.4); Lymphocytes Absolute Auto 2.8 X10*3/uL (1.2-4.9); Lymphocytes Percent Auto 24.4 % (20-40); Mean Corpuscular HGB Conc 33.5 g/dl (31.0-36.0); Mean Corpuscular Hemoglobin 29.6 pg (27.0-33.0); Mean Corpuscular Volume 88.3 fL (80.0-98.0); Mean Platelet Volume 11.5 fL (9.4-12.4); Monocytes Absolute Auto 0.8 X10*3/uL (0.1-1.2); Monocytes Percent Auto 7.1 % (2-11); Neutrophils Absolute Auto 7.3 x10*3/uL (2.0-8.3); Platelet Count 229 X10*3/uL (160-400); Red Blood Count 4.97 X10*6/uL (4.60-5.80); White Blood Count 11.3 X10*3/uL (4.8-10.8)
[2024-08-07 12:04] LABS: B Type Natriuretic Peptide 14 pg/mL (<100)
[2024-08-07 12:06] LABS: Creatinine Urine 91.71 mg/dL; Microalbum/Creatinine Ratio Ur 7.6 ug/mg cr (<30)
[2024-08-07 12:36] LABS: Alanine Aminotransferase 34 U/L (0-40); Alkaline Phosphatase 106 U/L (39-117); Anion Gap 13 (12-20); Aspartate Amino Transferase 21 U/L (5-37); Bilirubin Total 0.9 mg/dL (0.0-1.0); Blood Urea Nitrogen 17 mg/dL (9-16); Calcium 8.7 mg/dL (8.4-10.2); Carbon Dioxide 29 mmol/L (22-29); Chloride 103 mmol/L (96-108); Cholesterol 103 mg/dL (<200); Estimated Glomerular Filt Rate > 60; Glucose Random 89 mg/dL (60-115); HDL Cholesterol 49 mg/dL (>40); LDL Cholesterol Calculated 33 mg/dL (<100); Potassium 3.5 mmol/L (3.3-5.1); Sodium 141 mmol/L (135-145); Total Protein 7.2 g/dL (6.5-8.0); Triglycerides 106 mg/dL (<150)
== END 2024-08-07 09:11 | disposition home or self-care (01) ==
LOC: HO.HHCL 09:10
PROVIDERS: Visit Provider Internal Medicine Geriatric Medicine
DX: E11.42 Type 2 diabetes mellitus with diabetic polyneuropathy (principal); Z79.4 Long term (current) use of insulin; M54.50 Low back pain, unspecified; G89.29 Other chronic pain; R60.0 Localized edema
CPT/HCPCS: 36415; 80053; 80061; 82043; 82570; 83880; 85025

== ENCOUNTER 2024-08-13 06:34 | Day surgery (SDC) | payer MEDICAID, SELFPAY ==
[2024-08-09 11:32] VITALS: BMI 33.2
--- NOTE | 2024-08-10 11:42 | HO.ANESPROP2 ---
Documented by User: Sheila Jules NP 08/10/24 11:44 HPI - Anesthesia Eval Consult details Narrative: 49yo M for Penile Prosthesis Insertion s/p Colonoscopy 06/2024 with MAC 2022 cardiac work up with [facility] for atypical CP with nml ECHO and Stress Anesthesia Pre-Procedure Meds Is the patient on any of the following meds?: GLP1/DPP4 and SGLT2 Inhib PMFSH Active Problems Active Problems: All Active Problems Varicose veins of right lower extremity with inflammation (Acute) Lumbar degenerative disc disease (Acute) Atypical chest pain (Acute) Myofascial pain (Acute) Spondylosis of lumbar spine (Acute) Sacroiliac joint pain (Acute) Diabetic neuropathy (Acute) Erectile dysfunction associated with type 2 diabetes mellitus (Acute) Colon cancer screening (Acute) Diabetes mellitus, type II (Acute) Erectile dysfunction (Acute) Past Medical History Medical History Atypical chest pain Colon cancer screening Asthma High cholesterol Diabetic polyneuropathy Diabetes mellitus, type II Erectile dysfunction Family History Family History Mother CAD (coronary artery disease) Father Diabetes Family history of problems with anesthesia: No Surgical History Surgical History Hx of colonoscopy (07/03/24) No pertinent past surgical history History of Problems with Anesthesia: No (never had anesthesia) Social History Social History Household Members: None Housing: House Alcohol intake: current Alcohol intake frequency: does not drink Alcohol type: beer and hard liquor Patient Tobacco Use Status: Never used Tobacco Are you DNR?: No Advance Directives: No Advance Directives Information Provided: Yes Meds Allergies Allergy/AdvReac Type Severity Reaction Status Date / Time No Known Allergies Allergy Verified 07/18/24 11:06 Home Medications ?Medication ?Instructions ?Recorded ?Confirmed ?Last Taken ?Type atorvastatin 40 mg tablet 40 mg PO DAILY 07/30/20 08/13/24 Unknown History blood sugar diagnostic (FreeStyle #10 ea 08/21/21 07/18/24 Unknown History Lite Strips) cholecalciferol (vitamin D3) 50 50 mcg PO BID 08/21/21 08/13/24 Unknown History mcg (2,000 unit) capsule duloxetine 60 mg capsule,delayed 60 mg PO DAILY 08/21/21 08/13/24 Unknown History release hydrochlorothiazide 25 mg tablet 25 mg PO DAILY 08/21/21 08/13/24 Unknown History lisinopril 40 mg tablet 40 mg PO DAILY blood pressure 08/21/21 08/13/24 Unknown History pantoprazole 40 mg tablet,delayed 40 mg PO DAILY 08/21/21 08/13/24 Unknown History release amitriptyline 50 mg tablet 50 mg PO BEDTIME 07/12/23 08/13/24 Unknown History amlodipine 10 mg tablet 10 mg PO QAM 07/12/23 08/13/24 Unknown History cetirizine 10 mg tablet 10 mg PO QAM 07/12/23 08/13/24 Unknown History empagliflozin 25 mg tablet 25 mg PO QAM 07/12/23 08/13/24 Unknown History (Jardiance) metformin 500 mg tablet,extended 500 mg PO BID 07/12/23 08/13/24 Unknown History release 24 hr tirzepatide 5 mg/0.5 mL 5 mg subcut QWEEK 09/14/23 08/13/24 Unknown History subcutaneous pen injector (Mounjaro) insulin degludec 200 unit/mL (3 64 unit subcut DAILY 05/17/24 08/13/24 Unknown History mL) subcutaneous pen (Tresiba FlexTouch U-200 insulin) Exam Height,Weight and Vital Signs: Height 5 ft 9 in Weight 102.058 kg Pertinent Lab Results Pertinent Lab Results: Laboratory Tests 08/07/24 09:12 WBC 11.3 H Hgb 14.7 Hct 43.9 Plt Count 229 Sodium 141 Potassium 3.5 Chloride 103 Carbon Dioxide 29 BUN 17 H Creatinine 0.69 Assessment and Plan Assessment Anesthesia Assessment: Chart Reviewed Final Anesthetic Review Family History of Problems with Anesthesia: No History of Problems with Anesthesia: No (never had anesthesia) Documented by User: Samuel Melo MD 08/13/24 08:36 PMF Past Medical History Medical History Atypical chest pain Colon cancer screening Asthma High cholesterol Diabetic polyneuropathy Diabetes mellitus, type II Erectile dysfunction Family History Family History Mother CAD (coronary artery disease) Father Diabetes Surgical History Surgical History Hx of colonoscopy (07/03/24) No pertinent past surgical history Social History Social History Household Members: None Housing: House Alcohol intake: current Alcohol intake frequency: does not drink Alcohol type: beer and hard liquor Patient Tobacco Use Status: Never used Tobacco Are you DNR?: No Advance Directives: No Advance Directives Information Provided: Yes Meds Allergies Allergy/AdvReac Type Severity Reaction Status Date / Time No Known Allergies Allergy Verified 07/18/24 11:06 Home Medications ?Medication ?Instructions ?Recorded ?Confirmed ?Last Taken ?Type atorvastatin 40 mg tablet 40 mg PO DAILY 07/30/20 08/13/24 Unknown History blood sugar diagnostic (FreeStyle #10 ea 08/21/21 07/18/24 Unknown History Lite Strips) cholecalciferol (vitamin D3) 50 50 mcg PO BID 08/21/21 08/13/24 Unknown History mcg (2,000 unit) capsule duloxetine 60 mg capsule,delayed 60 mg PO DAILY 08/21/21 08/13/24 Unknown History release hydrochlorothiazide 25 mg tablet 25 mg PO DAILY 08/21/21 08/13/24 Unknown History lisinopril 40 mg tablet 40 mg PO DAILY blood pressure 08/21/21 08/13/24 Unknown History pantoprazole 40 mg tablet,delayed 40 mg PO DAILY 08/21/21 08/13/24 Unknown History release amitriptyline 50 mg tablet 50 mg PO BEDTIME 07/12/23 08/13/24 Unknown History amlodipine 10 mg tablet 10 mg PO QAM 07/12/23 08/13/24 Unknown History cetirizine 10 mg tablet 10 mg PO QAM 07/12/23 08/13/24 Unknown History empagliflozin 25 mg tablet 25 mg PO QAM 07/12/23 08/13/24 Unknown History (Jardiance) metformin 500 mg tablet,extended 500 mg PO BID 07/12/23 08/13/24 Unknown History release 24 hr tirzepatide 5 mg/0.5 mL 5 mg subcut QWEEK 09/14/23 08/13/24 Unknown History subcutaneous pen injector (Tequila) insulin degludec 200 unit/mL (3 64 unit subcut DAILY 05/17/24 08/13/24 Unknown History mL) subcutaneous pen (Tresiba FlexTouch U-200 insulin) Exam Airway Mallampati Class: III TM Dist: >3cm Neck ROM: Full Partial: Upper and Lower Loose/Missing/Broken Teeth: Yes, Upper and Lower Assessment and Plan Assessment Anesthesia Assessment: Anesthesia Plan Discussed Final Anesthetic Review NPO: Yes ASA Class: III Final Preanesthetic Review: No Changes in Pt Med Stat, Meds/Allgs Chart Reviewed, Consent Obtained/Reviewed and Anes Risks/Benef Reviewed Patient Risk: Intermediate Procedure Risk: Intermediate Anesthetic Plan Anesthetic Plan: GA Disposition: Standard PACU
[2024-08-13] VITALS (12 sets, daily range): BP systolic 104–135; BP diastolic 66–87; PULSE 80–91; RESP 16–18; TEMP 36.2–36.6; O2SAT 93–97; BMI 34.4
[2024-08-13 07:17] LABS: Glucose, Whole Blood 186 mg/dL (60-115)
--- NOTE | 2024-08-13 07:34 | W.PM.OPN ---
Operative Note Operative Note Date of Service: 08/13/24 Narrative: PreOperative Diagnosis: Erectile dysfunction Post Operative Diagnosis: Erectile dysfunction Procedure: Placement of inflatable penile prosthetic Surgeon: Dr Marlon Carlson Anesthesia: General Indications for procedure: Progressive erectile dysfunction in setting of diabetes Non responsive to oral or injectable medications. Maximum doses have been trialled. Has completed minimum of 6 weeks with penile vacuum pump in order to maximize potential placement. Is aware of the risks and benefits particularly related to mechanical failure, infection, loss of sensation. Procedure: After informed consent was verified the patient was brought to the operating room and placed in a supine position. Anesthesia was administered per protocol. The patient was shaved with clippers, and prepped with cholhexidine based solution. He was draped in a sterile fashion. Safety pause time-out performed. Since he is a diabetic he was given triple coverage with IV vancomycin, Pip-Tazo and fluconazole per modified guideline. 16 [place] Islander Marshall catheter was placed on the field. Bladder was drained. Flint retractor with penile support was placed. Local anesthetic infiltrated horizontally 1.5cm proximal from the penoscrotal junction. Dorsal nerve block was placed inferior to the symphsis pubis in the midline and perineal/crural block was placed 1 fingerbreadth lateral to the midline angled at 45 degrees. The penis was placed in a cephalad position using the glans hook on the Flint. A horizontal scrotal incision was made at the penoscrotal junction and taken down to the tunica. Dissection was performed 1st on the left side and then on the right side to fully expose the proximal tunica of the corpora. Midline dissection was required to lift off the median attachments. At this point stay hooks were placed in a star shaped pattern. A double row of 3-0 Vicryl stay sutures were placed through the proximal corporal tunica with 1cm spacing and labeled and marked bilaterally. Colored vicryl was placed medial and plain vicryl lateral. Blue towels were used to isolate left from right. The same procedure was performed first on the left and then on the right side. The next step was an incision was made between the 2 rows of stay sutures through the tunica using a 15 Blade. This was approximately 2.5 cm in length. The left was completed and then the right side. Minimal bleeding was seen supporting the finding of developing corporal fibrosis. The stay hooks were removed from the Flint. The penile support was removed. Hegar dilators were used in stepwise increasing size to dilate the corporal bodies in a proximal and distal fashion until it could accept a 13 Hegar dilator. Care was taken to reach the sacrum on the posterior dilation and the mid-glans position on the distal dilation. Dilation was performed on the left-hand side followed by the right-hand side. Once complete the 12 Hegar dilator was placed up the left distal corporal body and the 13 Hegar dilator placed up the right distal corporal body. Neither dilator touched each other demonstrating cross over had not occurred. After dilation each corporal body were washed with antibiotic normal saline. At this point the maxine measuring device was introduced. On the left side the proximal dilation measured at 11 cm and the distal dilation measured approximately 8 cm on the left. On the right side 11 cm and 8 cm respectively. Based on the considerations from dilatation and an assessment of the penile base girth a decision was made regarding penile prosthetic choice. [employer] 18cm with 1cm rear tip extenders - LGX. Prior to prosthetic preparation placement of the reservoir was performed. The 100cc concealed reservoir was chosen. Surgical gloves were changed at this point in the procedure prior to handling the prosthetic. The right inguinal canal was palpated and finger dissection plus the blue hook retractor were used to expose the floor of the canal and palpate the medial edge adjacent to the rectur abdominis tendon insertion. A Metzenbaum scissors were used to punch a small hole in the posterior wall of the medial aspect of the inguinal canal. This was enlarged with the tip of the index finger. The concealed reservoir was then placed through this hole into the preperitoneal, retro body wall space. This was filled with 100 cc injectable normal saline and minimal back pressure was noted. Shod clamps were placed. Preparation of the corporal cylinders and integrated pump were complete. Rear tip extenders had been attached. An introducer Teofilo needle was used to thread the distal tip thread from left side corporal prosthetic. The threaded needle was loaded into the maxine device and placed through the corporal defect to the mid glans position. The needle was advanced out through the glans of the penis. The prosthetic was then placed into the corporal defect. The proximal portion, with attached rear tip cisco network engineer, was advanced and placed using the enclosed pusher device. Once the proximal portion was properly seated the distal component was introduced and brought out to the distal portion of the corpora by retracting the glans suture. A similar procedure was repeated on the right side. Tubing covering was stripped. The penis was elevated by grasping the distal glans sutures. The prosthetic was then inflated with approximately 80 cc of normal saline. No defects were seen. The prosthetic remained midline and the distal tips could be palpated in the mid penile gland indicating correct placement. The penile prosthetic was deflated. The parallel stay sutures were then secured in a horizontal fashion. The proximal pair of sutures were tied first. The proximal suture ends were tied in an air knot. The distal suture ends were lifted tightening the proximal knot onto tissue and closing the corporotomy. This was repeated with the second pair of distal sutures. The left side was completed first followed by the right. The scrotum was irrigated. Blunt dissection was performed to create a scrotal pocket. The pump was placed into the scrotal pocket and held using a clamp. The excess tubing from the pump and reservoir was isolated using rubber shod clamps. Excess tubing was cut with scissors leaving a 1 inch length. The tubing ends were spiritzed with saline. Compression fittings were placed and locked using the compression clamp. The penile prosthetic was then refilled to ensure proper function and adequate flow between the reservoir and the prosthetic. A 3-0 Vicryl was then used to secure tissue so the pump was kept in the dependent position using a purse string suture. Tissue was reapproximated with 3-0 Vicryl in a horizontal fashion. At least 2 layers were created Skin was closed using a running 4.0 monocryl suture. The wounds were cleaned and dried. Dermal glue was used to cover the incision and to the penile glans. Once the incision was dry and modified mummy / broccoli stalk dressing was applied. This consisted of a layer of gregory followed by Coban. Two-three pumps had been placed into the prosthetic so as to keep the prosthetic partially filled. A cap was left on the Marshall catheter to allow drainage for the next 48 hours. He tolerated the procedure well was extubated in operating room transferred in stable condition to the recovery area. Drains: Sixteen [place] Islander Marshall catheter Pathology: None
[2024-08-13] MEDS: Lactated Ringers 1,000 ML 100 ML IVCONT (07:50)
--- NOTE | 2024-08-13 08:18 | P.HPSUR_ITS ---
Pre-Procedural Eval Section A - 24 Hr Update-Section A only Date of Service: 08/13/24 The patient is an INPATIENT: No Changes since office visit: No Cold of Flu in the past 2 weeks, No New Medical Problems, No Changes in Medication and No Patient answered all questions The patient has been examined within 24 hours of the surgical procedure. The History & Physical has been completed within 30 days and I have reviewed it.: No Section B - Complete if H&P > 30 days Chief Complaint: Erectile dysfunction,diabetes Details of Present Illness: Penile prosthetic placement Relevant Family History (Specify if Yes): No Relevant Social History: None Present Medications: see Short Stay Collaborative assessment Medical History: Significant History History of Previous Operations: No relevant previous surgery Allergies: Allergies Allergy/AdvReac Type Severity Reaction Status Date / Time No Known Allergies Allergy Verified 07/18/24 11:06 Review of Systems Sugical H&P ROS: Negative: Constitution, Cardiovascular, Respiratory, Neurological, Psychiatric, Hem-Onc, Allergic/Immunologic, Gastrointestinal, Genitourinary, Musculoskeletal, Integumentary, Endocrine and Eyes/ Ears/Nose/Throat Exam Surgical H&P Exam: Normal: HEENT, Normal: Heart, Normal: Lungs, Normal: Extremities, Normal: Abdomen, Normal: Skin and Normal: Neurological Plan Diagnosis/Plan: Unchanged (Penile prosthetic placement) I have reviewed the history and physical and performed a pertinent physical examination on my patient. No changes have occurred unless specified. Time Spent With Patient Time: Total time managing care of this patient today ____ minutes.
[2024-08-13] MEDS: vancomycin HCL 1,500 MG in 0.9 % Sodium Chloride 500 ML 333.33 MG IV (08:38)
[2024-08-13] MEDS: fentaNYL citrate/PF 100 MCG/2 ML VIAL 50 MCG IVPUSH (11:53)
[2024-08-13] MEDS: oxyCODONE HCl Immed Release 5 MG TABLET PO (12:07)
== END 2024-08-13 13:42 | disposition home or self-care (01) ==
PROVIDERS: PCP Internal Medicine Geriatric Medicine; Visit Provider Urology
PROC: (CPT 54405; principal; 2024-08-13 08:30)
DX: E11.69 Type 2 diabetes mellitus with other specified complication (principal); N52.1 Erectile dysfunction due to diseases classified elsewhere; E11.42 Type 2 diabetes mellitus with diabetic polyneuropathy; E78.00 Pure hypercholesterolemia, unspecified; J45.909 Unspecified asthma, uncomplicated; Z79.84 Long term (current) use of oral hypoglycemic drugs; Z79.85 Long-term (current) use of injectable non-insulin antidiabetic drugs
CPT/HCPCS: 54405; 82947; C1813; J0131; J1100; J1450; J1580; J2003; J2250; J2405; J2543; J2704; J2795; J3010; J3370; J3371

== ENCOUNTER → 2024-08-13 06:34 | Outpatient (BNV) | payer MEDICAID, SELFPAY | PROVIDERS: PCP Internal Medicine Geriatric Medicine; Visit Provider Urology | DX: N52.9 Male erectile dysfunction, unspecified (principal) | CPT/HCPCS: 54405 ==

== ENCOUNTER → 2024-08-15 14:00 | Outpatient (BNVA) | payer MEDICAID, SELFPAY | PROVIDERS: PCP Internal Medicine Geriatric Medicine; Visit Provider Urology ==

== ENCOUNTER 2024-08-24 13:31 | Outpatient (AMB) | payer MEDICAID, SELFPAY ==
--- NOTE | 2024-08-24 13:39 | MHC.OFFVIS ---
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 He reports persistent pain traversing the lower back with increased severity when performing activities such as walking or turning at night. His condition shows minimal relief with prior physical therapy conducted in February 2023 through March 2023. The pain occasionally radiates to the thighs, presenting numbness during severe exacerbations. The patient also experiences diabetic peripheral neuropathy, contributing to significant bilateral foot pain characterized by swelling and burning sensations, especially at night. Previous attempts to manage the neuropathy with medications like gabapentin and pregabalin led to insufficient relief and issues like drowsiness. Reports recent penile implant for erectile dysfunction on 08/14/[address] Carlson, otherwise denies any recent cough, cold, infection, fever or any other significant changes in medical history since last office visit. - Onset and Timing: Chronic in nature - Quality and Character: Transverse band-like pain across the lower back - Primary Location: Lower back - Radiation: Occasional radiation to the thighs, experienced as numbness - Exacerbating Factors: Movement, bending, walking, lying down - Relieving Factors: None specified - Functional Impact: Affects sleep, needs movement during nocturnal pain episodes - Affect: Pain is impacting sleep and daily functionality - Analgesia: Prior use of gabapentin and pregabalin; currently experiencing pain despite prior therapies (NSAIDs, PT, duloxetine) - Adverse Effects: Drowsiness with gabapentin; ineffectiveness with pregabalin - Activities of Daily Living: Pain interferes with daily mobility and rest - Aberrant Drug Related Behaviors: None reported PRIOR 01/17/23: Patient is a pleasant 47 years old male presents today for follow up for low back pain. Patient reports he attempted physical therapy last summer but had to discontinue it due to COVID illness. Denies any recent trauma, injury or falls. Patient reports lower back pain that radiates to across his low back and into his sacral regions, worse on the left side. He continues to have significant tenderness in the projection of both sacroiliac joints and muscle spasms. Patient reports Tylenol #3 (moderate benefit in the past), Ibuprofen and tizanidine has been helpful. Occasionally pain will radiate to both lateral hips. Patient reports chronic burning, tingling and numbness pain in both his feet, worse at night due to diabetic neuropathy. Most recent A1C was 8.6 per patient. He is interested to retrial formal course of PT and establish HEP prior to interventional treatments. Denies any fever, weight loss, weakness, abdominal or groin pain, foot drop, bladder or bowel dysfunction, or saddle anesthesia. 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 He reports partial relief with tizanidine without side effects as well as notable relief with the TENS unit. He did state he would like to attempt PT again. He previously had PT where he attended 4 sessions prior to being discharged and reported only having massage and heat performed. I will enter this referral. He will follow up after PT to review response. PRIOR: Santy is a pleasant 46 year old who male presents today to the office today with complaints of low back pain as well as bilateral lower extremitiy pain. He states the pain is chronic and has been progressively worsening of the past few months. He denies any inciting events for his back pain. He attributes his BLE to diabetic neuropathy. He describes a stabbing, pins and needles sensation as well as numbness and coolness of bilateral feet which radiates to the calf. His low back pain travels across the lower back without any numbness, tingling, saddle anesthesia or bowel/bladder dysfunction. He does describe a soreness throughout bilateral thighs with intermittent weakness throughout BLE. He was referred here by vascular as they could not find a vascular component contributing to his symptoms. They did send him for a lumbar spine MRI, report dictated below, which did not reveal any overt stenosis or nerve root compression. He reports pain onset was gradual, constant and rates the pain a 6-10/10. He states the pain is interfering with sleep, activities of daily living and he cannot function normally. He also notes that he can not walk around barefoot due to pain. The patient reports the pain in terms of tissue damage as stabbing, aching and throbbing. The pain is exacerbated by prolonged standing as well as transitioning from a sitting to standing positions and ambulating. He notes that can only ambulate about ten minutes before needing to rest due to pain. He has also tried topicals, NSAIDS, heat/ice and tylenol#3 with minimal effect. He is prescribed cymbalta for depression and amitriptyline as a neuromodulator, but he believes he ran out of these medications and can not recall his dosages. He has a follow up with his PCP this week to renew his medications. He has attempted physical therapy at [facility] in the past with minimal alleviation in symptoms. Denies any chiropractic manipulation, massage or acupuncture. Denies any previous back injections or surgery. [facility] Medical History Atypical chest pain Colon cancer screening Asthma High cholesterol Diabetic polyneuropathy Diabetes mellitus, type II Erectile dysfunction Surgical History Hx of colonoscopy (07/03/24) No pertinent past surgical history Family History Mother CAD (coronary artery disease) Father Diabetes Social History Household Members: None Housing: House Alcohol intake: current Alcohol intake frequency: does not drink Alcohol type: beer and hard liquor Patient Tobacco Use Status: Never used Tobacco Review of Systems Const Details: - Musculoskeletal: Reports back pain, limited bending capacity - Neurological: Reports numbness in thighs, burning sensation in feet; denies bladder or bowel dysfunction or saddle anesthesia. -Urological: Reports recent penile implant for erectile dysfunction on 08/14/[address] Carlson. All systems reviewed & are unremarkable except as noted in HPI and below Physical Exam Vital Signs: Last Vital Signs Pulse 112 H 08/24/24 13:43 BP 110/73 08/24/24 13:43 Pulse Ox 100 08/24/24 13:43 Oxygen Delivery Method Room Air 08/24/24 13:43 BMI result Body Mass Index 33.0 General: Appears afebrile. Alert and oriented. Mood and affect appropriate. Follows and participates in conversation appropriately. Respiratory effort is unlabored. No cough. Able to transition from sit to stand unassisted. Ambulates with bilaterally normal heel strike and toe off. General: Yes no CVA tenderness Back/Spine/Pelvis Other: Limited lumbar ROM due to pain. Lumbar extension reproduces [id number] pain, lumbar flexion and bending forward reproduces [id number] pain. Demonstrates 5/5 strength of quadriceps bilaterally as well as flexion/dorsiflexion of bilateral feet against resistance. +2 DTR intact and symmetrical. Theodore test, Stinchfield test, Gaenslen, Pelvic compression test + bilaterally, left>right. Facet loading test + bilaterally. Back: no CVA tenderness Cervical Spine: cervical ROM normal, cervical muscular tenderness and No Cervical spine tenderness Thoracic/Lumbar Spine: thoracic and lumbar spine normal to inspection, No Thoracic/lumbar spine scar(s), Lasegue's sign negative, straight leg raise negative bilaterally, pain with thoraco-lumbar ROM, paraspinal muscle tenderness, thoraco-lumbar ROM limited, No thoracic spinal tenderness and lumbar spinal tenderness (L3-S1) Pelvis: buttock tenderness bilaterally Sacroiliac joints: bilaterally tender to palpation Extrem Other: 2+ pedal pulses. Chronic hyperpigmentation of anterior leblanc bilaterally with no allodynia or hyperalgesia. Decreased sensation over the soles of the feet and toes due to chronic diabetic neuropathy. General: Yes capillary refill normal, Yes no clubbing, cyanosis or edema and Yes no calf tenderness Results Reviewed Results Reviewed: XR LUMBOSACRAL SPINE 10/07/22 FINDINGS: The vertebral bodies and posterior elements are notable for generalized minor endplate spurring.. The disc spaces are preserved and the vertebral alignment is normal. The paraspinal soft tissues are normal. IMPRESSION: Mild degenerative disc disease as above. Assessment & Plan Assessment & Plan (1) Sacroiliac joint pain: Code(s): M53.3 - Sacrococcygeal disorders, not elsewhere classified Category: Medical (2) Spondylosis of lumbar spine: Code(s): M47.816 - Spondylosis without myelopathy or radiculopathy, lumbar region Category: Medical (3) Lumbar degenerative disc disease: Code(s): M51.36 - Other intervertebral disc degeneration, lumbar region Category: Medical (4) Vertebrogenic low back pain: Code(s): M54.51 - Vertebrogenic low back pain Category: Medical (5) Chronic painful diabetic neuropathy: Code(s): E11.40 - Type 2 diabetes mellitus with diabetic neuropathy, unspecified Category: Medical (6) Bilateral foot pain: Code(s): M79.671 - Pain in right foot; M79.672 - Pain in left foot Category: Medical Plan To address the patient's chronic lower back pain, we will update lumbar MRI and X-ray to neural integrity and compression and assess any ongoing degenerative changes. Given prior ineffective physical therapy, imaging will guide the next steps. Briefly discussed interventional treatments for axial, discogenic low back pain with SI joint pain components. A podiatry referral will be made for annual foot exams and chronic bilateral foot pain due to neuropathy. Discussed alternative pain management options such as Qutenza for chronic painful diabetic neuropathy, given low benefit with pregabalin and gabapentin with past use. All questions and concerns have been answered and patient agreed with the treatment plan. Follow-up for imaging review and sooner as needed. Patient was informed and verbally consented to the use of an ambient scribe for clinic note documentation during this visit. Orders: Orders XR lumbar spine 4V min Today M47.816 - Spondylosis without myelopathy or radiculopathy, lumbar region, M51.36 - Other intervertebral disc degeneration, lumbar region, M53.3 - Sacrococcygeal disorders, not elsewhere classified, M54.51 - Vertebrogenic low back pain MR lumbar spine wo con Today M47.816 - Spondylosis without myelopathy or radiculopathy, lumbar region, M51.36 - Other intervertebral disc degeneration, lumbar region, M54.51 - Vertebrogenic low back pain Referrals Podiatry Referral E11.40 - Type 2 diabetes mellitus with diabetic neuropathy, unspecified, M79.671 - Pain in right foot, M79.672 - Pain in left foot Coding Level of Care Code Est Pt Level 4 (89105) Complex EM visit Add On G2211 Diagnoses Sacroiliac joint pain M53.3 Spondylosis of lumbar spine M47.816 Lumbar degenerative disc disease M51.36 Vertebrogenic low back pain M54.51 Chronic painful diabetic neuropathy E11.40 Bilateral foot pain M79.671; M79.672
[2024-08-24 13:43] VITALS: BP 110/73; PULSE 112; O2SAT 100; BMI 33.0
--- OUTSIDE RECORDS SUMMARY | 2024-08-24 13:44 | XMS_ITS | Encounter Summary ---
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 Name Role Phone Name, Jose MOSQUERA Primary Care Provider [phone] Steff Romero PharmD Unavailable [phone] Reason for Visit * Reason Comments Med Refill Encounter Details Date Type Department Care Team ([facility] st Contact Info) Description 08/19/2024 Refill [facility] [address] [place], [place] [id number] Name, MD Jose [address] [place] [address] Type 2 diabetes mellitus with other specified complication, without long-term current use of insulin ([facility]) Social History Tobacco Use Types Packs/Day [...] the past 12 months, has t he [employer], gas, oil or water [employer] threatened to shut off services in your [...] 9:30 AM EDT Office Visit [facility] OPTOMETRY [address] [place] [address] Tom, Shell, OD [address] [place] [address] 11/22/2024 11:15 AM EDT Office Visit [facility] MEDICINE [address] [place] [address] Name, MD Jose [address] [place], [place] [phone] documented as of this encounter Goals Goal [...] Diagnoses Diagnosis Type 2 diabetes mellitus with other specified complication, without long-term current use of insulin ([facility]) documented in this encounter Additional Health Concerns Assessment Noted Time PHQ-9 Depression Total Score: 18 025 4:17 PM EST documented as of this encounter Care Teams Motorcycle Repair Shop Supervisor Relationship Specialty Start Date End Date Name, MD Jose [address] [place] [address] PCP - General Internal Medicine 03/17/22 Steff Romero PharmD [address] [place] [address] Pharmacist Internal Medicine 09/14/22 documented as of this encounter
== END 2024-08-24 14:24 | disposition home or self-care (01) ==
LOC: HO.PMC 13:31
PROVIDERS: PCP Internal Medicine Geriatric Medicine; Visit Provider Nurse Practitioner Family
DX: M53.3 Sacrococcygeal disorders, not elsewhere classified (principal); M47.816 Spondylosis without myelopathy or radiculopathy, lumbar region; M51.369 Other intervertebral disc degeneration, lumbar region without mention of lumbar back pain or lower extremity pain; M54.51 Vertebrogenic low back pain; E11.40 Type 2 diabetes mellitus with diabetic neuropathy, unspecified; M79.671 Pain in right foot; M79.672 Pain in left foot
CPT/HCPCS: 99214

== ENCOUNTER → 2024-08-24 13:31 | Outpatient (BNVA) | payer MEDICAID, SELFPAY | PROVIDERS: PCP Internal Medicine Geriatric Medicine; Visit Provider Nurse Practitioner Family | DX: M53.3 Sacrococcygeal disorders, not elsewhere classified (principal); M47.816 Spondylosis without myelopathy or radiculopathy, lumbar region; M51.360 Other intervertebral disc degeneration, lumbar region with discogenic back pain only; M79.671 Pain in right foot; M79.672 Pain in left foot; E11.40 Type 2 diabetes mellitus with diabetic neuropathy, unspecified | CPT/HCPCS: 99212 ==

== ENCOUNTER 2024-08-28 15:36 | Outpatient (AMB) | payer MEDICAID, SELFPAY ==
--- NOTE | 2024-08-28 15:38 | MHC.OFFVIS ---
Intake Visit Reasons: Penile Prosthetic 2wk f/u Intake Note: Patient is present for PENILE PROSTHETIC 2W F/U Urology Medication:NONE Antibiotic Allergy:NONE Blood Thinner:NONE Technical Support Engineer Required: No Allergies No Known Allergies Allergy (Verified 08/28/24 15:40) HPI Comments Details: Santy is a pleasant 48-year-old male patient of Dr. Lewis. He is seen for the following urologic conditions - erectile dysfunction in setting of diabetes Follow-up penile prosthetic placement Well-healed Patient shown how to activate penile pump Encouraged to activated pump daily and when enlarged use penile vacuum to increase width and girth Erectile dysfunction in setting of diabetes - diabetic medications include Jardiance, metformin, tirzepatide Estadoil 09/18 35 FSH 09/18 12.5 LH 09/18 9.1 Prolactin 09/18 7.7 Testosterone 09/18 475 Free testosterone 09/18 91.7 SHGB 09/18 28 PSA 09/18 0.6 A1c 09/18 5.8 After six-month consideration he would like to move ahead with penile prosthetic. Risks and benefits discussed. We will keep using penile pump until time of surgery. Has been concerned about loss of penile length. Appears to be secondary to pubic fat pad migration. [facility] Medical History Atypical chest pain Colon cancer screening Asthma High cholesterol Diabetic polyneuropathy Diabetes mellitus, type II Erectile dysfunction Surgical History Hx of colonoscopy (07/03/24) No pertinent past surgical history Family History Mother CAD (coronary artery disease) Father Diabetes Social History Household Members: None Housing: House Alcohol intake: current Alcohol intake frequency: does not drink Alcohol type: beer and hard liquor Patient Tobacco Use Status: Never used Tobacco Review of Systems Const Denies chills and Denies fever(s) Card Reports no additional complaints and Denies syncope Resp Denies cough GI Denies abdominal pain and Denies heartburn Reports as per HPI and Denies change in libido Neuro Denies syncope Psych Denies change in libido Endo Denies change in libido Physical Exam Const General: cooperative, healthy appearing, comfortable and no acute distress Orientation/consciousness: patient oriented x3 HEENT Face and sinus: Yes normal facial exam Mouth: moist mucous membranes Neck Neck: Yes normal visual inspection, Yes full ROM and Yes trachea midline Chest Chest palpation & inspection: normal inspection of the chest Resp Effort & Inspection: normal respiratory effort, able to speak in complete sentences and no respiratory distress GI Inspection: Yes normal to inspection Back/Spine/Pelvis Cervical Spine: normal cervical lordosis Thoracic/Lumbar Spine: thoracic and lumbar spine normal to inspection Skin General skin exam: no rashes or lesions noted Neuro General: patient oriented x3, gait normal, tone normal and moves all extremities Extrem General: Yes normal to inspection and Yes capillary refill normal Assessment & Plan Assessment & Plan (1) Erectile dysfunction associated with type 2 diabetes mellitus: Code(s): E11.69 - Type 2 diabetes mellitus with other specified complication; N52.1 - Erectile dysfunction due to diseases classified elsewhere Category: Medical Plan 6 week follow-up Patient Instructions: This note is constructed using voice recognition software. While every effort has been made to ensure accuracy wirer helper errors may have been included. Imaging studies, laboratory and physical exam results were discussed and reviewed in detail. No major barriers to patient understanding were identified. An opportunity to ask questions regarding the treatment plan was provided. All questions were answered. The patient expressed understanding and agreement with the above treatment plan. The patient is aware they should contact our office by phone for worsening of their current condition or the appearance of new urologic symptoms. Compliance is encouraged with any medications and followup testing that is ordered. It is a privilege to participate in the urologic care of your patient. If you have any questions or concerns regarding treatment for the above conditions, or other urologic issues, please do not hesitate to contact me. The office telephone contact is [phone]. Sincerely, Dr Marlon Carlson MD, [facility] - Urology Compassionate Specialist Care for the Genitourinary System Coding Level of Care Code [employer] [facility] (76392) Diagnoses Erectile dysfunction associated with type 2 diabetes mellitus E11.69; N52.1
--- OUTSIDE RECORDS SUMMARY | 2024-08-28 16:59 | XMS_ITS | Encounter Summary ---
Author Organization [email or web address] Address [address] [place] [address] [address] [place] [address] Care Team Providers Care Inventory Associate And Driver Name Role Phone Name, Jose MOSQUERA Primary Care Provider Steff Romero PharmD Unavailable [phone] Reason for Visit * Reason Comments Med Refill Encounter Details Date Type Department Care Team (Late Contact Info) Description 12/02/2022 Refill [facility] CH[facility] MED & PEDS [address] [place] [address] Gita Joshi FNP [address] [place] [address] Dept [place] [address] Gastroesophageal reflux disease without esophagitis Social History [...] Upcoming Encounters Date Type Department Care Team ([facility] Contact Info) Description 10/31/2024 9:30 AM EDT Office Visit [facility] OPTOMETRY [address] [place], [place] [id number] Tom, Shell, OD [address] [place], [place] [id number] 11/22/2024 11:15 AM EDT Office Visit [facility] MEDICINE [address] [place] [address] Name, [place] [address] documented as of this encounter Goals Goal [...] reflux documented in this encounter Care Teams Inventory Associate And Driver Relationship Specialty Start Date End Date Name, MD Jose [address] [place] [id number] PCP - General Internal Medicine 03/17/22 Puia, Steff, PharmD [address] [place] [id number] Pharmacist Internal Medicine 09/14/22 documented as of this encounter
== END 2024-08-28 16:29 | disposition home or self-care (01) ==
LOC: HO.HUSH 15:36
PROVIDERS: PCP Internal Medicine Geriatric Medicine; Visit Provider Urology
DX: E11.69 Type 2 diabetes mellitus with other specified complication (principal); N52.1 Erectile dysfunction due to diseases classified elsewhere
CPT/HCPCS: 99024

== ENCOUNTER → 2024-08-28 15:36 | Outpatient (BNVA) | payer MEDICAID, SELFPAY | PROVIDERS: PCP Internal Medicine Geriatric Medicine; Visit Provider Urology ==

== ENCOUNTER → 2024-09-22 19:28 | Outpatient (BNV) | payer MEDICAID, SELFPAY | PROVIDERS: Visit Provider Specialist | DX: M51.379 Other intervertebral disc degeneration, lumbosacral region without mention of lumbar back pain or lower extremity pain (principal) | CPT/HCPCS: 72148 ==

== ENCOUNTER 2024-09-22 19:29 | Outpatient (REF) | payer MEDICAID, SELFPAY ==
--- NOTE | ~2024-09-22 | MR_ITS ---
CLINICAL HISTORY: M47.816 - Spondylosis without myelopathy or radiculopathy, lumbar region MR lumbar spine without gadolinium Comparison: None Findings: lumbar alignment is maintained. Vertebral body height is maintained. No bone marrow edema. Small round left L3 T1 and T2 hyperintense lesion on the left side of the vertebral body suggestive of hemangioma versus focal fat Distal conus appears unremarkable terminating at T12-L1. Degenerative disc disease at L5-S1 and L5-S1 facet arthropathy. Minimal disc bulges at L4-5 and L5-S1. No focal disc herniation and no significant canal or foraminal stenosis. Paraspinous musculature intact. IMPRESSION: 1.No acute findings. 2. L5-S1 degenerative disc disease and facet arthropathy. 3. No significant spinal canal or neural foraminal stenosis in the lumbar spine. This document has been electronically signed by: Berkley Golden MD on 09/22/2024 21:03:01
== END 2024-09-22 19:30 | disposition home or self-care (01) ==
LOC: HO.MRI 19:29
PROVIDERS: Visit Provider Nurse Practitioner Family
DX: M47.816 Spondylosis without myelopathy or radiculopathy, lumbar region (principal); M54.51 Vertebrogenic low back pain
CPT/HCPCS: 72148

== ENCOUNTER 2024-09-25 11:44 | Outpatient (AMB) | payer MEDICAID, SELFPAY ==
--- NOTE | 2024-09-25 11:46 | A.OFFVIS_ITS ---
Vital Signs 3 09/25/24 11:49 Height 5 ft 9 in Weight 218 lb 6 oz BMI 32.2 BP 123/82 Blood Pressure Location Rt brachial Position Sitting Pulse 106 H Pulse Source Pulse Oximeter Pulse Oximetry (%) 100 Oxygen Delivery Method Room Air Intake Visit Reasons: Follow up MRI results Intake Note: Pain today 7.08/04 Stereo Equipment Installer Required: No Accompanied by: Self / Same As Patient Allergies No Known Allergies Allergy (Verified 09/25/24 11:50) HPI Comments Details: The patient is a 49-year-old male presenting with chronic back pain and left foot pain and to discuss recent lumbar spine MRI results. The back pain is primarily attributed to disc degeneration and arthritis in the facet joints, as confirmed by MRI imaging. Additionally, a hemangioma at T12-L1 was noted, but the patient denies any recent back injury or accident. The patient reports that leaning backwards or standing upright exacerbates the pain, as well as his daily activities and most movements. Previous physical therapy did not provide significant relief. The patient also reports left foot pain, which has been present since last week and is causing limping. Pain is present with movements, walking and first thing in the morning but eases as he walks. The pain is located at the bottom of the foot, and the patient has been attempting home remedies such as stretching exercises, massage, and warm water soaks without relief. A possible bone spur is suspected, and an x-ray has been ordered to confirm this. He has pending Podiatry referral. - Onset: Chronic back pain with recent onset of left foot pain since last week - Quality: Back pain exacerbated by leaning backwards or standing upright; foot pain causing limping - Location: Back pain primarily in the lower back; foot pain at the bottom of the left foot - Exacerbating factors: Leaning backwards, standing upright - Relieving factors: None noted for back pain; home remedies attempted for foot pain without relief - Affect: Negative impact on mood or psychological wellbeing due to chronic pain - Analgesia: No current pain medications discussed; goal is to confirm pain source with injections - Adverse Effects: None discussed - Activities of Daily Living: Pain causing limping and affecting mobility - Aberrant Drug Related Behaviors: None discussed PRIOR: The patient is a 49-year-old male presenting with a follow-up for chronic back pain. He reports persistent pain traversing the lower back with increased severity when performing activities such as walking or turning at night. His condition shows minimal relief with prior physical therapy conducted in February 2023 through March 2023. The pain occasionally radiates to the thighs, presenting numbness during severe exacerbations. The patient also experiences diabetic peripheral neuropathy, contributing to significant bilateral foot pain characterized by swelling and burning sensations, especially at night. Previous attempts to manage the neuropathy with medications like gabapentin and pregabalin led to insufficient relief and issues like drowsiness. Reports recent penile implant for erectile dysfunction on 08/14/[address] Carlson, otherwise denies any recent cough, cold, infection, fever or any other significant changes in medical history since last office visit. - Onset and Timing: Chronic in nature - Quality and Character: Transverse band-like pain across the lower back - Primary Location: Lower back - Radiation: Occasional radiation to the thighs, experienced as numbness - Exacerbating Factors: Movement, bending, walking, lying down - Relieving Factors: None specified - Functional Impact: Affects sleep, needs movement during nocturnal pain episodes - Affect: Pain is impacting sleep and daily functionality - Analgesia: Prior use of gabapentin and pregabalin; currently experiencing pain despite prior therapies (NSAIDs, PT, duloxetine) - Adverse Effects: Drowsiness with gabapentin; ineffectiveness with pregabalin - Activities of Daily Living: Pain interferes with daily mobility and rest - Aberrant Drug Related Behaviors: None reported PRIOR 01/17/23: Patient is a pleasant 47 years old male presents today for follow up for low back pain. Patient reports he attempted physical therapy last summer but had to discontinue it due to COVID illness. Denies any recent trauma, injury or falls. Patient reports lower back pain that radiates to across his low back and into his sacral regions, worse on the left side. He continues to have significant tenderness in the projection of both sacroiliac joints and muscle spasms. Patient reports Tylenol #3 (moderate benefit in the past), Ibuprofen and tizanidine has been helpful. Occasionally pain will radiate to both lateral hips. Patient reports chronic burning, tingling and numbness pain in both his feet, worse at night due to diabetic neuropathy. Most recent A1C was 8.6 per patient. He is interested to retrial formal course of PT and establish HEP prior to interventional treatments. Denies any fever, weight loss, weakness, abdominal or groin pain, foot drop, bladder or bowel dysfunction, or saddle anesthesia. PRIOR 10/07/21 Shey Lucia TELEVISION PRODUCER: Santy returns to review response to tizandine and TENS unit. He reports partial relief with tizanidine without side effects as well as notable relief with the TENS unit. He did state he would like to attempt PT again. He previously had PT where he attended 4 sessions prior to being discharged and reported only having massage and heat performed. I will enter this referral. He will follow up after PT to review response. PRIOR: Santy is a pleasant 46 year old who male presents today to the office today with complaints of low back pain as well as bilateral lower extremitiy pain. He states the pain is chronic and has been progressively worsening of the past few months. He denies any inciting events for his back pain. He attributes his BLE to diabetic neuropathy. He describes a stabbing, pins and needles sensation as well as numbness and coolness of bilateral feet which radiates to the calf. His low back pain travels across the lower back without any numbness, tingling, saddle anesthesia or bowel/bladder dysfunction. He does describe a soreness throughout bilateral thighs with intermittent weakness throughout BLE. He was referred here by vascular as they could not find a vascular component contributing to his symptoms. They did send him for a lumbar spine MRI, report dictated below, which did not reveal any overt stenosis or nerve root compression. He reports pain onset was gradual, constant and rates the pain a 6-10/10. He states the pain is interfering with sleep, activities of daily living and he cannot function normally. He also notes that he can not walk around barefoot due to pain. The patient reports the pain in terms of tissue damage as stabbing, aching and throbbing. The pain is exacerbated by prolonged standing as well as transitioning from a sitting to standing positions and ambulating. He notes that can only ambulate about ten minutes before needing to rest due to pain. He has also tried topicals, NSAIDS, heat/ice and tylenol#3 with minimal effect. He is prescribed cymbalta for depression and amitriptyline as a neuromodulator, but he believes he ran out of these medications and can not recall his dosages. He has a follow up with his PCP this week to renew his medications. He has attempted physical therapy at [facility] in the past with minimal alleviation in symptoms. Denies any chiropractic manipulation, massage or acupuncture. Denies any previous back injections or surgery. [facility] Medical History Atypical chest pain Colon cancer screening Asthma High cholesterol Diabetic polyneuropathy Diabetes mellitus, type II Erectile dysfunction Surgical History Hx of colonoscopy (07/03/24) No pertinent past surgical history Family History Mother CAD (coronary artery disease) Father Diabetes Social History Household Members: None Housing: House Alcohol intake: current Alcohol intake frequency: does not drink Alcohol type: beer and hard liquor Patient Tobacco Use Status: Never used Tobacco Review of Systems Const All systems reviewed & are unremarkable except as noted in HPI and below Physical Exam Vital Signs: Last Vital Signs Pulse 106 H 09/25/24 11:49 BP 123/82 09/25/24 11:49 Pulse Ox 100 09/25/24 11:49 Oxygen Delivery Method Room Air 09/25/24 11:49 BMI result Body Mass Index 32.2 General: Appears afebrile. Alert and oriented. Mood and affect appropriate. Follows and participates in conversation appropriately. Respiratory effort is unlabored. No cough. Able to transition from sit to stand unassisted. Ambulates with bilaterally normal heel strike and toe off, increased left foot pain with limping. General: Yes no CVA tenderness Back/Spine/Pelvis Other: Limited lumbar ROM due to pain. Lumbar extension reproduces moderate-severe pain, lumbar flexion and bending forward reproduces moderate pain. Demonstrates 5/5 strength of quadriceps bilaterally as well as flexion/dorsiflexion of bilateral feet against resistance. +2 DTR intact and symmetrical. Theodore test, Stinchfield test, Gaenslen, Pelvic compression test + bilaterally, left>right. Facet loading test + bilaterally. Back: no CVA tenderness and No back tenderness Cervical Spine: cervical ROM normal, cervical muscular tenderness and No Cervical spine tenderness Thoracic/Lumbar Spine: thoracic and lumbar spine normal to inspection, No Thoracic/lumbar spine scar(s), Lasegue's sign negative, straight leg raise negative bilaterally, pain with thoraco-lumbar ROM, paraspinal muscle tenderness, thoraco-lumbar ROM limited, No thoracic spinal tenderness and lumbar spinal tenderness (L3-S1) Pelvis: buttock tenderness bilaterally Sacroiliac joints: bilaterally tender to palpation Extrem Other: 2+ pedal pulses. Decreased sensation over the soles of the feet and toes due to chronic diabetic neuropathy. General: Yes capillary refill normal, Yes no clubbing, cyanosis or edema and Yes no calf tenderness Left lower extremity: foot Details: normal capillary refill, normal to inspection, tenderness Location: of the plantar foot and of the calcaneus, toes with normal ROM and no edema; no unusual warmth, no ecchymosis and no crepitus Results Reviewed Results Reviewed: XR LUMBOSACRAL SPINE 10/07/22 FINDINGS: The vertebral bodies and posterior elements are notable for generalized minor endplate spurring.. The disc spaces are preserved and the vertebral alignment is normal. The paraspinal soft tissues are normal. IMPRESSION: Mild degenerative disc disease as above. MR lumbar spine wo con 09/22/24 Findings: lumbar alignment is maintained. Vertebral body height is maintained. No bone marrow edema. Small round left L3 T1 and T2 hyperintense lesion on the left side of the vertebral body suggestive of hemangioma versus focal fat Distal conus appears unremarkable terminating at T12-L1. Degenerative disc disease at L5-S1 and L5-S1 facet arthropathy. Minimal disc bulges at L4-5 and L5-S1. No focal disc herniation and no significant canal or foraminal stenosis. Paraspinous musculature intact. IMPRESSION: 1.No acute findings. 2. L5-S1 degenerative disc disease and facet arthropathy. 3. No significant spinal canal or neural foraminal stenosis in the lumbar spine. Assessment & Plan Assessment & Plan (1) Left foot pain: Code(s): M79.672 - Pain in left foot Category: Medical (2) Sacroiliac joint pain: Code(s): M53.3 - Sacrococcygeal disorders, not elsewhere classified Category: Medical (3) Spondylosis of lumbar spine: Code(s): M47.816 - Spondylosis without myelopathy or radiculopathy, lumbar region Category: Medical (4) Lumbar degenerative disc disease: Code(s): M51.36 - Other intervertebral disc degeneration, lumbar region Category: Medical (5) Vertebrogenic low back pain: Code(s): M54.51 - Vertebrogenic low back pain Category: Medical Plan The plan includes performing lumbar medial branch blocks to confirm the source of back pain, as the MRI indicated disc degeneration and arthritis in the facet joints. If the injections provide relief, further treatment options such as radiofrequency ablation or peripheral nerve stimulation may be considered. Schedule diagnostic bilateral L3-L4 DR L5 medial branch blocks with local and fluoroscopy. Expectations, risks and benefits were reviewed. Patient is aware he will be contacted to schedule this procedure. For the left foot pain, an x-ray has been ordered to assess for a possible bone spur, and the patient has been advised on home care measures such rolling a frozen water bottle or tennis ball under your foot for 5?10 minutes 2-3 times per day, arch support shoes, and avoid walking barefoot on hard surfaces. Pending podiatry referral will be made for annual foot exams and chronic bilateral foot pain due to neuropathy. Previously discussed alternative pain management options such as Qutenza for chronic painful diabetic neuropathy, given low benefit with pregabalin and gabapentin with past use. All questions and concerns have been answered and patient agreed with the treatment plan. Follow-up after injections and sooner as needed. Patient was informed and verbally consented to the use of an ambient scribe for clinic note documentation during this visit. Orders: Orders 2 XR foot LT min 3V Today M79.672 - Pain in left foot Coding Level of Care Code Est Pt Level 4 (50636) Complex EM visit Add On G2211 Diagnoses Left foot pain M79.672 Sacroiliac joint pain M53.3 Spondylosis of lumbar spine M47.816 Lumbar degenerative disc disease M51.36 Vertebrogenic low back pain M54.51
[2024-09-25 11:49] VITALS: BP 123/82; PULSE 106; O2SAT 100; BMI 32.2
--- OUTSIDE RECORDS SUMMARY | 2024-09-25 12:57 | XMS_ITS | Encounter Summary ---
Author Organization [employer] Address [address] [place] [address] [address] [place] [address] Care Team Providers Care Lehr Loader Name Role Phone Name, Jose MOSQUERA Primary Care Provider [phone] Steff Romero PharmD Unavailable [phone] Reason for Visit * Reason Comments Med Refill Encounter Details Date Type Department Care Team (Late Contact Info) Description 12/02/2022 Refill [facility] CH[facility] MED & PEDS [address] [place] [address] Gita Joshi FNP [address] [place] [address] Dept [place] [address] Gastroesophageal reflux disease without esophagitis Social History [...] Upcoming Encounters Date Type Department Care Team ([facility] Contact Info) Description 10/31/2024 9:30 AM EDT Office Visit [facility] OPTOMETRY [address] [place], [place] [phone] Tom, Shell, OD [address] [place], [place] [phone] 11/22/2024 11:15 AM EDT Office Visit [facility] MEDICINE [address] [place] [address] Name, [place] [address] documented as of this encounter Goals Goal [...] reflux documented in this encounter Care Teams Lehr Loader Relationship Specialty Start Date End Date Name, MD Jose [address] [place] [address] PCP - General Internal Medicine 03/17/22 Puia, Steff, PharmD [address] [place] [id number] Pharmacist Internal Medicine 09/14/22 documented as of this encounter
== END 2024-09-25 11:59 | disposition home or self-care (01) ==
LOC: HO.PMC 11:45
PROVIDERS: Visit Provider Nurse Practitioner Family
DX: M79.672 Pain in left foot (principal); M53.3 Sacrococcygeal disorders, not elsewhere classified; M47.816 Spondylosis without myelopathy or radiculopathy, lumbar region; M51.369 Other intervertebral disc degeneration, lumbar region without mention of lumbar back pain or lower extremity pain; M54.51 Vertebrogenic low back pain
CPT/HCPCS: 99214

== ENCOUNTER → 2024-09-25 11:44 | Outpatient (BNVA) | payer MEDICAID, SELFPAY | PROVIDERS: Visit Provider Nurse Practitioner Family | DX: M79.672 Pain in left foot (principal); G89.29 Other chronic pain; M53.3 Sacrococcygeal disorders, not elsewhere classified; M47.816 Spondylosis without myelopathy or radiculopathy, lumbar region; M51.360 Other intervertebral disc degeneration, lumbar region with discogenic back pain only | CPT/HCPCS: 99212 ==

== ENCOUNTER 2024-11-02 09:07 | Outpatient (AMB) | payer MEDICAID, SELFPAY ==
--- OUTSIDE RECORDS SUMMARY | 2024-10-31 09:30 | XMS_ITS | Encounter Summary ---
Author Organization [employer] Address [address] [place] [address] 7[address] [place] [address] Care Team Providers Care Supervisor Maintenance And Custodians Name Role Phone Name, Jose MOSQUERA Primary Care Provider [phone] Steff Romero PharmD Unavailable Reason for Referral * Consultation (Routine) - Pending Review Specialty Diagnoses / Procedures Referred By Edward valdovinos Referred To Contact Ophthalmology Diagnoses 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 ([facility]) Shell Santos, OD [address] [place] [address] Phone: tel: fax: [place] [address] [place] [address] Phone: tel: fax: Referral ID Status Reason Start Date Expiration Date Visits Requested Visits Authorized [id number] Pending Review Specialty Services Required 10/31/2024 10/31/2025 1 1 Encounter Details Date Type Department Care Team (Latest Contact Info) Description 10/31/2024 9:30 AM EDT Office Visit [facility] OPTOMETRY [address] [place] [address] Shell Santos, OD [address] [place] [address] Age-related nuclear cataract of both eyes (Primary Dx); Vitreous floaters of both eyes; Dry eye syndrome of both eyes; 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 ([facility]) 10/31/2024 10:46 AM EDT Scheduled Referrals Name Type Priority Associated Diagnoses Orde r Schedule Referral to Ophthalmology Outpatient Referral Routine 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 ([facility]) Expected: 10/31/2024 (Approximate), Expires: 10/31/2025 documented as of this encounter Goals Goal [...] as of this encounter Visit Diagnoses Diagnosis Age-related nuclear cataract of both eyes- Primary Vitreous floaters of both eyes Dry eye syndrome of both eyes 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
--- NOTE | 2024-11-02 09:12 | MHC.OFFVIS ---
Intake Visit Reasons: Penile Prosthetic 2m f/u Intake Note: Patient is present for PENILE PROSTHETIC 2MO F/U Urology Medication:Amitriptyline Antibiotic Allergy:NONE Blood Thinner:NONE Application Defense Manager Required: No Accompanied by: Self / Same As Patient Allergies No Known Allergies Allergy (Verified 11/30/24 10:36) HPI Comments Details: Santy is a pleasant 48-year-old male patient of Dr. Lewis. He is seen for the following urologic conditions - erectile dysfunction in setting of diabetes 8 week follow-up Encouraged to activated pump daily and when enlarged use penile vacuum to increase width and girth May use Viagra for penile glans Erectile dysfunction in setting of diabetes - diabetic medications include Jardiance, metformin, tirzepatide Estadoil 09/18 35Six-month follow-up FSH 09/18 12.5 LH 09/18 9.1 Prolactin 09/18 7.7 Testosterone 09/18 475 Free testosterone 09/18 91.7 SHGB 09/18 28 PSA 09/18 0.6 A1c 09/18 5.8 PFSH Medical History Atypical chest pain Colon cancer screening Asthma High cholesterol Diabetic polyneuropathy Diabetes mellitus, type II Erectile dysfunction Surgical History Hx of colonoscopy (07/03/24) No pertinent past surgical history Family History Mother CAD (coronary artery disease) Father Diabetes Social History Household Members: None Housing: House Alcohol intake: current Alcohol intake frequency: does not drink Alcohol type: beer and hard liquor Patient Tobacco Use Status: Never used Tobacco Review of Systems Const Denies chills and Denies fever(s) Card Reports no additional complaints and Denies syncope Resp Denies cough GI Denies abdominal pain and Denies heartburn Reports as per HPI and Denies change in libido Neuro Denies syncope Psych Denies change in libido Endo Denies change in libido Physical Exam Const General: cooperative, healthy appearing, comfortable and no acute distress Orientation/consciousness: patient oriented x3 HEENT Face and sinus: Yes normal facial exam Mouth: moist mucous membranes Neck Neck: Yes normal visual inspection, Yes full ROM and Yes trachea midline Chest Chest palpation & inspection: normal inspection of the chest Resp Effort & Inspection: normal respiratory effort, able to speak in complete sentences and no respiratory distress GI Inspection: Yes normal to inspection Back/Spine/Pelvis Cervical Spine: normal cervical lordosis Thoracic/Lumbar Spine: thoracic and lumbar spine normal to inspection Skin General skin exam: no rashes or lesions noted Neuro General: patient oriented x3, gait normal, tone normal and moves all extremities Extrem General: Yes normal to inspection and Yes capillary refill normal Assessment & Plan Assessment & Plan (1) Erectile dysfunction associated with type 2 diabetes mellitus: Code(s): E11.69 - Type 2 diabetes mellitus with other specified complication; N52.1 - Erectile dysfunction due to diseases classified elsewhere Category: Medical Plan Six-month follow-up Patient Instructions: This note is constructed using voice recognition software. While every effort has been made to ensure accuracy rehabilitation director errors may have been included. Imaging studies, laboratory and physical exam results were discussed and reviewed in detail. No major barriers to patient understanding were identified. An opportunity to ask questions regarding the treatment plan was provided. All questions were answered. The patient expressed understanding and agreement with the above treatment plan. The patient is aware they should contact our office by phone for worsening of their current condition or the appearance of new urologic symptoms. Compliance is encouraged with any medications and followup testing that is ordered. It is a privilege to participate in the urologic care of your patient. If you have any questions or concerns regarding treatment for the above conditions, or other urologic issues, please do not hesitate to contact me. The office telephone contact is [phone]. Sincerely, Dr Marlon Carlson MD, [facility] - Urology Compassionate Specialist Care for the Genitourinary System Coding Level of Care Code Est Pt Level 3 (74922) Diagnoses Erectile dysfunction associated with type 2 diabetes mellitus E11.69; N52.1
== END 2024-11-02 09:40 | disposition home or self-care (01) ==
LOC: HO.HUSH 09:08
PROVIDERS: PCP Internal Medicine Geriatric Medicine; Visit Provider Urology
DX: E11.69 Type 2 diabetes mellitus with other specified complication (principal); N52.1 Erectile dysfunction due to diseases classified elsewhere
CPT/HCPCS: 99024

== ENCOUNTER → 2024-11-02 09:07 | Outpatient (BNVA) | payer MEDICAID, SELFPAY | PROVIDERS: PCP Internal Medicine Geriatric Medicine; Visit Provider Urology | DX: E11.69 Type 2 diabetes mellitus with other specified complication (principal); N52.1 Erectile dysfunction due to diseases classified elsewhere; Z96.0 Presence of urogenital implants | CPT/HCPCS: 99212 ==

== ENCOUNTER 2024-11-27 06:17 | Outpatient (REF) | payer MEDICAID, SELFPAY ==
--- OUTSIDE RECORDS SUMMARY | 2024-11-22 11:15 | XMS_ITS | Encounter Summary ---
Author Organization [employer] Address [address] [place] [address] 7t [place] [address] Care Team Providers Care Director Correctional Agency Name Role Phone Jose Lewis MD Primary Care Provider [phone] Steff Romero PharmD Unavailable [phone] Reason for Referral * Consultation (Urgent) - Closed Specialty Diagnoses / Procedures Referred By Contkeven t Referred To Contact Behavioral Health Diagnoses Depression with anxiety Jose Lewis MD [address] [place] [address] Phone: tel: fax: Referral ID Status Reason Start Date Expiration Date V isits Requested Visits Authorized [id number] Closed Specialty Services Required 11/22/2024 11/22/2025 1 1 Reason for Visit * Reason Comments Diabetes Encounter Details Date Type Department Care Team (Late st Contact Info) Description 11/22/2024 11:15 AM EDT Office Visit [facility] MEDICINE [address] [place] [phone] Jose Lewis MD [address] [place] [address] Type 2 diabetes mellitus with diabetic polyneuropathy, [...] an upcoming appointment to receive injections at [facility] pain clinic for the low back pain. [...] polyneuropathy, with long-term current use of insulin ([facility]) Comments: Well-controlled. He is recommended to continue current medications with the exception of amlodipine. I will lower the dose of amlodipine in half since the patient blood pressure is normal, he has lost weight. Hopefully this will resolve his lower extremity edema. Orders: - POCT Glucose - POCT HGB A1C 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 ([facility]) Comments: Patient is following at [facility] eye clinic. He has been referred to retina specialist. Chronic low back pain, unspecified back pain laterality, unspecified whether sciatica present Comments: He is followed at [facility] pain clinic. He has been scheduled to [...] 05/06/2025 9:30 AM Shell Santos, [facility] documented in this encounter Plan of Treatment Upcoming Encounters Date Type Department Care Team (Late st Contact Info) Description 02/20/2025 11:30 AM EST Office Visit [facility] MEDICINE [address] [place] [address] NameJose MD [address] [place] [address] 05/06/2025 9:30 AM EST Office Visit [facility] OPTOMETRY [address] [place] [address] Shell Santos, OD [address] [place] [address] Scheduled Referrals Name Type Priority Associated Diagnoses [...] polyneuropathy, with long-term current use of insulin ([facility]) POCT GLUCOSE Routine 11/22/2024 11:34 AM EDT Type 2 diabetes mellitus with diabetic polyneuropathy, with long-term current use of insulin ([facility]) documented in this encounter Results * [...] polyneuropathy, with long-term current use of insulin ([facility])- Primary 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 ([facility]) Chronic low back pain, unspecified back pain laterality, unspecified whether sciatica present Depression with anxiety Dysthymic disorder documented in this encounter Additional Health Concerns Assessment Noted Time PHQ-9 Depression Total Score: 18 025 4:17 PM EST documented as of this encounter Care Teams Director Correctional Agency Relationship Specialty Start Date End Date Name, MD Jose [address] [place] [address] PCP - General Internal Medicine 03/17/22 Steff Romero PharmD [address] [place] [address] Pharmacist Internal Medicine 09/14/22 documented as of this encounter
--- NOTE | ~2024-11-27 | FL_ITS ---
EXAMINATION: XR FLUOROSCOPY WITH IMAGES CLINICAL INFORMATION: Lumbar pain management procedure. COMPARISON: 09/14/2024 MR lumbar. TECHNIQUE: Fluoroscopy provided to: Dr. Borden Fluoroscopy time: 0.7 minutes DAP: 0.179 mGycm2 Images: 12 FINDINGS: 12 fluoroscopic spot images obtained during lumbar pain management injection. These refer to the full operative report for details. FL/FL guidance in treatment room IMPRESSION: Fluoroscopic guidance. Electronically signed by: Waylon Fu MD 11/28/2024 12:02 PM EDT
--- OUTSIDE RECORDS SUMMARY | 2024-11-27 06:23 | XMS_ITS | Clinical Summary ---
Author Organization [employer] Address [address] [place] [address] 7t [place] [address] Care Team Providers Care Physician Underwriter Name Role Phone Name, Jose MOSQUERA Primary Care Provider [phone] Steff Romero PharmD Unavailable [phone] Allergies No known active allergies Medications * This document contains information received from the source organization and may not represent a complete record from that organization. ketotifen (Zaditor) 0.025 % ophthalmic solutionIndicat ions:Type 2 diabetes mellitus with other specified complication, without long-term current use of insulin ([facility]) Administer 1 drop into both eyes 2 times daily. 5 mL 2 023 Active Blood Pressure Monitor kitIndications: Essential hypertension Use once a day 1 kit 023 Active hydrOXYzine pamoate (Vistaril) 25 MG capsuleIndicati ons:Diabetic dermopathy (CMS/HCC) ([facility]) TAKE 1 CAPSULE BY MOUTH AT BEDTIME FOR 28 DAYS. 28 capsule 023 Active Continuous Blood Gluc Piano Technician (FreeStyle Deven 2 [place]) deviceIndicatio ns:Type 2 diabetes mellitus with hyperglycemia, without long-term current use of insulin ([facility]) Use to scan sensor at least every 8 hours, as directed, for CGM 1 each 023 Active TRUEplus Lancets 33G misc Use to test blood sugar three times daily 100 each 11 023 Active famotidine (Pepcid) 20 MG tablet Take 1 tablet (20 mg) by mouth 2 times daily. 60 tablet 11 024 Active Alcohol Swabs (Alcohol Prep) 70 % pads USE THREE TIMES DAILY 100 each 11 2 024 Active cholecalciferol (D3 Super Strength) 50 MCG (1999) capsuleIndicati ons:Vitamin D deficiency TAKE 1 CAPSULE BY MOUTH TWICE DAILY IN THE MORNING AND AT BEDTIME 180 capsule 025 Active pantoprazole (ProtoNix) 40 MG EC tabletIndicatio ns:Gastroesopha geal reflux disease without esophagitis TAKE 1 TABLET BY MOUTH EVERY MORNING 90 tablet 1 025 Active lisinopril 40 MG tablet TAKE 1 TABLET BY MOUTH AT BEDTIME 90 tablet 1 025 Active glucose blood (FreeStyle Precision Carter Test) test stripIndication s:Type 2 diabetes mellitus with diabetic polyneuropathy, with long-term current use of insulin ([facility]) USE DIRECTED TO TEST BLOOD SUGAR THREE TIMES DAILY DIRECTED 50 strip 025 Active Tirzepatide (Mounjaro) 7.5 MG/0.5ML solution auto-injectorIn dications:Type 2 diabetes mellitus with diabetic polyneuropathy, with long-term current use of insulin ([facility]) Inject 7.5 mg under the skin 1 (one) time per week. 2 mL 2025 Active Jardiance 25 MGIndications:T ype 2 diabetes mellitus with diabetic polyneuropathy, with long-term current use of insulin ([facility]) TAKE 1 TABLET BY MOUTH EVERY MORNING 30 tablet 025 Active cetirizine (ZyrTEC) 10 MG tabletIndicatio ns:Type 2 diabetes mellitus with other specified complication, without long-term current use of insulin ([facility]) TAKE 1 TABLET BY MOUTH EVERY MORNING 90 tablet 1 025 Active atorvastatin (Lipitor) 40 MG tablet TAKE 1 TABLET BY MOUTH AT BEDTIME 90 tablet 025 Active Continuous Glucose Sensor (FreeStyle Deven 2 Sensor) miscIndications :Type 2 diabetes mellitus with diabetic polyneuropathy, with long-term current use of insulin ([facility]) USE DIRECTED TO TEST BLOOD SUGAR CHANGE EVERY 14 DAYS 2 each 025 Active hydroCHLOROthia zide (HYDRODiuril) 25 MG tabletIndicatio ns:Primary hypertension TAKE 1 TABLET BY MOUTH EVERY MORNING 90 tablet 3 06/23/2 025 Active metFORMIN XR (Glucophage-XR) 500 MG 24 hr tabletIndicatio ns:Type 2 diabetes mellitus with diabetic polyneuropathy, with long-term current use of insulin ([facility]) TAKE 1 TABLET BY MOUTH TWICE DAILY IN THE MORNING AND IN THE EVENING WITH MEALS DO NOT BREAK, CRUSH, DISSOLVE OR CHEW 180 tablet 3 Active amitriptyline (Elavil) 50 MG tablet TAKE 1 TABLET BY MOUTH AT BEDTIME 90 tablet 1 Active Pentips Generic Pen [place] 32G X 4 MM miscIndications :Type 2 diabetes mellitus with diabetic polyneuropathy, with long-term current use of insulin ([facility]) USE DIRECTED WITH INSULIN EVERY DAY 100 each 3 Active insulin degludec (Tresiba FlexTouch) 200 UNIT/ML injectionIndica tions:Type 2 diabetes mellitus with diabetic polyneuropathy, with long-term current use of insulin ([facility]) INJECT 64 SUBCUTANEOUSLY EVERY DAY 9 mL 5 Active DULoxetine (Cymbalta) [address] capsuleIndicati ons:Type 2 diabetes mellitus with other specified complication, without long-term current use of insulin ([facility]) TAKE 1 CAPSULE BY MOUTH EVERY MORNING 90 capsule 1 Active amLODIPine (Norvasc) 5 MG tablet Take 1 tablet (5 mg) by mouth Once per day. 30 tablet 11 025 2025 Active pregabalin (Lyrica) 75 MG capsule Take 1 capsule (75 mg) by mouth 3 times daily. 90 capsule 025 2025 Active pregabalin (Lyrica) 50 MG capsule Take 1 capsule (50 mg) by mouth Once per day for 7 days, THEN 1 capsule (50 mg) 2 times daily for 7 days, THEN 1 capsule (50 mg) 3 times daily for 14 days. 63 capsule 024 2024 Discontinued(D ose adjustment) DULoxetine (Cymbalta) [address] capsuleIndicati ons:Type 2 diabetes mellitus with other specified complication, without long-term current use of insulin ([facility]) TAKE 1 CAPSULE BY MOUTH EVERY MORNING 90 capsule 1 025 2024 Discontinued amLODIPine (Norvasc) 10 MG tabletIndicatio ns:Essential hypertension TAKE 1 TABLET BY MOUTH EVERY MORNING 90 tablet 1 025 2024 Discontinued(D ose adjustment) Active Problems [...] to CB as needed, and Information on [facility] provided. Santy agrees to contact [facility] to schedule intake. Behavioral Health Diagnoses At [...] 04/06/2016 Type 2 diabetes mellitus 04/06/2016 Encounters * This document contains information received from the source organization and may not represent a complete record from that organization. Date Type Department Care Team Description 11/22/2024 11:15 AM EDT Office Visit [facility] [address] [place] [address] NameJose MD Type 2 diabetes mellitus with diabetic polyneuropathy, with long-term current use of insulin (CMS/HCC) (Primary Dx); 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 (CMS/HCC); Chronic low back pain, unspecified back pain laterality, unspecified whether sciatica present; Depression with anxiety 11/22/2024 Travel 11/20/2024 Refill [facility] [address] [place] [address] NameJose MD Type 2 diabetes mellitus with other specified complication, without long-term current use of insulin (CMS/HCC) 10/31/2024 9:30 AM EDT Office Visit [facility] [address] [place] [address] TomMiguel Angeln, OD 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 ([facility]) (Primary Dx); Early cataracts, bilateral; Dry eye syndrome of both eyes 10/31/2024 Travel 10/17/2024 Refill [facility] [address] [place] [address] Jose Lewis MD Type 2 diabetes mellitus with diabetic polyneuropathy, with long-term current use of insulin ([facility]) 10/16/2024 Refill [facility] [address] [place] [address] Jose Lewis MD Type 2 diabetes mellitus with diabetic polyneuropathy, with long-term current use of insulin ([facility]) 10/04/2024 Telephone [facility] [address] [place] [address] Jose Lewis MD Prior Authorization 09/26/2024 Refill [facility] [address] [place], [place] [phone] Jose Lewis MD 09/17/2024 Refill [facility] [address] [place], [place] [phone] Jose Lewis MD Primary hypertension; Type 2 diabetes mellitus with diabetic polyneuropathy, with long-term current use of insulin ([facility]) 08/29/2024 Refill [facility] [address] [place] [address] Jose Lewis MD Type 2 diabetes mellitus with diabetic polyneuropathy, with long-term current use of insulin ([facility]) from Last 3 Months Immunizations Immunization Administration Dates Next Due HepB-CpG 10/26/2022,09/17/2022 Influenza [...] Mass Index 32.75 11/22/2024 11:32 AM EDT Plan of Treatment Upcoming Encounters Date Type Department Care Team (Late st Contact Info) Description 02/20/2025 11:30 AM EST Office Visit [facility] [address] [place] [address] Name, MD Jose [address] [place] [address] 05/06/2025 9:30 AM EST Office Visit [facility] [address] [place] [address] Shell Santos, OD [address] [place] [address] Health Maintenance Due Date Last Done Comments CT Colonography 1974 FIT DNA/Cologuard 1974 FIT 1974 FOBT 1974 Sigmoidoscopy 1974 Family Planning (PISQ) 1989 COVID-19 Vaccine ( season) 2023 Zoster Vaccines (1 of 2) 2024 Depression Monitoring 11/13/2024 05/16/2024, 025 Diabetes: Foot Exam 11/16/2024 11/17/2023, 11/17/2023, 11/17/2023, Additional history exists Influenza Vaccine (#1) 2024 12/30/2015 Diabetes: Hemoglobin A1C 05/25/2025 025, 08/06/2024, 05/16/2024, Additional history exists SDOH Screening 07/30/2025 07/30/2024 Alcohol/Substance Use Screening 08/06/2025 08/06/2024 Disability Screening 08/06/2025 08/06/2024 Diabetes: Urine Protein Screening 08/07/2025 08/07/2024, 08/30/2023, 12/31/2022, Additional history exists Lipid Panel 08/07/2025 08/07/2024, 06/2023, 04/08/2022, Additional history exists Eye Exam 10/31/2025 10/31/2024, 08/2024, 10/31/2024, Additional history exists Tobacco Screening 11/22/2025 11/22/2024 Colonoscopy 07/03/2029 07/03/2024 Colorectal Cancer Screening 07/03/2029 DTaP/Tdap/Td Vaccines (5 [...] patient's age to complete this topic Meningococcal B Vaccine Aged Out No l onger eligible based on patient's age to complete [...] (2-3x per week) Blood Pressure No Steff Romero PharmD Blood Pressure < 140/90 Blood Pressure 118/85(2024 11:46 AM EDT) No Steff Romero PharmD Patient will adhere to medication regimen General No Steff Romero PharmD Hemoglobin A1c < 7 Result Component 6.2( 11:35 AM EDT) No Steff Romero PharmD Record [...] polyneuropathy, with long-term current use of insulin ([facility]) POCT GLUCOSE Routine 11/22/2024 11:34 AM EDT Type 2 diabetes mellitus with diabetic polyneuropathy, with long-term current use of insulin ([facility]) OCT, RETINA - OU - BOTH EYES Routine 10/31/2024 9:30 AM EDT 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 (CMS/HCC) ALBUMIN, RANDOM URINE W/CREATININE Routine 08/07/2024 9:12 AM EDT Type 2 diabetes mellitus with diabetic polyneuropathy, with long-term current use of insulin (CMS/HCC) Chronic low back pain, unspecified back pain laterality, unspecified whether sciatica present Bilateral lower extremity edema LIPID PANEL, STANDARD Routine 08/07/2024 9:12 AM EDT Type 2 diabetes mellitus with diabetic polyneuropathy, with long-term current use of insulin (CMS/HCC) Chronic low back pain, unspecified back pain laterality, unspecified whether sciatica present Bilateral lower extremity edema HM COLONOSCOPY Routine 07/03/2024 HIV 1/2 ANTIGEN/ANTIBODY, FOURTH GENERATION W/RFL Routine 08/30/2023 10:51 AM EDT Screening for HIV (human immunodeficiency virus) ZZZ HISTORICAL HEPATITIS C AB W/REFL TO HCV RNA, QN, PCR Routine 07/23/2020 3:34 PM EDT from Last 3 Months or Most Recently Relevant to Health Maintenance Results * (ABNORMAL) POCT HGB A1C (11/22/2024 11:35 AM EDT) Hemoglobin A1C 6.2(A) 4.0 - 5.7 % QC Media Lot # [id number] Lot# Expiration Date Blood 11/22/2024 11:3 5 AM EDT us Jose Lewis MD POINT OF CARE TEST ENTER/EDIT OR DERABLES Final Result * POCT Glucose (11/22/2024 11:34 AM EDT) Glucose Blood, POC 123 60 - 200 mg/dL QC Media Lot # [id number] Lot# Expiration Date Blood Capillary blood specimen / Unknown 11/22/2024 11:34 AM EDT us Jose Lewis MD POINT OF CARE TEST ENTER/EDIT OR DERABLES Final Result * OCT, Retina - OU - Both Eyes (10/31/2024 9:30 AM EDT) Narrative Shell Santos, OD - 11/22/2024 3:35 PM EDT Images from the original result were not included. OCT [facility] [employer] Optical Coherence Tomography Interpretation Report Measurements: OD OS Macula Thickness 231 microns 260 microns Test findings: OD: Normal foveal contour, intraretinal exudate just inferotemporal to fovea, cystoid macular edema just temporal to fovea, no subretinal fluid OS: Normal foveal contour, cystoid macular edema throughout the temporal macula, no subretinal fluid Impression and Plan: Moderate non proliferative diabetic retinopathy with macular edema in both eyes, worse in the left eye. Will refer to Retina specialist for treatment. Will monitor here in 6 months as well. us Shell Santos OD OPHTH TOMOGRAPHY Final Result * Albumin, Random Urine W/Creatinine (08/07/2024 9:12 AM EDT) Creatinine, Urine 91.71 mg/dL [facility] Microalbumin Urine 7.0 mg/L H [facility] Microalbum Creatinine Ratio Ur 7.6 <30 ug/mg cr [facility] Comment:Albumin/Creatinine R atio Reference Ranges: Normal: < 30 ug/mg creatinine Microalbuminuria: 30 - 300 ug/mg creatinineClinical Albuminuria: > 300 ug/mg creatinine Urine (Urine, Random) 08/07/2024 9:12 AM EDT 08/07/2024 11:22 AM EDT us Jose Lewis MD LAB URINE ORDERABLES Final Resul t [facility] [address] [place] [phone] * Lipid Panel, Standard (08/07/2024 9:12 AM EDT) Triglycerides 106 <150 mg/dL [facility] Comment:Desirable Triglyceri de: less than 150 mg/dLBorderline High Triglyceride 150-199 mg/dLHigh Triglyceride: 200-499 mg/dLVery High Triglyceride: greater than or equal to 5OO mg/dL Cholesterol 103 <200 mg/dL [facility] Comment:Desirable Cholestero l: less than 200 mg/dLBorderline High Cholesterol: 200-239 mg/dLHigh Cholesterol: greater than 239 mg/dL LDL Cholesterol Calculated 33 <100 mg/dL [facility] Comment:Desirable LDL: less than 100 mg/dLNear Optimal/Above Optimal LDL: 110- 129 mg/dLBorderline High LDL: 130-159 mg/dLHigh LDL: 160-189 mg/dLVery High LDL: greater than or equal to 190 mg/dL HDL Cholesterol 49 >40 mg/dL [facility] Comment:Desirable HDL: great er than 40 mg/dL Note: This HDL assay may give artificially low results in patients with liver disease. Blood Venous blood specimen / Unknown 08/07/2024 9:12 AM EDT 08/07/2024 11:23 AM EDT us Jose Lewis MD LAB BLOOD ORDERABLES Final Resul t [facility] [address] [place] [phone] * Colonoscopy (07/03/2024) Colonoscopy Normal Normal Comment:Haroldo at [facility], sub optima prep, no polyps, repeat in 5 years 07/03/2024 John Harrington MD HEALTH MAINTENANCE Final Result * HIV-1/2 Antigen and Antibodies, Fourth Generation, with Reflexes (08/30/2023 10:51 AM EDT) HIV AB/AG Nonreactive Nonreactive [facility] Comment:HIV-1 p24 Ag and/or HIV-1/HIV-2 Ab not detected.A test result that is nonreactive does not exclude thepossibility of exposure to or infection with HIV-1 and/orHIV-2. Nonreactive results in this assay for individualswith prior exposure to HIV-1 and/or HIV-2 may be due toantigen and antibody levels that are below the limit ofdetection of this assay.The [email or web address] HIV Ag/Ab Combo assay result andsupplemental assay results should be interpreted inconjunction with the patient's clinical presentation,history and other laboratory results. If the results areinconsistent with clinical evidence, additional testing issuggested to confirm the result. Blood Venous blood specimen / Unknown 08/30/2023 10:51 AM EDT 08/30/2023 12:01 PM EDT us Jose Lewis MD LAB BLOOD ORDERABLES Final Resul t [facility] [address] [place] [address] [phone] * HEPATITIS C AB W/REFL TO HCV RNA, QN, PCR (07/23/2020 3:34 PM EDT) HEPATITIS C ANTIBODY NON-REACT [facility] NON-REACT [facility] INDEX 0.01 <1.00 [facility] Comment: HCV antibody was non-reactive. There is no laboratory evidence of HCV infection. In most cases, no further action is required. However, if recent HCV exposure is suspected, a test for HCV RNA (test code 17382) is suggested. For additional information please refer to [email or web address]/[email or web address] (This link is being provided for informational/ educational purposes only.) 07/23/2020 3:34 PM EDT us Historical Provider MD HISTORICAL/NON ORDERABLE LABS Final Result [facility] [address] from Last 3 Months or Most Recently Relevant to Health Maintenance Insurance [facility] C3 Care Teams Physician Underwriter Relationship Specialty Start Date End Date Name, MD Jose [address] [place] [address] PCP - General Internal Medicine 03/17/22 Steff Romero, HeD [address] [place] [address] Pharmacist Internal Medicine 09/14/22
--- OUTSIDE RECORDS SUMMARY | 2024-11-27 06:23 | XMS_ITS | Encounter Summary ---
Author Organization [employer] Address [address] [place] [address] Care Team Providers Care Art Manager Name Role Phone Name, Jose MOSQUERA Primary Care Provider [phone] Steff Romero PharmD Unavailable [phone] Reason for Visit * Reason Comments Med Refill Encounter Details Date Type Department Care Team ([facility] Contact Info) Description 01/30/2023 Refill [facility] [address] [place] [address] Sarah Benito FNP [address] [place], [place] [phone] Social History Tobacco Use Types Packs/Day Years [...] Description 02/20/2025 11:30 AM EST Office Visit [facility] [address] [place] [address] Name, MD Jose [address] [place] [address] 05/06/2025 9:30 AM EST Office Visit [facility] [address] [place] [address] Tom, Shell, OD [address] [place] [address] documented as of this encounter Goals Goal Patient Goal Type Associated Problems Recent Progress Patient-Stated? Author Record your blood pressure periodically (2-3x per week) Blood Pressure No Puia, Steff, PharmD Blood Pressure < 140/90 Blood Pressure 118/85(2024 11:46 AM EDT) No Puia, Steff, PharmD Patient will adhere to medication regimen General No Puia, Steff, PharmD Hemoglobin A1c < 7 Result Component 6.2( 11:35 AM EDT) No Puia, Steff, PharmD Record your blood sugar as directed Result Component No Puia, Steff, PharmD Note: Use CGM, ensuring sensor is scanned at least once every 8 hours to capture 24H data. Check BG manually, as directed. documented as of this encounter Visit Diagnoses Not on filedocumented in this encounter Care Teams Art Manager Relationship Specialty Start Date End Date Name, MD Jose [address] [place] [address] PCP - General Internal Medicine 03/17/22 Steff Romero PharmD [address] [place] [address] Pharmacist Internal Medicine 09/14/22 documented as of this encounter
--- OUTSIDE RECORDS SUMMARY | 2024-11-27 06:23 | XMS_ITS | Encounter Summary ---
Author Organization [employer] Address [address] [place] [address] 7t [place] [address] Care Team Providers Care Copier Field Service Technician Name Role Phone Name, Jose MOSQUERA Primary Care Provider [phone] Steff Romero PharmD Unavailable [phone] Reason for Visit * Reason Comments Med Refill Encounter Details Date Type Department Care Team (Late Contact Info) Description 12/02/2022 Refill [facility] [address] [place] [address] Gita Joshi FNP Gastroesophageal reflux disease without esophagitis Social History [...] Upcoming Encounters Date Type Department Care Team ([facility] Contact Info) Description 02/20/2025 11:30 AM EST Office Visit [facility] [address] [place], [place] [phone] Name, MD Jose [address] [place] [address] 05/06/2025 9:30 AM EST Office Visit [facility] [address] [place] [address] Shell Santos, OD [address] [place] [address] documented as of this encounter Goals Goal [...] reflux documented in this encounter Care Teams Copier Field Service Technician Relationship Specialty Start Date End Date Name, MD Jose [address] [place] [address] PCP - General Internal Medicine 03/17/22 Puia, Steff, PharmD [address] [place] [address] Pharmacist Internal Medicine 09/14/22 documented as of this encounter
--- OUTSIDE RECORDS SUMMARY | 2024-11-27 06:23 | XMS_ITS | Encounter Summary ---
Author Organization [employer] Address [address] [place] [address] [address] [place] [address] Care Team Providers Care Inside Tester Name Role Phone Name, Jose MOSQUERA Primary Care Provider [phone] Steff Romero PharmD Unavailable [phone] Encounter Details Date Type Department Care Team (Latest Contact Info) Description 11/22/2024 Travel Social History Tobacco Use Types Packs/Day [...] Description 02/20/2025 11:30 AM EST Office Visit [facility] [address] [place] [address] Name, MD Jose [address] [place] [address] 05/06/2025 9:30 AM EST Office Visit [facility] [address] [place] [address] Tom, Shell, OD [address] [place] [address] documented as of this encounter Goals Goal [...] documented as of this encounter Care Teams Inside Tester Relationship Specialty Start Date End Date Name, MD Jose [address] [place] [address] PCP - General Internal Medicine 03/17/22 Steff Romero PharmD [address] [place] [address] Pharmacist Internal Medicine 09/14/22 documented as of this encounter
== END 2024-11-27 06:18 | disposition home or self-care (01) ==
LOC: CF 06:17
PROVIDERS: Visit Provider Anesthesiology
DX: M47.816 Spondylosis without myelopathy or radiculopathy, lumbar region (principal)
CPT/HCPCS: 64493; 64494; J2003; J2795; Q9967

== ENCOUNTER 2024-11-27 13:45 | Outpatient (AMB) | payer MEDICAID, SELFPAY ==
--- OUTSIDE RECORDS SUMMARY | 2024-11-22 11:15 | XMS_ITS | Encounter Summary ---
Author Organization [employer] Address [address] [place] [address] [address] [place] [address] Care Team Providers Care Compass Operator Name Role Phone Jose Lewis MD Primary Care Provider [phone] Steff Romero PharmD Unavailable [phone] Reason for Referral * Consultation (Urgent) - Closed Specialty Diagnoses / Procedures Referred By Contkeven t Referred To Contact Behavioral Health Diagnoses Depression with anxiety Jose Lewis MD [address] [place] [address] Phone: tel: fax: Referral ID Status Reason Start Date Expiration Date V isits Requested Visits Authorized [id number] Closed Specialty Services Required 11/22/2024 11/22/2025 1 1 Reason for Visit * Reason Comments Diabetes Encounter Details Date Type Department Care Team (Late st Contact Info) Description 11/22/2024 11:15 AM EDT Office Visit [facility] MEDICINE [address] [place] [address] [phone] Jose Lewis MD [address] [place] [address] Type 2 diabetes mellitus with diabetic polyneuropathy, with long-term current use of insulin (CMS/HCC) (Primary Dx); 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 (CMS/HCC); Chronic low back pain, unspecified back pain laterality, unspecified whether sciatica present; Depression with anxiety Social History Tobacco Use Types Packs/Day Years [...] Sign Reading Time Taken Comments Blood Pressure 118/85 11/22/2024 11:46 AM EDT Pulse 95 11/22/2024 11:32 AM EDT Temperature 36.1 C (97 F) 11/22/2024 11:32 AM EDT Respiratory Rate 18 11/22/2024 11:32 AM EDT Oxygen Saturation 97% 11/22/2024 11:32 AM EDT Inhaled Oxygen Concentration - - Weight 101 kg (221 lb 12.8 oz) 11/22/2024 11:32 AM EDT Height 175.3 cm (5' 9 ) 11/22/2024 11:32 AM EDT Body Mass Index 32.75 11/22/2024 11:32 AM EDT documented in this encounter Progress Notes * Jose Lewis MD - 11/22/2024 11:15 AM EDT Images from the original note were not included. Subjective Patient ID: Santy Yeager is a 49 y.o. male who presents for Diabetes. Patient comes for a follow-up visit and we discussed several issues. He does not bring his CGM reader. There has been significant improvement of blood sugar control based on his hemoglobin A1c compared to last visit when we increased his Mounjaro. He denies episodes of hypoglycemia at home. He denies any GI side effects of the medication and he is losing weight and he is congratulated. Unfortunately he continues to complain of significant low back pain and painful neuropathy of the feet. He has an upcoming appointment to receive injections at [facility] pain clinic for the low back pain. He describes ongoing depression and anxiety, he denies any suicidal intention, he is using his Cymbalta regularly. The patient is stressed because he cannot keep a job, he has not been approved for disability, he has difficulties paying his rent. He is interested in talking to a counselor as soon as possible. Review of Systems Constitutional: Negative for chills, fatigue and fever. HENT: Negative for sore throat. Respiratory: Negative for cough, chest tightness and shortness of breath. Cardiovascular: Negative for chest pain, palpitations and leg swelling. The patient describes occasional lower extremity edema at the end of the day and this is most likely secondary to the use of amlodipine. He has normal ECHO and stress test in 2022, normal BNP and microalbumin no varicose veinds Gastrointestinal: Negative for abdominal pain and blood in stool. Objective Vitals: 11/22/24 1132 BP: (!) 132/90 BP Location: Left arm Patient Position: Sitting BP Cuff Size: Adult Pulse: 95 Resp: 18 Temp: 97 ??F (36.1 ??C) TempSrc: Temporal SpO2: 97% Weight: 221 lb 12.8 oz (101 kg) Height: 5' 9 (1.753 m) Physical Exam Constitutional: Appearance: Normal appearance. Cardiovascular: Rate and Rhythm: Normal rate and regular rhythm. Heart sounds: No murmur heard. Pulmonary: Effort: Pulmonary effort is normal. No respiratory distress. Breath sounds: No wheezing, rhonchi or rales. Abdominal: Palpations: Abdomen is soft. Tenderness: There is no abdominal tenderness. Musculoskeletal: Right lower leg: No edema. Left lower leg: No edema. Neurological: Mental Status: He is alert. Lab Results Component Value Date HGBA1C 6.2 (A) 11/22/2024 HGBA1C 7.3 (A) 08/06/2024 HGBA1C 6.0 05/16/2024 HGBA1C 5.8 09/06/2023 HGBA1C 5.9 08/26/2023 HGBA1C 5.5 03/18/2023 HGBA1C 6.0 12/31/2022 HGBA1C 8.8 (H) 09/17/2022 HGBA1C 8.9 (A) 04/08/2022 HGBA1C 7.3 (H) 09/04/2021 HGBA1C 8.0 (H) 06/24/2021 HGBA1C 6.6 (H) 07/23/2020 Latest Reference Range & Units 08/07/24 09:12 Glucose 60 - 115 mg/dL 89 Urea Nitrogen (BUN) 9 - 16 mg/dL 17 (H) Creatinine, Serum 0.5 - 1.4 mg/dL 0.69 Sodium 135 - 145 mmol/L 141 Potassium 3.3 - 5.1 mmol/L 3.5 Chloride 96 - 108 mmol/L 103 Carbon Dioxide 22 - 29 mmol/L 29 Calcium 8.4 - 10.2 mg/dL 8.7 Albumin Level 3.5 - 5.0 g/dL 4.0 Bilirubin, Total 0.0 - 1.0 mg/dL 0.9 AST 5 - 37 U/L 21 ALT 0 - 40 U/L 34 Anion Gap 12 - 20 13 Total Protein 6.5 - 8.0 g/dL 7.2 Cholesterol <200 mg/dL 103 HDL Cholesterol >40 mg/dL 49 LDL Cholesterol Calculated <100 mg/dL 33 Triglycerides <150 mg/dL 106 Red Blood Count 4.60 - 5.80 X10*6/uL 4.97 Hemoglobin 14.0 - 18.0 g/dl 14.7 Hematocrit 42.0 - 52.0 % 43.9 Mean Corpuscular Volume 80.0 - 98.0 fL 88.3 Mean Corpuscular Hemoglobin 27.0 - 33.0 pg 29.6 Mean Corpuscular HGB Conc 31.0 - 36.0 g/dl 33.5 Red Cell Distribution Width 11.0 - 16.0 % 12.0 Platelet Count 160 - 400 X10*3/uL 229 Eosinophils Percent Auto 0 - 4 % 3.2 Lymphocytes Absolute Auto 1.2 - 4.9 X10*3/uL 2.8 Basophils Absolute Auto 0.0 - 0.2 X10*3/uL 0.1 Monocytes Absolute Auto 0.1 - 1.2 X10*3/uL 0.8 Neutrophils Absolute Auto 2.0 - 8.3 x10*3/uL 7.3 Neutrophils Percent Auto 45 - 73 % 64.0 Basophils Percent Auto 0 - 2 % 0.5 Eosinophils Absolute Auto 0.0 - 0.4 X10*3/uL 0.4 Lymphocytes Percent Auto 20 - 40 % 24.4 Monocytes Percent Auto 2 - 11 % 7.1 Imm Gran Abs Auto 0.00 - 0.03 X10*3/uL 0.09 (H) Imm Gran Pct Auto 0.0 - 0.4 % 0.8 (H) Microalbumin Urine mg/L 7.0 Alkaline Phosphatase 39 - 117 U/L 106 B Type Natriuretic Peptide <100 pg/mL 14 Creatinine, Urine mg/dL 91.71 Estimated Glomerular Filt Rate >60 Mean Platelet Volume 9.4 - 12.4 fL 11.5 Microalbum Creatinine Ratio Ur <30 ug/mg cr 7.6 NRBC Abs Auto 0.0 - 0.012 X10*3/uL 0.000 NRBC Pct Auto 0.0 - 0.2 /100WBC 0.0 White Blood Count 4.8 - 10.8 X10*3/uL 11.3 (H) (H): Data is abnormally high Assessment/Plan Diagnoses and all orders for this visit: Type 2 diabetes mellitus with diabetic polyneuropathy, with long-term current use of insulin ([facility]) Comments: Well-controlled. He is recommended to continue current medications with the exception of amlodipine. I will lower the dose of amlodipine in half since the patient blood pressure is normal, he has lost weight. Hopefully this will resolve his lower extremity edema. Orders: - POCT Glucose - POCT HGB A1C 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 ([facility]) Comments: Patient is following at [facility] eye clinic. He has been referred to retina specialist. Chronic low back pain, unspecified back pain laterality, unspecified whether sciatica present Comments: He is followed at [facility] pain clinic. He has been scheduled to receive injections. Today I will increase dose of Lyrica to help with low back pain and diabetic neuropathy. Depression with anxiety Comments: Continue current dose of Cymbalta. I have referred to behavioral health to start counseling as soonas possible. Orders: - Referral to Behavioral Health; Future Other orders - amLODIPine (Norvasc) 5 MG tablet; Take 1 tablet (5 mg) by mouth Once per day. - pregabalin (Lyrica) 75 MG capsule; Take 1 capsule (75 mg) by mouth 3 times daily. Future Appointments Date Time Provider Department Center 05/06/2025 9:30 AM Shell Santos, [facility] documented in this encounter Plan of Treatment Upcoming Encounters Date Type Department Care Team (Late st Contact Info) Description 02/20/2025 11:30 AM EST Office Visit [facility] MEDICINE [address] [place] [address] NameJose MD [address] [place] [address] 05/06/2025 9:30 AM EST Office Visit [facility] OPTOMETRY [address] [place] [address] Shell Santos, OD [address] [place] [address] Scheduled Referrals Name Type Priority Associated Diagnoses Order Schedule Referral to Behavioral Health Outpatient Referral Urgent Depression with anxiety Expected: 11/22/2024 (Approximate), Expires: 05/22/2026 documented as of this encounter Goals Goal Patient Goal Type Associated Problems Recent Progress Patient-Stated? Author Record your blood pressure periodically (2-3x per week) Blood Pressure No Steff Romero, PharmD Blood Pressure < 140/90 Blood Pressure 118/85(2024 11:46 AM EDT) No Steff Romero, PharmD Patient will adhere to medication regimen General No Steff Romero, PharmD Hemoglobin A1c < 7 Result Component 6.2( 11:35 AM EDT) No Anthony Romeroyssa, PharmD Record your blood sugar as directed Result Component No Steff Romero PharmD Note: Use CGM, ensuring sensor is scanned at least once every 8 hours to capture 24H data. Check BG manually, as directed. documented as of this encounter Procedures Procedure Name Priority Date/Time Associated Diagnosis Comments POCT GLYCATED HEMOGLOBIN, TOTAL Routine 11/22/2024 11:35 AM EDT Type 2 diabetes mellitus with diabetic polyneuropathy, with long-term current use of insulin ([facility]) POCT GLUCOSE Routine 11/22/2024 11:34 AM EDT Type 2 diabetes mellitus with diabetic polyneuropathy, with long-term current use of insulin ([facility]) documented in this encounter Results * (ABNORMAL) POCT HGB A1C (11/22/2024 11:35 AM EDT) Hemoglobin A1C 6.2(A) 4.0 - 5.7 % QC Media Lot # [id number] Lot# Expiration Date 4,727 Blood 11/22/2024 11:3 5 AM EDT us Jose Lewis MD POINT OF CARE TEST ENTER/EDIT OR DERABLES Final Result * POCT Glucose (11/22/2024 11:34 AM EDT) Glucose Blood, POC 123 60 - 200 mg/dL QC Media Lot # [id number] Lot# Expiration Date Blood Capillary blood specimen / Unknown 11/22/2024 11:34 AM EDT Jose Lewis MD POINT OF CARE TEST ENTER/EDIT OR DERABLES Final Result documented in this encounter Visit Diagnoses Diagnosis Type 2 diabetes mellitus with diabetic polyneuropathy, with long-term current use of insulin ([facility])- Primary 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 ([facility]) Chronic low back pain, unspecified back pain laterality, unspecified whether sciatica present Depression with anxiety Dysthymic disorder documented in this encounter Additional Health Concerns Assessment Noted Time PHQ-9 Depression Total Score: 18 025 4:17 PM EST documented as of this encounter Care Teams Compass Operator Relationship Specialty Start Date End Date Name, MD Jose [address] [place] [address] PCP - General Internal Medicine 03/17/22 Steff Romero PharmD [address] [place] [address] Pharmacist Internal Medicine 09/14/22 documented as of this encounter
[2024-11-27 14:05] VITALS: BP 127/83; PULSE 98; RESP 18; O2SAT 98
--- NOTE | 2024-11-27 14:05 | MHC.OFFVIS ---
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: No Allergies No Known Allergies Allergy (Verified 11/02/24 09:17) PFSH Medical History Atypical chest pain Colon cancer screening Asthma High cholesterol Diabetic polyneuropathy Diabetes mellitus, type II Erectile dysfunction Surgical History Hx of colonoscopy (07/03/24) No pertinent past surgical history Family History Mother CAD (coronary artery disease) Father Diabetes Social History Household Members: None Housing: House Alcohol intake: current Alcohol intake frequency: does not drink Alcohol type: beer and hard liquor Patient Tobacco Use Status: Never used Tobacco Physical Exam Vital Signs: Last Vital Signs Pulse 98 11/27/24 14:05 Resp 18 11/27/24 14:05 BP 127/83 11/27/24 14:05 Pulse Ox 98 11/27/24 14:05 Oxygen Delivery Method Room Air 11/27/24 14:05 Assessment & Plan Assessment & Plan (1) Spondylosis of lumbar region without myelopathy or radiculopathy: Code(s): M47.816 - Spondylosis without myelopathy or radiculopathy, lumbar region Category: Medical Plan Diagnostic medial branch block L3,L4 dorsal ramus L5 bilateral.? ? ?Informed consent was explained to the patient. All questions were explained and? answered.? The patient was taken inside the operating room where he was positioned prone on the operating table. Time-out was performed delineating correct site, side, the nature of the procedure, patient's allergy, . All operating room staff was participating in OR time-out procedure. ? ? The lower back was prepped with ChloraPrep and draped with sterile utility towels.? C-arm was brought over the operating field and sq picture of L4-, L5 vertebra and S1 AREA were delineated on the screen.? Point of interest were delineated as confluence of superior articular process of L4 and L5 vertebra bilaterally with corresponding transverse processes as well as confluence of the sacral alae bilaterally with superior articular process of S1.? The projection of the point of interest to the skin were injected with the small amount of local anesthetic lidocaine 2% mixed with ropivacaine 0.5% 1-1 approximately 1 cc.? After that 22 gauge 3.5 inch spinal needle was driven sequentially to the points of interest in tunnel vision fashion. After needles gently contacted the bone at the point of interests the needle was injected with small amount of the contrast.? The injection of the contrast did not demonstrate any intravascular or intrathecal spread of the contrast.? After that injection of the? ropivacaine 0.5%-1cc was performed at each needle location.?After that the needles were removed and Bandaids were applied. Orders: Orders FL guidance in treatment room Today M47.816 - Spondylosis without myelopathy or radiculopathy, lumbar region Medications: New lorazepam (Ativan) Take 30 minutes prior to arrival to procedure 1 mg PO ONCE 1 tab 0RF anxiety Coding Level of Care Code Procedure Only Diagnoses Spondylosis of lumbar region without myelopathy or radiculopathy M47.816
--- OUTSIDE RECORDS SUMMARY | 2024-11-27 15:00 | XMS_ITS | Encounter Summary ---
Author Organization [employer] Address [address] [place] [address] [address] [place] [address] Care Team Providers Care Fast Food Supervisor Name Role Phone Name, Jose MOSQUERA Primary Care Provider [phone] Steff Romero PharmD Unavailable [phone] Reason for Visit * Reason Comments Med Refill Encounter Details Date Type Department Care Team (Late Contact Info) Description 12/02/2022 Refill [facility] [address] [place] [address] Gita Joshi FNP Gastroesophageal reflux disease without [...] Upcoming Encounters Date Type Department Care Team ([facility] Contact Info) Description 02/20/2025 11:30 AM EST Office Visit [facility] MEDICINE [address] [place], [place] [phone] Name, MD Jose [address] [place] [address] 05/06/2025 9:30 AM EST Office Visit [facility] OPTOMETRY [address] [place] [address] Shell Santos, OD [address] [place] [address] documented as of this encounter Goals Goal [...] reflux documented in this encounter Care Teams Fast Food Supervisor Relationship Specialty Start Date End Date Name, MD Jose [address] [place] [address] PCP - General Internal Medicine 03/17/22 Puia, Steff, PharmD [address] [place] [address] Pharmacist Internal Medicine 09/14/22 documented as of this encounter
--- OUTSIDE RECORDS SUMMARY | 2024-11-27 15:00 | XMS_ITS | Clinical Summary ---
Author Organization [employer] Address [address] [place] [address] 7[address] [place] [address] Care Team Providers Care Director Of Environmental Services Name Role Phone Name, Jose MOSQUERA Primary Care Provider [phone] Steff Romero PharmD Unavailable [phone] Allergies No known active allergies Medications * This document contains information received from the source organization and may not represent a complete record from that organization. ketotifen (Zaditor) 0.025 % ophthalmic solutionIndicat ions:Type 2 diabetes mellitus with other specified complication, without long-term current use of insulin ([facility]) Administer 1 drop into both eyes 2 times daily. 5 mL 2 023 Active Blood Pressure Monitor kitIndications: Essential hypertension Use once a day 1 kit 023 Active hydrOXYzine pamoate (Vistaril) 25 MG capsuleIndicati ons:Diabetic dermopathy (CMS/HCC) ([facility]) TAKE 1 CAPSULE BY MOUTH AT BEDTIME FOR 28 DAYS. 28 capsule 023 Active Continuous Blood Gluc Commercial Intelligence Manager (FreeStyle Deven 2 [place]) deviceIndicatio ns:Type 2 diabetes mellitus with hyperglycemia, without long-term current use of insulin ([facility]) Use to scan sensor at least every [...] polyneuropathy, with long-term current use of insulin ([facility]) USE DIRECTED TO TEST BLOOD SUGAR THREE TIMES DAILY DIRECTED 50 strip 025 Active Tirzepatide (Mounjaro) 7.5 MG/0.5ML solution auto-injectorIn dications:Type 2 diabetes mellitus with diabetic polyneuropathy, with long-term current use of insulin ([facility]) Inject 7.5 mg under the skin 1 (one) time per week. 2 mL 2025 Active Jardiance 25 MGIndications:T ype 2 diabetes mellitus with diabetic polyneuropathy, with long-term current use of insulin ([facility]) TAKE 1 TABLET BY MOUTH EVERY MORNING 30 tablet 025 Active cetirizine (ZyrTEC) 10 MG tabletIndicatio ns:Type 2 diabetes mellitus with other specified complication, without long-term current use of insulin ([facility]) TAKE 1 TABLET BY MOUTH EVERY MORNING 90 tablet 1 025 Active atorvastatin (Lipitor) 40 MG tablet TAKE 1 TABLET BY MOUTH AT BEDTIME 90 tablet 025 Active Continuous Glucose Sensor (FreeStyle Deven 2 Sensor) miscIndications :Type 2 diabetes mellitus with diabetic polyneuropathy, with long-term current use of insulin ([facility]) USE DIRECTED TO TEST BLOOD SUGAR CHANGE EVERY 14 DAYS 2 each 025 Active hydroCHLOROthia zide (HYDRODiuril) 25 MG tabletIndicatio ns:Primary hypertension TAKE 1 TABLET BY MOUTH EVERY MORNING 90 tablet 3 06/23/2 025 Active metFORMIN XR (Glucophage-XR) 500 MG 24 hr tabletIndicatio ns:Type 2 diabetes mellitus with diabetic polyneuropathy, with long-term current use of insulin ([facility]) TAKE 1 TABLET BY MOUTH TWICE DAILY IN THE MORNING AND IN THE EVENING WITH MEALS DO NOT BREAK, CRUSH, DISSOLVE OR CHEW 180 tablet 3 Active amitriptyline (Elavil) 50 MG tablet TAKE 1 TABLET BY MOUTH AT BEDTIME 90 tablet 1 Active Pentips Generic Pen [place] 32G X 4 MM miscIndications :Type 2 diabetes mellitus with diabetic polyneuropathy, with long-term current use of insulin ([facility]) USE DIRECTED WITH INSULIN EVERY DAY 100 each 3 Active insulin degludec (Tresiba FlexTouch) 200 UNIT/ML injectionIndica tions:Type 2 diabetes mellitus with diabetic polyneuropathy, with long-term current use of insulin ([facility]) INJECT 64 SUBCUTANEOUSLY EVERY DAY 9 mL 5 Active DULoxetine (Cymbalta) [address] capsuleIndicati ons:Type 2 diabetes mellitus with other specified complication, without long-term current use of insulin ([facility]) TAKE 1 CAPSULE BY MOUTH EVERY MORNING [...] without long-term current use of insulin ([facility]) TAKE 1 CAPSULE BY MOUTH EVERY MORNING [...] to CB as needed, and Information on [facility] provided. Santy agrees to contact [facility] to schedule intake. 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 (CMS/HCC); Chronic low back pain, unspecified back pain laterality, unspecified whether sciatica present; Depression with anxiety 11/22/2024 Travel 11/20/2024 Refill [facility] MEDICINE [address] [place] [address] NameJose MD Type 2 diabetes mellitus with other specified complication, without long-term current use of insulin (CMS/HCC) 10/31/2024 9:30 AM EDT Office Visit [facility] OPTOMETRY [address] [place] [address] TomMiguel Angeln, OD 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 ([facility]) (Primary Dx); Early cataracts, bilateral; Dry eye syndrome of both eyes 10/31/2024 Travel 10/17/2024 Refill [facility] MEDICINE [address] [place] [address] Jose Lewis MD Type 2 diabetes mellitus with diabetic polyneuropathy, with long-term current use of insulin ([facility]) 10/16/2024 Refill [facility] MEDICINE [address] [place] [address] Jose Lewis MD Type 2 diabetes mellitus with diabetic polyneuropathy, with long-term current use of insulin ([facility]) 10/04/2024 Telephone [facility] MEDICINE [address] [place] [address] Jose Lewis MD Prior Authorization 09/26/2024 Refill [facility] MED & PEDS [address] [place], [place] [phone] Jose Lewis MD 09/17/2024 Refill [facility]EDS [address] [place], [place] [phone] Jose Lewis MD Primary hypertension; Type 2 diabetes mellitus with diabetic polyneuropathy, with long-term current use of insulin ([facility]) 08/29/2024 Refill [facility] MEDICINE [address] [place] [address] Jose Lewis MD Type 2 diabetes mellitus with diabetic polyneuropathy, with long-term current use of insulin ([facility]) from Last 3 Months Immunizations Immunization Administration [...] Description 02/20/2025 11:30 AM EST Office Visit [facility] MEDICINE [address] [place] [address] Name, MD Jose [address] [place] [address] 05/06/2025 9:30 AM EST Office Visit [facility] OPTOMETRY [address] [place] [address] Shell Santos, OD [address] [place] [address] Health Maintenance Due Date Last Done Comments [...] polyneuropathy, with long-term current use of insulin ([facility]) POCT GLUCOSE Routine 11/22/2024 11:34 AM EDT Type 2 diabetes mellitus with diabetic polyneuropathy, with long-term current use of insulin ([facility]) OCT, RETINA - OU - BOTH EYES [...] 9:12 AM EDT) Creatinine, Urine 91.71 mg/dL [facility] Microalbumin Urine 7.0 mg/L H [facility] Microalbum Creatinine Ratio Ur 7.6 <30 ug/mg cr [facility] Comment:Albumin/Creatinine R atio Reference Ranges: Normal: < 30 ug/mg creatinine Microalbuminuria: 30 - 300 ug/mg creatinineClinical Albuminuria: > 300 ug/mg creatinine Urine (Urine, Random) 08/07/2024 9:12 AM EDT 08/07/2024 11:22 AM EDT us Jose Lewis MD LAB URINE ORDERABLES Final Resul t [facility] [address] [place] [phone] * Lipid Panel, Standard (08/07/2024 9:12 AM EDT) Triglycerides 106 <150 mg/dL [facility] Comment:Desirable Triglyceri de: less than 150 mg/dLBorderline High Triglyceride 150-199 mg/dLHigh Triglyceride: 200-499 mg/dLVery High Triglyceride: greater than or equal to 5OO mg/dL Cholesterol 103 <200 mg/dL [facility] Comment:Desirable Cholestero l: less than 200 mg/dLBorderline High Cholesterol: 200-239 mg/dLHigh Cholesterol: greater than 239 mg/dL LDL Cholesterol Calculated 33 <100 mg/dL [facility] Comment:Desirable LDL: less than 100 mg/dLNear Optimal/Above Optimal LDL: 110- 129 mg/dLBorderline High LDL: 130-159 mg/dLHigh LDL: 160-189 mg/dLVery High LDL: greater than or equal to 190 mg/dL HDL Cholesterol 49 >40 mg/dL [facility] Comment:Desirable HDL: great er than 40 mg/dL Note: This HDL assay may give artificially low results in patients with liver disease. Blood Venous blood specimen / Unknown 08/07/2024 9:12 AM EDT 08/07/2024 11:23 AM EDT us Jose Lewis MD LAB BLOOD ORDERABLES Final Resul t [facility] [address] [place] [phone] * Colonoscopy (07/03/2024) Colonoscopy Normal Normal Comment:Haroldo at [facility], sub optima prep, no polyps, repeat in 5 years 07/03/2024 John Harrington MD HEALTH MAINTENANCE Final Result * HIV-1/2 Antigen and Antibodies, Fourth Generation, with Reflexes (08/30/2023 10:51 AM EDT) HIV AB/AG Nonreactive Nonreactive [facility] Comment:HIV-1 p24 Ag and/or HIV-1/HIV-2 Ab not detected.A test result that is nonreactive does not exclude thepossibility of exposure to or infection with HIV-1 and/orHIV-2. Nonreactive results in this assay for individualswith prior exposure to HIV-1 and/or HIV-2 may be due toantigen and antibody levels that are below the limit ofdetection of this assay.The Second [employer] HIV Ag/Ab Combo assay result andsupplemental assay results should be interpreted inconjunction with the patient's clinical presentation,history and other laboratory results. If the results areinconsistent with clinical evidence, additional testing issuggested to confirm the result. Blood Venous blood specimen / Unknown 08/30/2023 10:51 AM EDT 08/30/2023 12:01 PM EDT us Jose Lewis MD LAB BLOOD ORDERABLES Final Resul t [facility] [address] [place] [address] [phone] * HEPATITIS C AB W/REFL TO HCV RNA, QN, PCR (07/23/2020 3:34 PM EDT) HEPATITIS C ANTIBODY NON-REACT [facility] NON-REACT [facility] INDEX 0.01 <1.00 [facility] Comment: HCV antibody was non-reactive. There is no laboratory evidence of HCV infection. In most cases, no further action is required. However, if recent HCV exposure is suspected, a test for HCV RNA (test code 06769) is suggested. For additional information please refer to http://[employer].adQ/faq/OQD69w7 (This link is being provided for informational/ educational purposes only.) 07/23/2020 3:34 PM EDT us Historical Provider MD HISTORICAL/NON ORDERABLE LABS Final Result [facility] [address] from Last 3 Months or Most Recently Relevant to Health Maintenance Insurance [facility] C3 Care Teams Director Of Environmental Services Relationship Specialty Start Date End Date Name, MD Jose [address] [place] [address] PCP - General Internal Medicine 03/17/22 Steff Romero, HeD [address] [place] [address] Pharmacist Internal Medicine 09/14/22
--- OUTSIDE RECORDS SUMMARY | 2024-11-27 15:00 | XMS_ITS | Encounter Summary ---
Author Organization [employer] Address [address] [facility] 7t [place] [address] Care Team Providers Care Melt Down Furnace Operator Name Role Phone Name, Jose MOSQUERA Primary Care Provider [phone] Steff Romero PharmD Unavailable [phone] Reason for Visit * Reason Comments Med Refill Encounter Details Date Type Department Care Team ([facility] Contact Info) Description 01/30/2023 Refill [facility] MEDICINE [address] [place] [address] Sarah Benito FNP [address] [place], [place] [phone] Social History Tobacco Use Types Packs/Day Years [...] Description 02/20/2025 11:30 AM EST Office Visit [facility] MEDICINE [address] [place] [address] Name, MD Jose [address] [place] [address] 05/06/2025 9:30 AM EST Office Visit [facility] OPTOMETRY [address] [place] [address] Tom, Shell, OD [address] [place] [address] documented as of this encounter Goals Goal [...] on filedocumented in this encounter Care Teams Melt Down Furnace Operator Relationship Specialty Start Date End Date Name, MD Jose [address] [place] [address] PCP - General Internal Medicine 03/17/22 Steff Romero PharmD [address] [place] [address] Pharmacist Internal Medicine 09/14/22 documented as of this encounter
--- OUTSIDE RECORDS SUMMARY | 2024-11-27 15:00 | XMS_ITS | Encounter Summary ---
Author Organization [employer] Address [address] [place] [address] 7[address] [place] [address] Care Team Providers Care Surveyor Rod Helper Name Role Phone Name, Jose MOSQUERA Primary Care Provider [phone] Steff Romero PharmD Unavailable [phone] Encounter Details Date Type Department Care [...] Description 02/20/2025 11:30 AM EST Office Visit [facility] MEDICINE [address] [place] [address] Name, MD Jose [address] [place] [address] 05/06/2025 9:30 AM EST Office Visit [facility] OPTOMETRY [address] [place] [address] Tom, Shell, OD [address] [place] [address] documented as of this encounter Goals Goal [...] documented as of this encounter Care Teams Surveyor Rod Helper Relationship Specialty Start Date End Date Name, MD Jose [address] [place] [address] PCP - General Internal Medicine 03/17/22 Steff Romero PharmD [address] [place] [address] Pharmacist Internal Medicine 09/14/22 documented as of this encounter
== END 2024-11-27 15:02 | disposition home or self-care (01) ==
LOC: HO.PMCPRC 13:45
PROVIDERS: PCP Internal Medicine Geriatric Medicine; Visit Provider Anesthesiology
DX: M47.816 Spondylosis without myelopathy or radiculopathy, lumbar region (principal)
CPT/HCPCS: 64493; 64494

== ENCOUNTER 2024-11-30 10:29 | Outpatient (AMB) | payer MEDICAID, SELFPAY ==
[2024-11-30 10:34] VITALS: BP 118/83; PULSE 105; RESP 16; O2SAT 97; BMI 33.4
--- NOTE | 2024-11-30 10:34 | A.OFFVIS_ITS ---
Vital Signs 3 11/30/24 10:34 Height 5 ft 9 in Weight 226 lb BMI 33.4 BP 118/83 Blood Pressure Location Lt brachial Position Sitting Respiration 16 Pulse 105 H Pulse Source Pulse Oximeter Pulse Oximetry (%) 97 Oxygen Delivery Method Room Air Intake Visit Reasons: S/P Bilateral Diagnostic L3-L4-DR L5 MBB [employer] Required: No Allergies No Known Allergies Allergy (Verified 11/30/24 10:36) Medication List - Last Reconciled 11/30/24 by Wanda Cano LPN amitriptyline 50 mg PO BEDTIME amlodipine 10 mg PO QAM atorvastatin 40 mg PO DAILY blood sugar diagnostic (FreeStyle Lite Strips) As directed celecoxib 200 mg (2 x 100 mg) PO DAILY 7 days cetirizine 10 mg PO QAM cholecalciferol (vitamin D3) 50 mcg PO BID duloxetine 60 mg PO DAILY empagliflozin (Jardiance) 25 mg PO QAM hydrochlorothiazide 25 mg PO DAILY insulin degludec (Tresiba FlexTouch U-200 insulin) 64 units subcut DAILY lisinopril 40 mg PO DAILY metformin ER 500 mg PO BID pantoprazole 40 mg PO DAILY tirzepatide (Mounjaro) 5 mg subcut QWEEK HPI Comments Details: The patient is a 49-year-old male presenting with axial and discogenic low back pain. The pain has been persistent despite recent bilateral diagnostic L3-L4-L5 medial branch blocks performed on November 27, which provided no relief. The patient reports the pain level remained at 8 out of 10 post-procedure, with no improvement in daily functioning or sleep quality. The patient's MRI from August revealed multifactorial back pain, including degenerative disc disease, notably at L5-S1, arthritis, and minimal disc bulges. The pain is exacerbated by bending forward and sitting, getting up from sitting to standing, causing significant discomfort. Previous physical therapy sessions were discontinued due to lack of improvement after seven treatments in summer. The patient has a history of diabetes mellitus, with a recent A1c level of approximately 5, indicating good glycemic control. The patient has been advised to maintain an active lifestyle and consider weight loss to improve muscle support for the back. Past Procedures: 11/27/24: Bilateral Diagnostic L3-L4 DR L5 MBB- 0% pain relief PRIOR: The patient is a 49-year-old male presenting with chronic back pain and left foot pain and to discuss recent lumbar spine MRI results. The back pain is primarily attributed to disc degeneration and arthritis in the facet joints, as confirmed by MRI imaging. Additionally, a hemangioma at T12-L1 was noted, but the patient denies any recent back injury or accident. The patient reports that leaning backwards or standing upright exacerbates the pain, as well as his daily activities and most movements. Previous physical therapy did not provide significant relief. The patient also reports left foot pain, which has been present since last week and is causing limping. Pain is present with movements, walking and first thing in the morning but eases as he walks. The pain is located at the bottom of the foot, and the patient has been attempting home remedies such as stretching exercises, massage, and warm water soaks without relief. A possible bone spur is suspected, and an x-ray has been ordered to confirm this. He has pending Podiatry referral. - Onset: Chronic back pain with recent onset of left foot pain since last week - Quality: Back pain exacerbated by leaning backwards or standing upright; foot pain causing limping - Location: Back pain primarily in the lower back; foot pain at the bottom of the left foot - Exacerbating factors: Leaning backwards, standing upright - Relieving factors: None noted for back pain; home remedies attempted for foot pain without relief - Affect: Negative impact on mood or psychological wellbeing due to chronic pain - Analgesia: No current pain medications discussed; goal is to confirm pain source with injections - Adverse Effects: None discussed - Activities of Daily Living: Pain causing limping and affecting mobility - Aberrant Drug Related Behaviors: None discussed PRIOR: The patient is a 49-year-old male presenting with a follow-up for chronic back pain. He reports persistent pain traversing the lower back with increased severity when performing activities such as walking or turning at night. His condition shows minimal relief with prior physical therapy conducted in February 2023 through March 2023. The pain occasionally radiates to the thighs, presenting numbness during severe exacerbations. The patient also experiences diabetic peripheral neuropathy, contributing to significant bilateral foot pain characterized by swelling and burning sensations, especially at night. Previous attempts to manage the neuropathy with medications like gabapentin and pregabalin led to insufficient relief and issues like drowsiness. Reports recent penile implant for erectile dysfunction on 08/14/[address] Carlson, otherwise denies any recent cough, cold, infection, fever or any other significant changes in medical history since last office visit. - Onset and Timing: Chronic in nature - Quality and Character: Transverse band-like pain across the lower back - Primary Location: Lower back - Radiation: Occasional radiation to the thighs, experienced as numbness - Exacerbating Factors: Movement, bending, walking, lying down - Relieving Factors: None specified - Functional Impact: Affects sleep, needs movement during nocturnal pain episodes - Affect: Pain is impacting sleep and daily functionality - Analgesia: Prior use of gabapentin and pregabalin; currently experiencing pain despite prior therapies (NSAIDs, PT, duloxetine) - Adverse Effects: Drowsiness with gabapentin; ineffectiveness with pregabalin - Activities of Daily Living: Pain interferes with daily mobility and rest - Aberrant Drug Related Behaviors: None reported PRIOR 01/17/23: Patient is a pleasant 47 years old male presents today for follow up for low back pain. Patient reports he attempted physical therapy last summer but had to discontinue it due to COVID illness. Denies any recent trauma, injury or falls. Patient reports lower back pain that radiates to across his low back and into his sacral regions, worse on the left side. He continues to have significant tenderness in the projection of both sacroiliac joints and muscle spasms. Patient reports Tylenol #3 (moderate benefit in the past), Ibuprofen and tizanidine has been helpful. Occasionally pain will radiate to both lateral hips. Patient reports chronic burning, tingling and numbness pain in both his feet, worse at night due to diabetic neuropathy. Most recent A1C was 8.6 per patient. He is interested to retrial formal course of PT and establish HEP prior to interventional treatments. Denies any fever, weight loss, weakness, abdominal or groin pain, foot drop, bladder or bowel dysfunction, or saddle anesthesia. PRIOR 10/07/21 Shey RIDERP: Santy returns to review response to tizandine and TENS unit. He reports partial relief with tizanidine without side effects as well as notable relief with the TENS unit. He did state he would like to attempt PT again. He previously had PT where he attended 4 sessions prior to being discharged and reported only having massage and heat performed. I will enter this referral. He will follow up after PT to review response. PRIOR: Santy is a pleasant 46 year old who male presents today to the office today with complaints of low back pain as well as bilateral lower extremitiy pain. He states the pain is chronic and has been progressively worsening of the past few months. He denies any inciting events for his back pain. He attributes his BLE to diabetic neuropathy. He describes a stabbing, pins and needles sensation as well as numbness and coolness of bilateral feet which radiates to the calf. His low back pain travels across the lower back without any numbness, tingling, saddle anesthesia or bowel/bladder dysfunction. He does describe a soreness throughout bilateral thighs with intermittent weakness throughout BLE. He was referred here by vascular as they could not find a vascular component contributing to his symptoms. They did send him for a lumbar spine MRI, report dictated below, which did not reveal any overt stenosis or nerve root compression. He reports pain onset was gradual, constant and rates the pain a 6-10/10. He states the pain is interfering with sleep, activities of daily living and he cannot function normally. He also notes that he can not walk around barefoot due to pain. The patient reports the pain in terms of tissue damage as stabbing, aching and throbbing. The pain is exacerbated by prolonged standing as well as transitioning from a sitting to standing positions and ambulating. He notes that can only ambulate about ten minutes before needing to rest due to pain. He has also tried topicals, NSAIDS, heat/ice and tylenol#3 with minimal effect. He is prescribed cymbalta for depression and amitriptyline as a neuromodulator, but he believes he ran out of these medications and can not recall his dosages. He has a follow up with his PCP this week to renew his medications. He has attempted physical therapy at [facility] in the past with minimal alleviation in symptoms. Denies any chiropractic manipulation, massage or acupuncture. Denies any previous back injections or surgery. [facility] Medical History Atypical chest pain Colon cancer screening Asthma High cholesterol Diabetic polyneuropathy Diabetes mellitus, type II Erectile dysfunction Surgical History Hx of colonoscopy (07/03/24) No pertinent past surgical history Family History Mother CAD (coronary artery disease) Father Diabetes Social History Household Members: None Housing: House Alcohol intake: current Alcohol intake frequency: does not drink Alcohol type: beer and hard liquor Patient Tobacco Use Status: Never used Tobacco Review of Systems Const All systems reviewed & are unremarkable except as noted in HPI and below Physical Exam Vital Signs: Last Vital Signs Pulse 105 H 11/30/24 10:34 Resp 16 11/30/24 10:34 BP 118/83 11/30/24 10:34 Pulse Ox 97 11/30/24 10:34 Oxygen Delivery Method Room Air 11/30/24 10:34 BMI result Body Mass Index 33.4 General: Appears afebrile. Alert and oriented. Mood and affect appropriate. Follows and participates in conversation appropriately. Respiratory effort is unlabored. No cough. Able to transition from sit to stand unassisted. Ambulates with bilaterally normal heel strike and toe off. General: Yes no CVA tenderness Back/Spine/Pelvis Other: Limited lumbar ROM due to pain. Lumbar extension reproduces mild pain, lumbar flexion and bending forward reproduces moderate to severe pain. Demonstrates 5/5 strength of quadriceps bilaterally as well as flexion/dorsiflexion of bilateral feet against resistance. +2 DTR intact and symmetrical. Theodore test, Stinchfield test, Gaenslen, Pelvic compression test + bilaterally, left>right. Facet loading test + bilaterally. Back: no CVA tenderness and No back tenderness Cervical Spine: cervical ROM normal, cervical muscular tenderness and No Cervical spine tenderness Thoracic/Lumbar Spine: thoracic and lumbar spine normal to inspection, No Thoracic/lumbar spine scar(s), Lasegue's sign negative, straight leg raise negative bilaterally, pain with thoraco-lumbar ROM, paraspinal muscle tenderness, thoraco-lumbar ROM limited, No thoracic spinal tenderness and lumbar spinal tenderness (L5-S1) Pelvis: buttock tenderness bilaterally Sacroiliac joints: bilaterally tender to palpation Extrem General: Yes capillary refill normal, Yes no clubbing, cyanosis or edema and Yes no calf tenderness Left lower extremity: foot Details: normal capillary refill, normal to inspection, tenderness Location: of the plantar foot and of the calcaneus, toes with normal ROM and no edema; no unusual warmth, no ecchymosis and no crepitus Results Reviewed Results Reviewed: XR LUMBOSACRAL SPINE 10/07/22 FINDINGS: The vertebral bodies and posterior elements are notable for generalized minor endplate spurring.. The disc spaces are preserved and the vertebral alignment is normal. The paraspinal soft tissues are normal. IMPRESSION: Mild degenerative disc disease as above. MR lumbar spine wo con 09/22/24 Findings: lumbar alignment is maintained. Vertebral body height is maintained. No bone marrow edema. Small round left L3 T1 and T2 hyperintense lesion on the left side of the vertebral body suggestive of hemangioma versus focal fat Distal conus appears unremarkable terminating at T12-L1. Degenerative disc disease at L5-S1 and L5-S1 facet arthropathy. Minimal disc bulges at L4-5 and L5-S1. No focal disc herniation and no significant canal or foraminal stenosis. Paraspinous musculature intact. IMPRESSION: 1.No acute findings. 2. L5-S1 degenerative disc disease and facet arthropathy. 3. No significant spinal canal or neural foraminal stenosis in the lumbar spine. Assessment & Plan Assessment & Plan (1) Spondylosis of lumbar spine: Code(s): M47.816 - Spondylosis without myelopathy or radiculopathy, lumbar region Category: Medical (2) Lumbar degenerative disc disease: Code(s): M51.36 - Other intervertebral disc degeneration, lumbar region Category: Medical (3) Vertebrogenic low back pain: Code(s): M54.51 - Vertebrogenic low back pain Category: Medical Plan The plan involves addressing the patient's discogenic low back pain. HIs axial low back pain is not his main pain generator as it has not responded to recent diagnostic lumbar medial branch block injections. A therapeutic steroid injection at the L5-S1 level is proposed to potentially provide three months of pain relief. If the steroid injection is ineffective, referral to a Neurosurgeon will be considered for further evaluation. Schedule Bilateral L5-S1 TFESI with local and fluoroscopy. Expectations, risks and benefits were reviewed. Patient is aware he will be contacted to schedule this procedure. Patient is aware of hyperglycemic effects of steroids. The patient is encouraged to engage in weight loss and muscle strengthening exercises to improve back support. Physical therapy will be reconsidered a month after the injection, potentially with a different provider to enhance outcomes. All questions and concerns have been answered and patient agreed with the treatment plan. Follow up for and sooner as needed. Patient was informed and verbally consented to the use of an ambient scribe for clinic note documentation during this visit. Patient Instructions: - Schedule a therapeutic epidural steroid injection at L5-S1. - Engage in regular physical activity and consider weight loss to strengthen back muscles and core. - Follow up in one month to assess response to the injection and discuss further physical therapy options. Coding Level of Care Code Est Pt Level 4 (92463) Complex EM visit Add On G2211 Diagnoses Spondylosis of lumbar spine M47.816 Lumbar degenerative disc disease M51.36 Vertebrogenic low back pain M54.51
--- OUTSIDE RECORDS SUMMARY | 2024-11-30 11:31 | XMS_ITS | Encounter Summary ---
Author Organization [employer] Address [address] [place] [address] Care Team Providers Care Road Crew Member Name Role Phone Name, Jose MOSQUERA Primary Care Provider [phone] Steff Romero PharmD Unavailable [phone] Reason for Visit * Reason Comments Med Refill Encounter Details Date Type Department Care Team ([facility] Contact Info) Description 01/30/2023 Refill [facility] [address] [place] [address] Sarah Benito FNP [address] [place], [place] [id number] Social History Tobacco Use Types Packs/Day Years [...] Description 02/20/2025 11:30 AM EST Office Visit [facility] [address] [place] [address] Name, MD Jose [address] [place] [address] 05/06/2025 9:30 AM EST Office Visit [facility] [address] [place] [address] Tom, Shell, OD [address] [place] [address] documented as of this encounter Goals Goal [...] on filedocumented in this encounter Care Teams Road Crew Member Relationship Specialty Start Date End Date Name, MD Jose [address] [place] [address] PCP - General Internal Medicine 03/17/22 Steff Romero PharmD [address] [place] [address] Pharmacist Internal Medicine 09/14/22 documented as of this encounter
--- OUTSIDE RECORDS SUMMARY | 2024-11-30 11:31 | XMS_ITS | Encounter Summary ---
Author Organization [employer] Address [address] [place] [address] [address] [place] [address] Care Team Providers Care Auditing Control Clerk Name Role Phone Name, Jose MOSQUERA Primary Care Provider [phone] Steff Romero PharmD Unavailable [phone] Reason for Visit * Reason Comments Med Refill Encounter Details Date Type Department Care Team (Late Contact Info) Description 12/02/2022 Refill [facility] [address] [place] [address] Gita Joshi FNP Gastroesophageal reflux disease without [...] Upcoming Encounters Date Type Department Care Team ([facility] Contact Info) Description 02/20/2025 11:30 AM EST Office Visit [facility] [address] [place], [place] [id number] Name, MD Jose [address] [place] [address] 05/06/2025 9:30 AM EST Office Visit [facility] [address] [place] [address] Shell Santos, OD [address] [place] [address] documented as of this encounter Goals Goal [...] reflux documented in this encounter Care Teams Auditing Control Clerk Relationship Specialty Start Date End Date Name, MD Jose [address] [place] [address] PCP - General Internal Medicine 03/17/22 Puia, Steff, PharmD [address] [place] [address] Pharmacist Internal Medicine 09/14/22 documented as of this encounter
--- OUTSIDE RECORDS SUMMARY | 2024-11-30 11:31 | XMS_ITS | Clinical Summary ---
Author Organization [employer] Address [address] [place] [address] [address] [place] [address] Care Team Providers Care Photolettering Machine Operator Name Role Phone Name, Jose MOSQUERA Primary Care Provider [phone] Steff Romero PharmD Unavailable [phone] Allergies No known active allergies Medications * This document contains information received from the source organization and may not represent a complete record from that organization. ketotifen (Zaditor) 0.025 % ophthalmic solutionIndicat ions:Type 2 diabetes mellitus with other specified complication, without long-term current use of insulin ([facility]) Administer 1 drop into both eyes 2 times daily. 5 mL 2 023 Active Blood Pressure Monitor kitIndications: Essential hypertension Use once a day 1 kit 023 Active hydrOXYzine pamoate (Vistaril) 25 MG capsuleIndicati ons:Diabetic dermopathy (CMS/HCC) ([facility]) TAKE 1 CAPSULE BY MOUTH AT BEDTIME FOR 28 DAYS. 28 capsule 023 Active Continuous Blood Gluc Back Shoe Worker (FreeStyle Deven 2 Sparks) deviceIndicatio ns:Type 2 diabetes mellitus with hyperglycemia, without long-term current use of insulin ([facility]) Use to scan sensor at least every [...] polyneuropathy, with long-term current use of insulin ([facility]) USE DIRECTED TO TEST BLOOD SUGAR THREE TIMES DAILY DIRECTED 50 strip 025 Active Tirzepatide (Mounjaro) 7.5 MG/0.5ML solution auto-injectorIn dications:Type 2 diabetes mellitus with diabetic polyneuropathy, with long-term current use of insulin ([facility]) Inject 7.5 mg under the skin 1 (one) time per week. 2 mL 2025 Active Jardiance 25 MGIndications:T ype 2 diabetes mellitus with diabetic polyneuropathy, with long-term current use of insulin ([facility]) TAKE 1 TABLET BY MOUTH EVERY MORNING 30 tablet 025 Active cetirizine (ZyrTEC) 10 MG tabletIndicatio ns:Type 2 diabetes mellitus with other specified complication, without long-term current use of insulin ([facility]) TAKE 1 TABLET BY MOUTH EVERY MORNING 90 tablet 1 025 Active atorvastatin (Lipitor) 40 MG tablet TAKE 1 TABLET BY MOUTH AT BEDTIME 90 tablet 025 Active Continuous Glucose Sensor (FreeStyle Deven 2 Sensor) miscIndications :Type 2 diabetes mellitus with diabetic polyneuropathy, with long-term current use of insulin ([facility]) USE DIRECTED TO TEST BLOOD SUGAR CHANGE EVERY 14 DAYS 2 each 025 Active hydroCHLOROthia zide (HYDRODiuril) 25 MG tabletIndicatio ns:Primary hypertension TAKE 1 TABLET BY MOUTH EVERY MORNING 90 tablet 3 06/23/2 025 Active metFORMIN XR (Glucophage-XR) 500 MG 24 hr tabletIndicatio ns:Type 2 diabetes mellitus with diabetic polyneuropathy, with long-term current use of insulin ([facility]) TAKE 1 TABLET BY MOUTH TWICE DAILY IN THE MORNING AND IN THE EVENING WITH MEALS DO NOT BREAK, CRUSH, DISSOLVE OR CHEW 180 tablet 3 Active amitriptyline (Elavil) 50 MG tablet TAKE 1 TABLET BY MOUTH AT BEDTIME 90 tablet 1 Active Pentips Generic Pen Leonard 32G X 4 MM miscIndications :Type 2 diabetes mellitus with diabetic polyneuropathy, with long-term current use of insulin ([facility]) USE DIRECTED WITH INSULIN EVERY DAY 100 each 3 Active insulin degludec (Tresiba FlexTouch) 200 UNIT/ML injectionIndica tions:Type 2 diabetes mellitus with diabetic polyneuropathy, with long-term current use of insulin ([facility]) INJECT 64 SUBCUTANEOUSLY EVERY DAY 9 mL 5 Active DULoxetine (Cymbalta) [address] capsuleIndicati ons:Type 2 diabetes mellitus with other specified complication, without long-term current use of insulin ([facility]) TAKE 1 CAPSULE BY MOUTH EVERY MORNING [...] complication, without long-term current use of insulin ([facility]) TAKE 1 CAPSULE BY MOUTH EVERY MORNING [...] to CB as needed, and Information on [facility] provided. Santy agrees to contact [facility] to schedule intake. 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 (CMS/HCC); Chronic low back pain, unspecified back pain laterality, unspecified whether sciatica present; Depression with anxiety 11/22/2024 Travel 11/20/2024 Refill [facility] [address] [place] [address] NameJose MD Type 2 diabetes mellitus with other specified complication, without long-term current use of insulin (CMS/HCC) 10/31/2024 9:30 AM EDT Office Visit [facility] [address] [place] [address] Miguel Angel Santosn, OD 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 (CMS/HCC) (Primary Dx); Early cataracts, bilateral; Dry eye syndrome of both eyes 10/31/2024 Travel 10/17/2024 Refill [facility] [address] [place] [address] Jose Lewis MD Type 2 diabetes mellitus with diabetic polyneuropathy, with long-term current use of insulin ([facility]) 10/16/2024 Refill [facility] [address] [place] [address] Jose Lewis MD Type 2 diabetes mellitus with diabetic polyneuropathy, with long-term current use of insulin ([facility]) 10/04/2024 Telephone [facility] [address] [place] [address] Jose Lewis MD Prior Authorization 09/26/2024 Refill [facility] [address] [place], [place] [phone] Jose Lewis MD 09/17/2024 Refill [facility] [address] [place], [place] [phone] Jose Lewis MD Primary hypertension; Type 2 diabetes mellitus with diabetic polyneuropathy, with long-term current use of insulin ([facility]) from Last 3 Months Immunizations Immunization Administration [...] Description 02/20/2025 11:30 AM EST Office Visit [facility] [address] [place] [address] Name, MD Jose [address] [place] [address] 05/06/2025 9:30 AM EST Office Visit [facility] [address] [place] [address] Shell Santos, OD [address] [place] [address] Health Maintenance Due Date Last Done Comments CT Colonography 1974 FIT DNA/Cologuard 1974 FIT 1974 FOBT 1974 Sigmoidoscopy 1974 Family Planning (PISQ) 1989 Zoster Vaccines (1 of 2) 2024 Depression Monitoring 11/13/2024 05/16/2024, 025 Diabetes: Foot Exam 11/16/2024 11/17/2023, 11/17/2023, 11/17/2023, Additional history exists COVID-19 Vaccine ( season) 2024 Influenza Vaccine (#1) 2024 12/30/2015 Diabetes: Hemoglobin [...] use of insulin (CMS/HCC) POCT GLUCOSE Routine 11/22/2024 11:34 AM EDT [...] monitor here in 6 months as well. Result Marlene Santos OD OPHTH TOMOGRAPHY Final Result * Albumin, Random Urine W/Creatinine (08/07/2024 9:12 AM EDT) Creatinine, Urine 91.71 mg/dL [facility] Microalbumin Urine 7.0 mg/L [facility] Microalbum Creatinine Ratio Ur 7.6 <30 ug/mg cr [facility] Comment:Albumin/Creatinine R at Reference Ranges: Normal: < 30 ug/mg creatinine Microalbuminuria: 30 - 300 ug/mg creatinineClinical Albuminuria: > 300 ug/mg creatinine Urine (Urine, Random) 08/07/2024 9:12 AM EDT 08/07/2024 11:22 AM EDT us Jose Name MD LAB URINE ORDERABLES Final Resul t [facility] [address] [place] [phone] * Lipid Panel, Standard (08/07/2024 9:12 AM EDT) Triglycerides 106 <150 mg/dL [facility] Comment:Desirable Triglyceri de: less than 150 mg/dLBorderline High Triglyceride 150-199 mg/dLHigh Triglyceride: 200-499 mg/dLVery High Triglyceride: greater than or equal to 5OO mg/dL Cholesterol 103 <200 mg/dL [facility] Comment:Desirable Cholestero l: less than 200 mg/dLBorderline High Cholesterol: 200-239 mg/dLHigh Cholesterol: greater than 239 mg/dL LDL Cholesterol Calculated 33 <100 mg/dL [facility] Comment:Desirable LDL: less than 100 mg/dLNear Optimal/Above Optimal LDL: 110- 129 mg/dLBorderline High LDL: 130-159 mg/dLHigh LDL: 160-189 mg/dLVery High LDL: greater than or equal to 190 mg/dL HDL Cholesterol 49 >40 mg/dL [facility] Comment:Desirable HDL: great er than 40 mg/dL Note: This HDL assay may give artificially low results in patients with liver disease. Blood Venous blood specimen / Unknown 08/07/2024 9:12 AM EDT 08/07/2024 11:23 AM EDT us Jose Lewis MD LAB BLOOD ORDERABLES Final Resul t Performing Organization Address City/[facility]/ZIP Co de Phone Number [facility] [address] [place] [address] [phone] * Colonoscopy (07/03/2024) Colonoscopy Normal Normal Comment:Haroldo at [facility], sub optima prep, no polyps, repeat in 5 years 07/03/2024 [facility] Provider HEALTH MAINTENANCE Final Result * HIV-1/2 Antigen and Antibodies, Fourth Generation, with Reflexes (08/30/2023 10:51 AM EDT) HIV AB/AG Nonreactive Nonreactive [facility] Comment:HIV-1 p24 Ag and/or HIV-1/HIV-2 Ab not detected.A test result that is nonreactive does not exclude thepossibility of exposure to or infection with HIV-1 and/orHIV-2. Nonreactive results in this assay for individualswith prior exposure to HIV-1 and/or HIV-2 may be due toantigen and antibody levels that are below the limit ofdetection of this assay.The [employer] HIV Ag/Ab Combo assay result andsupplemental assay results should be interpreted inconjunction with the patient's clinical presentation,history and other laboratory results. If the results areinconsistent with clinical evidence, additional testing issuggested to confirm the result. Blood Venous blood specimen / Unknown 08/30/2023 10:51 AM EDT 08/30/2023 12:01 PM EDT us Jose Lewis MD LAB BLOOD ORDERABLES Final Resul t Performing Organization Address [facility]/ZIP Co de Phone Number [facility] [address] [place] [address] [phone] * HEPATITIS C AB W/REFL TO HCV RNA, QN, PCR (07/23/2020 3:34 PM EDT) HEPATITIS C ANTIBODY NON-REACT [facility] NON-REACT [facility] INDEX 0.01 <1.00 [facility] Comment: HCV antibody was non-reactive. There is no laboratory evidence of HCV infection. In most cases, no further action is required. However, if recent HCV exposure is suspected, a test for HCV RNA (test code 63082) is suggested. For additional information please refer to [email or web address] (This link is being provided for informational/ educational purposes only.) 07/23/2020 3:34 PM EDT us Historical Provider HISTORICAL/NON ORDERABLE LABS Final Result [facility] [address] from Last 3 Months or Most Recently Relevant to Health Maintenance Insurance [facility] C3 Care Teams Photolettering Machine Operator Relationship Specialty Start Date End Date Name, MD Jose [address] [place] [address] PCP - General Internal Medicine 03/17/22 Steff Romero, [place] [address] [place] [address] Pharmacist Internal Medicine 09/14/22
== END 2024-11-30 11:01 | disposition home or self-care (01) ==
LOC: HO.PMC 10:30
PROVIDERS: Visit Provider Nurse Practitioner Family
DX: M47.816 Spondylosis without myelopathy or radiculopathy, lumbar region (principal); M51.369 Other intervertebral disc degeneration, lumbar region without mention of lumbar back pain or lower extremity pain; M54.51 Vertebrogenic low back pain
CPT/HCPCS: 99214

== ENCOUNTER → 2024-11-30 10:29 | Outpatient (BNVA) | payer MEDICAID, SELFPAY | PROVIDERS: Visit Provider Nurse Practitioner Family | DX: M54.51 Vertebrogenic low back pain (principal); M51.369 Other intervertebral disc degeneration, lumbar region without mention of lumbar back pain or lower extremity pain; M47.816 Spondylosis without myelopathy or radiculopathy, lumbar region | CPT/HCPCS: 99212 ==

== ENCOUNTER 2025-01-08 06:20 | Outpatient (REF) | payer MEDICAID, SELFPAY ==
--- NOTE | ~2025-01-08 | FL_ITS ---
EXAMINATION: FL GUIDANCE ONLY HISTORY: M51.36 - Other intervertebral disc degeneration, lumbar region COMPARISON: None available. TECHNIQUE: Fluoroscopy time: 28.8 seconds. Cumulative Dose: 14.977 mGy. DAP: 5.5670 Gycm2 Images: 2. FINDINGS: Fluoroscopic spot films of the lumbar spine demonstrate needles and contrast material in the regions of the bilateral L5-S1 facet joints. FL/FL guidance in treatment room IMPRESSION: Fluoroscopy during procedure. Please see procedure report for additional information. Electronically signed by: Justin Painting MD 01/08/2025 03:47 PM EDT
--- OUTSIDE RECORDS SUMMARY | 2025-01-08 06:22 | XMS_ITS | Clinical Summary ---
Author Organization [employer] Address [address] [place] [address] 7[address] [place] [address] Care Team Providers Care Machine Stuffer Name Role Phone Name, Jose MOSQUERA Primary Care Provider [phone] Steff Romero PharmD Unavailable [phone] Allergies No known active allergies Medications * This document contains information received from the source organization and may not represent a complete record from that organization. ketotifen (Zaditor) 0.025 % ophthalmic solutionIndicat ions:Type 2 diabetes mellitus with other specified complication, without long-term current use of insulin (HCC) Administer 1 drop into both eyes 2 times daily. 5 mL 2 023 Active Blood Pressure Monitor kitIndications: Essential hypertension Use once a day 1 kit 023 Active hydrOXYzine pamoate (Vistaril) 25 MG capsuleIndicati ons:Diabetic dermopathy (HCC) TAKE 1 CAPSULE BY MOUTH AT BEDTIME FOR 28 DAYS. 28 capsule 023 Active Continuous Blood Gluc Correspondence Specialist (FreeStyle Deven 2 [place]) deviceIndicatio ns:Type 2 diabetes mellitus with hyperglycemia, without long-term current use of insulin (HCC) Use to scan sensor at least every 8 hours, as directed, for CGM 1 each 023 Active TRUEplus Lancets 33G misc Use to test blood sugar three times daily 100 each 11 023 Active Alcohol Swabs (Alcohol Prep) 70 % pads USE THREE TIMES DAILY 100 each 11 024 Active lisinopril 40 MG tablet TAKE 1 TABLET BY MOUTH AT BEDTIME 90 tablet 1 025 Active glucose blood (FreeStyle Precision Carter Test) test stripIndication s:Type 2 diabetes mellitus with diabetic polyneuropathy, with long-term current use of insulin ([facility]) USE DIRECTED TO TEST BLOOD SUGAR THREE TIMES DAILY DIRECTED 50 strip Active Tirzepatide (Mounjaro) 7.5 MG/0.5ML solution auto-injectorIn dications:Type 2 diabetes mellitus with diabetic polyneuropathy, with long-term current use of insulin ([facility]) Inject 7.5 mg under the skin 1 (one) time per week. 2 mL 2025 Active Jardiance 25 MGIndications:T ype 2 diabetes mellitus with diabetic polyneuropathy, with long-term current use of insulin ([facility]) TAKE 1 TABLET BY MOUTH EVERY MORNING 30 tablet Active cetirizine (ZyrTEC) 10 MG tabletIndicatio ns:Type 2 diabetes mellitus with other specified complication, without long-term current use of insulin ([facility]) TAKE 1 TABLET BY MOUTH EVERY MORNING 90 tablet Active atorvastatin (Lipitor) 40 MG tablet TAKE 1 TABLET BY MOUTH AT BEDTIME 90 tablet Active Continuous Glucose Sensor (FreeStyle Deven 2 Sensor) miscIndications :Type 2 diabetes mellitus with diabetic polyneuropathy, with long-term current use of insulin ([facility]) USE DIRECTED TO TEST BLOOD SUGAR CHANGE EVERY 14 DAYS 2 each Active hydroCHLOROthia zide (HYDRODiuril) 25 MG tabletIndicatio ns:Primary hypertension TAKE 1 TABLET BY MOUTH EVERY MORNING 90 tablet Active metFORMIN XR (Glucophage-XR) 500 MG 24 hr tabletIndicatio ns:Type 2 diabetes mellitus with diabetic polyneuropathy, with long-term current use of insulin ([facility]) TAKE 1 TABLET BY MOUTH TWICE DAILY IN THE MORNING AND IN THE EVENING WITH MEALS DO NOT BREAK, CRUSH, DISSOLVE OR CHEW 180 tablet Active amitriptyline (Elavil) 50 MG tablet TAKE 1 TABLET BY MOUTH AT BEDTIME 90 tablet 1 025 Active Pentips Generic Pen [place] 32G X 4 MM miscIndications :Type 2 diabetes mellitus with diabetic polyneuropathy, with long-term current use of insulin ([facility]) USE DIRECTED WITH INSULIN EVERY DAY 100 each 3 025 Active insulin degludec (Tresiba FlexTouch) 200 UNIT/ML injectionIndica tions:Type 2 diabetes mellitus with diabetic polyneuropathy, with long-term current use of insulin ([facility]) INJECT 64 SUBCUTANEOUSLY EVERY DAY 9 mL 5 Active DULoxetine (Cymbalta) [address] capsuleIndicati ons:Type 2 diabetes mellitus with other specified complication, without long-term current use of insulin ([facility]) TAKE 1 CAPSULE BY MOUTH EVERY MORNING 90 capsule 1 Active amLODIPine (Norvasc) 5 MG tablet Take 1 tablet (5 mg) by mouth Once per day. 30 tablet 025 2025 Active cholecalciferol (D3 Super Strength) 50 MCG (1999 UT) capsuleIndicati ons:Vitamin D deficiency TAKE 1 CAPSULE BY MOUTH TWICE DAILY IN THE MORNING AND AT BEDTIME 180 capsule 1 Active pantoprazole (ProtoNix) 40 MG EC tabletIndicatio ns:Gastroesopha geal reflux disease without esophagitis TAKE 1 TABLET BY MOUTH EVERY MORNING 90 tablet 1 Active famotidine (Pepcid) 20 MG tablet Take 1 tablet (20 mg) by mouth 2 times daily. 60 tablet 025 2025 Active pregabalin (Lyrica) 75 MG capsule Take 1 capsule (75 mg) by mouth 3 times daily. 90 capsule 025 2025 Active famotidine (Pepcid) 20 MG tablet Take 1 tablet (20 mg) by mouth 2 times daily. 60 tablet 024 2024 Discontinued(R eorder (will not trigger notification to Pharmacy)) cholecalciferol (D3 Super Strength) 50 MCG (1999 UT) capsuleIndicati ons:Vitamin D deficiency TAKE 1 CAPSULE BY MOUTH TWICE DAILY IN THE MORNING AND AT BEDTIME 180 capsule 1 025 2024 Discontinued pantoprazole (ProtoNix) 40 MG EC tabletIndicatio ns:Gastroesopha geal reflux disease without esophagitis TAKE 1 TABLET BY MOUTH EVERY MORNING 90 tablet 1 025 2024 Discontinued(R eorder (will not trigger notification to Pharmacy)) pregabalin (Lyrica) 75 MG capsule Take 1 capsule (75 mg) by mouth 3 times daily. 90 capsule 025 2024 Discontinued(R eorder (will not trigger notification to Pharmacy)) Active Problems Problem Noted Date Diagnosed Date Severe major depression (CMS/HCC) 05/05/2023 Assessment & Plan (05/05/2023 2:38 PM EST): Measurement Tools [Check all that apply and include scores] PHQ9, YISEL-7 PHQ9: 24 GAD7: 21 PLAN: (check all that apply) Behavioral Health Integration Plan Patient Self Plan Patient to utilize skills provided in intervention , Patient to reach out to [facility] as needed, and Information on [facility] provided. Santy agrees to contact [facility] to schedule intake. Behavioral Health Diagnoses At [...] organization. Date Type Department Care Team Description 12/20/2024 Refill [facility] [address] [place] [address] Name, MD Jose 12/20/2024 Telephone [facility] [address] [place] [address] Name, MD Jose 12/20/2024 Refill [facility] [address] [place] [address] Name, MD Jose 12/18/2024 Refill [facility] [address], [place] [phone] Berenice Herndon MD Vitamin D deficiency; Gastroesophageal reflux disease without esophagitis 12/18/2024 Refill [facility] [address] [place] [address] NameJose MD Gastroesophageal reflux disease without esophagitis 11/22/2024 11:15 AM EDT Office Visit [facility] [address] [place] [address] Jose Lewis MD Type 2 diabetes mellitus with diabetic polyneuropathy, with long-term current use of insulin ([facility]) (Primary Dx); 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 ([facility]); Chronic low back pain, unspecified back pain laterality, unspecified whether sciatica present; Depression with anxiety 11/22/2024 Travel 11/20/2024 Refill [facility] [address] [place] [address] NameJose MD Type 2 diabetes mellitus with other specified complication, without long-term current use of insulin ([facility]) 10/31/2024 9:30 AM EDT Office Visit [facility] [address] [place] [address] Tom, Shell, OD 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 ([facility]) (Primary Dx); Early cataracts, bilateral; Dry eye syndrome of both eyes 10/31/2024 Travel 10/17/2024 Refill [facility] [address] [place] [address] Jose Lewis MD Type 2 diabetes mellitus with diabetic polyneuropathy, with long-term current use of insulin ([facility]) 10/16/2024 Refill [facility] [address] [place] [address] Jose Lewis MD Type 2 diabetes mellitus with diabetic polyneuropathy, with long-term current use of insulin ([facility]) from Last 3 Months Immunizations Immunization Administration [...] Description 02/20/2025 11:30 AM EST Office Visit [facility] [address] [place] [address] Name, MD Jose [address] [place] [address] 05/06/2025 9:30 AM EST Office Visit [facility] [address] [place] [address] Tom, Shell, OD [address] [place] [address] Health Maintenance Due Date Last Done Comments [...] 6.2( 11:35 AM EDT) No Steff Romero PharmMallory Record your blood sugar as directed Result [...] polyneuropathy, with long-term current use of insulin ([facility]) POCT GLUCOSE Routine 11/22/2024 11:34 AM EDT Type 2 diabetes mellitus with diabetic polyneuropathy, with long-term current use of insulin ([facility]) OCT, RETINA - OU - BOTH EYES Routine 10/31/2024 9:30 AM EDT 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 (CMS/[facility]) ALBUMIN, RANDOM URINE W/CREATININE Routine 08/07/2024 9:12 [...] Media Lot # [id number] Lot# Expiration Date 72 Blood Capillary blood specimen / Unknown 11/22/2024 [...] 9:12 AM EDT) Creatinine, Urine 91.71 mg/dL [facility] Microalbumin Urine 7.0 mg/L [facility] Microalbum Creatinine Ratio Ur 7.6 <30 ug/mg cr [facility] Comment:Albumin/Creatinine R atio Reference Ranges: Normal: < 30 ug/mg creatinine Microalbuminuria: 30 - 300 ug/mg creatinineClinical Albuminuria: > 300 ug/mg creatinine Urine (Urine, Random) 08/07/2024 9:12 AM EDT 08/07/2024 11:22 AM EDT Jose Lewis MD LAB URINE ORDERABLES Final Resul t [facility] [address] [place] [address] [phone] * Lipid Panel, Standard (08/07/2024 9:12 AM EDT) Triglycerides 106 <150 mg/dL [facility] Comment:Desirable Triglyceri de: less than 150 mg/dLBorderline High Triglyceride 150-199 mg/dLHigh Triglyceride: 200-499 mg/dLVery High Triglyceride: greater than or equal to 5OO mg/dL Cholesterol 103 <200 mg/dL [facility] Comment:Desirable Cholestero l: less than 200 mg/dLBorderline High Cholesterol: 200-239 mg/dLHigh Cholesterol: greater than 239 mg/dL LDL Cholesterol Calculated 33 <100 mg/dL [facility] Comment:Desirable LDL: less than 100 mg/dLNear Optimal/Above Optimal LDL: 110- 129 mg/dLBorderline High LDL: 130-159 mg/dLHigh LDL: 160-189 mg/dLVery High LDL: greater than or equal to 190 mg/dL HDL Cholesterol 49 >40 mg/dL [facility] Comment:Desirable HDL: great er than 40 mg/dL Note: This HDL assay may give artificially low results in patients with liver disease. Blood Venous blood specimen / Unknown 08/07/2024 9:12 AM EDT 08/07/2024 11:23 AM EDT us Jose Lewis MD LAB BLOOD ORDERABLES Final Resul t [facility] [address] [place] [address] [phone] * Colonoscopy (07/03/2024) Colonoscopy Normal Normal Comment:Harold[facility] at [facility], sub optima prep, no polyps, repeat in 5 years 07/03/2024 John Harrington MD HEALTH MAINTENANCE Final Result * HIV-1/2 Antigen and Antibodies, Fourth Generation, with Reflexes (08/30/2023 10:51 AM EDT) HIV AB/AG Nonreactive Nonreactive [facility] Comment:HIV-1 p24 Ag and/or HIV-1/HIV-2 Ab not detected.A test result that is nonreactive does not exclude thepossibility of exposure to or infection with HIV-1 and/orHIV-2. Nonreactive results in this assay for individualswith prior exposure to HIV-1 and/or HIV-2 may be due toantigen and antibody levels that are below the limit ofdetection of this assay.The Dmailer HIV Ag/Ab Combo assay result andsupplemental assay results should be interpreted inconjunction with the patient's clinical presentation,history and other laboratory results. If the results areinconsistent with clinical evidence, additional testing issuggested to confirm the result. Blood Venous blood specimen / Unknown 08/30/2023 10:51 AM EDT 08/30/2023 12:01 PM EDT us Jose Lewis MD LAB BLOOD ORDERABLES Final Resul t [facility] [address] [place] [address] [phone] * HEPATITIS C AB W/REFL TO HCV RNA, QN, PCR (07/23/2020 3:34 PM EDT) HEPATITIS C ANTIBODY NON-REACT [facility] NON-REACT [facility] INDEX 0.01 <1.00 [facility] Comment: HCV antibody was non-reactive. There is no laboratory evidence of HCV infection. In most cases, no further action is required. However, if recent HCV exposure is suspected, a test for HCV RNA (test code 67492) is suggested. For additional information please refer to http://iConnectivity.Tzee/faq/AGH78y4 (This link is being provided for informational/ educational purposes only.) 07/23/2020 3:34 PM EDT us Historical Provider HISTORICAL/NON ORDERABLE LABS Final Result [facility] [address] from Last 3 Months or Most Recently Relevant to Health Maintenance Insurance [facility] C3 Care Teams Machine Stuffer Relationship Specialty Start Date End Date Name, MD Jose [address] [place] [address] PCP - General Internal Medicine 03/17/22 Steff Romero PharmD [address] [place], [place] [phone] Pharmacist Internal Medicine 09/14/22
--- OUTSIDE RECORDS SUMMARY | 2025-01-08 06:22 | XMS_ITS | Encounter Summary ---
Author Organization [employer] Address [address] [facility] [address]t [place] [address] Care Team Providers Care Inorganic Chemistry Professor Name Role Phone Name, Jose MOSQUERA Primary Care Provider [phone] Steff Romero PharmD Unavailable [phone] Reason for Visit * Reason Comments Med Refill Encounter Details Date Type Department Care Team ([facility] Contact Info) Description 01/30/2023 Refill [facility] [address] [place] [address] Sarah Benito FNP [address] [place], [place] [phone] Social History Tobacco Use Types Packs/Day Years [...] Description 02/20/2025 11:30 AM EST Office Visit [facility] [address] [place] [address] Name, MD Jose [address] [place] [address] 05/06/2025 9:30 AM EST Office Visit [facility] [address] [place] [address] Tom, Shell, OD [address] [place] [address] documented as of this encounter Goals Goal [...] on filedocumented in this encounter Care Teams Inorganic Chemistry Professor Relationship Specialty Start Date End Date Name, MD Jose [address] [place] [address] PCP - General Internal Medicine 03/17/22 Steff Romero PharmD [address] [place] [address] Pharmacist Internal Medicine 09/14/22 documented as of this encounter
--- OUTSIDE RECORDS SUMMARY | 2025-01-08 06:22 | XMS_ITS | Encounter Summary ---
Author Organization [email or web address] Address [address] [place] [address] 7t [place] [address] Care Team Providers Care Call Or Contact Centre Coach Name Role Phone Name, Jose MOSQUERA Primary Care Provider [phone] Steff Romero PharmD Unavailable [phone] Reason for Visit * Reason Comments Med Refill Encounter Details Date Type Department Care Team (Late Contact Info) Description 12/02/2022 Refill [facility] [address] [place] [address] Gita Joshi FNP Gastroesophageal reflux disease without [...] Upcoming Encounters Date Type Department Care Team ([facility] Contact Info) Description 02/20/2025 11:30 AM EST Office Visit [facility] [address] [place], [place] [phone] Name, MD Jose [address] [place] [address] 05/06/2025 9:30 AM EST Office Visit [facility] [address] [place] [address] Shell Santos, OD [address] [place] [address] documented as of this encounter Goals Goal [...] reflux documented in this encounter Care Teams Call Or Contact Centre Coach Relationship Specialty Start Date End Date Name, MD Jose [address] [place] [address] PCP - General Internal Medicine 03/17/22 Puia, Steff, PharmD [address] [place] [address] Pharmacist Internal Medicine 09/14/22 documented as of this encounter
== END 2025-01-08 06:21 | disposition home or self-care (01) ==
LOC: CF 06:20
PROVIDERS: Visit Provider Anesthesiology
DX: M51.17 Intervertebral disc disorders with radiculopathy, lumbosacral region (principal)
CPT/HCPCS: 64483; J2003; J3301; Q9967

== ENCOUNTER 2025-01-08 10:28 | Outpatient (AMB) | payer MEDICAID, SELFPAY ==
[2025-01-08 10:26] VITALS: BP 145/95; PULSE 98; RESP 16; O2SAT 99; BMI 33.4
--- NOTE | 2025-01-08 10:26 | MHC.OFFVIS ---
Vital Signs 01/08/25 10:26 01/08/25 10:50 Height 5 ft 9 in Weight 226 lb BMI 33.4 BP 145/95 H 153/98 H Blood Pressure Location Lt brachial Lt brachial Position Sitting Sitting Respiration 16 16 Pulse 98 98 Pulse Source Pulse Oximeter Pulse Oximeter Pulse Oximetry (%) 99 99 Oxygen Delivery Method Room Air Room Air Intake Visit Reasons: Bilateral L5-S1 TFESI Allergies No Known Allergies Allergy (Verified 11/30/24 10:36) PFSH Medical History Atypical chest pain Colon cancer screening Asthma High cholesterol Diabetic polyneuropathy Diabetes mellitus, type II Erectile dysfunction Surgical History Hx of colonoscopy (07/03/24) No pertinent past surgical history Family History Mother CAD (coronary artery disease) Father Diabetes Social History Household Members: None Housing: House Alcohol intake: current Alcohol intake frequency: does not drink Alcohol type: beer and hard liquor Patient Tobacco Use Status: Never used Tobacco Physical Exam Vital Signs: Last Vital Signs Pulse 98 01/08/25 10:50 Resp 16 01/08/25 10:50 BP 153/98 H 01/08/25 10:50 Pulse Ox 99 01/08/25 10:50 Oxygen Delivery Method Room Air 01/08/25 10:50 BMI result Body Mass Index 33.4 Assessment & Plan Assessment & Plan (1) Radiculopathy of lumbosacral region: Code(s): M54.17 - Radiculopathy, lumbosacral region Category: Medical Plan Transforaminal bilateral L5-S1 epidural steroid injection Informed consent was thoroughly explained to the patient before the procedure.? The patient came to the operating room.? He was positioned prone on operating table with a pillow under his abdomen.? Time-out was performed delineating correct site and side of the procedure, nature of the injection, name and date of of the patient. The lower back of the patient was prepped with ChloraPrep and draped with sterile utility towels.? C-arm was brought over the operating field and sq picture of L5 vertebra was demonstrated on the screen.? The right side was chosen as the side of the injection 1st.? Tilting machine ipsilateral to the left at the level of L5 the most prominent picture of the superior articular process of S1 pedicle was demonstrated on the screen. Lateral border of the top most portion of the superior articular process of S1 on the right projection to the skin small amount of lidocaine 1% 2 cc was injected to anesthetize the skin.? After that 5 in 22 gauge Quincke point needle was inserted through the skin wheal and was advanced toward the right L5-S1 foramina on anterior posterior , lateral and oblique views intermittently.? When tip of the needle gently touched lateral border of superior articular process of S1 on the left the needle was deviated slightly lateral and after that advanced 3 mm and deviated slightly medial. Injection of the contrast was performed demonstrating epidural spread and perineural of the contrast. No intravascular nor intrathecal spread of the contrast was noted. After that preservative-free lidocaine 1% 2 mL mixed with Kenalog 40 mg was injected into the needle. Upon completion of the injection on the right the needle was withdrawn and the procedure was repeated on the left in mirroring fashion. The patient tolerated the procedure well. No immediate complications were observed. Orders: Orders FL guidance in treatment room Today M51.36 - Other intervertebral disc degeneration, lumbar region Coding Level of Care Code Procedure Only Diagnoses Radiculopathy of lumbosacral region M54.17
[2025-01-08 10:50] VITALS: BP 153/98; PULSE 98; RESP 16; O2SAT 99
== END 2025-01-08 11:05 | disposition home or self-care (01) ==
LOC: HO.PMCPRC 10:28
PROVIDERS: Visit Provider Anesthesiology
DX: M54.17 Radiculopathy, lumbosacral region (principal)
CPT/HCPCS: 64483

== ENCOUNTER 2025-02-05 11:24 | Outpatient (AMB) | payer MEDICAID, SELFPAY ==
--- NOTE | 2025-02-05 11:25 | MHC.OFFVIS ---
Vital Signs 02/05/25 11:28 Height 5 ft 9 in Weight 207 lb BMI 30.6 BP 151/90 H Blood Pressure Location Rt brachial Position Sitting Pulse 98 Pulse Source Pulse Oximeter Pulse Oximetry (%) 100 Oxygen Delivery Method Room Air Intake Visit Reasons: S/P Bilateral L5-S1 TFESI Intake Note: Pain today 8 Quantitative Analyst Developer Required: No Accompanied by: Self / Same As Patient Allergies No Known Allergies Allergy (Verified 02/05/25 11:29) HPI Comments Details: The patient is a 49-year-old male presenting with follow up for chronic back pain following bilateral L5-S1 TFESI on 01/08/[address] Borden.He reports minimal to no pain relief from back and leg pain, with current pain levels at 8/10. Prior to TFESI injections, diagnostic lumbar medial branch blocks were performed, which did not provide any pain relief. The patient reports no improvement in leg pain, numbness, or tingling following the injections. The pain is described as constant and persistent, with no alleviation from previous interventions. During the last injection procedure, the patient experienced a sensation running down the right leg, which was transient and self-resolved the day of injection. Lumbar spine MRI noted for L5-S1 degenerative disc disease and facet arthropathy and no significant spinal canal or neural foraminal stenosis in the lumbar spine. Unfortunately, the patient has not responded to epidural steroid injections or axial lumbar medial branch blocks. The pain is exacerbated by bending forward and sitting, getting up from sitting to standing, causing significant discomfort. Previous physical therapy sessions were discontinued due to lack of improvement after seven treatments in summer. Past Procedures: 01/08/25: Bilateral L5-S1 TFESI- minimal pain relief 11/27/24: Bilateral Diagnostic L3-L4 DR L5 MBB- 0% pain relief PRIOR: The patient is a 49-year-old male presenting with chronic back pain and left foot pain and to discuss recent lumbar spine MRI results. The back pain is primarily attributed to disc degeneration and arthritis in the facet joints, as confirmed by MRI imaging. Additionally, a hemangioma at T12-L1 was noted, but the patient denies any recent back injury or accident. The patient reports that leaning backwards or standing upright exacerbates the pain, as well as his daily activities and most movements. Previous physical therapy did not provide significant relief. The patient also reports left foot pain, which has been present since last week and is causing limping. Pain is present with movements, walking and first thing in the morning but eases as he walks. The pain is located at the bottom of the foot, and the patient has been attempting home remedies such as stretching exercises, massage, and warm water soaks without relief. A possible bone spur is suspected, and an x-ray has been ordered to confirm this. He has pending Podiatry referral. - Onset: Chronic back pain with recent onset of left foot pain since last week - Quality: Back pain exacerbated by leaning backwards or standing upright; foot pain causing limping - Location: Back pain primarily in the lower back; foot pain at the bottom of the left foot - Exacerbating factors: Leaning backwards, standing upright - Relieving factors: None noted for back pain; home remedies attempted for foot pain without relief - Affect: Negative impact on mood or psychological wellbeing due to chronic pain - Analgesia: No current pain medications discussed; goal is to confirm pain source with injections - Adverse Effects: None discussed - Activities of Daily Living: Pain causing limping and affecting mobility - Aberrant Drug Related Behaviors: None discussed PRIOR: The patient is a 49-year-old male presenting with a follow-up for chronic back pain. He reports persistent pain traversing the lower back with increased severity when performing activities such as walking or turning at night. His condition shows minimal relief with prior physical therapy conducted in February 2023 through March 2023. The pain occasionally radiates to the thighs, presenting numbness during severe exacerbations. The patient also experiences diabetic peripheral neuropathy, contributing to significant bilateral foot pain characterized by swelling and burning sensations, especially at night. Previous attempts to manage the neuropathy with medications like gabapentin and pregabalin led to insufficient relief and issues like drowsiness. Reports recent penile implant for erectile dysfunction on 08/14/[address] Carlson, otherwise denies any recent cough, cold, infection, fever or any other significant changes in medical history since last office visit. - Onset and Timing: Chronic in nature - Quality and Character: Transverse band-like pain across the lower back - Primary Location: Lower back - Radiation: Occasional radiation to the thighs, experienced as numbness - Exacerbating Factors: Movement, bending, walking, lying down - Relieving Factors: None specified - Functional Impact: Affects sleep, needs movement during nocturnal pain episodes - Affect: Pain is impacting sleep and daily functionality - Analgesia: Prior use of gabapentin and pregabalin; currently experiencing pain despite prior therapies (NSAIDs, PT, duloxetine) - Adverse Effects: Drowsiness with gabapentin; ineffectiveness with pregabalin - Activities of Daily Living: Pain interferes with daily mobility and rest - Aberrant Drug Related Behaviors: None reported PRIOR 01/17/23: Patient is a pleasant 47 years old male presents today for follow up for low back pain. Patient reports he attempted physical therapy last summer but had to discontinue it due to COVID illness. Denies any recent trauma, injury or falls. Patient reports lower back pain that radiates to across his low back and into his sacral regions, worse on the left side. He continues to have significant tenderness in the projection of both sacroiliac joints and muscle spasms. Patient reports Tylenol #3 (moderate benefit in the past), Ibuprofen and tizanidine has been helpful. Occasionally pain will radiate to both lateral hips. Patient reports chronic burning, tingling and numbness pain in both his feet, worse at night due to diabetic neuropathy. Most recent A1C was 8.6 per patient. He is interested to retrial formal course of PT and establish HEP prior to interventional treatments. Denies any fever, weight loss, weakness, abdominal or groin pain, foot drop, bladder or bowel dysfunction, or saddle anesthesia. PRIOR 10/07/21 Shey Lucia BINDING NICKER: Santy returns to review response to tizandine and TENS unit. He reports partial relief with tizanidine without side effects as well as notable relief with the TENS unit. He did state he would like to attempt PT again. He previously had PT where he attended 4 sessions prior to being discharged and reported only having massage and heat performed. I will enter this referral. He will follow up after PT to review response. PRIOR: Santy is a pleasant 46 year old who male presents today to the office today with complaints of low back pain as well as bilateral lower extremity pain. He states the pain is chronic and has been progressively worsening of the past few months. He denies any inciting events for his back pain. He attributes his BLE to diabetic neuropathy. He describes a stabbing, pins and needles sensation as well as numbness and coolness of bilateral feet which radiates to the calf. His low back pain travels across the lower back without any numbness, tingling, saddle anesthesia or bowel/bladder dysfunction. He does describe a soreness throughout bilateral thighs with intermittent weakness throughout BLE. He was referred here by vascular as they could not find a vascular component contributing to his symptoms. They did send him for a lumbar spine MRI, report dictated below, which did not reveal any overt stenosis or nerve root compression. He reports pain onset was gradual, constant and rates the pain a 6-10/10. He states the pain is interfering with sleep, activities of daily living and he cannot function normally. He also notes that he can not walk around barefoot due to pain. The patient reports the pain in terms of tissue damage as stabbing, aching and throbbing. The pain is exacerbated by prolonged standing as well as transitioning from a sitting to standing positions and ambulating. He notes that can only ambulate about ten minutes before needing to rest due to pain. He has also tried topicals, NSAIDS, heat/ice and tylenol#3 with minimal effect. He is prescribed cymbalta for depression and amitriptyline as a neuromodulator, but he believes he ran out of these medications and can not recall his dosages. He has a follow up with his PCP this week to renew his medications. He has attempted physical therapy at [facility] in the past with minimal alleviation in symptoms. Denies any chiropractic manipulation, massage or acupuncture. Denies any previous back injections or surgery. [facility] Medical History Atypical chest pain Colon cancer screening Asthma High cholesterol Diabetic polyneuropathy Diabetes mellitus, type II Erectile dysfunction Surgical History Hx of colonoscopy (07/03/24) No pertinent past surgical history Family History Mother CAD (coronary artery disease) Father Diabetes Social History Household Members: None Housing: House Alcohol intake: current Alcohol intake frequency: does not drink Alcohol type: beer and hard liquor Patient Tobacco Use Status: Never used Tobacco Review of Systems Const Details: - Musculoskeletal: Reports persistent back pain and leg pain. - Neurological: Denies improvement in numbness or tingling in the legs. All systems reviewed & are unremarkable except as noted in HPI and below Physical Exam General: Appears afebrile. No acute distress. Alert and oriented. Mood and affect appropriate. Follows and participates in conversation appropriately. Respiratory effort is unlabored. No cough. Able to transition from sit to stand unassisted. Ambulates with bilaterally normal heel strike and toe off. Back/Spine/Pelvis Cervical Spine: cervical ROM normal, cervical muscular tenderness, pain with cervical ROM and No Cervical spine tenderness Thoracic/Lumbar Spine: thoracic and lumbar spine normal to inspection, Lasegue's sign negative, straight leg raise negative bilaterally, pain with thoraco-lumbar ROM, thoraco-lumbar ROM limited, No thoracic spinal tenderness and No lumbar spinal tenderness Sacroiliac joints: bilaterally (Theodore test reproduces lateral hip tightness but not low back pain) tender to palpation Results Reviewed Results Reviewed: XR LUMBOSACRAL SPINE 10/07/22 FINDINGS: The vertebral bodies and posterior elements are notable for generalized minor endplate spurring.. The disc spaces are preserved and the vertebral alignment is normal. The paraspinal soft tissues are normal. IMPRESSION: Mild degenerative disc disease as above. MR lumbar spine wo con 09/22/24 Findings: lumbar alignment is maintained. Vertebral body height is maintained. No bone marrow edema. Small round left L3 T1 and T2 hyperintense lesion on the left side of the vertebral body suggestive of hemangioma versus focal fat Distal conus appears unremarkable terminating at T12-L1. Degenerative disc disease at L5-S1 and L5-S1 facet arthropathy. Minimal disc bulges at L4-5 and L5-S1. No focal disc herniation and no significant canal or foraminal stenosis. Paraspinous musculature intact. IMPRESSION: 1.No acute findings. 2. L5-S1 degenerative disc disease and facet arthropathy. 3. No significant spinal canal or neural foraminal stenosis in the lumbar spine. Assessment & Plan Assessment & Plan (1) Lumbar degenerative disc disease: Code(s): M51.36 - Other intervertebral disc degeneration, lumbar region Category: Medical (2) Vertebrogenic low back pain: Code(s): M54.51 - Vertebrogenic low back pain Category: Medical (3) Radiculopathy of lumbosacral region: Code(s): M54.17 - Radiculopathy, lumbosacral region Category: Medical (4) Sacroiliac joint pain: Code(s): M53.3 - Sacrococcygeal disorders, not elsewhere classified Category: Medical (5) Spondylosis of lumbar spine: Code(s): M47.816 - Spondylosis without myelopathy or radiculopathy, lumbar region Category: Medical Plan Given the lack of response to previous interventions, including epidural steroid injections and lumbar medial branch blocks, further interventional pain management is not recommended. Neurosurgical consultation is considered per patient's request, although we reviewed his MRI which showed no significant spinal canal or neural foraminal stenosis in the lumbar spine. All questions and concerns have been answered and patient agreed with the treatment plan. Follow up as needed. Patient was informed and verbally consented to the use of an ambient scribe for clinic note documentation during this visit. Orders: Referrals Neuro Spine Referral M51.36 - Other intervertebral disc degeneration, lumbar region, M54.17 - Radiculopathy, lumbosacral region, M54.51 - Vertebrogenic low back pain Coding Level of Care Code Est Pt Level 3 (24966) Complex EM visit Add On G2211 Diagnoses Lumbar degenerative disc disease M51.36 Vertebrogenic low back pain M54.51 Radiculopathy of lumbosacral region M54.17 Sacroiliac joint pain M53.3 Spondylosis of lumbar spine M47.816
[2025-02-05 11:28] VITALS: BP 151/90; PULSE 98; O2SAT 100; BMI 30.6
--- OUTSIDE RECORDS SUMMARY | 2025-02-05 13:34 | XMS_ITS | Encounter Summary ---
Author Organization [email or web address] Address [address] [place] [address] [address] [place] [address] Care Team Providers Care Home Health Lpn Name Role Phone Name, Jose MOSQUERA Primary Care Provider [phone] Steff Romero PharmD Unavailable [phone] Reason for Visit * Reason Comments Med Refill Encounter Details Date Type Department Care Team ([facility] Contact Info) Description 01/17/2025 Refill [facility] [address] [place], [place] [id number] Name, MD Jose [address] [place] [address] Social History Tobacco Use Types Packs/Day Years [...] Description 02/20/2025 11:30 AM EST Office Visit [facility] [address] [place] [address] Name, MD Jose [address] [place] [address] 05/06/2025 9:30 AM EST Office Visit [facility] [address] [place] [address] Shell Santos, OD [address] [place] [address] documented as of this encounter Goals Goal Patient Goal Type Associated Problems Recent Progress Patient-Stated? Author Record your blood pressure periodically (2-3x per week) Blood Pressure No Steff Romero, PharmD Blood Pressure < 140/90 Blood Pressure 118/85(2024 11:46 AM EDT) No Steff Romero, PharmD Patient will adhere to medication regimen General No Steff Romero, PharmD Hemoglobin A1c < 7 Result Component 6.2( 5 11:35 AM EDT) No Steff Romero PharmD [...] documented as of this encounter Care Teams Home Health Lpn Relationship Specialty Start Date End Date Name, MD Jose [address] [place] [address] PCP - General Internal Medicine 03/17/22 Steff Romero PharmD [address] [place] [address] Pharmacist Internal Medicine 09/14/22 documented as of this encounter
--- OUTSIDE RECORDS SUMMARY | 2025-02-05 13:34 | XMS_ITS | Encounter Summary ---
Author Organization [employer] Address [address] [place] [address] [address] [place] [address] Care Team Providers Care Drug Safety Assistant Name Role Phone Name, Jose MOSQUERA Primary Care Provider [phone] Steff Romero PharmD Unavailable [phone] Reason for Visit * Reason Comments Med Refill Encounter Details Date Type Department Care Team (Late Contact Info) Description 12/02/2022 Refill [facility] [address] [place] [address] Gita Joshi FNP Gastroesophageal reflux disease without [...] Upcoming Encounters Date Type Department Care Team ([facility] Contact Info) Description 02/20/2025 11:30 AM EST Office Visit [facility] [address] [place], [place] [phone] Name, MD Jose [address] [place] [address] 05/06/2025 9:30 AM EST Office Visit [facility] [address] [place] [address] Shell Santos, OD [address] [place] [address] documented as of this encounter Goals Goal [...] reflux documented in this encounter Care Teams Drug Safety Assistant Relationship Specialty Start Date End Date Name, MD Jose [address] [place] [address] PCP - General Internal Medicine 03/17/22 Puia, Steff, PharmD [address] [place] [address] Pharmacist Internal Medicine 09/14/22 documented as of this encounter
--- OUTSIDE RECORDS SUMMARY | 2025-02-05 13:34 | XMS_ITS | Clinical Summary ---
Author Organization [employer] Address [address] [place] [address] [address] [place] [address] Care Team Providers Care Community Relations Police Lieutenant Name Role Phone Name, Jose MOSQUERA Primary Care Provider Steff Romero PharmD Unavailable [phone] Allergies No known active allergies Medications [...] 28 capsule 023 Active Continuous Blood Gluc Autistic Teacher (FreeStyle Deven 2 [place]) deviceIndicatio ns:Type 2 diabetes mellitus with hyperglycemia, [...] TIMES DAILY 100 each 11 024 Active glucose blood (FreeStyle Precision Carter Test) test stripIndication s:Type 2 diabetes mellitus with diabetic polyneuropathy, with long-term current use of insulin (HCC) USE DIRECTED TO TEST BLOOD SUGAR THREE TIMES DAILY DIRECTED 50 strip Active Tirzepatide (Mounjaro) 7.5 MG/0.5ML solution auto-injectorIn dications:Type 2 diabetes mellitus with diabetic polyneuropathy, with long-term current use of insulin ([facility]) Inject 7.5 mg under the skin 1 (one) time per week. 2 mL 2025 Active Jardiance 25 MGIndications:T ype 2 diabetes mellitus with diabetic polyneuropathy, with long-term current use of insulin ([facility]) TAKE 1 TABLET BY MOUTH EVERY MORNING 30 tablet Active cetirizine (ZyrTEC) 10 MG tabletIndicatio ns:Type 2 diabetes mellitus with other specified complication, without long-term current use of insulin ([facility]) TAKE 1 TABLET BY MOUTH EVERY MORNING 90 tablet Active atorvastatin (Lipitor) 40 MG tablet TAKE 1 TABLET BY MOUTH AT BEDTIME 90 tablet Active Continuous Glucose Sensor (FreeStyle Deven 2 Sensor) miscIndications :Type 2 diabetes mellitus with diabetic polyneuropathy, with long-term current use of insulin ([facility]) USE DIRECTED TO TEST BLOOD SUGAR CHANGE EVERY 14 DAYS 2 each Active hydroCHLOROthia zide (HYDRODiuril) 25 MG tabletIndicatio ns:Primary hypertension TAKE 1 TABLET BY MOUTH EVERY MORNING 90 tablet Active metFORMIN XR (Glucophage-XR) 500 MG 24 hr tabletIndicatio ns:Type 2 diabetes mellitus with diabetic polyneuropathy, with long-term current use of insulin ([facility]) TAKE 1 TABLET BY MOUTH TWICE DAILY IN THE MORNING AND IN THE EVENING WITH MEALS DO NOT BREAK, CRUSH, DISSOLVE OR CHEW 180 tablet Active amitriptyline (Elavil) 50 MG tablet TAKE 1 TABLET BY MOUTH AT BEDTIME 90 tablet Active Pentips Generic Pen [place] 32G X 4 MM miscIndications :Type 2 diabetes mellitus with diabetic polyneuropathy, with long-term current use of insulin ([facility]) USE DIRECTED WITH INSULIN EVERY DAY 100 each Active insulin degludec (Tresiba FlexTouch) 200 UNIT/ML injectionIndica tions:Type 2 diabetes mellitus with diabetic polyneuropathy, with long-term current use of insulin ([facility]) INJECT 64 SUBCUTANEOUSLY EVERY DAY 9 mL 5 025 Active DULoxetine (Cymbalta) [address] capsuleIndicati ons:Type 2 diabetes mellitus with other specified complication, without long-term current use of insulin ([facility]) TAKE 1 CAPSULE BY MOUTH EVERY MORNING 90 capsule 1 025 Active amLODIPine (Norvasc) 5 MG tablet Take 1 tablet (5 mg) by mouth Once per day. 30 tablet 11 025 2025 Active cholecalciferol (D3 Super Strength) [...] mouth 2 times daily. 60 tablet 11 025 2025 Active pregabalin (Lyrica) 75 MG capsule Take 1 capsule (75 mg) by mouth 3 times daily. 90 capsule 025 2025 Active lisinopril 40 MG tablet TAKE 1 TABLET BY MOUTH AT BEDTIME 90 tablet 1 Active lisinopril 40 MG tablet TAKE 1 TABLET BY MOUTH AT BEDTIME 90 tablet 1 025 2024 Discontinued Active Problems Problem Noted Date Diagnosed Date Severe major depression ([facility]) 05/05/2023 Assessment & Plan (05/05/2023 2:38 PM EST): Measurement Tools [Check all that apply and include scores] PHQ9, YISEL-7 PHQ9: 24 GAD7: 21 PLAN: (check all that apply) Behavioral Health Integration Plan Patient Self Plan Patient to utilize skills provided in intervention , Patient to reach out to [facility] as needed, and Information on [facility] CHD provided. Santy agrees to contact [facility] to schedule intake. Behavioral Health Diagnoses At this time Santy meets criteria for Visit Diagnoses: Problem List Items Addressed This Visit Other Severe major depression ([facility]) YISEL (generalized anxiety disorder) YISEL (generalized anxiety [...] organization. Date Type Department Care Team Description 01/17/2025 Refill [facility] [address] [place] [address] Name, MD Jose 01/16/2025 Refill [facility] [address] [place] [address] NameJose MD 12/20/2024 Refill [facility] [address] [place] [address] NameJose MD 12/20/2024 Telephone [facility] [address] [place] [address] Name, MD Jose 12/20/2024 Refill [facility] [address] [place] [address] NameJose MD 12/18/2024 Refill [facility] [address] [place] [address] Berenice Herndon MD Vitamin D deficiency; Gastroesophageal reflux disease without esophagitis 12/18/2024 Refill [facility] [address] [place] [address] NameJose MD Gastroesophageal reflux disease without esophagitis 11/22/2024 11:15 AM EDT Office Visit [facility] [address] [place] [address] NameJose MD Type 2 diabetes mellitus with diabetic polyneuropathy, with long-term current use of insulin ([facility]) (Primary Dx); 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 ([facility]); Chronic low back pain, unspecified back pain laterality, unspecified whether sciatica present; Depression with anxiety 11/22/2024 Travel 11/20/2024 Refill [facility] [address] [place] [phone] Name, MD Jose Type 2 diabetes mellitus with other specified complication, without long-term current use of insulin ([facility]) from Last 3 Months Immunizations Immunization [...] Description 02/20/2025 11:30 AM EST Office Visit [facility] [address] [place], [place] [phone] Name, MD Jose [address] [place] [address] 05/06/2025 9:30 AM EST Office Visit [facility] OPTOMET[facility] [address] [place] [address] Shell Santos, OD [address] [place] [address] Health Maintenance Due Date Last Done Comments [...] Additional history exists Lipid Panel 08/07/2025 08/07/2024, 06/0 06/2023, 04/08/2022, Additional history exists Eye Exam 10/31/2025 10/31/2024, 08/0 08/2024, 10/31/2024, Additional history exists Tobacco Screening [...] polyneuropathy, with long-term current use of insulin ([facility]) POCT GLUCOSE Routine 11/22/2024 11:34 AM EDT Type 2 diabetes mellitus with diabetic polyneuropathy, with long-term current use of insulin ([facility]) ALBUMIN, RANDOM URINE W/CREATININE Routine 08/07/2024 [...] 9:12 AM EDT) Creatinine, Urine 91.71 mg/dL [facility] Microalbumin Urine 7.0 mg/L [facility] Microalbum Creatinine Ratio Ur 7.6 <30 ug/mg cr [facility] Comment:Albumin/Creatinine R atio Reference Ranges: Normal: < 30 ug/mg creatinine Microalbuminuria: 30 - 300 ug/mg creatinineClinical Albuminuria: > 300 ug/mg creatinine Urine (Urine, Random) 08/07/2024 9:12 AM EDT 08/07/2024 11:22 AM EDT us Jose Name MD LAB URINE ORDERABLES Final Resul t [facility] [address] [place] [phone] * Lipid Panel, Standard (08/07/2024 9:12 AM EDT) Triglycerides 106 <150 mg/dL [facility] Comment:Desirable Triglyceri de: less than 150 mg/dLBorderline High Triglyceride 150-199 mg/dLHigh Triglyceride: 200-499 mg/dLVery High Triglyceride: greater than or equal to 5OO mg/dL Cholesterol 103 <200 mg/dL [facility] Comment:Desirable Cholestero l: less than 200 mg/dLBorderline High Cholesterol: 200-239 mg/dLHigh Cholesterol: greater than 239 mg/dL LDL Cholesterol Calculated 33 <100 mg/dL [facility] Comment:Desirable LDL: less than 100 mg/dLNear Optimal/Above Optimal LDL: 110- 129 mg/dLBorderline High LDL: 130-159 mg/dLHigh LDL: 160-189 mg/dLVery High LDL: greater than or equal to 190 mg/dL HDL Cholesterol 49 >40 mg/dL [facility] Comment:Desirable HDL: great er than 40 mg/dL Note: This HDL assay may give artificially low results in patients with liver disease. Blood Venous blood specimen / Unknown 08/07/2024 9:12 AM EDT 08/07/2024 11:23 AM EDT us Jose Lewis MD LAB BLOOD ORDERABLES Final Resul t Performing Organization Address City/[facility]/ZIP Co de Phone Number [facility] [address] [place] [phone] * Colonoscopy (07/03/2024) Colonoscopy Normal Normal Comment:Harold[facility] at [facility], sub optima prep, no polyps, repeat in 5 years 07/03/2024 [facility] Provider HEALTH MAINTENANCE Final Result * HIV-1/2 Antigen and Antibodies, Fourth Generation, with Reflexes (08/30/2023 10:51 AM EDT) HIV AB/AG Nonreactive Nonreactive [facility] Comment:HIV-1 p24 Ag and/or HIV-1/HIV-2 Ab not detected.A test result that is nonreactive does not exclude thepossibility of exposure to or infection with HIV-1 and/orHIV-2. Nonreactive results in this assay for individualswith prior exposure to HIV-1 and/or HIV-2 may be due toantigen and antibody levels that are below the limit ofdetection of this assay.The [employer] HIV Ag/Ab Combo assay result andsupplemental assay results should be interpreted inconjunction with the patient's clinical presentation,history and other laboratory results. If the results areinconsistent with clinical evidence, additional testing issuggested to confirm the result. Blood Venous blood specimen / Unknown 08/30/2023 10:51 AM EDT 08/30/2023 12:01 PM EDT us Jose Lewis MD LAB BLOOD ORDERABLES Final Resul t Performing Organization Address City/[facility]/ZIP Co de Phone Number [facility] [address] [place] [phone] * HEPATITIS C AB W/REFL TO HCV RNA, QN, PCR (07/23/2020 3:34 PM EDT) HEPATITIS C ANTIBODY NON-REACT RUPALI NON-REACT RUPALI [facility] INDEX 0.01 <1.00 [facility] Comment: HCV antibody was non-reactive. There is no laboratory evidence of HCV infection. In most cases, no further action is required. However, if recent HCV exposure is suspected, a test for HCV RNA (test code 45252) is suggested. For additional information please refer to http://education.Bownty/faq/WOO95o0 (This link is being provided for informational/ educational purposes only.) 07/23/2020 3:34 PM EDT us Historical Provider HISTORICAL/NON ORDERABLE LABS Final Result [facility] [address] from Last 3 Months or Most Recently Relevant to Health Maintenance [facility] Care Teams Community Relations Police Lieutenant Relationship Specialty Start Date End Date Name, MD Jose [address] [place] [address] PCP - General Internal Medicine 03/17/22 Steff Romero PharmD [address] [place] [address] Pharmacist Internal Medicine 09/14/22
--- OUTSIDE RECORDS SUMMARY | 2025-02-05 13:34 | XMS_ITS | Encounter Summary ---
Author Organization [employer] Address [address] [facility] [address]t [place] [address] Care Team Providers Care Travel Assistant Name Role Phone Name, Jose MOSQUERA Primary Care Provider [phone] Steff Romero PharmD Unavailable [phone] Reason for Visit * Reason Comments Med Refill Encounter Details Date Type Department Care Team ([facility] Contact Info) Description 01/30/2023 Refill [facility] [address] [place] [address] Sarah Benito FNP [address] [place], [place] [phone] Social History Tobacco Use Types Packs/Day Years [...] Description 02/20/2025 11:30 AM EST Office Visit [facility] [address] [place] [address] Name, MD Jose [address] [place] [address] 05/06/2025 9:30 AM EST Office Visit [facility] OPTOMETRY [address] [place] [address] Tom, Shell, OD [address] [place] [address] documented as of this encounter Goals Goal [...] on filedocumented in this encounter Care Teams Travel Assistant Relationship Specialty Start Date End Date Name, MD Jose [address] [place] [address] PCP - General Internal Medicine 03/17/22 Steff Romero PharmD [address] [place] [address] Pharmacist Internal Medicine 09/14/22 documented as of this encounter
== END 2025-02-05 11:44 | disposition home or self-care (01) ==
LOC: HO.PMC 11:24
PROVIDERS: Visit Provider Nurse Practitioner Family
DX: M51.369 Other intervertebral disc degeneration, lumbar region without mention of lumbar back pain or lower extremity pain (principal); M54.51 Vertebrogenic low back pain; M54.17 Radiculopathy, lumbosacral region; M53.3 Sacrococcygeal disorders, not elsewhere classified; M47.816 Spondylosis without myelopathy or radiculopathy, lumbar region
CPT/HCPCS: 99213

== ENCOUNTER → 2025-02-05 11:24 | Outpatient (BNVA) | payer MEDICAID, SELFPAY | PROVIDERS: Visit Provider Nurse Practitioner Family | DX: M47.816 Spondylosis without myelopathy or radiculopathy, lumbar region (principal); M53.3 Sacrococcygeal disorders, not elsewhere classified; M54.17 Radiculopathy, lumbosacral region; M54.51 Vertebrogenic low back pain | CPT/HCPCS: 99212 ==

== ENCOUNTER 2025-02-11 08:44 | Outpatient (AMB) | payer MEDICAID, SELFPAY ==
--- NOTE | 2025-02-11 09:05 | HO.SPINEOV ---
Intake Visit Reasons: LBP Intake Note: Mr. Tnoy Yeager is here today c/o low back pain. MRI done @ [facility]. Ship'S Captain Required: No Allergies No Known Allergies Allergy (Verified 02/05/25 11:29) Assessment & Plan Assessment & Plan (1) Lumbar degenerative disc disease: Code(s): M51.36 - Other intervertebral disc degeneration, lumbar region Category: Medical Plan Dear Nancy, Thank you for referring Mr Jimenez to our office today. This is a very nice 49-year-old gentleman comes in today for evaluation of low back pain. It has been going on for quite awhile, he relates it to when he had COVID. The symptoms are primarily just in the low back, but he does have some overlapping neuropathy in his lower extremities. There is daily pain, he experiences a throughout most of the day. When he had to stop working after COVID, he states that the symptoms got worse. He has been through physical therapy but just briefly tried it for awhile. He tried the 2 injections at your office, the 2nd 1 made things worse. He has tried chiropractic. He came in today for surgical opinion. PMH: He is a diabetic, tells me his A1c is between 6 and 7, history of hypertension, neuropathy, asthma, no history of surgery. Social hx: He does not smoke, occasionally drinks, does not use any recreational drugs Medications: Please see the [employer] list Allergies: No drug allergies Physical exam: Awake alert oriented no acute distress, strength and reflexes normal, gait normal Imaging review: Lumbar MRI at [place], shows He has mild disc degeneration at L5-S1, no fractures, acute herniated disc, Modic endplate changes etc.. No misalignment. Impression: 49-year-old gentleman with a history of low back pain, who has mild disc degeneration at L5-S1, I do not think it is related to his symptoms. We commonly see this kind of degeneration in patients after the age of 40 or 50 and are normal age related wear and tear. His symptoms were aggravated once he stopped working after getting COVID. I suspect that is muscular. I encouraged him to go back to PT. Thank you for allowing us to care for your patient. The total time spent with this visit with this patient was 45 minutes reviewing history, physical exam, lumbar MRI imaging review, and implementation of treatment plan or further diagnostic testing Damon Becerra MD,PhD [facility] Coding Level of Care Code New Pt Level 4 (80580) Diagnoses Lumbar degenerative disc disease M51.36
== END 2025-02-11 09:31 | disposition home or self-care (01) ==
LOC: HO.HNS 08:44
PROVIDERS: Referring Provider Nurse Practitioner Family; Visit Provider Physician Assistant
DX: M51.369 Other intervertebral disc degeneration, lumbar region without mention of lumbar back pain or lower extremity pain (principal)
CPT/HCPCS: 99204

== ENCOUNTER → 2025-02-11 08:44 | Outpatient (BNVA) | payer MEDICAID, SELFPAY | PROVIDERS: Referring Provider Nurse Practitioner Family; Visit Provider Physician Assistant | DX: M51.360 Other intervertebral disc degeneration, lumbar region with discogenic back pain only (principal) | CPT/HCPCS: 99212 ==